=== PATIENT | female | born 1950 | race Caucasian/White ===

== ENCOUNTER → 2017-07-31 | Outpatient (CLI) | payer MEDICARE ==
--- NOTE | 2017-08-01 10:01 | MM ---
Reason for exam: screening (asymptomatic). Last mammogram was performed 1 year ago. History: Patient is postmenopausal and had first child at age 32. Benign excisional biopsy of the left breast, 1989. Took estrogen for 5 years 6 months beginning at age 50. Took progesterone for 5 years 6 months beginning at age 50. Physical Findings: A clinical breast exam by your physician is recommended on an annual basis and results should be correlated with mammographic findings. MG 3D Screening Mammo W/Cad Bilateral CC and MLO view(s) were taken. Prior study comparison: July 27, 2016, bilateral MG 3d screening mammo w/cad. July 15, 2015, bilateral MG diagnostic mammo w CAD [facility]USHI. There are scattered fibroglandular densities. No significant changes when compared with prior studies. ASSESSMENT: Negative, BI-RAD 1 RECOMMENDATION: Routine screening mammogram of both breasts in 1 year.
== END | disposition home or self-care (01) ==
LOC: RADMAMWWP 09:54
PROVIDERS: ATTEND Obstetrics & Gynecology
DX: Z12.31 Encounter for screening mammogram for malignant neoplasm of breast (principal)
CPT/HCPCS: 77063; G0202

== ENCOUNTER → 2018-08-14 | Outpatient (CLI) | payer MEDICARE ==
--- NOTE | 2018-08-14 14:13 | BD ---
EXAMINATION TYPE: Axial Bone Density DATE OF EXAM: 08/14/2018 COMPARISON: NONE CLINICAL HISTORY: Height: 5 FT 6 IN Weight: 210 FRAX RISK QUESTIONS: History of Fracture in Adulthood: YES Secondary Osteoporosis: RISK FACTORS HISTORY OF: Postmenopausal woman: AGE 49 MEDICATIONS: Additional Medications: IMMATREX, PROPONLOL Additional History: EXAM MEASUREMENTS: Bone mineral densitometry was performed using the [employer] System. Bone mineral density as measured about the Lumbar spine is: ----- L1-L4(G/cm2): 1.279 T Score Values are as follows: ----- L2: -0.1 ----- L3: 0.9 ----- L4: 2.4 ----- L1-L4: 0.8 Bone mineral density has: DECREASED -1.0 % since study of: 2016 Bone mineral density about the R hip (g/cm2): 0.845 Bone mineral density about the L hip (g/cm2): 0.901 T Score values are as follows: -----R Neck: -1.4 -----L Neck: -1.0 -----R Total: -0.3 -----L Total: -0.1 Bone mineral density has: INCREASED 1.4 % since study of: 2016 mineral density has: % since study of: IMPRESSION: Osteopenia (T Score between -2.5 and -1). There is slightly increased risk of fracture and the patient may be considered for treatment. Re-Screen 2-5 years. NOTE: T-SCORE=SD OF THE YOUNG ADULT MEAN.
--- NOTE | 2018-08-15 13:36 | MM ---
Reason for exam: screening (asymptomatic). Last mammogram was performed 1 year ago. History: Patient is postmenopausal and had first child at age 32. Benign excisional biopsy of the left breast, 1989. Took estrogen for 5 years 6 months beginning at age 50. Took progesterone for 5 years 6 months beginning at age 50. Physical Findings: A clinical breast exam by your physician is recommended on an annual basis and results should be correlated with mammographic findings. MG 3D Screening Mammo W/Cad Bilateral CC and MLO view(s) were taken. Prior study comparison: July 31, 2017, bilateral MG 3d screening mammo w/cad. July 27, 2016, bilateral MG 3d screening mammo w/cad. The breast tissue is heterogeneously dense. This may lower the sensitivity of mammography. Finding: There are typically benign vascular calcifications in both breasts. There is no discrete abnormality. ASSESSMENT: Benign, BI-RAD 2 RECOMMENDATION: Routine screening mammogram of both breasts in 1 year.
== END | disposition home or self-care (01) ==
LOC: RADMAMWWP 10:13
PROVIDERS: ATTEND Family Medicine
DX: Z12.31 Encounter for screening mammogram for malignant neoplasm of breast (principal); M85.80 Other specified disorders of bone density and structure, unspecified site; Z78.0 Asymptomatic menopausal state
CPT/HCPCS: 77063; 77067; 77080

== ENCOUNTER → 2018-09-11 | Outpatient (CLI) | payer MEDICARE ==
--- NOTE | 2018-09-11 14:27 | XR ---
EXAMINATION TYPE: XR chest 2V DATE OF EXAM: 09/11/2018 COMPARISON: Prior chest x-ray February 06, 2014 HISTORY: [id number] PRE OP TECHNIQUE: Frontal and lateral views of the chest are obtained. FINDINGS: There is no focal air space opacity, pleural effusion, or pneumothorax seen. The cardiac silhouette size is within normal limits. The osseous structures are intact. IMPRESSION: No acute cardiopulmonary process. No significant change from prior.
== END | disposition home or self-care (01) ==
LOC: RADXRYALE 14:04
PROVIDERS: ATTEND Physician Assistant Medical
DX: Z01.818 Encounter for other preprocedural examination (principal); Z01.812 Encounter for preprocedural laboratory examination; Z01.811 Encounter for preprocedural respiratory examination
CPT/HCPCS: 71046

== ENCOUNTER → 2018-09-25 | Outpatient (CLI) | payer MEDICARE ==
[2018-09-25 15:27] LABS: Basophils % (A) 1 %; Eosinophils # (A) 0.1 k/uL (0-0.7); Eosinophils % (A) 3 %; HGB 12.7 gm/dL (11.4-16.0); Lymphocytes # (A) 1.5 k/uL (1.0-4.8); Lymphocytes % (A) 28 %; MCH 28.2 pg (25.0-35.0); MCHC 31.7 g/dL (31.0-37.0); MCV 89.1 fL (80.0-100.0); Mean Platelet Volume 7.6; Monocytes # (A) 0.3 k/uL (0-1.0); Monocytes % (A) 5 %; Neutrophils # (A) 3.4 k/uL (1.3-7.7); Neutrophils % (A) 61 %; Platelet Count 185 k/uL (150-450); RBC 4.49 m/uL (3.80-5.40); RDW 13.1 % (11.5-15.5); WBC 5.6 k/uL (3.8-10.6)
[2018-09-25 15:31] LABS: Anion Gap 8 mmol/L; Blood Urea Nitrogen 19 mg/dL (7-17); Calcium 10.5 mg/dL (8.4-10.2); Carbon Dioxide 27 mmol/L (22-30); Chloride 103 mmol/L (98-107); Glucose 109 mg/dL (74-99); Potassium 4.9 mmol/L (3.5-5.1); Sodium 138 mmol/L (137-145)
[2018-09-25 15:45] LABS: INR 0.9 (<1.2); Partial Thromboplastin Time 22.6 sec (22.0-30.0); Prothrombin Time 9.4 sec (9.0-12.0)
== END | disposition home or self-care (01) ==
LOC: LABPAT 14:40
PROVIDERS: ATTEND Orthopaedic Surgery Orthopaedic Surgery of the Spine
DX: Z01.812 Encounter for preprocedural laboratory examination (principal); R06.02 Shortness of breath; M48.062 Spinal stenosis, lumbar region with neurogenic claudication
CPT/HCPCS: 36415; 80048; 85025; 85610; 85730; 86850; 86900; 86901

== ENCOUNTER 2018-10-02 06:15 | Inpatient (IN) | payer MEDICARE ==
[2018-09-24 16:02] VITALS: BMI 32.8
[~2018-10-02 06:15] MED LIST: BACITRACIN 50,000 UNIT, POLYMYXIN B 500,000 UNIT in SODIUM CHLORIDE 0.9% IRRIGATIO 1,00... IRRIGATION ONE; DEXAMETHASONE SOD PHOSPHATE 10 MG/ML 1 ML VIAL IV ONE; LIDOCAINE 1% 20 ML VIAL (10MG/ML) FOR IV START INTRADERMA PRN; SCOPOLAMINE 1.5MG/72HR PATCH TRANSDERM ONE; ceFAZolin IN SWFI 2 GM/20 ML SYRINGE IVP ONE
[2018-10-02] MEDS ORDERED: LACTATED RINGERS 1,000 ML IV ONE ×4 (06:52→11:31)
[2018-10-02] MEDS: ONDANSETRON 4 MG/2 ML VIAL IVP ONE ×2 (07:07→14:28)
[2018-10-02] MEDS ORDERED: GELATIN SPONGE,ABSORB (LARGE) 1 EACH SPONGE TOPICAL ONE (07:45)
[2018-10-02] MEDS ORDERED: THROMBIN (BOVINE) 5,000 UNIT VIAL MISCELLANE ONE (07:45)
[2018-10-02] MEDS ORDERED: LIDOCAINE 0.5%-EPI 1:200,000 50 ML VIAL SQ ONE (07:45)
[2018-10-02] MEDS ORDERED: PROPOFOL 10 MG/ML 20 ML VIAL IV ONE (08:08)
[2018-10-02] MEDS ORDERED: HEPARIN SODIUM,PORCINE 10,000 UNIT/ML 1 ML VIAL ONE (08:08)
[2018-10-02] MEDS ORDERED: NEOSTIGMINE 1 MG/ML 10 ML VIAL ONE (08:08)
[2018-10-02] MEDS ORDERED: HYDROmorphone (PF) 1 MG/ML ONE (08:08)
[2018-10-02] MEDS ORDERED: LIDOCAINE 1% INJ 10MG/ML (20 ML MDV) ONE (08:08)
[2018-10-02] MEDS ORDERED: fentaNYL (PF) 50 MCG/ML 2 ML AMP ONE (08:08)
[2018-10-02] MEDS ORDERED: SUCCINYLCHOLINE CHLORIDE 100 MG/5 ML SYR IV ONE (08:08)
[2018-10-02] MEDS ORDERED: GLYCOPYRROLATE 0.2 MG/ML 2 ML VIAL ONE (08:08)
[2018-10-02] MEDS ORDERED: MIDAZOLAM 2 MG/2 ML VIAL ONE (08:08)
[2018-10-02] MEDS ORDERED: PHENYLEPHRINE-0.9% NACL SYG 1 MG/10 ML SYRINGE ONE (08:08)
[2018-10-02] MEDS ORDERED: ROCURONIUM BROMIDE 10 MG/ML 10 ML VIAL IV ONE (08:08)
[2018-10-02] MEDS ORDERED: SODIUM CHLORIDE 0.9% IRRIG 1,000 ML BTL IRRIGATION ONE (08:08)
--- NOTE | 2018-10-02 12:24 | XR ---
EXAMINATION TYPE: XR lumbar spine 2 or 3V DATE OF EXAM: 10/02/2018 CLINICAL HISTORY: minimal invasive lumbar fusion TECHNIQUE: 2 paper images submitted. COMPARISON: None. FINDINGS: Postoperative changes of lumbar fusion. Alignment appears to be near-anatomic. IMPRESSION: lumbar fusion
[2018-10-02] MEDS ORDERED: HYDROmorphone 1 MG/ML 1 ML SYRINGE IVP PRN (12:42)
[2018-10-02] MEDS ORDERED: HYDROcodone/APAP 5-325MG 1 EACH TAB PO PRN (12:42)
[2018-10-02] MEDS ORDERED: BENZOCAINE/MENTHOL LOZENG 1 EACH LOZENGE MUCOUS MEM PRN (12:42)
[2018-10-02] MEDS ORDERED: MAGNESIUM HYDROXIDE 2,400 MG/10 ML CUP PO PRN (12:42)
[2018-10-02] MEDS ORDERED: GABAPENTIN 300 MG CAP PO PRN (12:46)
[2018-10-02] MEDS ORDERED: ASPIRIN-ACET-CAFF 250-250-65MG 1 EACH TAB PO PRN (12:46)
--- NOTE | 2018-10-02 12:53 | P.OP ---
Date of Procedure: 10/02/18 Preoperative Diagnosis: Spondylolisthesis L3 4 L4 5, severe spinal stenosis L4 5, spinal stenosis L3 4, degenerative disc disease, low back pain, lower extremity radiculopathy with weakness, worse on the right and left Postoperative Diagnosis: Same Anesthesia: GETA Pathology: none sent Condition: stable Disposition: PACU Operative Findings: DESCRIPTION OF PROCEDURE(S): BRIEF OPERATIVE NOTE Preoperative Diagnosis: Spondylolisthesis L3 4 L4 5, severe spinal stenosis L4 5 , spinal stenosis L3 4, degenerative disc disease, low back pain, lower extremity radiculopathy with weakness, worse on the right and left Postoperative Diagnosis: Same Procedure: Laminectomy and decompression L3 4 L4 5 Minimally invasive Posterior lateral decompression and facet fusion L3 4 L4 5 Minimally invasive Transforaminal lumbar interbody fusion for a 360 fusion L3 4 L4 5 Discectomy for decompression L3 4 L4 5 Placement of interbody graft L3 4 L4 5 Local autogenous bone grafting Harvesting of bone marrow aspirate via the pedicles and vertebral body of L3 Use of Cell Saver Use of bone graft extenders Surgeon: Dr. Cantu Dramatic Art Teacher: Omid Christensen is present throughout the entire the case persistence during positioning, dissection, exposure, visualization, and all crucial elements of the case as well as closure. Anesthesia: General anesthesia Estimated blood loss: Approximately 725 mL with some given back through Cell Saver Complications: None apparent Components implanted: K2M minimally invasive [place] pedicle screw system with 6 screws measuring 6.5 mm in diameter to rods and 1 [place] interbody cage in 1 [place] interbody peek cage with 1 large osteo sponge and 50 mL of DBX own fibers to supplement the local autogenous and bone marrow aspirate graft Disposition: To recovery room in good stable condition. OPERATIVE INDICATIONS The patient has had long-standing issues in their lower back and lower extremities. She was having significant debility and pain in her back and her lower extremities with cautery well with findings of severe spinal stenosis L4 5 and 34 with spondylolisthesis L3 4 and L4 5 and disc degeneration. She is having worsening of her symptoms despite aggressive conservative care. The patient has been through conservative treatment. We discussed various treatment options including surgery, and the patient wishes to proceed with surgery We discussed the risk, patient's alternatives and benefits of surgery including but not limited to, risk of bleeding risk of infection, risk of need for further surgery, risk of decreased, loss of motion, muscle function, malunion nonunion, hardware failure, nerve damage, paralysis, heart attack, blindness and . OPERATIVE SUMMARY After discussing all the risks, patient alternatives and benefits at length, the patient elected to proceed with surgical intervention, signed informed consent, and presented for their procedure. The patient was seen and examined in the preoperative holding area and the surgical site was marked. The patient was given antibiotics and brought to the operating room. The patient was sedated and intubated by anesthesia in standard fashion. The patient was positioned on to the operating room table in a prone position on the appropriate frame which was well-padded and well molded. We were careful to pad any bony prominences and pressure points. We were careful to maintain the patient's cervical spine and good neutral alignment and position throughout. The patient was prepped and draped in a normal standard fashion. An appropriate timeout and keystone protocol performed. We were able to proceed with the surgery. The local wound area was infiltrated with local anesthetic. I was able utilize C-arm guidance to establish appropriate position over the pedicles bilaterally at the appropriate levels at L3 4 and 45 bilaterally. With the appropriate levels confirmed was able to make small stab incisions over the appropriate pedicle sites bilaterally. Utilizing C-arm in his house able to establish a Jamshidi needle over the lateral aspect of the pedicle and advanced the trocar into the pedicle being careful not to breech superiorly inferiorly medially or laterally. Position was confirmed regularly with AP and lateral images on C-arm. This was confirmed on one C-arm machine. I was able to establish the trocar into the pedicle appropriately into the posterior aspect of the vertebral body bilaterally at the appropriate levels. This was done at each of the pedicle positions and each of the vertebrae. I was able place the guidewire into the trocar and into the vertebral body appropriately under C-arm guidance. Dissection was taken down over the wire to the appropriate starting position for the screw placed. The appropriate length screw was chosen, threaded over the guidewire and screwed appropriately into the pedicle and vertebral body under C-arm guidance in excellent alignment and position with good bony purchase. This is done at each of the screw sites at the appropriate levels. With the screws intact I extended the incision to connect the screw hole sites on the most symptomatic side on the right. I dissected down to establish access over the pars and lamina to the base of the spinous process. I was able to expose the facet joint. The capsule the facet was taken down and showed some facet arthrosis at the joint. There is severe foraminal stenosis and central stenosis which was remedied with decompression. No was made of obvious step-off and disc protrusion with the spondylolisthesis at L3 4 L4 5. I was able to use a combination of curettes and Kerrison rongeurs and a high-speed drill to take down the facet joint and do a facetectomy. Partial laminectomy was also performed. I was able get excellent foraminal decompression and central decompression with undermining across midline to perform a laminectomy centrally and contralaterally. As able get good central decompression. The ligamentum flavum was taken down to further decompress centrally and at bilateral neural foramen. I was able to expose the disc space and visualize the traversing nerve root. Note was made of some disc protrusion at the level causing further compression of the nerve root. I was able to establish a annulotomy at the appropriate level protecting soft tissue and neural structures. Note was made of some disc desiccation at the disc. I performed a complete discectomy with accommodation of curettes and rasps and scrapers. I was able get good endplate preparation at the disc space. I sized for the appropriate size interbody spacer protecting the soft tissue and neural structures. The wound was copiously irrigated and suctioned dry. There is no evidence of any dural tear or leak. I was able to pack the disc space with local autogenous bone graft as well as a small amount of bone graft which was also placed into the interbody cage itself. Protecting the soft tissue structures and neural structures I was able place the interbody cage in good alignment and good position with good fit and fill at the interbody space. His issues was confirmed with C-arm guidance. Good hemostasis maintained. There is no evidence of any dural tear or leak. The wound was irrigated and suctioned dry. With the hardware intact, intraoperative C-arm imaging was again taken which showed good alignment and position of the hardware at the appropriate levels at L3 4 and L4 5. We were then able to measure, contour and place the rods and appropriate hardware bilaterally. I was able to place capcrews, tighten them down, and torque them with the torque screwdriver appropriately. I was able to get excellent reduction of the spondylolisthesis with the placement of the rods and excellent maintained decompression. With this intact I was able to place the local autogenous bone graft with additional bone graft enhancer as necessary into the posterior lateral gutters over the decorticated transverse processes. The remainder of the bone graft was placed over the facet joint on the contralateral side after taking down the facet joint capsule. With the bone graft intact, a stable construct, and good decompression at the appropriate levels, we were able to proceed with closure. Good hemostasis was maintained. There is no evidence of dural tear or leak. The fascia was closed for a watertight closure. he subcuticular tissue was closed with absorbable suture. The wound was cleaned and dried and dressed with the appropriate dressing. The drapes were broken down. The patient was gently rolled back onto their hospital bed being careful to maintain their cervical spine and good neutral alignment and position. They were woken up by anesthesia, extubated, and brought to the recovery room in good stable condition. The patient will be admitted to the hospital for appropriate postoperative care , medical management and monitoring. We will continue to follow them closely about the postoperative course.
[2018-10-02] MEDS: HYDROmorphone 0.5 MG/0.5 ML SYRINGE IVP PRN ×4 (12:57→13:30)
[2018-10-02] MEDS: HYDROmorphone 1 MG/ML 1 ML SYRINGE IVP ONE ×2 (13:40→13:48)
[2018-10-02] MEDS: LACTATED RINGERS 1,000 ML IV SCH (14:27)
[2018-10-02] MEDS: SODIUM CHLORIDE 0.9% 1,000 ML IV SCH ×2 (14:28→20:25)
[2018-10-02] MEDS: ceFAZolin IN SWFI 2 GM/20 ML SYRINGE IVP SCH ×2 (16:23→23:21)
[2018-10-02] MEDS: HYDROmorphone 1 MG/ML 1 ML SYRINGE IVP PRN ×2 (17:05→23:19)
[2018-10-02] MEDS: ONDANSETRON 4 MG/2 ML VIAL IVP PRN (17:28)
[2018-10-02] MEDS: HYDROcodone/APAP 5-325MG 1 EACH TAB PO PRN (20:24)
[2018-10-03] MEDS: HYDROcodone/APAP 5-325MG 1 EACH TAB PO PRN ×5 (05:31→22:37)
--- NOTE | 2018-10-03 06:46 | FL ---
EXAMINATION TYPE: FL guidance operating room DATE OF EXAM: 10/02/2018 CLINICAL HISTORY: Low back pain. TECHNIQUE: Fluoroscopy. COMPARISON: None. FINDINGS: Fluoroscopic guidance was provided during minimally invasive lumbar fusion surgical proced ure performed by Dr. Cantu. A total of 1 minute 54 seconds of fluoroscopic time was utilized during the procedure and 2 spot fluoroscopic intraoperative images are acquired. Images acquired show metallic disc spacers L3-L4 and L4-L5 level. There are posterior interpedicular screws bilaterally L3-L5 levels with left-sided charito noted. IMPRESSION: As Above.
[2018-10-03 07:12] LABS: Basophils % (A) 0 %; Eosinophils % (A) 0 %; HCT 32.5 % (34.0-46.0); HGB 10.8 gm/dL (11.4-16.0); Lymphocytes # (A) 0.9 k/uL (1.0-4.8); Lymphocytes % (A) 9 %; MCH 29.6 pg (25.0-35.0); MCHC 33.3 g/dL (31.0-37.0); MCV 88.8 fL (80.0-100.0); Mean Platelet Volume 7.6; Monocytes # (A) 0.5 k/uL (0-1.0); Monocytes % (A) 5 %; Neutrophils # (A) 8.9 k/uL (1.3-7.7); Neutrophils % (A) 85 %; Platelet Count 165 k/uL (150-450); RBC 3.66 m/uL (3.80-5.40); RDW 12.9 % (11.5-15.5); WBC 10.4 k/uL (3.8-10.6)
[2018-10-03 07:24] LABS: Anion Gap 7 mmol/L; Blood Urea Nitrogen 17 mg/dL (7-17); Calcium 8.9 mg/dL (8.4-10.2); Carbon Dioxide 25 mmol/L (22-30); Chloride 101 mmol/L (98-107); Glucose 160 mg/dL (74-99); Potassium 4.3 mmol/L (3.5-5.1); Sodium 133 mmol/L (137-145)
--- NOTE | 2018-10-03 08:22 | P.PN ---
Progress Note - Text Progress Note Date: 10/03/18 Postoperative day #1 Patient is seen and examined today at bedside. The patient has some pain around the surgical site as expected. Pain is being controlled with medication. She is already up to a chair and tolerating some small amount of her oral diet Physical Exam Afebrile with stable vital signs Abdomen is soft nontender. Chest has good excursion deep and space expiration The incision site is clean dry and intact. No erythema there is no purulence. The nurse had to changed and reinforced dressing last night but it seems to be settling down this morning Extremities have not had neurologic change from prior to surgery. She has sustained dorsal flexion plantar flexion and EHL Calves and thighs were soft nontender without evidence of DVT. Assessment/Plan Postoperative day #1 status post minimally invasive decompression and fusion L3 4 L4 5 for her spondylolisthesis with stenosis and back pain and lower extremity radiculopathy. Patient is progressing as expected from the surgery. She feels that she is making improvement already and has already up with a chair. We will continue to increase the patient's mobilization with therapy. We will continue pain control with oral or IV medications. We'll continue to follow patient closely.
[2018-10-03] MEDS ORDERED: NON-FORMULARY DRUG (Vitamin B Complex [Vitamin B Complex] 1 EACH) PO SCH (09:00)
[2018-10-03] MEDS ORDERED: [UNRECOGNIZED DRUG - OTHER] PO SCH (09:00)
[2018-10-03] MEDS ORDERED: OMEGA 3 FATTY ACIDS PO SCH (09:00)
[2018-10-03] MEDS: LORATADINE 10 MG TAB PO SCH (09:03)
[2018-10-03] MEDS: MAGNESIUM OXIDE 400 MG TAB PO SCH (09:03)
[2018-10-03] MEDS: ASCORBIC ACID 500 MG TAB PO SCH (09:03)
[2018-10-03] MEDS: PROPRANOLOL LA 60 MG CAP.SA.24H PO SCH (09:03)
[2018-10-03] MEDS: MULTIVITAMINS, THERA 1 EACH TAB PO SCH (09:03)
[2018-10-03] MEDS: SENNOSIDES-DOCUSATE SODIUM 1 EACH TAB PO SCH (09:04)
[2018-10-03] MEDS: CALCIUM CARBONATE 500 MG CHEWABLE PO SCH (09:04)
--- NOTE | 2018-10-03 10:18 | P.CONS ---
History of Present Illness - Reason for Consult hyponatremia - History of Present Illness Patient is pleasant 68-year-old female with chronic low back pain admitted for laminectomy and lumbar decompression surgery of L3 4 and L4-5. Patient's x-ray underwent surgery did not pass gas yet does have bowel sounds. Patient pain is fairly well controlled. Patient doesn't have any significant major medical problems except for migraine for which she uses propranolol. Patient does have neuropathic pain for which she uses gabapentin. Patient denied any chest pain nausea vomiting abdominal pain. Review of Systems REVIEW OF SYSTEMS: CONSTITUTIONAL: No fever, no malaise, no fatigue. HEENT: No recent visual problems or hearing problems. Denied any sore throat. CARDIOVASCULAR: No chest pain, orthopnea, PND, no palpitations, no syncope. PULMONARY: No shortness of breath, no cough, no hemoptysis. GASTROINTESTINAL: No diarrhea, no nausea, no vomiting, no abdominal pain. Normoactive bowel sounds. NEUROLOGICAL: No headaches, no weakness, no numbness. HEMATOLOGICAL: Denies any bleeding or petechiae. GENITOURINARY: Denies any burning micturition, frequency, or urgency. MUSCULOSKELETAL/RHEUMATOLOGICAL: Denies any joint pain, swelling, or any muscle pain. ENDOCRINE: Denies any polyuria or polydipsia. The rest of the 14-point review of systems is negative. Past Medical History Past Medical History: Osteoarthritis (OA) Additional Past Medical History / Comment(s): abdominal pain and gas,lower back pain radiating pain rt leg, left leg numbness,migraines History of Any Multi-Drug Resistant Organisms: None Reported Past Surgical History: Appendectomy Additional Past Surgical History / Comment(s): rhinoplasty,left breast lump removed,bunnionectomies payam feet Past Anesthesia/Blood Transfusion Reactions: No Reported Reaction Additional Past Anesthesia/Blood Transfusion Reaction / Comm: no hx blood transfusion Past Psychological History: No Psychological Hx Reported Smoking Status: Never smoker Past Alcohol Use History: Occasional Past Drug Use History: None Reported - Past Family History Mother Family Medical History: Cancer Father Family Medical History: Cancer Medications and Allergies Home Medications Medication Instructions Recorded Confirmed Type Ascorbic Acid [Vitamin C] 500 mg PO DAILY 09/24/18 10/02/18 History Aspirin/Acetaminophen/Caffeine 1 tab PO DAILY PRN 09/24/18 10/02/18 History [Excedrin Migraine Caplet] Calcium Carbonate [Calcium] 1,200 mg PO DAILY 09/24/18 10/02/18 History Cetirizine HCl [Zyrtec] 10 mg PO DAILY 09/24/18 10/02/18 History Cinnamon Bark [Cinnamon] 500 mg PO DAILY 09/24/18 10/02/18 History Gabapentin [Neurontin] 300 mg PO TID PRN 09/24/18 10/02/18 History Ibuprofen 800 mg PO Q8H PRN 09/24/18 10/02/18 History Magnesium 250 mg PO DAILY 09/24/18 10/02/18 History Multivitamins, Thera [Multivitamin 1 tab PO DAILY 09/24/18 10/02/18 History (formulary)] Naproxen Sodium 220 mg PO BID PRN 09/24/18 10/02/18 History [place]-3 Fatty Acids/Fish Oil [Fish 1 cap PO DAILY 09/24/18 10/02/18 History Oil 1,000 mg Softgel] Potassium Supplement 1 tab PO DAILY 09/24/18 10/02/18 History Propranolol HCl [Propranolol HCl 60 mg PO QAM 09/24/18 10/02/18 History ER] Red Yeast Rice 1,200 mg PO DAILY 09/24/18 10/02/18 History Vitamin B Complex 1 cap PO DAILY 09/24/18 10/02/18 History Allergies Allergy/AdvReac Type Severity Reaction Status Date / Time No Known Allergies Allergy Verified 10/02/18 13:35 Physical Exam Vitals: Vital Signs Temp Pulse Resp BP Pulse Ox 10/03/18 08:59 104/65 10/03/18 07:00 98.9 F 86 12 90/49 92 L 10/02/18 23:00 98.0 F 83 16 122/77 94 L 10/02/18 19:40 98.2 F 80 16 119/78 93 L 10/02/18 16:00 70 15 137/80 91 L 10/02/18 15:45 62 15 124/77 91 L 10/02/18 15:30 60 15 131/78 91 L 10/02/18 15:15 78 15 132/83 94 L 10/02/18 15:00 70 15 149/84 90 L 10/02/18 14:45 64 15 121/80 91 L 10/02/18 14:30 74 15 133/83 91 L 10/02/18 14:15 72 15 129/85 90 L 10/02/18 14:00 98 F 74 15 124/77 92 L 10/02/18 13:45 74 12 129/58 98 10/02/18 13:30 70 12 135/75 98 10/02/18 13:15 67 12 133/78 100 10/02/18 13:00 71 12 131/78 98 10/02/18 12:49 96.8 F L 84 12 122/78 8 L Intake and Output 10/02/18 10/03/18 10/03/18 22:59 06:59 14:59 Output Total 625 Balance -625 Output: Urine 625 Other: Voiding Method Indwelling Catheter Weight 95 kg PHYSICAL EXAMINATION: GENERAL: The patient is alert and oriented x3, not in any acute distress. Well developed, well nourished. HEENT: Pupils are round and equally reacting to light. EOMI. No scleral icterus. No conjunctival pallor. Normocephalic, atraumatic. No pharyngeal erythema. No thyromegaly. CARDIOVASCULAR: S1 and S2 present. No murmurs, rubs, or gallops. PULMONARY: Chest is clear to auscultation, no wheezing or crackles. ABDOMEN: Soft, nontender, nondistended, normoactive bowel sounds. No palpable organomegaly. MUSCULOSKELETAL: Deferred to orthopedic surgery EXTREMITIES: No cyanosis, clubbing, or pedal edema. NEUROLOGICAL: Gross neurological examination did not reveal any focal deficits. SKIN: No rashes. Results CBC & Chem 7: 10/03/18 06:26 10/03/18 06:26 Labs: Abnormal Lab Results - Last 24 Hours (Table) 10/03/18 10/03/18 Range/Units 06:26 06:26 RBC 3.66 L (3.80-5.40) m/uL Hgb 10.8 L (11.4-16.0) gm/dL Hct 32.5 L (34.0-46.0) % Neutrophils # 8.9 H (1.3-7.7) k/uL Lymphocytes # 0.9 L (1.0-4.8) k/uL Sodium 133 L (137-145) mmol/L Glucose 160 H (74-99) mg/dL Assessment and Plan Plan: -Mild had hyponatremia: Hypervolemic hyponatremia expected to improve with IV fluids patient is an 75 mL of normal saline which will be continued -Migraine for which patient is on propranolol which will be resumed. No active headache at this time -Laminectomy and decompression surgery: DVT prophylaxis pain management as per primary service -Neuropathic pain: Resumed on gabapentin secondary to low back pain
[2018-10-03] MEDS: LACTATED RINGERS 1,000 ML IV SCH (11:03)
[2018-10-03] MEDS ORDERED: HYDROmorphone 4 MG TABLET PO PRN (12:52)
[2018-10-03] MEDS ORDERED: HYDROmorphone 2 MG TAB PO PRN (12:52)
[2018-10-03] MEDS: ONDANSETRON 4 MG/2 ML VIAL IVP PRN (19:42)
[2018-10-04] MEDS: SODIUM CHLORIDE 0.9% 1,000 ML IV SCH ×2 (00:54→05:33)
[2018-10-04] MEDS: HYDROcodone/APAP 5-325MG 1 EACH TAB PO PRN ×3 (04:26→13:25)
[2018-10-04] MEDS: LACTATED RINGERS 1,000 ML IV SCH (06:02)
[2018-10-04] MEDS: LORATADINE 10 MG TAB PO SCH (07:35)
[2018-10-04] MEDS: SENNOSIDES-DOCUSATE SODIUM 1 EACH TAB PO SCH (07:35)
[2018-10-04] MEDS: PROPRANOLOL LA 60 MG CAP.SA.24H PO SCH (07:36)
[2018-10-04 07:53] VITALS: BP 123/73; PULSE 84; RESP 18; TEMP 99.4
--- NOTE | 2018-10-04 08:01 | P.DS ---
Providers Date of admission: 10/02/18 06:15 Attending physician: Rinku Cantu Consults: 10/02/18 12:42 Consult Physician Routine Consulting Provider: Alana Blake Consult Reason/Comments: Medical management Do you want consulting provider notified?: Yes Primary care physician: [facility] Hospital Course: The patient presented on the day of admission as per her operative note. She was admitted in regards to her severe spinal stenosis with spondylolisthesis and underwent her decompression and fusion as per her operative note. She feels her legs are doing well she has some soreness at her outer thigh but is and manageable for her. Her back pain is controlled with the oral medication. She is not having any nausea and vomiting. She is tolerating her oral diet she has not yet had a bowel movement. Physical Exam The incision site is clean dry and intact. There is no erythema no drainage. There is no purulence no evidence of infection. There is no active drainage appears to be healing appropriately Abdomen soft and nontender. Chest has good excursion with deep inspiration and expiration. The patient has active and passive range of motion intact at the upper and lower extremities. There is no acute change in neurologic status. She has sustained this fracture flexion and EHL intact Hospital Course The patient has been making good progress postoperatively. They have completed the prophylactic antibiotics without any signs or symptoms of infection. The patient has been able to advance their diet, and is tolerating diet adequately. The pain was initially controlled with IV medications and is now controlled appropriately with oral medications. The patient has been able to increase their mobilization. The patient has progressed appropriately. I think they are in good stable condition for discharge today. They will be sent home with appropriate prescriptions. I answered their questions to the best of my ability in a language that they can understand and they are agreeable with the plan. They will follow up as directed in approximately 2 weeks or sooner if she is having any problems. Patient Condition at Discharge: Good Plan - Discharge Summary Discharge Rx Participant: Yes New Discharge Prescriptions: New HYDROcodone/APAP 5-325MG [[place] 5-325] 1 - 2 tab PO Q6HR PRN #56 tab PRN Reason: Pain No Action Ibuprofen 800 mg PO Q8H PRN PRN Reason: Pain Gabapentin [Neurontin] 300 mg PO TID PRN PRN Reason: Pain Aspirin/Acetaminophen/Caffeine [Excedrin Migraine Caplet] 1 tab PO DAILY PRN PRN Reason: migraines Cetirizine HCl [Zyrtec] 10 mg PO DAILY Vitamin B Complex 1 cap PO DAILY Cinnamon Bark [Cinnamon] 500 mg PO DAILY Calcium Carbonate [Calcium] 1,200 mg PO DAILY Multivitamins, Thera [Multivitamin (formulary)] 1 tab PO DAILY Ascorbic Acid [Vitamin C] 500 mg PO DAILY Red Yeast Rice 1,200 mg PO DAILY [place]-3 Fatty Acids/Fish Oil [Fish Oil 1,000 mg Softgel] 1 cap PO DAILY Magnesium 250 mg PO DAILY Propranolol HCl [Propranolol HCl ER] 60 mg PO QAM Potassium Supplement 1 tab PO DAILY Naproxen Sodium 220 mg PO BID PRN PRN Reason: Pain Discharge Medication List Ascorbic Acid [Vitamin C] 500 mg PO DAILY 09/24/18 [History] Aspirin/Acetaminophen/Caffeine [Excedrin Migraine Caplet] 1 tab PO DAILY PRN [History] Calcium Carbonate [Calcium] 1,200 mg PO DAILY 09/24/18 [History] Cetirizine HCl [Zyrtec] 10 mg PO DAILY 09/24/18 [History] Cinnamon Bark [Cinnamon] 500 mg PO DAILY 09/24/18 [History] Gabapentin [Neurontin] 300 mg PO TID PRN 09/24/18 [History] Ibuprofen 800 mg PO Q8H PRN 09/24/18 [History] Magnesium 250 mg PO DAILY 09/24/18 [History] Multivitamins, Thera [Multivitamin (formulary)] 1 tab PO DAILY 09/24/18 [History ] Naproxen Sodium 220 mg PO BID PRN 09/24/18 [History] [place]-3 Fatty Acids/Fish Oil [Fish Oil 1,000 mg Softgel] 1 cap PO DAILY [History] Potassium Supplement 1 tab PO DAILY 09/24/18 [History] Propranolol HCl [Propranolol HCl ER] 60 mg PO QAM 09/24/18 [History] Red Yeast Rice 1,200 mg PO DAILY 09/24/18 [History] Vitamin B Complex 1 cap PO DAILY 09/24/18 [History] HYDROcodone/APAP 5-325MG [[place] 5-325] 1 - 2 tab PO Q6HR PRN #56 tab 10/04/18 [ Rx] Follow up Appointment(s)/Referral(s): Rinku Cantu DO [Doctor of Osteopathic Medicine] - 2 Weeks Discharge Disposition: HOME SELF-CARE
--- NOTE | 2018-10-04 11:31 | P.PN ---
Subjective 68-year-old postoperative day 2 clinically doing well did pass gas did not move her bowel yet patient is being discharged today. Patient will use over-the- counter medications for constipation. Patient is medically stable to be discharged no changes in medications are being made discharge medications are being reconciled Constitutional: Denied any fatigue denied any fever. Cardio vascular: denied any chest pain, palpitations Gastrointestinal denied any nausea vomiting Pulmonary: Denied any shortness of breath cough Neurologic denied any new focal deficits All inpatient medications were reviewed and appropriate changes in these medications as dictated in the interval history and assessment and plan. Objective - Vital Signs Vital signs: Vital Signs Temp 99.4 F 10/04/18 07:00 Pulse 84 10/04/18 07:00 Resp 18 10/04/18 08:00 BP 123/73 10/04/18 07:00 Pulse Ox 95 10/04/18 07:00 Intake & Output 10/03/18 10/04/18 10/04/18 18:59 06:59 18:59 Intake Total 400 Output Total 500 Balance -100 Intake: Oral 400 Output: Urine 500 Other: Voiding Method Indwelling Catheter Toilet Toilet # Voids 1 - Exam PHYSICAL EXAMINATION: GENERAL: The patient is alert and oriented x3, not in any acute distress. Well developed, well nourished. HEENT: Pupils are round and equally reacting to light. EOMI. No scleral icterus. No conjunctival pallor. Normocephalic, atraumatic. No pharyngeal erythema. No thyromegaly. CARDIOVASCULAR: S1 and S2 present. No murmurs, rubs, or gallops. PULMONARY: Chest is clear to auscultation, no wheezing or crackles. ABDOMEN: Soft, nontender, nondistended, normoactive bowel sounds. No palpable organomegaly. MUSCULOSKELETAL: Deferred to orthopedic surgery EXTREMITIES: No cyanosis, clubbing, or pedal edema. NEUROLOGICAL: Gross neurological examination did not reveal any focal deficits. SKIN: No rashes. - Labs CBC & Chem 7: 10/03/18 06:26 10/03/18 06:26 Assessment and Plan Plan: -Mild had hyponatremia: Hypervolemic hyponatremia improved by now and patient was receiving IV fluids since yesterday. -Migraine for which patient is on propranolol which will be resumed. No active headache at this time -Laminectomy and decompression surgery: DVT prophylaxis pain management as per primary service -Neuropathic pain: Resumed on gabapentin secondary to low back pain
[2018-10-04] MEDS: MULTIVITAMINS, THERA 1 EACH TAB PO SCH (11:42)
[2018-10-04] MEDS: CALCIUM CARBONATE 500 MG CHEWABLE PO SCH (11:42)
[2018-10-04] MEDS: MAGNESIUM OXIDE 400 MG TAB PO SCH (11:42)
[2018-10-04] MEDS: ASCORBIC ACID 500 MG TAB PO SCH (11:42)
== END 2018-10-04 13:37 | disposition home or self-care (01) | DRG 454 ==
LOC: 2ORMAIN 06:15 → 4SSUR 13:25
PROVIDERS: ADMIT Orthopaedic Surgery Orthopaedic Surgery of the Spine; ATTEND Orthopaedic Surgery Orthopaedic Surgery of the Spine
PROC: 0SG1071 Fusion of 2 or more Lumbar Vertebral Joints with Autologous Tissue Substitute, Posterior Approach, Posterior Column, Open Approach (ICD-10-PCS; 2018-10-02)
PROC: 0ST20ZZ Resection of Lumbar Vertebral Disc, Open Approach (ICD-10-PCS; 2018-10-02)
PROC: 07DS3ZZ Extraction of Vertebral Bone Marrow, Percutaneous Approach (ICD-10-PCS; 2018-10-02)
PROC: 4A11X4G Monitoring of Peripheral Nervous Electrical Activity, Intraoperative, External Approach (ICD-10-PCS; 2018-10-02)
PROC: 30233N0 Transfusion of Autologous Red Blood Cells into Peripheral Vein, Percutaneous Approach (ICD-10-PCS; 2018-10-02)
PROC: 0SG10AJ Fusion of 2 or more Lumbar Vertebral Joints with Interbody Fusion Device, Posterior Approach, Anterior Column, Open Approach (ICD-10-PCS; principal; 2018-10-02 08:00)
DX: M43.16 Spondylolisthesis, lumbar region (principal); E87.1 Hypo-osmolality and hyponatremia; G43.909 Migraine, unspecified, not intractable, without status migrainosus; G89.29 Other chronic pain; K59.00 Constipation, unspecified; M48.061 Spinal stenosis, lumbar region without neurogenic claudication; M19.90 Unspecified osteoarthritis, unspecified site; M51.17 Intervertebral disc disorders with radiculopathy, lumbosacral region; M41.9 Scoliosis, unspecified; M47.26 Other spondylosis with radiculopathy, lumbar region; I10 Essential (primary) hypertension; E78.2 Mixed hyperlipidemia; E66.9 Obesity, unspecified; Z68.32 Body mass index [BMI] 32.0-32.9, adult; Z79.82 Long term (current) use of aspirin; Z79.899 Other long term (current) drug therapy; Z88.8 Allergy status to other drugs, medicaments and biological substances; Z90.49 Acquired absence of other specified parts of digestive tract; Z80.9 Family history of malignant neoplasm, unspecified; Z83.3 Family history of diabetes mellitus; Z82.49 Family history of ischemic heart disease and other diseases of the circulatory system
CPT/HCPCS: 72100; 80048; 85025; 86850; 86891; 86900; 86901

== ENCOUNTER → 2019-08-20 | Outpatient (CLI) | payer MEDICARE ==
--- NOTE | 2019-08-22 13:33 | MM ---
Reason for exam: screening (asymptomatic). Last mammogram was performed 1 year ago. History: Patient is postmenopausal and had first child at age 32. Benign excisional biopsy of the left breast, 1989. Took estrogen for 5 years 6 months beginning at age 50. Took progesterone for 5 years 6 months beginning at age 50. Physical Findings: A clinical breast exam by your physician is recommended on an annual basis and results should be correlated with mammographic findings. MG 3D Screening Mammo W/Cad Bilateral CC and MLO view(s) were taken. XCCL view(s) were taken of the left breast. Prior study comparison: August 14, 2018, bilateral MG 3d screening mammo w/cad. July 31, 2017, bilateral MG 3d screening mammo w/cad. There are scattered fibroglandular densities. No significant changes when compared with prior studies. ASSESSMENT: Benign, BI-RAD 2 RECOMMENDATION: Routine screening mammogram of both breasts in 1 year.
== END | disposition home or self-care (01) ==
LOC: RADMAMWWP 13:15
PROVIDERS: ATTEND Family Medicine
DX: Z12.31 Encounter for screening mammogram for malignant neoplasm of breast (principal)
CPT/HCPCS: 77063; 77067

== ENCOUNTER → 2020-10-25 | Outpatient (CLI) | payer MEDICARE ==
--- NOTE | 2020-10-25 16:38 | BD ---
EXAMINATION TYPE: Axial Bone Density DATE OF EXAM: 10/25/2020 COMPARISON: 08/14/2018 CLINICAL HISTORY: 70-year-old female postmenopausal screening Height: 5 FT 7 IN Weight: 216 FRAX RISK QUESTIONS: Alcohol (3 or more units per day): NO Family History (Parent hip fracture): NO Glucocorticoids (More than 3mos): NO (Ex: prednisone, prednisolone, methylprednisolone, dexamethasone, and hydrocortisone). History of Fracture in Adulthood: YES Secondary Osteoporosis: 1. Type 1 Diabetes: NO 2. Hyperthyroidism: NO 3. Menopause before 45: NO 4. Malnutrition: NO 5. Chronic liver disease: NO Rheumatoid Arthritis: NO Current Tobacco Use: NO RISK FACTORS HISTORY OF: Surgery to Spine/Hip(right/left)/Wrist (right/left): LUMBAR SURG When: 2018 Family History of Osteoporosis: UNSURE Active: YES Diet low in dairy products/other sources of calcium: NO Postmenopausal woman: AGE 49 Take estrogen and/or progesterone medications: TOOK HRT FROM AGE [age] Lost more than 2 inches in height since high school: NO MEDICATIONS: Additional Medications: JUST STARTED CHOLESTEROL MEDS, IMMATREX, PROPRANOLOL Additional History: EXAM MEASUREMENTS: Bone mineral densitometry was performed using the [employer] System. Bone mineral density about the R hip (g/cm2): 0.822 Bone mineral density about the L hip (g/cm2): 0.892 T Score values are as follows: -----R Neck: -1.6 -----L Neck: -1.1 -----R Total: -0.5 -----L Total: -0.1 Bone mineral density has: DECREASED -1.4 % since study of: 2017 Bone mineral density about the L Wrist (g/cm2): 0.616 T Score values are as follows: -----Dist. R+U: -2.2 -----Prox. R+U: -0.8 -----Radius total: -1.0 BASELINE FOR WRIST IMPRESSION: Osteopenia (T Score between -2.5 and -1). There is slightly increased risk of fracture and the patient may be considered for treatment. Re-Screen 2-5 years. NOTE: T-SCORE=SD OF THE YOUNG ADULT MEAN.
--- NOTE | 2020-10-27 12:05 | MM ---
Reason for exam: screening (asymptomatic). Last mammogram was performed 1 year and 2 months ago. History: Patient is postmenopausal and had first child at age 32. Benign excisional biopsy of the left breast, 1989. Took estrogen for 5 years 6 months beginning at age 50. Took progesterone for 5 years 6 months beginning at age 50. Physical Findings: A clinical breast exam by your physician is recommended on an annual basis and results should be correlated with mammographic findings. MG 3D Screening Mammo W/Cad Bilateral CC and MLO view(s) were taken. Prior study comparison: August 20, 2019, bilateral MG 3d screening mammo w/cad. August 14, 2018, bilateral MG 3d screening mammo w/cad. There are scattered fibroglandular densities. No significant changes when compared with prior studies. ASSESSMENT: Negative, BI-RAD 1 RECOMMENDATION: Routine screening mammogram of both breasts in 1 year.
== END | disposition home or self-care (01) ==
LOC: RADMAMWWP 13:38
PROVIDERS: ATTEND Family Medicine
DX: Z12.31 Encounter for screening mammogram for malignant neoplasm of breast (principal); M85.80 Other specified disorders of bone density and structure, unspecified site; Z78.0 Asymptomatic menopausal state
CPT/HCPCS: 77063; 77067; 77080

== ENCOUNTER → 2021-08-08 | Outpatient (CLI) | payer MEDICARE ==
--- NOTE | 2021-08-09 10:00 | XR ---
EXAMINATION TYPE: XR cervical spine comp DATE OF EXAM: 08/08/2021 COMPARISON: None HISTORY: 71-year-old female M546, M542 THOR PAIN, CERVICALGIA TECHNIQUE: 5 views FINDINGS: Multilevel hypertrophic facet and uncovertebral joint arthropathy. Moderate disc/endplate degenerativ e changes especially C5-C7 levels. Moderate to severe bony neural foraminal narrowing on the left at C5-C6, C6-C7, C7-T1. Moderate on th e right at C3-C4 and C4-C5. Moderate bony neuroforaminal narrowing C5-C6 and C6-C7 on the right. Mild at additional levels. Degenerative changes at the C1 dens articulation. No predental space widening. No prevertebral soft t issue swelling. Reversal of the normal cervical lordosis especially along the lower cervical spine wi th grade 1 anterolisthesis C7-T1. Normal odontoid view. IMPRESSION: 1. Moderate degenerative disc disease C5 through C7 levels as well as multilevel hypertrophic facet a nd uncovertebral joint arthropathy. 2. Degenerative grade 1 anterolisthesis at C7-T1 with reversal of the normal cervical lordosis. 3. There may be moderate to severe bony neuroforaminal narrowing within the left mid to lower cervica l spine. Moderate on the right in the mid cervical spine.
--- NOTE | 2021-08-09 10:04 | XR ---
EXAMINATION TYPE: XR thoracic spine complete DATE OF EXAM: 08/08/2021 Comparison: None Clinical History: 71-year-old female M546, M542 THOR PAIN, CERVICALGIA TECHNIQUE: 3 views Findings: 12 thoracic vertebral bodies. Moderate distention plate degenerative changes especially mid thoracic spine with accentuated thoracic kyphosis. Minimal anterior wedging of a vertebral body in the mid tho racic spine may be physiologic wedging. Facet arthropathy lower thoracic spine. Remaining vertebral b freddy heights are preserved. Alignment appears maintained. Impression: 1. Moderate disc/endplate degenerative changes especially mid thoracic spine with accentuated kyphosi s here. Facet arthropathy lower thoracic spine. 2. Minimal anterior wedging of a midthoracic vertebral body, probably physiologic wedging. An age ind eterminate minimal compression injury is difficult to entirely exclude.
== END | disposition home or self-care (01) ==
LOC: RADXRYALE 16:06
PROVIDERS: ATTEND Physician Assistant Medical
DX: M50.323 Other cervical disc degeneration at C6-C7 level (principal); M43.13 Spondylolisthesis, cervicothoracic region; M47.812 Spondylosis without myelopathy or radiculopathy, cervical region
CPT/HCPCS: 72050; 72072

== ENCOUNTER → 2021-10-26 | Outpatient (CLI) | payer MEDICARE ==
--- NOTE | 2021-10-28 10:40 | MM ---
Reason for exam: screening (asymptomatic). Last mammogram was performed 1 year ago. History: Patient is postmenopausal and had first child at age 32. Benign excisional biopsy of the left breast, 1989. Took estrogen for 5 years 6 months beginning at age 50. Took progesterone for 5 years 6 months beginning at age 50. Physical Findings: A clinical breast exam by your physician is recommended on an annual basis and results should be correlated with mammographic findings. MG 3D Screening Mammo W/Cad Bilateral CC and MLO view(s) were taken. Prior study comparison: October 25, 2020, bilateral MG 3d screening mammo w/cad. August 20, 2019, bilateral MG 3d screening mammo w/cad. The breast tissue is heterogeneously dense. This may lower the sensitivity of mammography. There is no discrete abnormality. No significant changes when compared with prior studies. ASSESSMENT: Benign, BI-RAD 2 RECOMMENDATION: Routine screening mammogram of both breasts in 1 year.
== END | disposition home or self-care (01) ==
LOC: RADMAMWWP 15:00
PROVIDERS: ATTEND Obstetrics & Gynecology
DX: Z12.31 Encounter for screening mammogram for malignant neoplasm of breast (principal); Z78.0 Asymptomatic menopausal state
CPT/HCPCS: 77063; 77067

== ENCOUNTER 2022-01-19 12:22 | Day surgery (SDC) | payer MEDICARE ==
[2022-01-18 10:49] VITALS: BMI 33.6
[2022-01-19] MEDS ORDERED: ONDANSETRON 4 MG/2 ML VIAL ONE (13:21)
--- NOTE | 2022-01-19 13:22 | P.HPIHPCON ---
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 She underwent a diagnostic ureteroscopy was negative. Underwent an MRI, an MRI to appear to be possibly arising from the collecting system, IR was not able to perform a biopsy given the location. But of note the mass did shrink in size. Discussed option of a repeat ureteroscopy to assess if the mass can be visualized in the collecting system given the MRI finding. But discussed this is not consistent with transitional cell carcinoma given the shrinkage incised, and the previous negative ureteroscopy repeat. But discussed the need of tissue diagnosis, and if IR is not able to perform a biopsy and were not able to visualize a mass then we have to find with the tissue. Discussed device do see any abnormality then we'll proceed with biopsy, but if within normal limits then a biopsy cannot be performed. Discussed the risk of surgery which includes but not limited to bleeding, infection, injury to the ureter. She understood all the risk and agreed to proceed with a diagnostic right ureteroscopy Consent for Procedure: I have explained the operation/procedure to the patient, including the risks, benefits, side effects, alternative therapies (including not receiving the proposed treatment or service), the likelihood of the patient achieving his/her goals, and potential recuperation problems for the procedure/sedation/analgesia, as well as any blood products, if indicated. I also explained to the patient the risks, benefits and side effects of the alternatives, as well as the risks related to not receiving the proposed procedure, care, treatment, or services. 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, two tumors on spine, probable cancer per pt(had radiation on tumor on spine 10/2021-11/2021(10 treatments) History of Any Multi-Drug Resistant Organisms: None Reported Past Surgical History: Appendectomy, Back Surgery, Breast Surgery, Orthopedic Surgery Additional Past Surgical History / Comment(s): rhinoplasty, left breast lumpectomy, ,bunnionectomies payam feet, spinal fusion, Past Anesthesia/Blood Transfusion Reactions: No Reported Reaction Additional Past Anesthesia/Blood Transfusion Reaction / Comment(s): , Smoking Status: Never smoker - Past Family History Mother Family Medical History: Cancer, Deep Vein Thrombosis (DVT), Pulmonary Embolus Additional Family Medical History / Comment(s): cervical Father Family Medical History: Cancer Additional Family Medical History / Comment(s): prostate Medications and Allergies Home Medications Medication Instructions Recorded Confirmed Type Ascorbic Acid [Vitamin C] 500 mg PO DAILY 09/24/18 01/18/22 History Aspirin/Acetaminophen/Caffeine 1 tab PO DAILY PRN 09/24/18 01/18/22 History [Excedrin Migraine Caplet] Calcium Carbonate [Calcium] 600 mg PO DAILY 09/24/18 01/18/22 History Cetirizine HCl [Zyrtec] 10 mg PO DAILY 09/24/18 01/19/22 History Cinnamon Bark [Cinnamon] 500 mg PO DAILY 09/24/18 01/18/22 History Gabapentin [Neurontin] 300 mg PO TID PRN 09/24/18 01/19/22 History Ibuprofen 800 mg PO Q8H PRN 09/24/18 01/18/22 History Magnesium 250 mg PO DAILY 09/24/18 01/19/22 History Multivitamins, Thera [Multivitamin 1 tab PO DAILY 09/24/18 01/18/22 History (formulary)] Naproxen Sodium 220 mg PO BID PRN 09/24/18 01/18/22 History [place]-3 Fatty Acids/Fish Oil [Fish 1 cap PO DAILY 09/24/18 01/18/22 History Oil 1,000 mg Softgel] Propranolol HCl [Propranolol HCl 60 mg PO QAM 09/24/18 01/18/22 History ER] Red Yeast Rice 1,200 mg PO DAILY 09/24/18 01/18/22 History Vitamin B Complex 1 cap PO DAILY 09/24/18 01/18/22 History HYDROcodone/APAP 5-325MG [[place] 1 - 2 tab PO Q6HR PRN #56 tab 10/04/18 01/19/22 Rx 5-325] Cephalexin [Keflex] 500 mg PO TID 01/18/22 01/19/22 History Ezetimibe [Zetia] 10 mg PO DAILY 01/18/22 01/19/22 History Potassium Gluconate [Potassium 99 mg PO DAILY 01/18/22 01/19/22 History Gluconate ER] SUMAtriptan SUCCINATE [Imitrex] 100 mg PO DIRECTED PRN 01/18/22 01/19/22 History Vit C/E/Zn/Coppr/Lutein/Zeaxan 1 each PO BID 01/18/22 01/18/22 History [Preservision Areds 2 Softgel] predniSONE 10 mg PO DIRECTED 01/18/22 01/18/22 History Allergies Allergy/AdvReac Type Severity Reaction Status Date / Time No Known Allergies Allergy Verified 01/19/22 12:55 Surgical - Exam Vital Signs Temp Pulse Resp BP Pulse Ox 98.8 F 81 18 138/80 96 01/19/22 13:13 01/19/22 13:13 01/19/22 13:13 01/19/22 13:13 01/19/22 13:13 Assessment and Plan Assessment: OR for Diagnostic right Ureteroscopy
[2022-01-19] MEDS ORDERED: LACTATED RINGERS 1,000 ML IV ONE (13:32)
[2022-01-19] MEDS ORDERED: ONDANSETRON 4 MG/2 ML VIAL IVP ONE (13:33)
[2022-01-19 13:41] LABS: Glucose,Whole Blood 147 mg/dL (75-99)
[2022-01-19] MEDS ORDERED: MIDAZOLAM 2 MG/2 ML VIAL ONE (15:05)
[2022-01-19] MEDS ORDERED: LIDOCAINE 1% INJ 10MG/ML (20 ML MDV) ONE (15:05)
[2022-01-19] MEDS ORDERED: fentaNYL (PF) 50 MCG/ML 2 ML AMP ONE (15:05)
[2022-01-19] MEDS ORDERED: PHENYLEPHRINE-0.9% NACL SYG 1,000 MCG/10 ML SYRINGE ONE (15:05)
[2022-01-19] MEDS ORDERED: PROPOFOL 10 MG/ML 20 ML VIAL IV ONE (15:05)
--- NOTE | 2022-01-19 16:06 | P.OP ---
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 She underwent a diagnostic ureteroscopy was negative. Underwent an MRI, an MRI to appear to be possibly arising from the collecting system, IR was not able to perform a biopsy given the location. But of note the mass did shrink in size. Discussed option of a repeat ureteroscopy to assess if the mass can be visualized in the collecting system given the MRI finding. But discussed this is not consistent with transitional cell carcinoma given the shrinkage incised, and the previous negative ureteroscopy repeat. But discussed the need of tissue diagnosis, and if IR is not able to perform a biopsy and were not able to visualize a mass then we have to find with the tissue. Discussed device do see any abnormality then we'll proceed with biopsy, but if within normal limits then a biopsy cannot be performed. Discussed the risk of surgery which includes but not limited to bleeding, infection, injury to the ureter. She understood all the risk and agreed to proceed with a diagnostic right ureteroscopy Description of Procedure: Patient was brought to the operating room, general anesthesia was induced. She was prepped and draped so fashion a placement dorsal lithotomy position. Cystoscopy fitted with a 21-Beninese sheath was inserted per urethra, cystoscopy was performed showed no abnormality within the bladder next a sensor wire was ad vanced through the scope and up the right ureteral orifice. Next a flexible ureteroscope was advanced over the wire and into the collecting system. Renoscopy was performed which showed no abnormality within the kidney, no mucosal abnormality or masses were identified.. Renal cytology was obtained. Retrograde pyelogram was performed through the scope to ensure all calyces were evaluated. Pullback ureteroscopy was performed showed no injury to the kidney or the ureter. The bladder was emptied at the end of the case. Patient tolerated the procedure was taken to recovery in stable condition
[2022-01-19 16:12] VITALS: TEMP 96.8
--- NOTE | 2022-01-19 16:33 | FL ---
EXAMINATION TYPE: FL urography retrograde DATE OF EXAM: 01/19/2022 FLUOROSCOPY Fluoroscopy time of 14 seconds was used during retrograde urologic procedure for right renal mass. 4 image/s document/s the procedure.
[2022-01-19 16:52] VITALS: PULSE 79; RESP 18
[2022-01-19 17:26] VITALS: BP 154/90
== END 2022-01-19 17:40 | disposition home or self-care (01) ==
LOC: OR 12:22
PROVIDERS: ATTEND Urology
DX: N28.9 Disorder of kidney and ureter, unspecified (principal); E78.5 Hyperlipidemia, unspecified; D49.2 Neoplasm of unspecified behavior of bone, soft tissue, and skin; G43.909 Migraine, unspecified, not intractable, without status migrainosus; Z79.891 Long term (current) use of opiate analgesic; Z79.899 Other long term (current) drug therapy
CPT/HCPCS: 82365; 74420; 52351; C1758 ×3; J2250; J0690; J2405; J2001; J3010; J2370; J2704

== ENCOUNTER → 2022-01-26 | Outpatient (CLI) | payer MEDICARE ==
--- NOTE | 2022-01-26 16:48 | MR ---
EXAMINATION TYPE: MR thoracic spine wo/w con DATE OF EXAM: 01/26/2022 COMPARISON: 10/03/2021 [facility] HISTORY: Malignant neoplasm of the spinal cord CONTRAST: Performed utilizing 10 mL intravenous Gadavist gadolinium contrast. TECHNIQUE: Multiplanar, multiecho imaging on a 3.0 Brenda magnet is performed through the thoracic spi ne. Note is made of some kyphosis centered at approximately C5. Kyphosis is also noted within the upper t horacic spine. Vertebral body heights are preserved. Osseous signal appears normal. Spinal cord maintains normal signal through its visualized course. The low signal intensity posterior to the T1-T2 spinal cord level is not identified on the current ex am. There is mild grade 1 spondylolisthesis of T2 anterior and T3. Mild disc bulges present T3-4. Vertebral body heights are preserved. In the region of T7-8 and T8-9 there is mild disc bulging. T6-T7 endplate changes and mild anterior left paracentral thecal sac impression. Some cord contact ma y be present. No spinal canal stenosis is present. No spinal canal stenosis is evident. IMPRESSIONS: 1. Previous soft tissue thickening in the posterior spinal canal at the T2-3 level has largely resolv ed. No posterior spinal cord compression or canal narrowing is evident. Subtle residual may remain on the T1 postcontrast images at the C7 level. Monitoring can be performed.
== END | disposition home or self-care (01) ==
LOC: RADMRIMAIN 11:52
PROVIDERS: ATTEND Internal Medicine Hematology & Oncology
DX: C72.0 Malignant neoplasm of spinal cord (principal)
CPT/HCPCS: 72157; A9585

== ENCOUNTER → 2022-02-21 | Outpatient (CLI) | payer MEDICARE ==
--- NOTE | 2022-02-21 14:53 | XR ---
EXAMINATION TYPE: XR chest 2V DATE OF EXAM: 02/21/2022 COMPARISON: 09/11/2018 INDICATION: Malignant pleural effusion TECHNIQUE: Single frontal view of the chest is obtained. FINDINGS: The heart size is normal. The pulmonary vasculature is normal. No suspicious infiltrates are evident. A moderate right pleural effusion is present. Artifact from patient's clothing may be present overlying the soft tissues. IMPRESSION: 1. Moderate right pleural effusion
== END | disposition home or self-care (01) ==
LOC: RADXRYALE 14:13
PROVIDERS: ATTEND Physician Assistant Medical
DX: J90 Pleural effusion, not elsewhere classified (principal)
CPT/HCPCS: 71046

== ENCOUNTER → 2022-03-03 | Outpatient (CLI) | payer MEDICARE ==
--- NOTE | 2022-03-05 21:04 | PE ---
EXAMINATION TYPE: PET CT fusion skull to thigh DATE OF EXAM: 03/03/2022 COMPARISON: NONE HISTORY: Non-Hodgkin Lymphoma newly diagnosed. TECHNIQUE: Following the intravenous administration of 10.2 mCi of F-18 FDG, whole body images are p erformed from the skull base to the midthigh. Images are reviewed on the computer in the coronal, ax ial, and sagittal planes. Reconstructed rotating images are created on independent workstation and r eviewed on the computer. A localization and attenuation correction CT is performed in conjunction w ith the PET scan. Blood glucose level equals 104 SCAN: Initial Scan FINDINGS: Mean SUV mediastinum: 1.06 Mean SUV liver: 2.09 SKULL BASE AND NECK: No areas of abnormal hypermetabolic uptake CHEST, MEDIASTINUM, AND HILAR REGION: There is small right pleural effusion despite percutaneous pigt ail drainage catheter. Pleural effusion has abnormal hypermetabolic uptake. Areas of hypermetabolic p leural nodularity or masses are present posteriorly and laterally. There is large mass anteriorly and inferiorly measuring approximately 13.0 x 6.6 cm axial image 116 and significant local mass effect a long with invading subcutaneous tissue anterior chest wall. The max SUV is 10.66 on axial image 124. There is anterior superior mediastinal hypermetabolic mass anterior to the aorta and SVC just below r ight sternum axial image 81 measuring 5.1 x 2.7 cm, max SUV is 7.68 at this level. Hypermetabolic upt rossana right hilum and subcarinal levels are present. ABDOMEN AND PELVIS: There is hypermetabolic lymph node just anterior to the aorta just below diaphrag m axial image 129. There is larger retroperitoneal lymph node posterior to the IVC measuring 2.8 x 1. 9 cm axial image 149, max SUV is 8.83. Normal excretion is present. OSSEOUS STRUCTURES: Innumerable hypermetabolic osseous foci. For reference increased hypermetabolic u ptake at right ischial tuberosity, max SUV is 5.2 at this level. Most prominent involvement is about the pelvis. There is involvement in the bilateral shoulders and a few scattered lesions throughout th e lumbar spine. Upper cervical lesions are also present. OTHER CT: There is left-sided PICC line terminating at brachiocephalic confluence. Moderate coronary artery calcification in the LAD. Postsurgical change to the mid to lower lumbar spine. Facet arthropathy lower lumbar levels. Spleen n oted normal in size. IMPRESSION: There is evidence of lymphoma involvement above and below diaphragm with greatest involve ment in the right lung being pleural-based. Multifocal osseous involvement is noted. Further details as discussed above.
== END | disposition home or self-care (01) ==
LOC: RADPETMAIN 10:09
PROVIDERS: ATTEND Internal Medicine Hematology & Oncology
DX: C85.98 Non-Hodgkin lymphoma, unspecified, lymph nodes of multiple sites (principal); C79.51 Secondary malignant neoplasm of bone
CPT/HCPCS: 78815; A9552

== ENCOUNTER 2022-03-22 08:13 | Day surgery (SDC) | payer MEDICARE ==
[2022-03-22] MEDS ORDERED: diazePAM 5 MG TAB PO PRN (08:24)
[2022-03-22 08:56] VITALS: RESP 16; TEMP 97.4
[2022-03-22] MEDS ORDERED: METHOTREXATE SODIUM (PF) 25 MG/ML 2 ML VIAL INTRATHECA ONE (09:00)
[2022-03-22 11:20] VITALS: BP 109/54; PULSE 79
--- NOTE | 2022-03-22 16:16 | P.PCN ---
Date of Procedure: 03/22/22 Preoperative Diagnosis: NHL Postoperative Diagnosis: NHL Procedure(s) Performed: Lumbar puncture with administration of intrathecal methotrexate Estimated Blood Loss (ml): 0 IV fluids (ml): 0 Urine output (ml): 0 Pathology: other (cytology and flow cytometry) Condition: stable Disposition: same day Indications for Procedure: NHL with renal involvement Description of Procedure: Radiologist performed LP, removed 3cc of clear CSF. 12mg of preservative free methotrexate diluted with sterile NS to a volume of 2.4cc was instilled slowly over 2 minutes. The catheter was then flushed with 0.6cc of sterile, preservative free NS in a latex free syringe. Pt tolerated procedure well.
--- NOTE | 2022-03-23 06:47 | FL ---
EXAMINATION TYPE: FL guided lumbar puncture LP DATE OF EXAM: 03/22/2022 COMPARISON: PET CT March 03, 2022 HISTORY: Lymphoma. TECHNIQUE: Fluoroscopic guidance was provided during lumbar puncture procedure for subsequent intrath ecal chemotherapy performed by myself. A total of 1 minute 47 seconds of fluoroscopic time was utili zed during the procedure and 0 spot images was acquired. FINDINGS: Procedure was explained to patient. Benefits, alternatives, and risks were discussed. Informed consen t was then obtained. Patient placed in prone position on fluoroscopic table. The superior L4 level is targeted as there ap pears to be partial posterior bone resection or laminectomy near this level. Overlying skin was clean sed with Betadine. Lidocaine was used as anesthetic into the skin and deeper tissue up to area of cli nical concern. Under fluoroscopic guidance, a spinal needle was eventually passed into the spinal can al. I attempted some contrast injection to verify when I was short within the deep subcutaneous tissu e and then was able to successfully advance into spinal canal There is good return of clear CSF. Appr oximately 3 cc clear CSF was obtained as directed by oncology nurse practitioner. At this point oncology nurse practitioner gave intrathecal chemotherapy with saline flush. The needle was then withdrawn. Patient tolerated procedure well without any immediate complication. Patient was kept in the hospital for short stay after procedure and discharged home in stable and satisfactory condition. Vital signs were monitored before during and after procedure. IMPRESSION: As Above. Successful fluoroscopic assisted lumbar puncture for intrathecal chemotherapy.
== END 2022-03-22 13:16 | disposition home or self-care (01) ==
LOC: RADPROMAIN 08:13
PROVIDERS: ATTEND Internal Medicine Hematology & Oncology
DX: C85.90 Non-Hodgkin lymphoma, unspecified, unspecified site (principal)
CPT/HCPCS: 88108; 96450; J9260; Q9966; 62328

== ENCOUNTER 2022-04-06 10:10 | Inpatient (IN) | payer MEDICARE ==
[2022-04-06] MEDS ORDERED: VANCOMYCIN IV PER PHARMACY 1 EACH MISC MISCELLANE PRN (10:42)
[2022-04-06] MEDS ORDERED: CEFEPIME 2 GM in SODIUM CHLORIDE 0.9% 100 ML IVPB STA (10:59)
[2022-04-06] MEDS ORDERED: ACYCLOVIR SODIUM 800 MG in SODIUM CHLORIDE 0.9% 100 ML IV SCH (11:00)
[2022-04-06] MEDS ORDERED: VANCOMYCIN 1,500 MG in SODIUM CHLORIDE 0.9% 250 ML IVPB STA (11:02)
[2022-04-06] MEDS ORDERED: SODIUM CHLORIDE 0.9% 1,000 ML IV STA ×2 (11:06)
[2022-04-06] MEDS ORDERED: NALOXONE 0.4 MG/ML 1 ML VIAL IV PRN (11:21)
[2022-04-06 11:37] LABS: ALT 11 U/L (4-34); AST 15 U/L (14-36); African American GFR (CKD) >90 (>60 ml/min/1.73 sqM); Albumin 3.2 g/dL (3.5-5.0); Alkaline Phosphatase 57 U/L (38-126); Anion Gap 4 mmol/L; Blood Urea Nitrogen 13 mg/dL (7-17); Calcium 8.3 mg/dL (8.4-10.2); Carbon Dioxide 26 mmol/L (22-30); Chloride 104 mmol/L (98-107); Glucose 112 mg/dL (74-99); Non-African American GFR(CKD) >90 (>60 ml/min/1.73 sqM); Sodium 134 mmol/L (137-145); Total Bilirubin 1.2 mg/dL (0.2-1.3); Total Protein 5.1 g/dL (6.3-8.2)
[2022-04-06 11:50] LABS: Prothrombin Time 10.5 sec (9.0-12.0)
[2022-04-06] MEDS: CEFEPIME 2 GM in SODIUM CHLORIDE 0.9% 100 ML IVPB SCH ×2 (11:52→20:22)
[2022-04-06 11:53] LABS: Partial Thromboplastin Time 18.1 sec (22.0-30.0)
--- NOTE | 2022-04-06 12:12 | XR ---
EXAMINATION TYPE: XR chest 1V portable DATE OF EXAM: 04/06/2022 Comparison: 03/01/2022 Clinical History: 72-year-old female with fever Findings: Heart upper limits of normal in size. Mild hyperinflation. Right basilar pleural catheter is present. Small right pleural effusion with a persistent patchy right lower lung opacity without significant c hange. Left PICC tip not clearly seen beyond the expected brachiocephalic vein confluence. Slight inc reased residual atelectasis versus fluid along the minor fissure right mid lung. Impression: Right-sided pleural catheter in place. Similar small pleural effusion with adjacent patchy opacity at the right lower lung.
[2022-04-06 12:32] LABS: Amorphous Sediment,Urine Occasional /hpf; Appearance,Urine Clear (Clear); Bacteria,Urine Rare /hpf; Bilirubin,Urine Negative (Negative); Blood,Urine Trace (Negative); Color,Urine Yellow; Glucose,Urine (UA) Negative (Negative); Hyaline Casts,Urine 1 /lpf (0-2); Ketones,Urine Negative (Negative); Leukocyte Esterase,Urine Negative (Negative); Mucus,Urine Rare /hpf; Nitrite,Urine Negative (Negative); Protein,Urine Negative (Negative); RBC,Urine 10 /hpf (0-5); Specific Gravity,Urine 1.016 (1.001-1.035); Squamous Epithelial Cell,Urine <1 /hpf (0-4); WBC,Urine 2 /hpf (0-5)
[2022-04-06 13:48] LABS: Anisocytosis Slight; HCT 30.2 % (34.0-46.0); MCV 87.4 fL (80.0-100.0); Mean Platelet Volume 9.2; RBC 3.45 m/uL (3.80-5.40); RDW 18.9 % (11.5-15.5)
[2022-04-06 14:09] LABS: WBC 0.2 k/uL (3.8-10.6)
[2022-04-06 14:10] LABS: HGB 9.7 gm/dL (11.4-16.0)
--- NOTE | 2022-04-06 14:38 | ED ---
General Adult HPI - General Chief complaint: Recheck/Abnormal Lab/Rx Stated complaint: Recheck/Abnormal Labs Time Seen by Provider: 04/06/22 10:12 Source: patient, family, RN notes reviewed, old records reviewed Mode of arrival: wheelchair Limitations: no limitations - History of Present Illness Initial comments: Patient is a 72-year-old female with past medical history remarkable for lymphoma on retuxin. Was sent over from oncology over concern for neutropenic fever. Patient is found afebrile at 103F. Was given Tylenol or Motrin. Currently is febrile to 99.8. No obvious source of infection. She does have an indwelling right pleural catheter in addition to a left upper extremity PICC line. She denies any chest pain, shortness breath, abdominal pain, nausea, vomiting. There are intermittently draining the right pleural catheter. She d enies any shortness of breath. Denies any headaches. Has no other acute complaints at this time. Remainder of the labs are unremarkable. Patient will require admission. They requested that we start the patient on cefepime, vancomycin as well as acyclovir. They requested we obtain pancultures. - Related Data Home Medications Medication Instructions Recorded Confirmed Cetirizine HCl [Zyrtec] 10 mg PO DAILY 09/24/18 04/06/22 Gabapentin [Neurontin] 300 mg PO Q6H PRN 09/24/18 04/06/22 Propranolol HCl [Propranolol HCl 60 mg PO DAILY 09/24/18 04/06/22 ER] Ezetimibe [Zetia] 10 mg PO DAILY 01/18/22 04/06/22 Vit C/E/Zn/Coppr/Lutein/Zeaxan 1 cap PO DAILY 01/18/22 04/06/22 [Preservision Areds 2 Softgel] Omeprazole 20 mg PO DAILY 02/26/22 04/06/22 Zolpidem [Ambien] 10 mg PO HS PRN 02/26/22 04/06/22 Cholecalciferol [Vitamin D3 (25 50 mcg PO DAILY 03/14/22 04/06/22 Mcg = 1000 Iu)] Loratadine 10 mg PO DIRECTED 03/14/22 04/06/22 Losartan [Cozaar] 50 mg PO DAILY 03/14/22 04/06/22 OLANZapine 5 mg PO DIRECTED 03/14/22 04/06/22 Sennosides/Docusate Sodium [Senna 1 - 2 tab PO HS PRN 03/14/22 04/06/22 Plus 8.6-50 mg Tablet] predniSONE 100 mg PO DIRECTED 03/14/22 04/06/22 HYDROcodone/APAP 10-325MG [[place] 1 tab PO Q6H PRN 04/06/22 04/06/22 10-325] Ondansetron Odt [Zofran Odt] 4 mg PO Q6H PRN 04/06/22 04/06/22 fentaNYL 25MCG/HR PATCH [Duragesic 25 mcg TRANSDERM Q72H 04/06/22 04/06/22 25MCG/HR] Allergies Allergy/AdvReac Type Severity Reaction Status Date / Time No Known Allergies Allergy Verified 04/06/22 12:26 Review of Systems ROS Statement: Those systems with pertinent positive or pertinent negative responses have been documented in the HPI. Review of Systems: CONST: Denies fever EYES: Denies blurry vision ENT: Denies nasal congestion C/V: Denies Chest pain RESP: Denies shortness of breath GI: Denies abdominal pain : Denies dysuria SKIN: Denies rash. MSK: Denies joint pain. NEURO: Denies headache ROS Other: All systems not noted in ROS Statement are negative. Past Medical History Past Medical History: Cancer, Hyperlipidemia, Osteoarthritis (OA) Additional Past Medical History / Comment(s): migraines, pain under rt breast radiating to back, 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, two tumors on spine, probable cancer per pt(had radiation on tumor on spine 10/2021-11/2021(10 treatments) lymphoma History of Any Multi-Drug Resistant Organisms: None Reported Past Surgical History: Appendectomy, Back Surgery, Breast Surgery, Orthopedic Surgery Additional Past Surgical History / Comment(s): rhinoplasty, left breast lumpectomy, ,bunnionectomies payam feet, spinal fusion, Past Anesthesia/Blood Transfusion Reactions: No Reported Reaction Additional Past Anesthesia/Blood Transfusion Reaction / Comment(s): , Past Psychological History: No Psychological Hx Reported Smoking Status: Never smoker Past Alcohol Use History: None Reported Past Drug Use History: None Reported - Past Family History Mother Family Medical History: Cancer, Deep Vein Thrombosis (DVT), Pulmonary Embolus Additional Family Medical History / Comment(s): cervical Father Family Medical History: Cancer Additional Family Medical History / Comment(s): prostate General Exam - General Exam Comments Initial Comments: General: Appears in no acute distress. Borderline fever. HEAD: Normal with no signs of head trauma. EYES: PERRLA, EOMI, conjunctiva normal, no discharge. ENT: Hearing grossly intact, normal oropharynx. RESPIRATORY: Clear breath sounds bilaterally. No wheezes, rales, or rhonchi. She does have a pleural catheter in place in the right pleural space draining a yellowish fluid which is chronic per patient has been. No increased work of breathing. No hypoxia. C/V: Regular rate and rhythm. S1 and S2 auscultated, no edema, peripheral pulses 2+ and intact throughout ABD: Abd is soft, nontender, nondistended EXT: Normal range of motion, no obvious deformity SKIN: No rashes or lesions observed on exposed skin. NEURO: Alert and oriented 4. No focal deficits. Limitations: no limitations Course Vital Signs 04/06/22 10:14 Temperature 99.8 F H Pulse Rate 84 Respiratory 18 Rate Blood Pressure 95/59 O2 Sat by Pulse 97 Oximetry Medical Decision Making - Medical Decision Making Based on the patient's presentation and physical exam, I'm concerned for fever of unknown etiology and a cancer patient currently on chemotherapy. Patient was found to have a leukocytosis of 0 at the outpatient facility. We will obtain broad workup including blood cultures, PICC line cultures, pleural fluid cultures, urine cultures. Infectious labs will be obtained. She'll be started on empiric cefepime, vancomycin, acyclovir at oncology's request. Consults will be placed for patient's distillery manager, Dr. Styles, patient's oncologist Dr. Villeda, as well as infectious disease Dr. Henderson. She'll be given IV fluids as well. Patient does technically meet sepsis criteria upon presentation. She'll be given 1 L fluid as well as 130 mL per KG of fluid after that to be the necessary 30 mL per KG goal. Vital signs remained within normal limits and stable. Patient was in agreement with this plan. O2 sat is remarkable for a leukopenia of 0.2, a normocytic anemia with a hemoglobin of 9.7, a thrombocytopenia 56. Likely all secondary to the chemotherapy. Urinalysis shows no signs of UTI. Chest x-ray shows the small right-sided pleural effusion with possible right lower lobe infiltrate. Patient is receiving empiric therapy. I discussed results of the imaging and labs with her. I would like to admit her to the hospital. I did speak with the patient's imaging team who admits to some physician, Dr. Leblanc who was in agreement with this plan. Viral swab still pending at this time. - Lab Data Result diagrams: 04/06/22 11:07 04/06/22 11:05 Lab Results 04/06/22 04/06/22 04/06/22 Range/Units 11:05 11:05 11:05 WBC (3.8-10.6) k/uL RBC (3.80-5.40) m/uL Hgb (11.4-16.0) gm/dL Hct (34.0-46.0) % MCV (80.0-100.0) fL MCH (25.0-35.0) pg MCHC (31.0-37.0) g/dL RDW (11.5-15.5) % Plt Count (150-450) k/uL MPV Anisocytosis PT 10.5 (9.0-12.0) sec INR 1.0 (<1.2) APTT 18.1 L (22.0-30.0) sec Sodium 134 L (137-145) mmol/L Potassium 4.0 (3.5-5.1) mmol/L Chloride 104 (98-107) mmol/L Carbon Dioxide 26 (22-30) mmol/L Anion Gap 4 mmol/L BUN 13 (7-17) mg/dL Creatinine 0.49 L (0.52-1.04) mg/dL Est GFR (CKD-EPI)AfAm >90 (>60 ml/min/1.73 sqM) Est GFR (CKD-EPI)NonAf >90 (>60 ml/min/1.73 sqM) Glucose 112 H (74-99) mg/dL Plasma Lactic Acid Iftikhar 1.4 (0.7-2.0) mmol/L Calcium 8.3 L (8.4-10.2) mg/dL Magnesium 2.0 (1.6-2.3) mg/dL Total Bilirubin 1.2 (0.2-1.3) mg/dL AST 15 (14-36) U/L ALT 11 (4-34) U/L Alkaline Phosphatase 57 (38-126) U/L Lactate Dehydrogenase (313-618) U/L Total Protein 5.1 L (6.3-8.2) g/dL Albumin 3.2 L (3.5-5.0) g/dL 04/06/22 04/06/22 Range/Units 11:05 11:07 WBC 0.2 L* (3.8-10.6) k/uL RBC 3.45 L (3.80-5.40) m/uL Hgb 9.7 L D (11.4-16.0) gm/dL Hct 30.2 L (34.0-46.0) % MCV 87.4 (80.0-100.0) fL MCH 28.0 (25.0-35.0) pg MCHC 32.0 (31.0-37.0) g/dL RDW 18.9 H (11.5-15.5) % Plt Count 56 L D (150-450) k/uL MPV 9.2 Anisocytosis Slight PT (9.0-12.0) sec INR (<1.2) APTT (22.0-30.0) sec Sodium (137-145) mmol/L Potassium (3.5-5.1) mmol/L Chloride (98-107) mmol/L Carbon Dioxide (22-30) mmol/L Anion Gap mmol/L BUN (7-17) mg/dL Creatinine (0.52-1.04) mg/dL Est GFR (CKD-EPI)AfAm (>60 ml/min/1.73 sqM) Est GFR (CKD-EPI)NonAf (>60 ml/min/1.73 sqM) Glucose (74-99) mg/dL Plasma Lactic Acid Iftikhar (0.7-2.0) mmol/L Calcium (8.4-10.2) mg/dL Magnesium (1.6-2.3) mg/dL Total Bilirubin (0.2-1.3) mg/dL AST (14-36) U/L ALT (4-34) U/L Alkaline Phosphatase (38-126) U/L Lactate Dehydrogenase 460 (313-618) U/L Total Protein (6.3-8.2) g/dL Albumin (3.5-5.0) g/dL Disposition Clinical Impression: Neutropenic fever, Sepsis, Leukopenia, Thrombocytopenia, History of cancer, Lymphoma Disposition: ADMITTED IP TO THIS HOSP Condition: Stable Time of Disposition: 11:21
[2022-04-06] MEDS: ACYCLOVIR SODIUM 750 MG in SODIUM CHLORIDE 0.9% 250 ML IVPB SCH ×2 (14:41→20:23)
[2022-04-06 15:00] LABS: Tear Drop Cells Present
[2022-04-06] MEDS ORDERED: OLANZapine 5 MG TAB PO SCH (15:00)
[2022-04-06 15:01] LABS: Platelet Count 56 k/uL (150-450)
[2022-04-06] MEDS ORDERED: SENNOSIDES-DOCUSATE SODIUM 1 EACH TAB PO PRN (15:12)
[2022-04-06] MEDS ORDERED: HYDROcodone/APAP 10-325MG 1 EACH TAB PO PRN (15:12)
[2022-04-06] MEDS ORDERED: ZOLPIDEM 10 MG TAB PO PRN (15:12)
[2022-04-06] MEDS ORDERED: ONDANSETRON ODT 4 MG TAB PO PRN (15:12)
[2022-04-06] MEDS ORDERED: GABAPENTIN 300 MG CAP PO PRN (15:12)
[2022-04-06] MEDS ORDERED: predniSONE 50 MG TAB PO SCH (15:15)
[2022-04-06] MEDS ORDERED: LORATADINE 10 MG TAB PO SCH (15:15)
--- NOTE | 2022-04-06 15:26 | P.HPIM ---
History of Present Illness H&P Date: 04/06/22 Chief Complaint: Neutropenic Fever 72-year-old woman with medical history of lymphoma, chronic pain, recurrent pleural effusion with Pleurx catheter, migraines, osteoarthritis isn't for evaluation of low-grade fever in the setting of neutropenia. Patient was sent in by her oncologist after routine follow-up. Patient denies any localizing complaints except for sore throat, chronic chest pain near her catheter site. Apparently, during her routine visit with her oncologist today, 1 week after chemotherapy, she was noted to have low-grade fever to 100.3 in the setting of having 0 neutrophils and an absolute white blood cell count of 0.2. She denies chills, nausea, vomiting, palpitations, syncope, presyncope, cough, dyspnea, abdominal pain, constipation, diarrhea, dysuria, dyschezia, hesitancy, nocturia, numbness/weakness of extremities, new rashes, swollen lymph nodes. In the emergency room, patient's temperature was 99.8, 95/59, heart rate 84, 97% on room air. CBC shows white blood cell count 0.2, hemoglobin of 9.7, platelet count of 56. Chemistries are unremarkable. LFTs are remarkable for low protein and low albumin 5.1/30.2. UA shows trace blood, 10 red blood cells, 2 white blood cells, occasional sediment, rare bacteria, rare mucus. Covid was n egative. Group A strep was negative. Chest x-ray demonstrates right-sided pleural catheter with a small pleural effusion and adjacent patchy opacity. All Systems reviewed and pertinent positives and negatives noted in HPI, all other symptoms are negative Gen: awake, alert HEENT: normocephalic, atraumatic, good hearing acuity, moist mucous membranes, rash at the back of her throat-appearing almost vesicular Resp: good air exchange, breathing comfortably with no accessory muscle use CVS: good distal perfusion x 4, GI: soft, NTTP, ND : no SPT, no CVAT, wheeler catheter not present MSK: no pitting edema, no clubbing Neuro: non-focal, moving all extremities Psych: cooperative, euthymic mood Labs and imaging reviewed as above Assessment/plan: Neutropenic fever Pleural effusion Lymphoma -Admit to inpatient, telemetry -ID consultation -Pulmonary consultation -Oncology consultation -Pleural fluid studies: LDH, protein, glucose, culture -Group A strep culture -Blood cultures, urine culture -Vancomycin, cefepime, acyclovir Chronic pain Migraines Osteoarthritis -Home medications reviewed and reconciled Patient is full code DVT prophylaxis with enoxaparin, hold for platelets less than 50 Past Medical History Past Medical History: Cancer, Hyperlipidemia, Osteoarthritis (OA) Additional Past Medical History / Comment(s): migraines, pain under rt breast radiating to back, 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, two tumors on spine, probable cancer per pt(had radiation on tumor on spine 10/2021-11/2021(10 treatments) lymphoma History of Any Multi-Drug Resistant Organisms: None Reported Past Surgical History: Appendectomy, Back Surgery, Breast Surgery, Orthopedic Surgery Additional Past Surgical History / Comment(s): rhinoplasty, left breast lumpectomy, ,bunnionectomies payam feet, spinal fusion, Past Anesthesia/Blood Transfusion Reactions: No Reported Reaction Additional Past Anesthesia/Blood Transfusion Reaction / Comment(s): , Past Psychological History: No Psychological Hx Reported Smoking Status: Never smoker Past Alcohol Use History: None Reported Past Drug Use History: None Reported - Past Family History Mother Family Medical History: Cancer, Deep Vein Thrombosis (DVT), Pulmonary Embolus Additional Family Medical History / Comment(s): cervical Father Family Medical History: Cancer Additional Family Medical History / Comment(s): prostate Medications and Allergies Home Medications Medication Instructions Recorded Confirmed Type RX: Cetirizine HCl [Zyrtec] 10 mg PO DAILY 09/24/18 04/06/22 History RX: Gabapentin [Neurontin] 300 mg PO Q6H PRN 09/24/18 04/06/22 History RX: Propranolol HCl [Propranolol 60 mg PO DAILY 09/24/18 04/06/22 History HCl ER] RX: Ezetimibe [Zetia] 10 mg PO DAILY 01/18/22 04/06/22 History RX: Vit C/E/Zn/Coppr/Lutein/Zeaxan 1 cap PO DAILY 01/18/22 04/06/22 History [Preservision Areds 2 Softgel] RX: Omeprazole 20 mg PO DAILY 02/26/22 04/06/22 History RX: Zolpidem [Ambien] 10 mg PO HS PRN 02/26/22 04/06/22 History Cholecalciferol [Vitamin D3 (25 50 mcg PO DAILY 03/14/22 04/06/22 History Mcg = 1000 Iu)] RX: Loratadine 10 mg PO DIRECTED 03/14/22 04/06/22 History RX: Losartan [Cozaar] 50 mg PO DAILY 03/14/22 04/06/22 History RX: OLANZapine 5 mg PO DIRECTED 03/14/22 04/06/22 History RX: predniSONE 100 mg PO DIRECTED 03/14/22 04/06/22 History Sennosides/Docusate Sodium [Senna 1 - 2 tab PO HS PRN 03/14/22 04/06/22 History Plus 8.6-50 mg Tablet] HYDROcodone/APAP 10-325MG [[place] 1 tab PO Q6H PRN 04/06/22 04/06/22 History 10-325] Ondansetron Odt [Zofran Odt] 4 mg PO Q6H PRN 04/06/22 04/06/22 History fentaNYL 25MCG/HR PATCH [Duragesic 25 mcg TRANSDERM Q72H 04/06/22 04/06/22 History 25MCG/HR] Allergies Allergy/AdvReac Type Severity Reaction Status Date / Time No Known Allergies Allergy Verified 04/06/22 12:26 Physical Exam Osteopathic Statement: *. No significant issues noted on an osteopathic structural exam other than those noted in the History and Physical/Consult. Vitals: Vital Signs Temp Pulse Resp BP Pulse Ox 04/06/22 10:14 99.8 F H 84 18 95/59 97 Intake and Output 04/06/22 04/06/22 04/06/22 06:59 14:59 22:59 Other: Weight 89.358 kg Results CBC & Chem 7: 04/06/22 11:07 04/06/22 11:05 Labs: Abnormal Lab Results - Last 24 Hours (Table) 04/06/22 04/06/22 04/06/22 Range/Units 11:05 11:05 11:07 WBC 0.2 L* (3.8-10.6) k/uL RBC 3.45 L (3.80-5.40) m/uL Hgb 9.7 L D (11.4-16.0) gm/dL Hct 30.2 L (34.0-46.0) % RDW 18.9 H (11.5-15.5) % Plt Count 56 L D (150-450) k/uL APTT 18.1 L (22.0-30.0) sec Sodium 134 L (137-145) mmol/L Creatinine 0.49 L (0.52-1.04) mg/dL Glucose 112 H (74-99) mg/dL Calcium 8.3 L (8.4-10.2) mg/dL Total Protein 5.1 L (6.3-8.2) g/dL Albumin 3.2 L (3.5-5.0) g/dL Urine Blood (Negative) Urine RBC (0-5) /hpf Amorphous Sediment (None) /hpf Urine Bacteria (None) /hpf Urine Mucus (None) /hpf 04/06/22 Range/Units 11:48 WBC (3.8-10.6) k/uL RBC (3.80-5.40) m/uL Hgb (11.4-16.0) gm/dL Hct (34.0-46.0) % RDW (11.5-15.5) % Plt Count (150-450) k/uL APTT (22.0-30.0) sec Sodium (137-145) mmol/L Creatinine (0.52-1.04) mg/dL Glucose (74-99) mg/dL Calcium (8.4-10.2) mg/dL Total Protein (6.3-8.2) g/dL Albumin (3.5-5.0) g/dL Urine Blood Trace H (Negative) Urine RBC 10 H (0-5) /hpf Amorphous Sediment Occasional H (None) /hpf Urine Bacteria Rare H (None) /hpf Urine Mucus Rare H (None) /hpf Thrombosis Risk Factor Assmnt - Choose All That Apply Any of the Below Risk Factors Present?: Yes Other Risk Factors: Yes Each Risk Factor Represents 2 Points: Age 61-74 years, Malignancy Other congenital or acquired thrombophilia - If yes, enter type in comment: No Thrombosis Risk Factor Assessment Total Risk Factor Score: 4 Thrombosis Risk Factor Assessment Level: Moderate Risk
--- NOTE | 2022-04-06 15:27 | P.CNPUL ---
History of Present Illness Consult date: 04/06/22 Requesting physician: Cami Leblanc Reason for consult: other Chief complaint: Fever History of present illness: This is a 72-year-old female patient with recent diagnosis of NHL (nodular hist iocytic lymphoma), and patient was started on treatment, recently received intrathecal Methotrexate recurrent plural effusions with previous thoracentesis at [facility], and depression had a right-sided Pleurx catheter placed during her last admission to this hospital when she was admitted with recurrent right-sided pleural effusion and pleural fluid cytology was positive for atypical monoclonal B-cell population expressing CD10 consistent with 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 Patient had right-sided Pleurx catheter placed on 03/08/2022, and 1.4 L of serous fluid was removed. Patient has been draining the Pleurx catheter at home with the help of her every 48 hours, and removing on average 250 mL of yellowish colored pleural fluid. Today on 04/06/2022 she was seeing medical oncology nurse practitioner for a routine visit, and she was noted to be febrile. She denies any worsening shortness of breath, no cough, no phlegm production. She denies any burning or pressure with urination, although she does admit that her urine looked a little cloudy. She states pleural fluid in the last few days was also looking a little bit more cloudy. Chest x-ray was obtained showing right-sided pleural catheter in place, and small pleural effusion with adjacent patchy opacity at the right lower lung. On presentation patient has a low-grade fever of 99.8F, room air pulse ox is 98%, she is awake and alert, is in no acute distress. She has drained around 100 mL of yellow, pleural fluid from the right Pleurx catheter which will be sent for cultures. She is breathing comfortably. Review of Systems All systems: negative Constitutional: Denies chills, Denies fever Eyes: denies blurred vision, denies pain Ears, nose, mouth and throat: Denies headache, Denies sore throat Cardiovascular: Denies chest pain, Denies shortness of breath Respiratory: Reports dyspnea, Denies cough Gastrointestinal: Denies abdominal pain, Denies diarrhea, Denies nausea, Denies vomiting Genitourinary: Denies dysuria, Denies hematuria Musculoskeletal: Denies myalgias Integumentary: Denies pruritus, Denies rash Neurological: Denies numbness, Denies weakness Psychiatric: Denies anxiety, Denies depression Endocrine: Denies fatigue, Denies weight change Past Medical History Past Medical History: Cancer, Hyperlipidemia, Osteoarthritis (OA) Additional Past Medical History / Comment(s): migraines, pain under rt breast radiating to back, 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, two tumors on spine, probable cancer per pt(had radiation on tumor on spine 10/2021-11/2021(10 treatments) lymphoma History of Any Multi-Drug Resistant Organisms: None Reported Past Surgical History: Appendectomy, Back Surgery, Breast Surgery, Orthopedic Surgery Additional Past Surgical History / Comment(s): rhinoplasty, left breast lumpectomy, ,bunnionectomies payam feet, spinal fusion, Past Anesthesia/Blood Transfusion Reactions: No Reported Reaction Additional Past Anesthesia/Blood Transfusion Reaction / Comment(s): , Past Psychological History: No Psychological Hx Reported Smoking Status: Never smoker Past Alcohol Use History: None Reported Past Drug Use History: None Reported - Past Family History Mother Family Medical History: Cancer, Deep Vein Thrombosis (DVT), Pulmonary Embolus Additional Family Medical History / Comment(s): cervical Father Family Medical History: Cancer Additional Family Medical History / Comment(s): prostate Medications and Allergies Home Medications Medication Instructions Recorded Confirmed Type Cetirizine HCl [Zyrtec] 10 mg PO DAILY 09/24/18 04/06/22 History Gabapentin [Neurontin] 300 mg PO Q6H PRN 09/24/18 04/06/22 History Propranolol HCl [Propranolol HCl 60 mg PO DAILY 09/24/18 04/06/22 History ER] Ezetimibe [Zetia] 10 mg PO DAILY 01/18/22 04/06/22 History Vit C/E/Zn/Coppr/Lutein/Zeaxan 1 cap PO DAILY 01/18/22 04/06/22 History [Preservision Areds 2 Softgel] Omeprazole 20 mg PO DAILY 02/26/22 04/06/22 History Zolpidem [Ambien] 10 mg PO HS PRN 02/26/22 04/06/22 History Cholecalciferol [Vitamin D3 (25 50 mcg PO DAILY 03/14/22 04/06/22 History Mcg = 1000 Iu)] Loratadine 10 mg PO DIRECTED 03/14/22 04/06/22 History Losartan [Cozaar] 50 mg PO DAILY 03/14/22 04/06/22 History OLANZapine 5 mg PO DIRECTED 03/14/22 04/06/22 History Sennosides/Docusate Sodium [Senna 1 - 2 tab PO HS PRN 03/14/22 04/06/22 History Plus 8.6-50 mg Tablet] predniSONE 100 mg PO DIRECTED 03/14/22 04/06/22 History HYDROcodone/APAP 10-325MG [[place] 1 tab PO Q6H PRN 04/06/22 04/06/22 History 10-325] Ondansetron Odt [Zofran Odt] 4 mg PO Q6H PRN 04/06/22 04/06/22 History fentaNYL 25MCG/HR PATCH [Duragesic 25 mcg TRANSDERM Q72H 04/06/22 04/06/22 History 25MCG/HR] Allergies Allergy/AdvReac Type Severity Reaction Status Date / Time No Known Allergies Allergy Verified 04/06/22 12:26 Physical Exam Vitals: Vital Signs Temp Pulse Resp BP Pulse Ox 04/06/22 10:14 99.8 F H 84 18 95/59 97 Intake and Output 04/05/22 04/06/22 04/06/22 22:59 06:59 14:59 Other: Weight 89.358 kg GENERAL EXAM: Alert, very pleasant, 72-year-old white female, on room air, the pulse ox 97% resting on the gurney in the emergency department,, comfortable in no apparent distress. HEAD: Normocephalic/atraumatic. EYES: Normal reaction of pupils, equal size. Conjunctiva pink, sclera white. NOSE: Clear with pink turbinates. THROAT: No erythema or exudates. NECK: No masses, no JVD, no thyroid enlargement, no adenopathy. CHEST: No chest wall deformity. Symmetrical expansion. Right lower chest Pleurx catheter in place LUNGS: Equal air entry with no crackles, wheeze, rhonchi or dullness. CVS: Regular rate and rhythm, normal S1 and S2, no gallops, no murmurs, no rubs ABDOMEN: Soft, nontender. No hepatosplenomegaly, normal bowel sounds, no guarding or rigidity. EXTREMITIES: No clubbing, no edema, no cyanosis, 2+ pulses and upper and lower extremities. MUSCULOSKELETAL: Muscle strength and tone normal. SPINE: No scoliosis or deformity SKIN: No rashes CENTRAL NERVOUS SYSTEM: Alert and oriented -3. No focal deficits, tone is normal in all 4 extremities. PSYCHIATRIC: Alert and oriented -3. Appropriate affect. Intact judgment and insight. Results - Laboratory Findings CBC and BMP: 04/06/22 11:07 04/06/22 11:05 PT/INR, D-dimer PT 10.5 sec (9.0-12.0) 04/06/22 11:05 INR 1.0 (<1.2) 04/06/22 11:05 Abnormal lab findings: Abnormal Labs 04/06/22 04/06/22 04/06/22 11:05 11:05 11:07 WBC 0.2 L* RBC 3.45 L Hgb 9.7 L D Hct 30.2 L RDW 18.9 H Plt Count 56 L D APTT 18.1 L Sodium 134 L Creatinine 0.49 L Glucose 112 H Calcium 8.3 L Total Protein 5.1 L Albumin 3.2 L Urine Blood Urine RBC Amorphous Sediment Urine Bacteria Urine Mucus 04/06/22 11:48 WBC RBC Hgb Hct RDW Plt Count APTT Sodium Creatinine Glucose Calcium Total Protein Albumin Urine Blood Trace H Urine RBC 10 H Amorphous Sediment Occasional H Urine Bacteria Rare H Urine Mucus Rare H - Diagnostic Findings Chest x-ray: report reviewed, image reviewed Assessment and Plan Plan: Assessment: #1. Acute neutropenic fever #2. Metastatic Non-Hodgkin's lymphoma, patient currently receiving chemotherapy. PET scan from all 03/03/2022 showed evidence of lymphoma involvement in the right lung being pleural base, large right lung mass anteriorly and inferiorly and mediastinal hypermetabolic mass anterior to the aorta and SVC and hypermetabolic uptake in the right hilum and subcarinal le vels. There was multifocal hypermetabolic osseous involvement at right ischial tuberosity, bilateral shoulders, a few scattered lesions throughout the lumbar spine and upper cervical lesions #3. Recurrent malignant pleural effusion, with 2 previous thoracentesis. Status post right Pleurx catheter on all 03/01/2022. Pleural fluid cytology was positive for atypical monoclonal B-cell consistent with involvement by non- Hodgkin's B-cell lymphoma of follicle center cell origin #4. History of hyperlipidemia #5. Osteoarthritis #6. Lifetime nonsmoker #7. History of a right renal mass with recent cystoscopy, renal wash cytology was nondiagnostic #8. 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 Number of minutes spent on the visit: [15] Time with Patient: Greater than 30
[2022-04-06] MEDS: ZOLPIDEM 5 MG TAB PO PRN (21:53)
[2022-04-06 22:11] LABS: Appearance,BF Hazy
[2022-04-07] MEDS ORDERED: VANCOMYCIN 1,750 MG in SODIUM CHLORIDE 0.9% 500 ML 500 ML IVPB SCH ×2
[2022-04-07 05:26] LABS: Glucose, BF Source Pleural Fluid; Glucose, Body Fluid 126 mg/dL; LDH, Body Fluid Source Pleural Fluid; T. Protein, Body Fluid Source Pleural Fluid; Total Protein, Body Fluid 2250 mg/dL
[2022-04-07] MEDS: CEFEPIME 2 GM in SODIUM CHLORIDE 0.9% 100 ML IVPB SCH ×4 (06:27→23:47)
[2022-04-07] MEDS: ACYCLOVIR SODIUM 750 MG in SODIUM CHLORIDE 0.9% 250 ML IVPB SCH ×3 (06:28→20:48)
--- NOTE | 2022-04-07 07:02 | P.CONS ---
History of Present Illness - Reason for Consult Consult date: 04/06/22 FUO Requesting physician: Cami Leblanc - Chief Complaint Fever x 1 day - History of Present Illness Patient is a 72-year female with a past medical history sniffing for nodular histiocytic lymphoma with malignant right-sided pleural effusion in this patient did have a previous thoracocentesis done in the recent Pleurx catheter placement on 03/08/2022 patient has been draining the Pleurx catheter at home every 48 hours on an average of 250 mL of pleural fluid being drained. Patient went for her routine follow-up visit with her oncologist this morning with the patient was noticed to be febrile patient denies having any high-grade fever or chills at home before she went to the hospital however has not been feeling that good patient has been complaining of some sore throat but no difficulty swallowing patient denies having any chest pain no worsening cough or sputum production however the patient did mention that the pleural fluid has been looking more cloudy patient did have a left arm PICC line for her chemotherapy and the last chemo has been about a week ago on patient mention patient no problem with retrying from the PICC line and has no associated swelling redness or any drainage patient denies any abdominal pain denies any nausea no vomiting no diarrhea no urinary symptoms no joint swelling on arrival to the ER patient did have low-grade fever of 99.8 F patient is currently satting 97% room air, patient did have a white count of 0.2 kidney function has been normal liver enzymes are normal urine has been negative influenza and rodas PCR was negative rapid strep screen was negative as well patient did have a pleural fluid as well as blood culture sent has been empirically started on vancomycin and cefepime infectious disease was consulted for further management of antibiotic therapy Review of Systems Positive point has been mentioned in HPI, rest of the systems are negative Past Medical History Past Medical History: Cancer, Hyperlipidemia, Osteoarthritis (OA) Additional Past Medical History / Comment(s): migraines, pain under rt breast radiating to back, 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, two tumors on spine, probable cancer per pt(had radiation on tumor on spine 10/2021-11/2021(10 treatments) lymphoma History of Any Multi-Drug Resistant Organisms: None Reported Past Surgical History: Appendectomy, Back Surgery, Breast Surgery, Orthopedic Surgery Additional Past Surgical History / Comment(s): rhinoplasty, left breast lumpectomy, ,bunnionectomies payam feet, spinal fusion, Past Anesthesia/Blood Transfusion Reactions: No Reported Reaction Additional Past Anesthesia/Blood Transfusion Reaction / Comm: , Past Psychological History: No Psychological Hx Reported Smoking Status: Never smoker Past Alcohol Use History: None Reported Past Drug Use History: None Reported - Past Family History Mother Family Medical History: Cancer, Deep Vein Thrombosis (DVT), Pulmonary Embolus Additional Family Medical History / Comment(s): cervical Father Family Medical History: Cancer Additional Family Medical History / Comment(s): prostate Medications and Allergies Home Medications Medication Instructions Recorded Confirmed Type Cetirizine HCl [Zyrtec] 10 mg PO DAILY 09/24/18 04/06/22 History Gabapentin [Neurontin] 300 mg PO Q6H PRN 09/24/18 04/06/22 History Propranolol HCl [Propranolol HCl 60 mg PO DAILY 09/24/18 04/06/22 History ER] Ezetimibe [Zetia] 10 mg PO DAILY 01/18/22 04/06/22 History Vit C/E/Zn/Coppr/Lutein/Zeaxan 1 cap PO DAILY 01/18/22 04/06/22 History [Preservision Areds 2 Softgel] Omeprazole 20 mg PO DAILY 02/26/22 04/06/22 History Zolpidem [Ambien] 10 mg PO HS PRN 02/26/22 04/06/22 History Cholecalciferol [Vitamin D3 (25 50 mcg PO DAILY 03/14/22 04/06/22 History Mcg = 1000 Iu)] Loratadine 10 mg PO DIRECTED 03/14/22 04/06/22 History Losartan [Cozaar] 50 mg PO DAILY 03/14/22 04/06/22 History OLANZapine 5 mg PO DIRECTED 03/14/22 04/06/22 History Sennosides/Docusate Sodium [Senna 1 - 2 tab PO HS PRN 03/14/22 04/06/22 History Plus 8.6-50 mg Tablet] predniSONE 100 mg PO DIRECTED 03/14/22 04/06/22 History HYDROcodone/APAP 10-325MG [[place] 1 tab PO Q6H PRN 04/06/22 04/06/22 History 10-325] Ondansetron Odt [Zofran Odt] 4 mg PO Q6H PRN 04/06/22 04/06/22 History fentaNYL 25MCG/HR PATCH [Duragesic 25 mcg TRANSDERM Q72H 04/06/22 04/06/22 History 25MCG/HR] Allergies Allergy/AdvReac Type Severity Reaction Status Date / Time No Known Allergies Allergy Verified 04/06/22 12:26 Physical Exam Vitals: Vital Signs Temp Pulse Resp BP Pulse Ox 04/06/22 10:14 99.8 F H 84 18 95/59 97 Intake and Output 04/05/22 04/06/22 04/06/22 22:59 06:59 14:59 Other: Weight 89.358 kg GENERAL DESCRIPTION: Elderly female lying in bed, no distress. No tachypnea or accessory muscle of respiration use. HEENT: Shows Pallor , no scleral icterus. Oral mucous membrane is dry. Mild pharyngeal erythema no thrush NECK: Trachea central, no thyromegaly. LUNGS: Unlabored breathing. Decreased breath sound the base HEART: S1, S2, regular rate and rhythm. No loud murmur ABDOMEN: Soft, no tenderness , guarding or rigidity, no organomegaly EXTREMITIES: No edema of feet. SKIN: No rash, no masses palpable. NEUROLOGICAL: The patient is awake, alert, oriented x3, mood and affect normal. Results CBC & Chem 7: 04/06/22 11:07 04/06/22 11:05 Labs: Abnormal Lab Results - Last 24 Hours (Table) 04/06/22 04/06/22 04/06/22 Range/Units 11:05 11:05 11:48 APTT 18.1 L (22.0-30.0) sec Sodium 134 L (137-145) mmol/L Creatinine 0.49 L (0.52-1.04) mg/dL Glucose 112 H (74-99) mg/dL Calcium 8.3 L (8.4-10.2) mg/dL Total Protein 5.1 L (6.3-8.2) g/dL Albumin 3.2 L (3.5-5.0) g/dL Urine Blood Trace H (Negative) Urine RBC 10 H (0-5) /hpf Amorphous Sediment Occasional H (None) /hpf Urine Bacteria Rare H (None) /hpf Urine Mucus Rare H (None) /hpf Assessment and Plan (1) Neutropenic fever Current Visit: Yes Status: Acute Code(s): D70.9 - NEUTROPENIA, UNSPECIFIED; R50.81 - FEVER PRESENTING WITH CONDITIONS CLASSIFIED ELSEWHERE SNOMED Code(s): 295381834 Plan: 1patient presented to hospital with fever and this patient currently undergoing chemotherapy noticed to be neutropenic patient did have malignant right-sided effusion for the patient has Pleurx catheter apparently the fluid has been slightly cloudy could be the likely source of infection versus a PICC line infection as no other obvious focus of infection and will need to cover for the resistant gram-negative as well as gram-positive pathogen. 2blood and Pleurx catheter fluid culture has been obtained and those will be followed 3vancomycin pharmacy to dose target trough of 15 while watching kidney function and vancomycin trough closely and cefepime to continue. We will follow on clinical condition and cultures to further adjust medication if needed Thank you for this consultation will follow this patient along with you Time with Patient: Greater than 30
[2022-04-07] MEDS: LORATADINE 10 MG TAB PO SCH (08:39)
[2022-04-07] MEDS: EZETIMIBE 10 MG TAB PO SCH (08:39)
[2022-04-07] MEDS: CHOLECALCIFEROL 25 MCG (1000 IU) TABLET PO SCH (08:39)
[2022-04-07] MEDS: LOSARTAN 50 MG TAB PO SCH ×2 (08:39→09:00)
[2022-04-07] MEDS: PANTOPRAZOLE 40 MG TABLET PO SCH (08:39)
[2022-04-07] MEDS: VIT A,C & E-LUTEIN-MINERALS 1 EACH TAB PO SCH (08:39)
[2022-04-07] MEDS: PROPRANOLOL LA 60 MG CAP.SA.24H PO SCH (08:41)
[2022-04-07] MEDS: VANCOMYCIN 1,750 MG in SODIUM CHLORIDE 0.9% 500 ML 500 ML IVPB SCH ×2 (08:44→21:14)
[2022-04-07] MEDS: ENOXAPARIN 40 MG/0.4 ML SYRINGE SQ SCH (08:45)
[2022-04-07 09:40] LABS: African American GFR (CKD) 112.9 (60.0-200.0); Albumin 3.2 g/dL (3.8-4.9); Albumin/Globulin Ratio 2.46 (1.60-3.17); Anion Gap 8.3 mmol/L (10.00-18.00); BUN/Creat Ratio 14.2 Ratio (12.00-20.00); Blood Urea Nitrogen 7.1 mg/dL (9.0-27.0); Calcium 8.3 mg/dL (8.7-10.3); Carbon Dioxide 24.7 mmol/L (20.0-27.5); Globulin 1.3 g/dL (1.6-3.3); Non-African American GFR(CKD) 97.4 (60.0-200.0); Potassium 3.7 mmol/L (3.5-5.5); Total Bilirubin 0.5 mg/dL (0.30-1.20); Total Protein 4.5 g/dL (6.2-8.2)
--- NOTE | 2022-04-07 10:06 | P.PN ---
Subjective Progress Note Date: 04/07/22 Principal diagnosis: Neutropenic fever This is a 72-year-old female patient with recent diagnosis of NHL (nodular histiocytic lymphoma), and patient was started on treatment, recently received intrathecal Methotrexate recurrent plural effusions with previous thoracentesis at [facility], and depression had a right-sided Pleurx catheter placed during her last admission to this hospital when she was admitted with recurrent right-sided pleural effusion and pleural fluid cytology was positive for atypical monoclonal B-cell population expressing CD10 consistent with 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 Patient had right-sided Pleurx catheter placed on 03/08/2022, and 1.4 L of serous fluid was removed. Patient has been draining the Pleurx catheter at home with the help of her every 48 hours, and removing on average 250 mL of yellowish colored pleural fluid. Today on 04/06/2022 she was seeing medical oncology nurse practitioner for a routine visit, and she was noted to be febrile. She denies any worsening shortness of breath, no cough, no phlegm production. She denies any burning or pressure with urination, although she does admit that her urine looked a little cloudy. She states pleural fluid in the last few days was also looking a little bit more cloudy. Chest x-ray was obtained showing right-sided pleural catheter in place, and small pleural effusion with adjacent patchy opacity at the right lower lung. On presentation patient has a low-grade fever of 99.8F, room air pulse ox is 98%, she is awake and alert, is in no acute distress. She has drained around 100 mL of yellow, pleural fluid from the right Pleurx catheter which will be sent for cultures. She is breathing comfortably. The patient is seen today 04/07/2022 in follow-up on the regular medical floor. He awake and alert in no acute distress. She denies any worsening shortness of breath, cough or congestion. She is maintaining good O2 saturations in the 90s on room air. Right-sided Pleurx catheter remains in place. Pleural fluid exudate with a protein of 2.2 and a LDH of 380. She is currently on vancomycin and cefepime. Throat culture pending. Pleural fluid cultures pending. Sodium 138. Potassium 3.7. BUN 7. Creatinine 0.5. CBC pending. Group A strep rapid testing negative. Influenza screen negative. Coronavirus by PCR negative. Objective - Vital Signs Vital signs: Vital Signs Temp 98.9 F 04/07/22 09:05 Pulse 92 04/07/22 09:05 Resp 95 H 04/07/22 09:05 BP 111/71 04/07/22 09:05 Pulse Ox 94 L 04/07/22 05:36 Intake & Output 04/06/22 04/07/22 04/07/22 18:59 06:59 18:59 Intake Total 590 Balance 590 Weight 89.358 kg Intake: Oral 590 Other: Voiding Method Toilet # Voids 3 - Exam GENERAL EXAM: Alert, very pleasant, 72-year-old female, on room air, the pulse ox 94%, comfortable in no apparent distress. HEAD: Normocephalic/atraumatic. EYES: Normal reaction of pupils, equal size. Conjunctiva pink, sclera white. NOSE: Clear with pink turbinates. THROAT: No erythema or exudates. NECK: No masses, no JVD, no thyroid enlargement, no adenopathy. CHEST: No chest wall deformity. Symmetrical expansion. Right lower chest P leurx catheter in place LUNGS: Equal air entry with no crackles, wheeze, rhonchi or dullness. CVS: Regular rate and rhythm, normal S1 and S2, no gallops, no murmurs, no rubs ABDOMEN: Soft, nontender. No hepatosplenomegaly, normal bowel sounds, no guarding or rigidity. EXTREMITIES: No clubbing, no edema, no cyanosis, 2+ pulses and upper and lower extremities. MUSCULOSKELETAL: Muscle strength and tone normal. SPINE: No scoliosis or deformity SKIN: No rashes CENTRAL NERVOUS SYSTEM: No focal deficits, tone is normal in all 4 extremities. PSYCHIATRIC: Alert and oriented -3. Appropriate affect. Intact judgment and insight. - Labs CBC & Chem 7: 04/06/22 11:07 04/07/22 05:59 Labs: Abnormal Lab Results - Last 24 Hours (Table) 04/06/22 04/06/22 04/06/22 Range/Units 11:05 11:05 11:07 WBC 0.2 L* (3.8-10.6) k/uL RBC 3.45 L (3.80-5.40) m/uL Hgb 9.7 L D (11.4-16.0) gm/dL Hct 30.2 L (34.0-46.0) % RDW 18.9 H (11.5-15.5) % Plt Count 56 L D (150-450) k/uL APTT 18.1 L (22.0-30.0) sec Sodium 134 L (137-145) mmol/L Anion Gap (10.00-18.00) mmol/L BUN (9.0-27.0) mg/dL Creatinine 0.49 L (0.52-1.04) mg/dL Glucose 112 H (74-99) mg/dL Calcium 8.3 L (8.4-10.2) mg/dL AST (13-35) U/L Total Protein 5.1 L (6.3-8.2) g/dL Albumin 3.2 L (3.5-5.0) g/dL Globulin (1.6-3.3) g/dL Urine Blood (Negative) Urine RBC (0-5) /hpf Amorphous Sediment (None) /hpf Urine Bacteria (None) /hpf Urine Mucus (None) /hpf 04/06/22 04/07/22 Range/Units 11:48 05:59 WBC (3.8-10.6) k/uL RBC (3.80-5.40) m/uL Hgb (11.4-16.0) gm/dL Hct (34.0-46.0) % RDW (11.5-15.5) % Plt Count (150-450) k/uL APTT (22.0-30.0) sec Sodium (137-145) mmol/L Anion Gap 8.30 L (10.00-18.00) mmol/L BUN 7.1 L (9.0-27.0) mg/dL Creatinine 0.5 L (0.52-1.04) mg/dL Glucose (74-99) mg/dL Calcium 8.3 L (8.4-10.2) mg/dL AST 8 L (13-35) U/L Total Protein 4.5 L (6.3-8.2) g/dL Albumin 3.2 L (3.5-5.0) g/dL Globulin 1.3 L (1.6-3.3) g/dL Urine Blood Trace H (Negative) Urine RBC 10 H (0-5) /hpf Amorphous Sediment Occasional H (None) /hpf Urine Bacteria Rare H (None) /hpf Urine Mucus Rare H (None) /hpf Microbiology - Last 24 Hours (Table) 04/06/22 15:22 Gram Stain - Preliminary Pleural Fluid Body Fluid Culture - Preliminary 04/06/22 14:08 Group A Strep Throat Culture - Preliminary Throat Assessment and Plan Assessment: 1 Acute neutropenic fever 2 Metastatic Non-Hodgkin's lymphoma, patient currently receiving chemotherapy. PET scan from all 03/03/2022 showed evidence of lymphoma involvement in the right lung being pleural base, large right lung mass anteriorly and inferiorly and mediastinal hypermetabolic mass anterior to the aorta and SVC and hypermetabolic uptake in the right hilum and subcarinal levels. There was multifocal hypermetabolic osseous involvement at right ischial tuberosity, bilateral shoulders, a few scattered lesions throughout the lumbar spine and upper cervical lesions 3 Recurrent malignant pleural effusion, with 2 previous thoracentesis. Status post right Pleurx catheter on all 03/01/2022. 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 Number of minutes spent on the visit:10.
[2022-04-07 10:20] LABS: HCT 23.8 % (37.2-46.3); HGB 7.5 g/dL (12.0-15.0); MCH 27.7 pg (27.0-32.0); MCHC 31.5 g/dL (32.0-37.0); MCV 87.8 fL (80.0-97.0); Mean Platelet Volume 12.9 fL (9.5-12.2); NRBC Per 100 WBC 0 /100 WBCS (0.0-0.0); Platelet Count 53 X 10*3/uL (140-440); RBC 2.71 X 10*6/uL (4.10-5.20); RDW 18.7 % (11.5-14.5); WBC 0.58 X 10*3/uL (4.50-10.00)
[2022-04-07 10:30] LABS: Basophils # (M) 0.02 X 10*3/uL (0.00-0.10); Eosinophils # (M) 0 X 10*3/uL (0.04-0.35); Immature Platelet Fraction 7.2 % (1.1-6.1); Lymphocytes # (M) 0.17 X 10*3/uL (0.90-5.00); Monocytes # (M) 0.03 X 10*3/uL (0.20-1.00); Neutrophils # (M) 0.36 X 10*3/uL (2.00-8.90); Neutrophils % (M) 62 %
[2022-04-07 13:37] VITALS: RESP 16
[2022-04-07 15:05] VITALS: BMI 30.8
[2022-04-07] MEDS ORDERED: ACETAMINOPHEN TAB 325 MG TAB PO PRN (18:08)
--- NOTE | 2022-04-07 18:18 | P.PN ---
Subjective Progress Note Date: 04/07/22 No new symptoms or complaints. Cultures thus far negative. WBC improving. Gen: awake, alert HEENT: normocephalic, atraumatic, good hearing acuity, moist mucous membranes, rash at the back of her throat-appearing almost vesicular Resp: good air exchange, breathing comfortably with no accessory muscle use CVS: good distal perfusion x 4, GI: soft, NTTP, ND : no SPT, no CVAT, wheeler catheter not present MSK: no pitting edema, no clubbing Neuro: non-focal, moving all extremities Psych: cooperative, euthymic mood Labs and imaging reviewed as above Assessment/plan: Neutropenic fever Pleural effusion Lymphoma -Admit to inpatient, telemetry -ID consultation -Pulmonary consultation -Oncology consultation -Pleural fluid studies: LDH, protein, glucose, culture -Group A strep culture -Blood cultures, urine culture -Vancomycin, cefepime, acyclovir Chronic pain Migraines Osteoarthritis -Home medications reviewed and reconciled Patient is full code DVT prophylaxis with enoxaparin, hold for platelets less than 50 Objective - Vital Signs Vital signs: Vital Signs Temp 98.3 F 04/07/22 13:36 Pulse 82 04/07/22 13:36 Resp 16 04/07/22 13:36 BP 110/70 04/07/22 13:36 Pulse Ox 95 04/07/22 13:36 Intake & Output 04/06/22 04/07/22 04/07/22 18:59 06:59 18:59 Intake Total 590 240 Balance 590 240 Weight 89.358 kg 89.358 kg Intake: Intake, IV Titration 240 Amount Sodium Chloride 0.9% 1, 240 000 ml @ 130 mls/hr IV . Q7H42M STA Rx#:[id number] Oral 590 Other: Voiding Method Toilet # Voids 3 2 - Labs CBC & Chem 7: 04/07/22 05:59 04/07/22 05:59 Labs: Abnormal Lab Results - Last 24 Hours (Table) 04/07/22 04/07/22 Range/Units 05:59 05:59 WBC 0.58 L* (4.50-10.00) X 10*3/uL RBC 2.71 L (4.10-5.20) X 10*6/uL Hgb 7.5 L (12.0-15.0) g/dL Hct 23.8 L (37.2-46.3) % MCHC 31.5 L (32.0-37.0) g/dL RDW 18.7 H (11.5-14.5) % Plt Count 53 L (140-440) X 10*3/uL Plt Count Comment DECREASED A MPV 12.9 H (9.5-12.2) fL Neutrophils # (Manual) 0.36 L* (2.00-8.90) X 10*3/uL Lymphocytes # (Manual) 0.17 L (0.90-5.00) X 10*3/uL Monocytes # (Manual) 0.03 L (0.20-1.00) X 10*3/uL Eosinophils # (Manual) 0 L (0.04-0.35) X 10*3/uL Immature Plt Fraction 7.2 H (1.1-6.1) % Anion Gap 8.30 L (10.00-18.00) mmol/L BUN 7.1 L (9.0-27.0) mg/dL Creatinine 0.5 L (0.6-1.5) mg/dL Calcium 8.3 L (8.7-10.3) mg/dL AST 8 L (13-35) U/L Total Protein 4.5 L (6.2-8.2) g/dL Albumin 3.2 L (3.8-4.9) g/dL Globulin 1.3 L (1.6-3.3) g/dL Microbiology - Last 24 Hours (Table) 04/06/22 12:00 Blood Culture - Preliminary Blood No Growth after 24 hours 04/06/22 11:46 Blood Culture - Preliminary Blood No Growth after 24 hours 04/06/22 11:10 Blood Culture - Preliminary Blood No Growth after 24 hours 04/06/22 11:07 Blood Culture - Preliminary Blood No Growth after 24 hours 04/06/22 15:22 Gram Stain - Preliminary Pleural Fluid Body Fluid Culture - Preliminary 04/06/22 14:08 Group A Strep Throat Culture - Preliminary Throat
--- NOTE | 2022-04-07 20:18 | P.CONS ---
History of Present Illness - Reason for Consult Consult date: 04/07/22 Neutropenia Fever Requesting physician: Raul Odom - History of Present Illness Ms Hubbard is a pleasant white female, who is fairly healthy at baseline. The patient states that she initially started having some pain in the midback around late 06/15. She subsequently developed pain in the shoulders going down both arms. She sought attention to this with her PCP, and had imaging with x-ray of the C-spine and thoracic spine in mid 08/16. This showed some minimal anterior wedging of a midthoracic vertebral body which is felt to be physiologic and moderate disc/endplate DJD. There was moderate DJD through C5-7, and moderate to severe bony neuro foraminal narrowing in the left mid to lower C-spine. The patient had a course of steroids which improved her symptoms markedly. However these recurred after completing steroids. She also had manipulation by a chiropractor without much benefit. She was therefore referred to orthopedic spine surgery, Dr. Cantu. She had MRI of T-spine done on 10/03/21. This showed solid enhancement testing of mass lesion in the epidural soft tissue at the cervicothoracic junction as well as a second focus of dorsal epidural soft tissue in the mid T-spine at T7. There also appeared to be a solid enhancing left posterior chest wall mass with associated pleural effusion. There also appeared to be a mass in the manubrium. The patient did not follow-up after the MRI as she contracted Covid. She was able to be treated at home, and was on steroids for about 3-4 weeks which markedly improved her symptoms. The patient then had MRI of the C-spine on 10/27/21, which showed enhancement of epidural soft tissue from C7-T2 as well as within the bone marrow of the posterior elements is also enhancement within bone marrow involving spinous processes of C5-T2. The mass at the cervicothoracic junction measured about 3.6 cm. This was causing mass effect on the dorsal aspect of the spinal cord. Patient was therefore referred here for further evaluation and determinations. She reported recurrence of for upper extremity and shoulder symptoms after completion of the steroid taper for Covid. She has some numbness and tingling in both hands. However she has not had loss of power so far. She denied any significant lower extremity symptoms or loss of bladder or bowel control. No prior history of malignancy. She states that she is a nonsmoker. She had some minor secondhand smoking exposure from her but he quit more than 30 years ago. She denied any B symptoms. Colonoscopy 10/16, and mammogram in 11/15 were both negative. The patient, at her initial visit, was felt to be at high risk for impending cord compression and was sent in for admission at [facility]. On further imaging with CT of the chest abdomen and pelvis, she was found to have a right renal mass which was felt to be the most likely primary. Interventional radiology were consulted, but felt that the location of the mass needed a higher risk for biopsy. Retrograde cystoscopic evaluation did not reveal any excessive a lesion in the collecting system. Orthopedic spine surgery indicated that the biopsy of the spinal lesions would be safer to be attempted by neurosurgery. The patient was agreeable to start radiation to the lower C-spine lesion, which is felt to be highest risk, without a tissue diagnosis. She therefore started the same, and was able to be discharged, on a steroid taper. The patient completed her radiation on 11/30/21. She completed her steroid taper on 12/01/21. she was referred to interventional radiology at [facility] for biopsy of the right renal mass. On the review of the scan there also appeared t o be possibly a subdiaphragmatic lymph node. However when the biopsy was attempted under CT guidance, neither the adrenal lesion or the above-mentioned lymph node could be clearly seen to target. the case was discussed at IR, and MRI of the abdomen was ordered. This did confirm an infiltrating type lesion that appeared to involve the upper collecting system of the mid to lower pole of the right kidney. Based on this study, I recommended that the patient should have ureteroscopy. Case was discussed with Urology, and the patient underwent a repeat ureteroscopy in late 01/17. This was again found to be negative. The pt then underwent repeat MRI of the T spine, which noted essentially resolution of the T spine lesion also! The case was discussed with IR at [facility], and the pt was referred back there to attempt a biopsy of the abnormal area around the renal pelvis. H owever she was admitted there as she developed progressive rt sided chest pain, and SOB. CT scans revealed a new chest wall based mass, and plural effusion. 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 She had thoracentesis on 02/08 revealing high grade NHL She improved with the above and was discharged on 02/10/22 The patient was then seen in the office, and recommended aggressive treatment with R-CHOP, as well as intrathecal methotrexate. She proceeded to for placement. She was admitted in early 03/17 with recurrence of pleural effusion, and had indwelling drainage catheter placed. PET scan on 03/05/22 showed right-sided pleural effusion, right pleural nodularity, right-sided chest wall mass, as well as uptake in mediastinal lymph nodes, retroperitoneal nodes in the upper abdomen, as well as multiple areas throughout the skeleton. She started our CHOP on 03/09/22 and status post 1 cycle. She is also status post 11/29 for intrathecal methotrexate. She denied any fevers/chills/nausea/vomiting. The right-sided chest wall pain has essentially resolved. She still draining about 300-400 of fluid from the chest tube every 2 days. She states that she has however developed pain in the left lower neck/left shoulder area radiating down the left arm with some numbness in her fingers. This remains fairly significant with only partial control despite [place] cans every 6 hours alternating with gabapentin 300 mg. She presented for follow-up on and on presentation febrile at 101. Since neutropenic she was sent through to room private in ER and [facility] cultures and ID consult. She did receive Neulasta on 03/30/22 Review of Systems All systems: negative Constitutional: Reports as per HPI Past Medical History Past Medical History: Cancer, Hyperlipidemia, Osteoarthritis (OA) Additional Past Medical History / Comment(s): migraines, pain under rt breast radiating to back, 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, two tumors on spine, probable cancer per pt(had radiation on tumor on spine 10/2021-11/2021(10 treatments) lymphoma History of Any Multi-Drug Resistant Organisms: None Reported Past Surgical History: Appendectomy, Back Surgery, Breast Surgery, Orthopedic Surgery Additional Past Surgical History / Comment(s): rhinoplasty, left breast lumpectomy, ,bunnionectomies payam feet, spinal fusion, Past Anesthesia/Blood Transfusion Reactions: No Reported Reaction Additional Past Anesthesia/Blood Transfusion Reaction / Comm: , Past Psychological History: No Psychological Hx Reported Smoking Status: Never smoker Past Alcohol Use History: None Reported Past Drug Use History: None Reported - Past Family History Mother Family Medical History: Cancer, Deep Vein Thrombosis (DVT), Pulmonary Embolus Additional Family Medical History / Comment(s): cervical Father Family Medical History: Cancer Additional Family Medical History / Comment(s): prostate Medications and Allergies Home Medications Medication Instructions Recorded Confirmed Type Cetirizine HCl [Zyrtec] 10 mg PO DAILY 09/24/18 04/06/22 History Gabapentin [Neurontin] 300 mg PO Q6H PRN 09/24/18 04/06/22 History Propranolol HCl [Propranolol HCl 60 mg PO DAILY 09/24/18 04/06/22 History ER] Ezetimibe [Zetia] 10 mg PO DAILY 01/18/22 04/06/22 History Vit C/E/Zn/Coppr/Lutein/Zeaxan 1 cap PO DAILY 01/18/22 04/06/22 History [Preservision Areds 2 Softgel] Omeprazole 20 mg PO DAILY 02/26/22 04/06/22 History Zolpidem [Ambien] 10 mg PO HS PRN 02/26/22 04/06/22 History Cholecalciferol [Vitamin D3 (25 50 mcg PO DAILY 03/14/22 04/06/22 History Mcg = 1000 Iu)] Loratadine 10 mg PO DIRECTED 03/14/22 04/06/22 History Losartan [Cozaar] 50 mg PO DAILY 03/14/22 04/06/22 History OLANZapine 5 mg PO DIRECTED 03/14/22 04/06/22 History Sennosides/Docusate Sodium [Senna 1 - 2 tab PO HS PRN 03/14/22 04/06/22 History Plus 8.6-50 mg Tablet] predniSONE 100 mg PO DIRECTED 03/14/22 04/06/22 History HYDROcodone/APAP 10-325MG [[place] 1 tab PO Q6H PRN 04/06/22 04/06/22 History 10-325] Ondansetron Odt [Zofran Odt] 4 mg PO Q6H PRN 04/06/22 04/06/22 History fentaNYL 25MCG/HR PATCH [Duragesic 25 mcg TRANSDERM Q72H 04/06/22 04/06/22 History 25MCG/HR] Allergies Allergy/AdvReac Type Severity Reaction Status Date / Time No Known Allergies Allergy Verified 04/06/22 12:26 Physical Exam Vitals: Vital Signs Temp Pulse Pulse Pulse Resp BP BP 04/07/22 13:36 98.3 F 82 16 110/70 04/07/22 09:05 98.9 F 92 95 H 111/71 04/07/22 05:36 99.1 F 87 16 130/79 04/06/22 20:57 99.0 F 90 16 114/73 04/06/22 20:30 99.8 F H 86 20 146/83 04/06/22 14:00 99.0 F 86 18 130/73 Pulse Ox 04/07/22 13:36 95 04/07/22 09:05 04/07/22 05:36 94 L 04/06/22 20:57 97 04/06/22 20:30 99 04/06/22 14:00 98 Intake and Output 04/06/22 04/07/22 04/07/22 22:59 06:59 14:59 Intake Total 590 Balance 590 Intake: Oral 590 Other: Voiding Method Toilet # Voids 3 - Constitutional General appearance: cooperative, no acute distress - EENT Eyes: EOMI, PERRLA ENT: NA/AT, normal oropharynx - Neck Neck: normal ROM - Respiratory Respiratory: bilateral: diminished - Cardiovascular Rhythm: regularly irregular Heart sounds: normal: S1, S2 - Gastrointestinal General gastrointestinal: soft, tenderness - Neurologic Neurologic: CNII-XII intact - Musculoskeletal Musculoskeletal: generalized weakness Results CBC & Chem 7: 04/07/22 05:59 04/07/22 05:59 Labs: Abnormal Lab Results - Last 24 Hours (Table) 04/06/22 04/07/22 04/07/22 Range/Units 11:07 05:59 05:59 WBC 0.2 L* 0.58 L* (3.8-10.6) k/uL RBC 3.45 L 2.71 L (3.80-5.40) m/uL Hgb 9.7 L D 7.5 L (11.4-16.0) gm/dL Hct 30.2 L 23.8 L (34.0-46.0) % MCHC 31.5 L (32.0-37.0) g/dL RDW 18.9 H 18.7 H (11.5-15.5) % Plt Count 56 L D 53 L (150-450) k/uL Plt Count Comment DECREASED A MPV 12.9 H (9.5-12.2) fL Neutrophils # (Manual) 0.36 L* (2.00-8.90) X 10*3/uL Lymphocytes # (Manual) 0.17 L (0.90-5.00) X 10*3/uL Monocytes # (Manual) 0.03 L (0.20-1.00) X 10*3/uL Eosinophils # (Manual) 0 L (0.04-0.35) X 10*3/uL Immature Plt Fraction 7.2 H (1.1-6.1) % Anion Gap 8.30 L (10.00-18.00) mmol/L BUN 7.1 L (9.0-27.0) mg/dL Creatinine 0.5 L (0.6-1.5) mg/dL Calcium 8.3 L (8.7-10.3) mg/dL AST 8 L (13-35) U/L Total Protein 4.5 L (6.2-8.2) g/dL Albumin 3.2 L (3.8-4.9) g/dL Globulin 1.3 L (1.6-3.3) g/dL Microbiology - Last 24 Hours (Table) 04/06/22 11:10 Blood Culture - Preliminary Blood No Growth after 24 hours 04/06/22 11:07 Blood Culture - Preliminary Blood No Growth after 24 hours 04/06/22 15:22 Gram Stain - Preliminary Pleural Fluid Body Fluid Culture - Preliminary 04/06/22 14:08 Group A Strep Throat Culture - Preliminary Throat Assessment and Plan (1) Lymphoma Narrative/Plan: Status post R-CHOP, IT chemo and Neulasta Current Visit: Yes Status: Acute Code(s): C85.90 - NON-HODGKIN LYMPHOMA, UNSPECIFIED, UNSPECIFIED SITE SNOMED Code(s): 145239044 (2) Neutropenic fever Narrative/Plan: Afebrile, max 99.9 during admission [place] cultures negative to date Per she has had cloudy drainage from pluerex last week which is new, culture of fluid also performed negative this far Await ID recs and clearance prior to discharge No GCSF as she received neulasta on 03.30.22 Current Visit: Yes Status: Acute Code(s): D70.9 - NEUTROPENIA, UNSPECIFIED; R50.81 - FEVER PRESENTING WITH CONDITIONS CLASSIFIED ELSEWHERE SNOMED Code(s): 514772966 (3) Thrombocytopenia Narrative/Plan: Monitor and hold NSAIDS < ASA if less than 50K Transfuse Irradiated only if less than 10K Current Visit: Yes Status: Acute Code(s): D69.6 - THROMBOCYTOPENIA, UNSPECIFIED SNOMED Code(s): 683030955 Plan: Await full [place] cultures Broad Spectrum Abx Await ID recommendations Dr. Petty: I have completed the full history and physical and agree with above dictation, dictated as a ascribe
[2022-04-07] MEDS: ZOLPIDEM 5 MG TAB PO PRN (21:14)
--- NOTE | 2022-04-07 23:09 | P.PN ---
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 On today's evaluation that is 04/07/2022, patient denies having any fever or rigors, the patient is feeling slightly better his breathing comfortably no worsening pain to the right side of the chest no nausea no vomiting no abdominal pain no diarrhea Objective - Vital Signs Vital signs: Vital Signs Temp 98.9 F 04/07/22 09:05 Pulse 92 04/07/22 09:05 Resp 95 H 04/07/22 09:05 BP 111/71 04/07/22 09:05 Pulse Ox 94 L 04/07/22 05:36 Intake & Output 04/06/22 04/07/22 04/07/22 18:59 06:59 18:59 Intake Total 590 Balance 590 Weight 89.358 kg Intake: Oral 590 Other: Voiding Method Toilet # Voids 3 - Exam GENERAL DESCRIPTION: An elderly female lying in bed in no distress RESPIRATORY SYSTEM: Unlabored breathing , decreased breath sounds at bases HEART: S1 S2 regular rate and rhythm , ABDOMEN: Soft , no tenderness EXTREMITIES: No edema feet - Labs CBC & Chem 7: 04/07/22 05:59 04/07/22 05:59 Labs: Abnormal Lab Results - Last 24 Hours (Table) 04/06/22 04/06/22 04/06/22 Range/Units 11:05 11:05 11:07 WBC 0.2 L* (3.8-10.6) k/uL RBC 3.45 L (3.80-5.40) m/uL Hgb 9.7 L D (11.4-16.0) gm/dL Hct 30.2 L (34.0-46.0) % RDW 18.9 H (11.5-15.5) % Plt Count 56 L D (150-450) k/uL APTT 18.1 L (22.0-30.0) sec Sodium 134 L (137-145) mmol/L Anion Gap (10.00-18.00) mmol/L BUN (9.0-27.0) mg/dL Creatinine 0.49 L (0.52-1.04) mg/dL Glucose 112 H (74-99) mg/dL Calcium 8.3 L (8.4-10.2) mg/dL AST (13-35) U/L Total Protein 5.1 L (6.3-8.2) g/dL Albumin 3.2 L (3.5-5.0) g/dL Globulin (1.6-3.3) g/dL Urine Blood (Negative) Urine RBC (0-5) /hpf Amorphous Sediment (None) /hpf Urine Bacteria (None) /hpf Urine Mucus (None) /hpf 04/06/22 04/07/22 Range/Units 11:48 05:59 WBC (3.8-10.6) k/uL RBC (3.80-5.40) m/uL Hgb (11.4-16.0) gm/dL Hct (34.0-46.0) % RDW (11.5-15.5) % Plt Count (150-450) k/uL APTT (22.0-30.0) sec Sodium (137-145) mmol/L Anion Gap 8.30 L (10.00-18.00) mmol/L BUN 7.1 L (9.0-27.0) mg/dL Creatinine 0.5 L (0.52-1.04) mg/dL Glucose (74-99) mg/dL Calcium 8.3 L (8.4-10.2) mg/dL AST 8 L (13-35) U/L Total Protein 4.5 L (6.3-8.2) g/dL Albumin 3.2 L (3.5-5.0) g/dL Globulin 1.3 L (1.6-3.3) g/dL Urine Blood Trace H (Negative) Urine RBC 10 H (0-5) /hpf Amorphous Sediment Occasional H (None) /hpf Urine Bacteria Rare H (None) /hpf Urine Mucus Rare H (None) /hpf Microbiology - Last 24 Hours (Table) 04/06/22 15:22 Gram Stain - Preliminary Pleural Fluid Body Fluid Culture - Preliminary 04/06/22 14:08 Group A Strep Throat Culture - Preliminary Throat Assessment and Plan (1) Neutropenic fever Current Visit: Yes Status: Acute Code(s): D70.9 - NEUTROPENIA, UNSPECIFIED; R50.81 - FEVER PRESENTING WITH CONDITIONS CLASSIFIED ELSEWHERE SNOMED Code(s): 530960306 Plan: 1patient presented to hospital with fever and this patient currently undergoing chemotherapy noticed to be neutropenic patient did have malignant right-sided effusion for the patient has Pleurx catheter apparently the fluid has been slightly cloudy could be the likely source of infection versus a PICC line infection as no other obvious focus of infection and will need to cover for the resistant gram-negative as well as gram-positive pathogen. 2blood and Pleurx catheter fluid culture has been obtained which are currently pending 3patient to continue with vancomycin pharmacy to dose target trough of 15 while watching kidney function and vancomycin trough closely and cefepime while waiting for the cultures to finalize Time with Patient: Less than 30
[2022-04-08] MEDS: ACYCLOVIR SODIUM 750 MG in SODIUM CHLORIDE 0.9% 250 ML IVPB SCH ×2 (04:02→12:38)
[2022-04-08 07:34] LABS: African American GFR (CKD) >90 (>60 ml/min/1.73 sqM); Non-African American GFR(CKD) >90 (>60 ml/min/1.73 sqM)
[2022-04-08] MEDS ORDERED: VANCOMYCIN TROUGH DUE 1 EACH MISC MISCELLANE ONE (08:00)
[2022-04-08] MEDS: EZETIMIBE 10 MG TAB PO SCH (08:37)
[2022-04-08] MEDS: CEFEPIME 2 GM in SODIUM CHLORIDE 0.9% 100 ML IVPB SCH (08:37)
[2022-04-08] MEDS: LOSARTAN 50 MG TAB PO SCH (08:37)
[2022-04-08] MEDS: CHOLECALCIFEROL 25 MCG (1000 IU) TABLET PO SCH (08:38)
[2022-04-08] MEDS: PANTOPRAZOLE 40 MG TABLET PO SCH (08:38)
[2022-04-08] MEDS: VIT A,C & E-LUTEIN-MINERALS 1 EACH TAB PO SCH (08:39)
[2022-04-08] MEDS: LORATADINE 10 MG TAB PO SCH (08:39)
[2022-04-08] MEDS: VANCOMYCIN 1,750 MG in SODIUM CHLORIDE 0.9% 500 ML 500 ML IVPB SCH (08:39)
[2022-04-08] MEDS: PROPRANOLOL LA 60 MG CAP.SA.24H PO SCH (08:39)
[2022-04-08] MEDS: ENOXAPARIN 40 MG/0.4 ML SYRINGE SQ SCH (08:39)
--- NOTE | 2022-04-08 10:43 | P.PN ---
Subjective Progress Note Date: 04/08/22 Principal diagnosis: Neutropenic fever This is a 72-year-old female patient with recent diagnosis of NHL (nodular histiocytic lymphoma), and patient was started on treatment, recently received intrathecal Methotrexate recurrent plural effusions with previous thoracentesis at [facility], and depression had a right-sided Pleurx catheter placed during her last admission to this hospital when she was admitted with recurrent right-sided pleural effusion and pleural fluid cytology was positive for atypical monoclonal B-cell population expressing CD10 consistent with 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 Patient had right-sided Pleurx catheter placed on 03/08/2022, and 1.4 L of serous fluid was removed. Patient has been draining the Pleurx catheter at home with the help of her every 48 hours, and removing on average 250 mL of yellowish colored pleural fluid. Today on 04/06/2022 she was seeing medical oncology nurse practitioner for a routine visit, and she was noted to be febrile. She denies any worsening shortness of breath, no cough, no phlegm production. She denies any burning or pressure with urination, although she does admit that her urine looked a little cloudy. She states pleural fluid in the last few days was also looking a little bit more cloudy. Chest x-ray was obtained showing right-sided pleural catheter in place, and small pleural effusion with adjacent patchy opacity at the right lower lung. On presentation patient has a low-grade fever of 99.8F, room air pulse ox is 98%, she is awake and alert, is in no acute distress. She has drained around 100 mL of yellow, pleural fluid from the right Pleurx catheter which will be sent for cultures. She is breathing comfortably. The patient is seen today 04/07/2022 in follow-up on the regular medical floor. He awake and alert in no acute distress. She denies any worsening shortness of breath, cough or congestion. She is maintaining good O2 saturations in the 90s on room air. Right-sided Pleurx catheter remains in place. Pleural fluid exudate with a protein of 2.2 and a LDH of 380. She is currently on vancomycin and cefepime. Throat culture pending. Pleural fluid cultures pending. Sodium 138. Potassium 3.7. BUN 7. Creatinine 0.5. CBC pending. Group A strep rapid testing negative. Influenza screen negative. Coronavirus by PCR negative. The patient is seen today 04/08/2022 in follow-up on the regular medical floor. She currently sitting up in bed having breakfast. Awake and alert in no acute d istress. Maintaining good O2 saturations in the 90s on room air. 0.9 normal saline at 20 miles per hour. Creatinine 0.4. GFR greater than 90. Vancomycin trough 15.6. Pro-calcitonin 0.11. She remains on acyclovir, cefepime and vancomycin. Lovenox for DVT prophylaxis. Blood cultures reveal no growth to date. Throat culture pending. Pleural fluid cultures pending. Objective - Vital Signs Vital signs: Vital Signs Temp 98.3 F 04/08/22 04:29 Pulse 107 H 04/08/22 08:00 Resp 16 04/08/22 08:00 BP 142/71 04/08/22 08:00 Pulse Ox 96 04/08/22 08:00 Intake & Output 04/07/22 04/08/22 04/08/22 18:59 06:59 18:59 Intake Total 240 850 Balance 240 850 Weight 89.358 kg Intake: Intake, IV Titration 240 850 Amount Acyclovir Sodium 750 mg 250 In Sodium Chloride 0.9% 250 ml @ 265 mls/hr IVPB Q8H [facility]IL[facility] Rx#:[id number] Cefepime 2 gm In Sodium 100 Chloride 0.9% 100 ml @ 200 mls/hr IVPB Q8HR [facility] Rx#:[id number] Sodium Chloride 0.9% 1, 240 000 ml @ 130 mls/hr IV . Q7H42M STA Rx#:[id number] Vancomycin 1,750 mg In 500 Sodium Chloride 0.9% 500 ml 500 ml @ 167 mls/hr IVPB Q12H [facility]IL[facility] Rx#: [id number] Other: Voiding Method Toilet # Voids 2 1 - Exam GENERAL EXAM: Alert, 72-year-old female, on room air, the pulse ox 96%, comfortable in no apparent distress. HEAD: Normocephalic/atraumatic. EYES: Normal reaction of pupils, equal size. Conjunctiva pink, sclera white. NOSE: Clear with pink turbinates. THROAT: No erythema or exudates. NECK: No masses, no JVD, no thyroid enlargement, no adenopathy. CHEST: No chest wall deformity. Symmetrical expansion. Right lower chest Pleurx catheter in place LUNGS: Equal air entry with no crackles, wheeze, rhonchi or dullness. CVS: Regular rate and rhythm, normal S1 and S2, no gallops, no murmurs, no rubs ABDOMEN: Soft, nontender. No hepatosplenomegaly, normal bowel sounds, no guarding or rigidity. EXTREMITIES: No clubbing, no edema, no cyanosis, 2+ pulses and upper and lower extremities. MUSCULOSKELETAL: Muscle strength and tone normal. SPINE: No scoliosis or deformity SKIN: No rashes CENTRAL NERVOUS SYSTEM: No focal deficits, tone is normal in all 4 extremities. PSYCHIATRIC: Alert and oriented -3. Appropriate affect. Intact judgment and insight. - Labs CBC & Chem 7: 04/07/22 05:59 04/08/22 07:14 Labs: Abnormal Lab Results - Last 24 Hours (Table) 04/07/22 04/08/22 Range/Units 05:59 07:14 Creatinine 0.40 L (0.52-1.04) mg/dL Procalcitonin 0.11 H (0.02-0.09) ng/mL Microbiology - Last 24 Hours (Table) 04/06/22 12:00 Blood Culture - Preliminary Blood No Growth after 24 hours 04/06/22 11:46 Blood Culture - Preliminary Blood No Growth after 24 hours 04/06/22 11:10 Blood Culture - Preliminary Blood No Growth after 24 hours 04/06/22 11:07 Blood Culture - Preliminary Blood No Growth after 24 hours 04/06/22 15:22 Gram Stain - Preliminary Pleural Fluid Body Fluid Culture - Preliminary Assessment and Plan Assessment: 1 Acute neutropenic fever 2 Metastatic Non-Hodgkin's lymphoma, patient currently receiving chemotherapy. PET scan from all 03/03/2022 showed evidence of lymphoma involvement in the right lung being pleural base, large right lung mass anteriorly and inferiorly and mediastinal hypermetabolic mass anterior to the aorta and SVC and hyperm etabolic uptake in the right hilum and subcarinal levels. There was multifocal hypermetabolic osseous involvement at right ischial tuberosity, bilateral shoulders, a few scattered lesions throughout the lumbar spine and upper cervical lesions 3 Recurrent malignant pleural effusion, with 2 previous thoracentesis. Status post right Pleurx catheter on all 03/01/2022. 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 Number of minutes spent on the visit:10.
[2022-04-08 12:42] VITALS: BP 124/70; PULSE 84; TEMP 98.6
[2022-04-08 13:12] LABS: Anisocytosis Slight; Basophils % (A) 1 %; Eosinophils % (A) 0 %; HCT 25.4 % (34.0-46.0); Hypochromasia Slight; Lymphocytes # (A) 0.2 k/uL (1.0-4.8); Lymphocytes % (A) 7 %; MCHC 31.7 g/dL (31.0-37.0); MCV 88.3 fL (80.0-100.0); Mean Platelet Volume 9.5; Monocytes # (A) 0.1 k/uL (0-1.0); Monocytes % (A) 6 %; Neutrophils % (A) 83 %; RBC 2.87 m/uL (3.80-5.40); RDW 18.8 % (11.5-15.5); WBC 2.4 k/uL (3.8-10.6)
[2022-04-08 13:13] LABS: Platelet Count 60 k/uL (150-450)
[2022-04-08 13:16] LABS: African American GFR (CKD) >90 (>60 ml/min/1.73 sqM); Anion Gap 4 mmol/L; Blood Urea Nitrogen 4 mg/dL (7-17); Calcium 8.1 mg/dL (8.4-10.2); Carbon Dioxide 26 mmol/L (22-30); Chloride 104 mmol/L (98-107); Glucose 131 mg/dL (74-99); Magnesium 1.8 mg/dL (1.6-2.3); Non-African American GFR(CKD) >90 (>60 ml/min/1.73 sqM); Potassium 3.4 mmol/L (3.5-5.1); Sodium 134 mmol/L (137-145)
--- NOTE | 2022-04-08 14:19 | P.DS ---
Providers Date of admission: 04/06/22 11:21 Expected date of discharge: 04/08/22 Attending physician: Cami Leblanc MD Consults: 04/06/22 11:22 Consult Physician Routine Consulting Provider: Hipolito Styles Consult Reason/Comments: pleural effusion Do you want consulting provider notified?: Yes Consult Physician Routine Consulting Provider: William Villeda Consult Reason/Comments: Lymphoma on chemo Do you want consulting provider notified?: Yes Consult Physician Routine Consulting Provider: Cristian Henderson Consult Reason/Comments: neutropenic fever Do you want consulting provider notified?: Yes Primary care physician: [facility] Course: 72-year-old woman with medical history of lymphoma, chronic pain, recurrent pleural effusion with Pleurx catheter, migraines, osteoarthritis isn't for evaluation of low-grade fever in the setting of neutropenia. In the emergency room, patient's temperature was 99.8, 95/59, heart rate 84, 97% on room air. CBC shows white blood cell count 0.2, hemoglobin of 9.7, platelet count of 56. Chemistries are unremarkable. LFTs are remarkable for low protein and low albumin 5.1/30.2. UA shows trace blood, 10 red blood cells, 2 white blood cells, occasional sediment, rare bacteria, rare mucus. Covid was negative. Group A strep was negative. Chest x-ray demonstrates right-sided pleural catheter with a small pleural effusion and adjacent patchy opacity. Neutropenic fever Pleural effusion Lymphoma -Admitted to inpatient, telemetry. ID, pulmonary, oncology consultations appreciated. Pleural fluid studies: LDH, protein, glucose, culture; were not indicative of infection. Group A strep culture negative. Blood cultures NGTD. Pt treated with vancomycin, cefepime, and acyclovir, but had no further fevers, and WBC increased to the point where she was no longer neutropenic within 48 hours. She was discharged home with routine follow up. -Group A strep culture -Blood cultures, urine culture -Vancomycin, cefepime, acyclovir Chronic pain Migraines Osteoarthritis -Home medications reviewed and reconciled, no changes. Gen: awake, alert HEENT: normocephalic, atraumatic, good hearing acuity, moist mucous membranes, rash at the back of her throat-appearing almost vesicular Resp: good air exchange, breathing comfortably with no accessory muscle use CVS: good distal perfusion x 4, GI: soft, NTTP, ND : no SPT, no CVAT, wheeler catheter not present MSK: no pitting edema, no clubbing Neuro: non-focal, moving all extremities Psych: cooperative, euthymic mood Patient Condition at Discharge: Good Plan - Discharge Summary Discharge Rx Participant: No New Discharge Prescriptions: New Acetaminophen Tab [Tylenol] 650 mg PO Q6HR PRN tab PRN Reason: Fever And/ Or Pain Continue Gabapentin [Neurontin] 300 mg PO Q6H PRN PRN Reason: Pain Cetirizine HCl [Zyrtec] 10 mg PO DAILY Propranolol HCl [Propranolol HCl ER] 60 mg PO DAILY Ezetimibe [Zetia] 10 mg PO DAILY Zolpidem [Ambien] 10 mg PO HS PRN PRN Reason: Insomnia Omeprazole 20 mg PO DAILY Cholecalciferol [Vitamin D3 (25 Mcg = 1000 Iu)] 50 mcg PO DAILY OLANZapine 5 mg PO DIRECTED Ondansetron Odt [Zofran ODT] 4 mg PO Q6H PRN PRN Reason: Nausea Vit C/E/Zn/Coppr/Lutein/Zeaxan [Preservision Areds 2 Softgel] 1 cap PO DAILY predniSONE 100 mg PO DIRECTED Losartan [Cozaar] 50 mg PO DAILY Loratadine 10 mg PO DIRECTED Sennosides/Docusate Sodium [Senna Plus 8.6-50 mg Tablet] 1 - 2 tab PO HS PRN PRN Reason: Constipation fentaNYL 25MCG/HR PATCH [Duragesic 25MCG/HR] 25 mcg TRANSDERM Q72H HYDROcodone/APAP 10-325MG [Chandler 10-325] 1 tab PO Q6H PRN PRN Reason: Pain Discharge Medication List Cetirizine HCl [Zyrtec] 10 mg PO DAILY 09/24/18 [History] Gabapentin [Neurontin] 300 mg PO Q6H PRN 09/24/18 [History] Propranolol HCl [Propranolol HCl ER] 60 mg PO DAILY 09/24/18 [History] Ezetimibe [Zetia] 10 mg PO DAILY 01/18/22 [History] Vit C/E/Zn/Coppr/Lutein/Zeaxan [Preservision Areds 2 Softgel] 1 cap PO DAILY 01/18/22 [History] Omeprazole 20 mg PO DAILY 02/26/22 [History] Zolpidem [Ambien] 10 mg PO HS PRN 02/26/22 [History] Cholecalciferol [Vitamin D3 (25 Mcg = 1000 Iu)] 50 mcg PO DAILY 03/14/22 [History] Loratadine 10 mg PO DIRECTED 03/14/22 [History] Losartan [Cozaar] 50 mg PO DAILY 03/14/22 [History] OLANZapine 5 mg PO DIRECTED 03/14/22 [History] Sennosides/Docusate Sodium [Senna Plus 8.6-50 mg Tablet] 1 - 2 tab PO HS PRN 03/14/22 [History] predniSONE 100 mg PO DIRECTED 03/14/22 [History] HYDROcodone/APAP 10-325MG [Chandler 10-325] 1 tab PO Q6H PRN 04/06/22 [History] Ondansetron Odt [Zofran ODT] 4 mg PO Q6H PRN 04/06/22 [History] fentaNYL 25MCG/HR PATCH [Duragesic 25MCG/HR] 25 mcg TRANSDERM Q72H 04/06/22 [History] Acetaminophen Tab [Tylenol] 650 mg PO Q6HR PRN tab 04/08/22 [Rx] Follow up Appointment(s)/Referral(s): Darryl Julien DO [Primary Care Provider] - 1 Week
[2022-04-08] MEDS ORDERED: POTASSIUM CHLORIDE ER 20 MEQ TAB.ER PO STA (15:45)
== END 2022-04-08 17:22 | disposition home or self-care (01) | DRG 809 ==
LOC: EC 10:10 → 5NMEDONC 11:21
PROVIDERS: ADMIT Internal Medicine; ATTEND Internal Medicine
DX: D70.9 Neutropenia, unspecified (principal); C82.98 Follicular lymphoma, unspecified, lymph nodes of multiple sites; J91.0 Malignant pleural effusion; C85.10 Unspecified B-cell lymphoma, unspecified site; R50.81 Fever presenting with conditions classified elsewhere; T45.1X5A Adverse effect of antineoplastic and immunosuppressive drugs, initial encounter; Z20.822 Contact with and (suspected) exposure to COVID-19; Z28.311 Partially vaccinated for COVID-19; D64.9 Anemia, unspecified; D69.6 Thrombocytopenia, unspecified; E78.5 Hyperlipidemia, unspecified; G43.909 Migraine, unspecified, not intractable, without status migrainosus; G89.29 Other chronic pain; Z96.89 Presence of other specified functional implants; M19.90 Unspecified osteoarthritis, unspecified site; N28.89 Other specified disorders of kidney and ureter; Z79.899 Other long term (current) drug therapy; Z92.3 Personal history of irradiation; Z98.1 Arthrodesis status; Z98.890 Other specified postprocedural states; Z79.891 Long term (current) use of opiate analgesic; Z79.52 Long term (current) use of systemic steroids; Z86.16 Personal history of COVID-19; Z83.2 Family history of diseases of the blood and blood-forming organs and certain disorders involving the immune mechanism; Z80.49 Family history of malignant neoplasm of other genital organs; Z90.49 Acquired absence of other specified parts of digestive tract; Z80.42 Family history of malignant neoplasm of prostate
CPT/HCPCS: 36415; 71045; 80048; 80053; 80202; 81001; 82565; 82945; 83605; 83615; 83735; 84145; 84157; 85025; 85610; 85730; 87040; 87070; 87081; 87205; 87430; 87502; 87635; 89050; 96361; 96365; 96375; 99284

== ENCOUNTER → 2022-04-14 | Outpatient (CLI) | payer MEDICARE ==
--- NOTE | 2022-04-17 07:07 | PE ---
EXAMINATION TYPE: PET CT fusion skull to thigh DATE OF EXAM: 04/14/2022 COMPARISON: Prior PET/CT March 03, 2022 HISTORY: Non-Hodgkin Lymphoma completed chemotherapy March 30, 2022 TECHNIQUE: Following the intravenous administration of 11.06 mCi of F-18 FDG, whole body images are performed from the skull base to the midthigh. Images are reviewed on the computer in the coronal, a xial, and sagittal planes. Reconstructed rotating images are created on independent workstation and reviewed on the computer. A localization and attenuation correction CT is performed in conjunction with the PET scan. Blood glucose level equals 107 SCAN: Subsequent Scan FINDINGS: Mean SUV mediastinum: 0.94 Mean SUV liver: 1.94 SKULL BASE AND NECK: No new areas of abnormal hypermetabolic uptake CHEST, MEDIASTINUM, AND HILAR REGION: There is small right pleural effusion slightly smaller in size with percutaneous pigtail drainage catheter redemonstrated. Pleural effusion 3 demonstrates areas of abnormal hypermetabolic uptake. Areas of hypermetabolic pleural nodularity or masses are redemonstrat ed posteriorly and laterally. There remains large mass anteriorly and inferiorly measuring approximat alan 10.5 x 5.0 cm current study axial image 117 with persistent significant local mass effect along w ith invading subcutaneous tissue anterior chest wall. The max SUV is 18.56 on axial image 128 versus 10.66 on prior study. There is anterior superior to mid thoracic hypermetabolic mass anterior to the aorta and SVC just rig ht of the sternum axial image 79 measuring approximately 4.8 x 1.7 cm current study, max SUV is 13.47 versus 7.68 on prior. Additional Hypermetabolic uptake and masses inferior to this are redemonstrate d. Improved uptake right hilar and subcarinal levels noted. New hypermetabolic 1.7 x 1.3 cm lateral lower thoracic deep subcutaneous lesion axial image 100, max SUV is 5.33. ABDOMEN AND PELVIS: Hypermetabolic lymph node just anterior to the proximal abdominal aorta just belo w diaphragm has resolved in the interval. Similar finding with the larger retroperitoneal lymph node posterior to the IVC on prior study. Normal excretion is present. No new areas of abnormal hypermetab olic uptake OSSEOUS STRUCTURES: Innumerable osseous metastatic foci show improved hypermetabolic uptake. The righ t ischial tuberosity lesion now is ametabolic. A few residual mildly hypermetabolic lesions in the bi lateral shoulders for reference. OTHER CT: There is left-sided PICC line terminating at brachiocephalic confluence. Moderate coronary artery calcification in the LAD. Postsurgical change to the mid to lower lumbar spine. Facet arthropathy lower lumbar levels. Spleen n oted normal in size. IMPRESSION: There is overall mixed response. Areas of improvement are identified including osseous me tastatic disease and involvement below the diaphragm but areas of progression are also seen as detail ed above in the thorax.
== END | disposition home or self-care (01) ==
LOC: RADXRMAIN 13:57
PROVIDERS: ATTEND Internal Medicine Hematology & Oncology
DX: C85.90 Non-Hodgkin lymphoma, unspecified, unspecified site (principal); C79.51 Secondary malignant neoplasm of bone
CPT/HCPCS: 78815; A9552

== ENCOUNTER 2022-04-19 15:36 | Inpatient (IN) | payer MEDICARE ==
[2022-04-20] MEDS ORDERED: ONDANSETRON 4 MG/2 ML VIAL IVP PRN (15:00)
[2022-04-20] MEDS: SODIUM CHLORIDE 0.9% 1,000 ML IV SCH (17:06)
[2022-04-20] MEDS ORDERED: GABAPENTIN 300 MG CAP PO PRN (18:13)
[2022-04-20] MEDS ORDERED: HYDROcodone/APAP 7.5-325MG 1 EACH TAB PO PRN (18:15)
[2022-04-20 18:27] LABS: ALT 18 U/L (4-34); AST 28 U/L (14-36); African American GFR (CKD) >90 (>60 ml/min/1.73 sqM); Albumin 3.6 g/dL (3.5-5.0); Albumin/Globulin Ratio 1.7; Alkaline Phosphatase 80 U/L (38-126); Anion Gap 7 mmol/L; Blood Urea Nitrogen 9 mg/dL (7-17); Calcium 8.7 mg/dL (8.4-10.2); Carbon Dioxide 25 mmol/L (22-30); Chloride 106 mmol/L (98-107); Globulin 2.1 g/dL; Glucose 191 mg/dL (74-99); Non-African American GFR(CKD) >90 (>60 ml/min/1.73 sqM); Phosphorus 4.1 mg/dL (2.5-4.5); Potassium 4.1 mmol/L (3.5-5.1); Sodium 138 mmol/L (137-145); Total Bilirubin 0.6 mg/dL (0.2-1.3); Total Protein 5.7 g/dL (6.3-8.2); Uric Acid 4.4 mg/dL (3.7-7.4)
[2022-04-20 18:35] LABS: Anisocytosis Moderate; Basophils % (A) 0 %; Eosinophils % (A) 0 %; HCT 31.7 % (34.0-46.0); Hypochromasia Moderate; Lymphocytes # (A) 0.3 k/uL (1.0-4.8); Lymphocytes % (A) 11 %; MCH 28.6 pg (25.0-35.0); MCHC 31.5 g/dL (31.0-37.0); MCV 90.9 fL (80.0-100.0); Mean Platelet Volume 7.6; Monocytes # (A) 0.1 k/uL (0-1.0); Monocytes % (A) 2 %; Neutrophils # (A) 2.1 k/uL (1.3-7.7); Neutrophils % (A) 84 %; RBC 3.49 m/uL (3.80-5.40); RDW 20.3 % (11.5-15.5); WBC 2.5 k/uL (3.8-10.6)
[2022-04-20 18:39] LABS: Platelet Count 253 k/uL (150-450)
[2022-04-20] MEDS: ONDANSETRON 16 MG in SODIUM CHLORIDE 0.9% 50 ML IVPB SCH (18:40)
[2022-04-20] MEDS: FAMOTIDINE 20 MG/2 ML VIAL IVP SCH (18:40)
[2022-04-20] MEDS: ETOPOSIDE 200 MG in SODIUM CHLORIDE 0.9% 500 ML 500 ML IV SCH (19:52)
[2022-04-20] MEDS: ZOLPIDEM 5 MG TAB PO PRN (22:44)
[2022-04-21] MEDS: SODIUM CHLORIDE 0.9% 1,000 ML IV SCH ×4 (02:08→23:13)
[2022-04-21] MEDS: LORATADINE 10 MG TAB PO SCH (08:45)
[2022-04-21] MEDS: CHOLECALCIFEROL 25 MCG (1000 IU) TABLET PO SCH (08:45)
[2022-04-21] MEDS: predniSONE 50 MG TAB PO SCH (08:45)
[2022-04-21] MEDS: EZETIMIBE 10 MG TAB PO SCH (08:45)
[2022-04-21] MEDS: PANTOPRAZOLE 40 MG TABLET PO SCH (08:45)
[2022-04-21] MEDS: PROPRANOLOL LA 60 MG CAP.SA.24H PO SCH (08:47)
[2022-04-21 08:48] LABS: Basophils # (A) 0.02 X 10*3/uL (0.00-0.10); Basophils % (A) 0.3 %; Eosinophils # (A) 0 X 10*3/uL (0.04-0.35); Eosinophils % (A) 0 %; HCT 30.2 % (37.2-46.3); HGB 9.3 g/dL (12.0-15.0); Immature Grans, Automated 0.7 %; Lymphocytes # (A) 0.31 X 10*3/uL (0.90-5.00); Lymphocytes % (A) 5.1 %; MCH 28.2 pg (27.0-32.0); MCHC 30.8 g/dL (32.0-37.0); MCV 91.5 fL (80.0-97.0); Mean Platelet Volume 10.5 fL (9.5-12.2); Monocytes % (A) 11.5 %; NRBC Per 100 WBC 0 /100 WBCS (0.0-0.0); Neutrophils # (A) 5.02 X 10*3/uL (1.80-7.70); Neutrophils % (A) 82.4 %; Platelet Count 250 X 10*3/uL (140-440); RDW 20.9 % (11.5-14.5); WBC 6.09 X 10*3/uL (4.50-10.00)
--- NOTE | 2022-04-21 09:14 | P.HPIM ---
History of Present Illness H&P Date: 04/21/22 Chief Complaint: Timed Chemo Ms Hubbard is a pleasant white female, who is fairly healthy at baseline. The patient states that she initially started having some pain in the midback around late 06/15. She subsequently developed pain in the shoulders going down both arms. She sought attention to this with her PCP, and had imaging with x-ray of the C-spine and thoracic spine in mid 08/16. This showed some minimal anterior wedging of a midthoracic vertebral body which is felt to be physiologic and moderate disc/endplate DJD. There was moderate DJD through C5-7, and moderate to severe bony neuro foraminal narrowing in the left mid to lower C-spine. The patient had a course of steroids which improved her symptoms markedly. However these recurred after completing steroids. She also had manipulation by a chiropractor without much benefit. She was therefore referred to orthopedic spine surgery, Dr. Cantu. She had MRI of T-spine done on 10/03/21. This showed solid enhancement testing of mass lesion in the epidural soft tissue at the cervicothoracic junction as well as a second focus of dorsal epidural soft tissue in the mid T-spine at T7. There also appeared to be a solid enhancing left posterior chest wall mass with associated pleural effusion. There also appeared to be a mass in the manubrium. The patient did not follow-up after the MRI as she contracted Covid. She was able to be treated at home, and was on steroids for about 3-4 weeks which ma rkedly improved her symptoms. The patient then had MRI of the C-spine on 10/27/21, which showed enhancement of epidural soft tissue from C7-T2 as well as within the bone marrow of the posterior elements is also enhancement within bone marrow involving spinous processes of C5-T2. The mass at the cervicothoracic junction measured about 3.6 cm. This was causing mass effect on the dorsal aspect of the spinal cord. Patient was therefore referred here for further evaluation and determinations. She reported recurrence of for upper extremity and shoulder symptoms after completion of the steroid taper for Covid. She has some numbness and tingling in both hands. However she has not had loss of power so far. She denied any significant lower extremity symptoms or loss of bladder or bowel control. No prior history of malignancy. She states that she is a nonsmoker. She had some minor secondhand smoking exposure from her but he quit more than 30 years ago. She denied any B symptoms. Colonoscopy 10/16, and mammogram in 11/15 were both negative. The patient, at her initial visit, was felt to be at high risk for impending cord compression and was sent in for admission at [facility]. On further imaging with CT of the chest abdomen and pelvis, she was found to have a right renal mass which was felt to be the most likely primary. Interventional radiology were consulted, but felt that the location of the mass needed a higher risk for biopsy. Retrograde cystoscopic evaluation did not reveal any excessive a lesion in the collecting system. Orthopedic spine surgery indicated that the biopsy of the spinal lesions would be safer to be attempted by neurosurgery. The patient was agreeable to start radiation to the lower C-spine lesion, which is felt to be highest risk, without a tissue diagnosis. She therefore started the same, and was able to be discharged, on a steroid taper. The patient completed her radiation on 11/30/21. She completed her steroid taper on 12/01/21. she was referred to interventional radiology at [facility] for biopsy of the right renal mass. On the review of the scan there also appeared to be possibly a subdiaphragmatic lymph node. However when the biopsy was attempted under CT guidance, neither the adrenal lesion or the above-mentioned lymph node could be clearly seen to target. the case was discussed at IR, and MRI of the abdomen was ordered. This did confirm an infiltrating type lesion that appeared to involve the upper collecting system of the mid to lower pole of the right kidney. Based on this study, I recommended that the patient should have ureteroscopy. Case was discussed with Urology, and the patient underwent a repeat ureteroscopy in late 01/17. This was again found to be negative. The pt then underwent repeat MRI of the T spine, which noted essentially resolution of the T spine lesion also! The case was discussed with IR at [facility], and the pt was referred back there to attempt a biopsy of the abnormal area around the renal pelvis. However she was admitted there as she developed progressive rt sided chest pain, and SOB. CT scans revealed a new chest wall based mass, and plural effusion. 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 She had thoracentesis on 02/08 revealing high grade NHL She improved with the above and was discharged on 02/10/22 The patient was then seen in the office, and recommended aggressive treatment with R-CHOP, as well as intrathecal methotrexate. She proceeded to for placement. She was admitted in early 03/17 with recurrence of pleural effusion, and had indwelling drainage catheter placed. PET scan on 03/05/22 s howed right-sided pleural effusion, right pleural nodularity, right-sided chest wall mass, as well as uptake in mediastinal lymph nodes, retroperitoneal nodes in the upper abdomen, as well as multiple areas throughout the skeleton. She started our CHOP on 03/09/22 and status post 2 cycles. She is also status post 12/30 for intrathecal methotrexate. the patient was admitted to the hospital for febrile neutropenia after cycle 2. Fever resolved quickly with cultures negative. Patient was discharged after 2 days, with recovery of counts. she had another admission subsequently because of shortness of breath, due to reaccumulation of right-sided pleural effusion, and possible pneumonia. PET scan after cycle 2 showed persistent and actually increased uptake in the right chest wall and mediastinal masses as well as a new area of hypermetabolic uptake in the right thoracic separate cutaneous tissues. Improved uptake was seen in the hilar and mediastinal nodes, subdiaphragmatic nodes, and in the osseous lesions. She denied any fevers/chills/nausea/vomiting. The right-sided chest wall pain has essentially resolved. She still draining about 250-300 of fluid from the chest tube every 2 days. left neck and shoulder pain has essentially resolved since cycle #2. The patient is currently using fentanyl, [place] when necessary and gabapentin. she does report some cumulative fatigue, more marked between days 5-10. No history of any blood in the stool or urine. Lower extremity as well as bowel and bladder sensation are normal. the patient tolerated cycle 2 reasonably well subjectively. She has had symptomatic improvement since her last discharge. Her CBC shows hemoglobin of 10, with normal WBC and platelets. Unfortunately the PET scan shows suboptimal response, and possibility of active progression in the right chest wall, right thoracic saphenous tissues, and right mediastinum. - The results and implications were discussed in detail with the patient and her . They were advised that based on the PET scan results a change of regimen would be recommended. The patient will be switched to salvage therapy with the R-ICE regimen. Logistics and side effects were discussed. She is willing to proceed. Check labs. - Continue intrathecal chemotherapy to complete 4 cycles. Review of Systems All systems: negative Constitutional: Reports as per HPI Past Medical History Past Medical History: Cancer, Hyperlipidemia, Osteoarthritis (OA) Additional Past Medical History / Comment(s): migraines, pain under rt breast radiating to back, 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, two tumors on spine, probable cancer per pt(had radiation on tumor on spine 10/2021-11/2021(10 treatments) lymphoma History of Any Multi-Drug Resistant Organisms: None Reported Past Surgical History: Appendectomy, Back Surgery, Breast Surgery, Orthopedic Surgery Additional Past Surgical History / Comment(s): rhinoplasty, left breast lumpectomy, ,bunnionectomies payam feet, spinal fusion, Past Anesthesia/Blood Transfusion Reactions: No Reported Reaction Additional Past Anesthesia/Blood Transfusion Reaction / Comment(s): , Past Psychological History: No Psychological Hx Reported Smoking Status: Never smoker Past Alcohol Use History: None Reported Past Drug Use History: None Reported - Past Family History Mother Family Medical History: Cancer, Deep Vein Thrombosis (DVT), Pulmonary Embolus Additional Family Medical History / Comment(s): cervical Father Family Medical History: Cancer Additional Family Medical History / Comment(s): prostate Medications and Allergies Home Medications Medication Instructions Recorded Confirmed Type Cetirizine HCl [Zyrtec] 10 mg PO DAILY 09/24/18 04/20/22 History Gabapentin [Neurontin] 300 mg PO Q6H PRN 09/24/18 04/20/22 History Propranolol HCl [Propranolol HCl 60 mg PO DAILY 09/24/18 04/20/22 History ER] Ezetimibe [Zetia] 10 mg PO DAILY 01/18/22 04/20/22 History Vit C/E/Zn/Coppr/Lutein/Zeaxan 1 cap PO DAILY 01/18/22 04/20/22 History [Preservision Areds 2 Softgel] Omeprazole 20 mg PO DAILY 02/26/22 04/20/22 History Zolpidem [Ambien] 10 mg PO HS PRN 02/26/22 04/20/22 History Cholecalciferol [Vitamin D3 (25 50 mcg PO DAILY 03/14/22 04/20/22 History Mcg = 1000 Iu)] Loratadine 10 mg PO DIRECTED 03/14/22 04/20/22 History Losartan [Cozaar] 50 mg PO DAILY 03/14/22 04/20/22 History OLANZapine 5 mg PO DIRECTED 03/14/22 04/20/22 History Sennosides/Docusate Sodium [Senna 1 - 2 tab PO HS PRN 03/14/22 04/20/22 History Plus 8.6-50 mg Tablet] predniSONE 100 mg PO DIRECTED 03/14/22 04/20/22 History HYDROcodone/APAP 10-325MG [[place] 1 tab PO Q6H PRN 04/06/22 04/20/22 History 10-325] Ondansetron Odt [Zofran ODT] 4 mg PO Q6H PRN 04/06/22 04/20/22 History fentaNYL 25MCG/HR PATCH [Duragesic 25 mcg TRANSDERM Q72H 04/06/22 04/20/22 History 25MCG/HR] Acetaminophen Tab [Tylenol] 650 mg PO Q6HR PRN tab 04/08/22 04/20/22 Rx Allergies Allergy/AdvReac Type Severity Reaction Status Date / Time No Known Allergies Allergy Verified 04/12/22 11:12 Physical Exam Vitals: Vital Signs Temp Pulse Resp BP Pulse Ox 04/21/22 08:14 98.2 F 96 16 144/84 96 04/21/22 05:00 98.3 F 100 16 135/80 94 L 04/20/22 21:00 98.5 F 87 16 152/81 96 04/20/22 20:00 87 16 04/20/22 17:11 98.9 F 87 16 131/77 93 L Intake and Output 04/20/22 04/21/22 04/21/22 22:59 06:59 14:59 Other: # Voids 1 - Constitutional General appearance: cooperative, no acute distress - EENT Eyes: PERRLA ENT: NA/AT - Neck Neck: normal ROM - Respiratory Respiratory: bilateral: CTA - Cardiovascular Rhythm: regularly irregular - Gastrointestinal General gastrointestinal: soft - Integumentary Integumentary: pale - Neurologic Neurologic: CNII-XII intact - Musculoskeletal Musculoskeletal: generalized weakness, strength equal bilaterally - Psychiatric Psychiatric: A&O x's 3, appropriate affect, intact judgment & insight Results CBC & Chem 7: 04/21/22 05:46 04/21/22 09:50 Labs: Abnormal Lab Results - Last 24 Hours (Table) 04/20/22 04/20/22 04/21/22 Range/Units 17:46 17:46 05:46 WBC 2.5 L (3.8-10.6) k/uL RBC 3.49 L 3.30 L (3.80-5.40) m/uL Hgb 10.0 L D 9.3 L (11.4-16.0) gm/dL Hct 31.7 L 30.2 L (34.0-46.0) % MCHC 30.8 L (32.0-37.0) g/dL RDW 20.3 H 20.9 H (11.5-15.5) % Lymphocytes # 0.3 L 0.31 L (1.0-4.8) k/uL Eosinophils # 0 L (0.04-0.35) X 10*3/uL Glucose 191 H (74-99) mg/dL Total Protein 5.7 L (6.3-8.2) g/dL Thrombosis Risk Factor Assmnt - DVT/VTE Prophylaxis DVT/VTE Prophylaxis: Pharmacologic Prophylaxis ordered Assessment and Plan (1) Non-Hodgkin lymphoma Current Visit: Yes Status: Acute Code(s): C85.90 - NON-HODGKIN LYMPHOMA, UNSPECIFIED, UNSPECIFIED SITE SNOMED Code(s): 834144623 Plan: Continue Day two of timed chemo Will ask Medical Meanagement coverage during hospital stay Plan for Udencya on Sunday prior to discharge Blood work Daily Prophylaxis at discharge Dr. Petty: I have completed the full history and physical and developed the above impression and plan , agree with dictation, dictated as a scribe.
[2022-04-21 10:02] LABS: African American GFR (CKD) 106.3 (60.0-200.0); Albumin 3.7 g/dL (3.8-4.9); Albumin/Globulin Ratio 2.31 (1.60-3.17); Anion Gap 11.7 mmol/L (10.00-18.00); BUN/Creat Ratio 15.5 Ratio (12.00-20.00); Blood Urea Nitrogen 9.3 mg/dL (9.0-27.0); Calcium 9.3 mg/dL (8.7-10.3); Carbon Dioxide 22.3 mmol/L (20.0-27.5); Globulin 1.6 g/dL (1.6-3.3); Non-African American GFR(CKD) 91.7 (60.0-200.0); Phosphorus 3.9 mg/dL (2.4-5.1); Total Bilirubin 0.7 mg/dL (0.30-1.20); Total Protein 5.3 g/dL (6.2-8.2); Uric Acid 5.3 mg/dL (2.9-7.7)
[2022-04-21 10:39] LABS: Magnesium 1.6 mg/dL (1.6-2.3)
[2022-04-21 10:41] LABS: ALT 14 U/L (4-34); AST 22 U/L (14-36); African American GFR (CKD) >90 (>60 ml/min/1.73 sqM); Albumin/Globulin Ratio 1.5; Alkaline Phosphatase 59 U/L (38-126); Anion Gap 4 mmol/L; Blood Urea Nitrogen 9 mg/dL (7-17); Calcium 8.6 mg/dL (8.4-10.2); Carbon Dioxide 25 mmol/L (22-30); Chloride 107 mmol/L (98-107); Glucose 118 mg/dL (74-99); Non-African American GFR(CKD) >90 (>60 ml/min/1.73 sqM); Potassium 3.5 mmol/L (3.5-5.1); Sodium 136 mmol/L (137-145); Total Bilirubin 0.8 mg/dL (0.2-1.3); Uric Acid 5.5 mg/dL (3.7-7.4)
[2022-04-21 10:43] LABS: Prothrombin Time 10.6 sec (9.0-12.0)
--- NOTE | 2022-04-21 16:09 | P.CONS ---
History of Present Illness - Reason for Consult Consult date: 04/21/22 - Chief Complaint Medical management - History of Present Illness 72-year-old woman with medical history of lymphoma, chronic pain, recurrent pleural effusion with Pleurx catheter, migraines, osteoarthritis presented for inpatient chemotherapy. Medicine consulted for medical management. Patient is symptomatically doing well, however, unfortunately there was recent progression on her PET/CT scan of her lymphoma, therefore, change of therapy is warranted. She denies fevers, chills, nausea, vomiting, cp, palps, syncope, presyncope, abd pain, constipation, diarrhea, numbness/weakness of extremities. Upon evaluation patient is afebrile, hemodynamically stable. CBC shows hgb 9.3, platelets are 250, and WBC is 6.1. Chemistries unremarkable. LFTs show low protein/albumin. Coags unremarkable. No imaging to review. Gen: awake, alert HEENT: normocephalic, atraumatic, good hearing acuity, moist mucous membranes Resp: good air exchange, breathing comfortably with no accessory muscle use CVS: good distal perfusion x 4, GI: soft, NTTP, ND : no SPT, no CVAT, wheeler catheter not present MSK: no pitting edema, no clubbing Neuro: non-focal, moving all extremities Psych: cooperative, euthymic mood Labs and imaging reviewed as above Assessment/plan: Lymphoma -Admit to inpatient, telemetry -Oncology guiding chemotherapy -trend labs to ensure no tumor lysis syndrome Chronic pain Migraines Osteoarthritis -Home medications reviewed and reconciled Patient is full code DVT prophylaxis with enoxaparin, hold for platelets less than 50 Past Medical History Past Medical History: Cancer, Hyperlipidemia Additional Past Medical History / Comment(s): migraines, pain under rt breast radiating to back, 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, two tumors on spine, probable cancer per pt(had radiation on tumor on spine 10/2021-11/2021(10 treatments) lymphoma History of Any Multi-Drug Resistant Organisms: None Reported Past Surgical History: Appendectomy, Back Surgery, Breast Surgery, Orthopedic Surgery Additional Past Surgical History / Comment(s): rhinoplasty, left breast lumpe ctomy, ,bunnionectomies payam feet, spinal fusion, Past Anesthesia/Blood Transfusion Reactions: No Reported Reaction Additional Past Anesthesia/Blood Transfusion Reaction / Comm: , Past Psychological History: No Psychological Hx Reported Additional Psychological History / Comment(s): Pt resides with her spouse. She is not currently driving, her spouse drives. She has received home care thru [facility]. She is independent. Smoking Status: Never smoker Past Alcohol Use History: None Reported Past Drug Use History: None Reported - Past Family History Mother Family Medical History: Cancer, Deep Vein Thrombosis (DVT), Pulmonary Embolus Additional Family Medical History / Comment(s): cervical Father Family Medical History: Cancer Additional Family Medical History / Comment(s): prostate, Medications and Allergies Home Medications Medication Instructions Recorded Confirmed Type Cetirizine HCl [Zyrtec] 10 mg PO DAILY 09/24/18 04/20/22 History Gabapentin [Neurontin] 300 mg PO Q6H PRN 09/24/18 04/20/22 History Propranolol HCl [Propranolol HCl 60 mg PO DAILY 09/24/18 04/20/22 History ER] Ezetimibe [Zetia] 10 mg PO DAILY 01/18/22 04/20/22 History Vit C/E/Zn/Coppr/Lutein/Zeaxan 1 cap PO DAILY 01/18/22 04/20/22 History [Preservision Areds 2 Softgel] Omeprazole 20 mg PO DAILY 02/26/22 04/20/22 History Zolpidem [Ambien] 10 mg PO HS PRN 02/26/22 04/20/22 History Cholecalciferol [Vitamin D3 (25 50 mcg PO DAILY 03/14/22 04/20/22 History Mcg = 1000 Iu)] Loratadine 10 mg PO DIRECTED 03/14/22 04/20/22 History Losartan [Cozaar] 50 mg PO DAILY 03/14/22 04/20/22 History OLANZapine 5 mg PO DIRECTED 03/14/22 04/20/22 History Sennosides/Docusate Sodium [Senna 1 - 2 tab PO HS PRN 03/14/22 04/20/22 History Plus 8.6-50 mg Tablet] predniSONE 100 mg PO DIRECTED 03/14/22 04/20/22 History HYDROcodone/APAP 10-325MG [[place] 1 tab PO Q6H PRN 04/06/22 04/20/22 History 10-325] Ondansetron Odt [Zofran ODT] 4 mg PO Q6H PRN 04/06/22 04/20/22 History fentaNYL 25MCG/HR PATCH [Duragesic 25 mcg TRANSDERM Q72H 04/06/22 04/20/22 History 25MCG/HR] Acetaminophen Tab [Tylenol] 650 mg PO Q6HR PRN tab 04/08/22 04/20/22 Rx Allergies Allergy/AdvReac Type Severity Reaction Status Date / Time No Known Allergies Allergy Verified 04/12/22 11:12 Physical Exam Osteopathic Statement: *. No significant issues noted on an osteopathic structural exam other than those noted in the History and Physical/Consult. Vitals: Vital Signs Temp Pulse Resp BP Pulse Ox 04/21/22 12:15 98.5 F 87 16 127/82 96 04/21/22 09:52 96 16 04/21/22 08:14 98.2 F 96 16 144/84 96 04/21/22 05:00 98.3 F 100 16 135/80 94 L 04/20/22 21:00 98.5 F 87 16 152/81 96 04/20/22 20:00 87 16 04/20/22 17:11 98.9 F 87 16 131/77 93 L Intake and Output 04/21/22 04/21/22 04/21/22 06:59 14:59 22:59 Other: # Voids 1 Weight 86.636 kg Results CBC & Chem 7: 04/21/22 05:46 04/21/22 09:50 Labs: Abnormal Lab Results - Last 24 Hours (Table) 04/20/22 04/20/22 04/21/22 Range/Units 17:46 17:46 05:46 WBC 2.5 L (3.8-10.6) k/uL RBC 3.49 L 3.30 L (3.80-5.40) m/uL Hgb 10.0 L D 9.3 L (11.4-16.0) gm/dL Hct 31.7 L 30.2 L (34.0-46.0) % MCHC 30.8 L (32.0-37.0) g/dL RDW 20.3 H 20.9 H (11.5-15.5) % Lymphocytes # 0.3 L 0.31 L (1.0-4.8) k/uL Eosinophils # 0 L (0.04-0.35) X 10*3/uL Sodium (137-145) mmol/L Creatinine (0.52-1.04) mg/dL Glucose 191 H (74-99) mg/dL Lactate Dehydrogenase (313-618) U/L Total Protein 5.7 L (6.3-8.2) g/dL Albumin (3.8-4.9) g/dL 04/21/22 04/21/22 04/21/22 Range/Units 05:46 09:50 09:50 WBC (3.8-10.6) k/uL RBC (3.80-5.40) m/uL Hgb (11.4-16.0) gm/dL Hct (34.0-46.0) % MCHC (32.0-37.0) g/dL RDW (11.5-15.5) % Lymphocytes # (1.0-4.8) k/uL Eosinophils # (0.04-0.35) X 10*3/uL Sodium 136 L (137-145) mmol/L Creatinine 0.51 L (0.52-1.04) mg/dL Glucose 121 H 118 H (74-99) mg/dL Lactate Dehydrogenase 872 H (313-618) U/L Total Protein 5.3 L 5.0 L (6.3-8.2) g/dL Albumin 3.7 L 3.0 L (3.8-4.9) g/dL
[2022-04-21] MEDS: DEXAMETHASONE SOD PHOSPHATE 10 MG/ML 1 ML VIAL IV SCH (17:10)
[2022-04-21] MEDS: FAMOTIDINE 20 MG/2 ML VIAL IVP SCH (17:10)
[2022-04-21] MEDS: ONDANSETRON 16 MG in SODIUM CHLORIDE 0.9% 50 ML IVPB SCH (17:10)
[2022-04-21] MEDS: ETOPOSIDE 200 MG in SODIUM CHLORIDE 0.9% 500 ML 500 ML IV SCH (18:18)
[2022-04-21] MEDS ORDERED: SODIUM CHLORIDE 0.9% IV ONE ×2 (19:00)
[2022-04-21] MEDS ORDERED: MESNA IV ONE (19:00)
[2022-04-21] MEDS ORDERED: IFOSFAMIDE IV ONE (19:00)
[2022-04-21] MEDS: OLANZapine 5 MG TAB PO SCH (21:20)
[2022-04-21] MEDS: ZOLPIDEM 5 MG TAB PO PRN (21:20)
[2022-04-21] MEDS: ACYCLOVIR 200 MG CAP PO SCH (21:20)
[2022-04-21] MEDS: HEPARIN SODIUM,PORCINE/PF 5,000 UNIT/0.5 ML SYRINGE SQ SCH (21:21)
[2022-04-22] MEDS: SODIUM CHLORIDE 0.9% 1,000 ML IV SCH ×3 (07:34→23:34)
[2022-04-22] MEDS: PANTOPRAZOLE 40 MG TABLET PO SCH (08:20)
[2022-04-22] MEDS: LORATADINE 10 MG TAB PO SCH (08:20)
[2022-04-22] MEDS: EZETIMIBE 10 MG TAB PO SCH (08:20)
[2022-04-22] MEDS: CHOLECALCIFEROL 25 MCG (1000 IU) TABLET PO SCH (08:20)
[2022-04-22] MEDS: predniSONE 50 MG TAB PO SCH (08:20)
[2022-04-22] MEDS: HEPARIN SODIUM,PORCINE/PF 5,000 UNIT/0.5 ML SYRINGE SQ SCH ×2 (08:20→20:05)
[2022-04-22] MEDS: ACYCLOVIR 200 MG CAP PO SCH ×2 (08:20→20:05)
[2022-04-22] MEDS: PROPRANOLOL LA 60 MG CAP.SA.24H PO SCH (08:20)
[2022-04-22 09:38] LABS: INR 1.01 (0.90-1.11); Prothrombin Time 11.4 sec (9.9-11.9)
[2022-04-22 09:43] LABS: African American GFR (CKD) 112.9 (60.0-200.0); Albumin 3.8 g/dL (3.8-4.9); Albumin/Globulin Ratio 2.38 (1.60-3.17); BUN/Creat Ratio 14.4 Ratio (12.00-20.00); Blood Urea Nitrogen 7.2 mg/dL (9.0-27.0); Calcium 9.2 mg/dL (8.7-10.3); Globulin 1.6 g/dL (1.6-3.3); Magnesium 1.8 mg/dL (1.5-2.4); Non-African American GFR(CKD) 97.4 (60.0-200.0); Phosphorus 3.1 mg/dL (2.4-5.1); Potassium 3.7 mmol/L (3.5-5.5); Total Bilirubin 0.7 mg/dL (0.30-1.20); Total Protein 5.4 g/dL (6.2-8.2); Uric Acid 4.9 mg/dL (2.9-7.7)
[2022-04-22 09:44] LABS: Basophils # (A) 0 X 10*3/uL (0.00-0.10); Basophils % (A) 0 %; Eosinophils # (A) 0 X 10*3/uL (0.04-0.35); Eosinophils % (A) 0 %; HCT 30.1 % (37.2-46.3); HGB 9.1 g/dL (12.0-15.0); Immature Grans, Automated 0.5 %; Lymphocytes # (A) 0.19 X 10*3/uL (0.90-5.00); Lymphocytes % (A) 4.8 %; MCH 27.9 pg (27.0-32.0); MCHC 30.2 g/dL (32.0-37.0); MCV 92.3 fL (80.0-97.0); Mean Platelet Volume 10.6 fL (9.5-12.2); Monocytes # (A) 0.37 X 10*3/uL (0.20-1.00); Monocytes % (A) 9.4 %; NRBC Per 100 WBC 0 /100 WBCS (0.0-0.0); Neutrophils # (A) 3.37 X 10*3/uL (1.80-7.70); Neutrophils % (A) 85.3 %; Platelet Count 234 X 10*3/uL (140-440); RBC 3.26 X 10*6/uL (4.10-5.20); RDW 20.5 % (11.5-14.5); WBC 3.95 X 10*3/uL (4.50-10.00)
[2022-04-22 09:45] LABS: Elliptocytes 2+
--- NOTE | 2022-04-22 10:19 | P.PN ---
Subjective Progress Note Date: 04/22/22 Principal diagnosis: Timed Chemotherapy Bloodwork looks great today. Objective - Vital Signs Vital signs: Vital Signs Temp 98.3 F 04/22/22 08:25 Pulse 89 04/22/22 08:25 Resp 18 04/22/22 08:25 BP 116/70 04/22/22 08:25 Pulse Ox 97 04/22/22 08:25 FiO2 Intake & Output 04/21/22 04/22/22 04/22/22 18:59 06:59 18:59 Intake Total 1500 1985 Balance 1500 1985 Weight 86.636 kg Intake: IV 1500 Sodium Chloride 0.9% 1, 1500 000 ml @ 125 mls/hr IV . Q8H [facility] Rx#:[id number] Intake, IV Titration 1500 486 Amount Ifosfamide 9,000 mg 261 Ifosfamide 1,000 mg In Sodium Chloride 0.9% 500 ml 500 ml @ 29.167 mls/hr IV ONCE ONE Rx#: [id number] [place] 10,000 mg In Sodium 225 Chloride 0.9% 500 ml 500 ml @ 25 mls/hr IV ONCE ONE Rx#:[id number] Sodium Chloride 0.9% 1, 1500 000 ml @ 125 mls/hr IV . Q8H [facility] Rx#:[id number] Other: # Voids 1 - Exam - Constitutional General appearance: cooperative, no acute distress - Labs CBC & Chem 7: 04/23/22 16:29 04/23/22 05:48 Labs: Abnormal Lab Results - Last 24 Hours (Table) 04/21/22 04/21/22 04/22/22 Range/Units 09:50 09:50 06:14 WBC 3.95 L (4.50-10.00) X 10*3/uL RBC 3.26 L (4.10-5.20) X 10*6/uL Hgb 9.1 L (12.0-15.0) g/dL Hct 30.1 L (37.2-46.3) % MCHC 30.2 L (32.0-37.0) g/dL RDW 20.5 H (11.5-14.5) % Lymphocytes # 0.19 L (0.90-5.00) X 10*3/uL Eosinophils # 0 L (0.04-0.35) X 10*3/uL Sodium 136 L (137-145) mmol/L BUN (9.0-27.0) mg/dL Creatinine 0.51 L (0.52-1.04) mg/dL Glucose 118 H (74-99) mg/dL Lactate Dehydrogenase 872 H (313-618) U/L Total Protein 5.0 L (6.3-8.2) g/dL Albumin 3.0 L (3.5-5.0) g/dL 04/22/22 Range/Units 06:14 WBC (4.50-10.00) X 10*3/uL RBC (4.10-5.20) X 10*6/uL Hgb (12.0-15.0) g/dL Hct (37.2-46.3) % MCHC (32.0-37.0) g/dL RDW (11.5-14.5) % Lymphocytes # (0.90-5.00) X 10*3/uL Eosinophils # (0.04-0.35) X 10*3/uL Sodium (137-145) mmol/L BUN 7.2 L (9.0-27.0) mg/dL Creatinine 0.5 L (0.52-1.04) mg/dL Glucose 125 H (74-99) mg/dL Lactate Dehydrogenase 352 H (313-618) U/L Total Protein 5.4 L (6.3-8.2) g/dL Albumin (3.5-5.0) g/dL Assessment and Plan (1) Non-Hodgkin lymphoma Current Visit: Yes Status: Acute Code(s): C85.90 - NON-HODGKIN LYMPHOMA, UNSPECIFIED, UNSPECIFIED SITE SNOMED Code(s): 344935553 Plan: Continue Day two of timed chemo Will ask Medical Meanagement coverage during hospital stay Plan for Udencya on Sunday prior to discharge Blood work Daily Prophylaxis at discharge COntinue day 3 of chemotherapy, planning discharge tomorrow after Udencya
--- NOTE | 2022-04-22 16:13 | P.PN ---
Subjective Progress Note Date: 04/22/22 72-year-old woman with medical history of lymphoma, chronic pain, recurrent pleural effusion with Pleurx catheter, migraines, osteoarthritis presented for inpatient chemotherapy. Medicine consulted for medical management. Patient is symptomatically doing well, however, unfortunately there was recent progression on her PET/CT scan of her lymphoma, therefore, change of therapy is warranted. She denies fevers, chills, nausea, vomiting, cp, palps, syncope, presyncope, abd pain, constipation, diarrhea, numbness/weakness of extremities. Upon evaluation patient is afebrile, hemodynamically stable. CBC shows hgb 9.3, platelets are 250, and WBC is 6.1. Chemistries unremarkable. LFTs show low protein/albumin. Coags unremarkable. No imaging to review. Gen: awake, alert HEENT: normocephalic, atraumatic, good hearing acuity, moist mucous membranes Resp: good air exchange, breathing comfortably with no accessory muscle use CVS: good distal perfusion x 4, GI: soft, NTTP, ND : no SPT, no CVAT, wheeler catheter not present MSK: no pitting edema, no clubbing Neuro: non-focal, moving all extremities Psych: cooperative, euthymic mood Labs and imaging reviewed as above Assessment/plan: Lymphoma -Admit to inpatient, telemetry -Oncology guiding chemotherapy -trend labs to ensure no tumor lysis syndrome Chronic pain Migraines Osteoarthritis -Home medications reviewed and reconciled Patient is full code DVT prophylaxis with enoxaparin, hold for platelets less than 50 Objective - Vital Signs Vital signs: Vital Signs Temp 98.2 F 04/22/22 16:00 Pulse 75 04/22/22 16:00 Resp 16 04/22/22 16:00 BP 152/89 04/22/22 16:00 Pulse Ox 97 04/22/22 16:00 FiO2 Intake & Output 04/21/22 04/22/22 04/22/22 18:59 06:59 18:59 Intake Total 1500 1985 Balance 1500 1985 Weight 86.636 kg Intake: IV 1500 Sodium Chloride 0.9% 1, 1500 000 ml @ 125 mls/hr IV . Q8H [facility] Rx#:[id number] Intake, IV Titration 1500 486 Amount Ifosfamide 9,000 mg 261 Ifosfamide 1,000 mg In Sodium Chloride 0.9% 500 ml 500 ml @ 29.167 mls/hr IV ONCE ONE Rx#: [id number] [place] 10,000 mg In Sodium 225 Chloride 0.9% 500 ml 500 ml @ 25 mls/hr IV ONCE ONE Rx#:[id number] Sodium Chloride 0.9% 1, 1500 000 ml @ 125 mls/hr IV . Q8H [facility] Rx#:[id number] Other: # Voids 1 - Labs CBC & Chem 7: 04/22/22 06:14 04/22/22 06:14 Labs: Abnormal Lab Results - Last 24 Hours (Table) 04/22/22 04/22/22 Range/Units 06:14 06:14 WBC 3.95 L (4.50-10.00) X 10*3/uL RBC 3.26 L (4.10-5.20) X 10*6/uL Hgb 9.1 L (12.0-15.0) g/dL Hct 30.1 L (37.2-46.3) % MCHC 30.2 L (32.0-37.0) g/dL RDW 20.5 H (11.5-14.5) % Lymphocytes # 0.19 L (0.90-5.00) X 10*3/uL Eosinophils # 0 L (0.04-0.35) X 10*3/uL BUN 7.2 L (9.0-27.0) mg/dL Creatinine 0.5 L (0.6-1.5) mg/dL Glucose 125 H (70-110) mg/dL Lactate Dehydrogenase 352 H (120-246) U/L Total Protein 5.4 L (6.2-8.2) g/dL
[2022-04-22] MEDS: FAMOTIDINE 20 MG/2 ML VIAL IVP SCH (17:18)
[2022-04-22] MEDS: DEXAMETHASONE SOD PHOSPHATE 10 MG/ML 1 ML VIAL IV SCH (17:19)
[2022-04-22] MEDS: ONDANSETRON 16 MG in SODIUM CHLORIDE 0.9% 50 ML IVPB SCH (17:19)
[2022-04-22] MEDS: ETOPOSIDE 200 MG in SODIUM CHLORIDE 0.9% 500 ML 500 ML IV SCH (17:48)
[2022-04-22] MEDS: OLANZapine 5 MG TAB PO SCH (20:05)
[2022-04-22] MEDS: ZOLPIDEM 5 MG TAB PO PRN (20:09)
[2022-04-22] MEDS: LOSARTAN 50 MG TAB PO SCH (22:13)
[2022-04-23 02:28] LABS: Appearance,Urine Clear (Clear); Bilirubin,Urine Negative (Negative); Blood,Urine Trace (Negative); Color,Urine Light Yellow; Glucose,Urine (UA) Negative (Negative); Hyaline Casts,Urine 4 /lpf (0-2); Ketones,Urine Trace (Negative); Leukocyte Esterase,Urine Negative (Negative); Mucus,Urine Rare /hpf; Nitrite,Urine Negative (Negative); PH, Urine 6.5 (5.0-8.0); Protein,Urine 1+ (Negative); RBC,Urine 2 /hpf (0-5); Specific Gravity,Urine 1.012 (1.001-1.035); Squamous Epithelial Cell,Urine <1 /hpf (0-4); Urobilinogen,Urine <2.0 mg/dL (<2.0); WBC,Urine 6 /hpf (0-5)
[2022-04-23 06:29] LABS: Magnesium 1.8 mg/dL (1.6-2.3)
[2022-04-23 09:16] LABS: African American GFR (CKD) 111.7 (60.0-200.0); Albumin 3.5 g/dL (3.8-4.9); Albumin/Globulin Ratio 2.47 (1.60-3.17); Anion Gap 9.7 mmol/L (10.00-18.00); BUN/Creat Ratio 21.32 Ratio (12.00-20.00); Calcium 9.2 mg/dL (8.7-10.3); Carbon Dioxide 21.9 mmol/L (20.0-27.5); Globulin 1.4 g/dL (1.6-3.3); Non-African American GFR(CKD) 96.4 (60.0-200.0); Phosphorus 3.2 mg/dL (2.4-5.1); Potassium 3.4 mmol/L (3.5-5.5); Total Bilirubin 0.7 mg/dL (0.30-1.20); Total Protein 4.9 g/dL (6.2-8.2); Uric Acid 4.3 mg/dL (2.9-7.7)
[2022-04-23 09:25] LABS: Basophils # (A) 0 X 10*3/uL (0.00-0.10); Basophils % (A) 0 %; Eosinophils # (A) 0 X 10*3/uL (0.04-0.35); Eosinophils % (A) 0 %; HCT 26.2 % (37.2-46.3); HGB 7.9 g/dL (12.0-15.0); Immature Grans, Automated 0.7 %; Lymphocytes # (A) 0.13 X 10*3/uL (0.90-5.00); Lymphocytes % (A) 4.8 %; MCH 27.6 pg (27.0-32.0); MCHC 30.2 g/dL (32.0-37.0); MCV 91.6 fL (80.0-97.0); Mean Platelet Volume 10.5 fL (9.5-12.2); Monocytes # (A) 0.14 X 10*3/uL (0.20-1.00); Monocytes % (A) 5.1 %; NRBC Per 100 WBC 0 /100 WBCS (0.0-0.0); Neutrophils # (A) 2.43 X 10*3/uL (1.80-7.70); Neutrophils % (A) 89.4 %; Platelet Count 181 X 10*3/uL (140-440); RBC 2.86 X 10*6/uL (4.10-5.20); RDW 20.4 % (11.5-14.5); WBC 2.72 X 10*3/uL (4.50-10.00)
[2022-04-23] MEDS: LORATADINE 10 MG TAB PO SCH (09:29)
[2022-04-23] MEDS: EZETIMIBE 10 MG TAB PO SCH (09:29)
[2022-04-23] MEDS: HEPARIN SODIUM,PORCINE/PF 5,000 UNIT/0.5 ML SYRINGE SQ SCH (09:29)
[2022-04-23] MEDS: PANTOPRAZOLE 40 MG TABLET PO SCH (09:29)
[2022-04-23] MEDS: ACYCLOVIR 200 MG CAP PO SCH ×2 (09:29→21:52)
[2022-04-23] MEDS: LOSARTAN 50 MG TAB PO SCH (09:29)
[2022-04-23] MEDS: predniSONE 50 MG TAB PO SCH (09:29)
[2022-04-23] MEDS: CHOLECALCIFEROL 25 MCG (1000 IU) TABLET PO SCH (09:29)
[2022-04-23] MEDS: PROPRANOLOL LA 60 MG CAP.SA.24H PO SCH (09:29)
[2022-04-23] MEDS: SODIUM CHLORIDE 0.9% 1,000 ML IV SCH ×2 (09:35→18:09)
[2022-04-23 11:47] LABS: Anisocytosis Slight; Basophils % (A) 1 %; Eosinophils % (A) 1 %; HCT 27.3 % (34.0-46.0); Hypochromasia Marked; Lymphocytes # (A) 0.1 k/uL (1.0-4.8); Lymphocytes % (A) 2 %; MCH 29.6 pg (25.0-35.0); MCHC 30.7 g/dL (31.0-37.0); Macrocytosis Slight; Monocytes # (A) 0.1 k/uL (0-1.0); Monocytes % (A) 2 %; Neutrophils # (A) 4.3 k/uL (1.3-7.7); Neutrophils % (A) 95 %; Platelet Count 193 k/uL (150-450); RBC 2.83 m/uL (3.80-5.40); RDW 19.9 % (11.5-15.5); WBC 4.5 k/uL (3.8-10.6)
[2022-04-23 12:12] LABS: HGB 8.4 gm/dL (11.4-16.0); MCV 96.4 fL (80.0-100.0)
--- NOTE | 2022-04-23 14:18 | P.PN ---
Subjective 72-year-old woman with medical history of lymphoma, chronic pain, recurrent pleural effusion with Pleurx catheter, migraines, osteoarthritis presented for inpatient chemotherapy. Medicine consulted for medical management. Patient is symptomatically doing well, however, unfortunately there was recent progression on her PET/CT scan of her lymphoma, therefore, change of therapy is warranted. She denies fevers, chills, nausea, vomiting, cp, palps, syncope, presyncope, abd pain, constipation, diarrhea, numbness/weakness of extremities. Upon evaluation patient is afebrile, hemodynamically stable. CBC shows hgb 9.3, platelets are 250, and WBC is 6.1. Chemistries unremarkable. LFTs show low protein/albumin. Coags unremarkable. No imaging to review. Gen: awake, alert HEENT: normocephalic, atraumatic, good hearing acuity, moist mucous membranes Resp: good air exchange, breathing comfortably with no accessory muscle use CVS: good distal perfusion x 4, GI: soft, NTTP, ND : no SPT, no CVAT, wheeler catheter not present MSK: no pitting edema, no clubbing Neuro: non-focal, moving all extremities Psych: cooperative, euthymic mood Labs and imaging reviewed as above Assessment/plan: Lymphoma -Admit to inpatient, telemetry -Oncology guiding chemotherapy -trend labs to ensure no tumor lysis syndrome -decrease IVF rate to 50 Chronic pain Migraines Osteoarthritis -Home medications reviewed and reconciled Patient is full code DVT prophylaxis with enoxaparin, hold for platelets less than 50 Objective - Vital Signs Vital signs: Vital Signs Temp 98.1 F 04/23/22 09:35 Pulse 91 04/23/22 09:35 Resp 16 04/23/22 09:35 BP 136/76 04/23/22 09:35 Pulse Ox 98 04/23/22 09:35 FiO2 Intake & Output 04/22/22 04/23/22 04/23/22 18:59 06:59 18:59 Intake Total 1500 Output Total 16 Balance 1500 -16 Intake: IV 1500 Sodium Chloride 0.9% 1, 1500 000 ml @ 125 mls/hr IV . Q8H [facility] Rx#:[id number] Output: Post Void Residual 16 Other: Voiding Method Bedside Commode Toilet # Voids 4 4 - Labs CBC & Chem 7: 04/23/22 11:27 04/23/22 05:48 Labs: Abnormal Lab Results - Last 24 Hours (Table) 04/23/22 04/23/22 04/23/22 Range/Units 02:15 05:48 05:48 WBC 2.72 L (4.50-10.00) X 10*3/uL RBC 2.86 L (4.10-5.20) X 10*6/uL Hgb 7.9 L (12.0-15.0) g/dL Hct 26.2 L (37.2-46.3) % MCHC 30.2 L (32.0-37.0) g/dL RDW 20.4 H (11.5-14.5) % Lymphocytes # 0.13 L (0.90-5.00) X 10*3/uL Monocytes # 0.14 L (0.20-1.00) X 10*3/uL Eosinophils # 0 L (0.04-0.35) X 10*3/uL Potassium 3.4 L (3.5-5.5) mmol/L Anion Gap 9.70 L (10.00-18.00) mmol/L Creatinine 0.5 L (0.6-1.5) mg/dL BUN/Creatinine Ratio 21.32 H (12.00-20.00) Ratio Glucose 113 H (70-110) mg/dL AST 12 L (13-35) U/L Lactate Dehydrogenase (313-618) U/L Total Protein 4.9 L (6.2-8.2) g/dL Albumin 3.5 L (3.8-4.9) g/dL Globulin 1.4 L (1.6-3.3) g/dL Urine Protein 1+ H (Negative) Urine Ketones Trace H (Negative) Urine Blood Trace H (Negative) Urine WBC 6 H (0-5) /hpf Hyaline Casts 4 H (0-2) /lpf Urine Mucus Rare H (None) /hpf 04/23/22 04/23/22 Range/Units 05:48 11:27 WBC (4.50-10.00) X 10*3/uL RBC 2.83 L (4.10-5.20) X 10*6/uL Hgb 8.4 L D (12.0-15.0) g/dL Hct 27.3 L (37.2-46.3) % MCHC 30.7 L (32.0-37.0) g/dL RDW 19.9 H (11.5-14.5) % Lymphocytes # 0.1 L (0.90-5.00) X 10*3/uL Monocytes # (0.20-1.00) X 10*3/uL Eosinophils # (0.04-0.35) X 10*3/uL Potassium (3.5-5.5) mmol/L Anion Gap (10.00-18.00) mmol/L Creatinine (0.6-1.5) mg/dL BUN/Creatinine Ratio (12.00-20.00) Ratio Glucose (70-110) mg/dL AST (13-35) U/L Lactate Dehydrogenase 742 H (313-618) U/L Total Protein (6.2-8.2) g/dL Albumin (3.8-4.9) g/dL Globulin (1.6-3.3) g/dL Urine Protein (Negative) Urine Ketones (Negative) Urine Blood (Negative) Urine WBC (0-5) /hpf Hyaline Casts (0-2) /lpf Urine Mucus (None) /hpf
--- NOTE | 2022-04-23 15:44 | US ---
EXAMINATION TYPE: US venous doppler duplex UE LT DATE OF EXAM: 04/23/2022 COMPARISON: NONE CLINICAL HISTORY: LUE edema. left arm edema. PICC line placement left arm 02/24/22 SIDE PERFORMED: left Left Arm: *positive for DVT left subclavian vein. PICC line visualized within left subclavian vein an d basilic vein. superficial thrombus noted within basilic vein IMPRESSION: There is deep vein thrombosis in the subclavian vein. There is acute and chronic thrombus.
[2022-04-23] MEDS: CIPROFLOXACIN HCL 500 MG TAB PO SCH ×2 (15:56→21:52)
[2022-04-23] MEDS: SENNOSIDES-DOCUSATE SODIUM 1 EACH TAB PO PRN ×2 (15:56→22:18)
[2022-04-23] MEDS ORDERED: HEPARIN SODIUM 1,000 UN/ML (10ML VL) IV PRN (16:13)
[2022-04-23] MEDS ORDERED: HEPARIN SOD,PORK IN 0.45% NACL 25,000 UNIT in 0.45% NACL 1 250ML.BAG IV SCH (16:15)
[2022-04-23] MEDS ORDERED: PEGFILGRASTIM-CBQV 6 MG/0.6 ML SYRINGE SQ ONE (16:30)
[2022-04-23 16:53] LABS: Anisocytosis Slight; Basophils % (A) 1 %; Eosinophils % (A) 1 %; HCT 28.3 % (34.0-46.0); Hypochromasia Moderate; Lymphocytes # (A) 0.1 k/uL (1.0-4.8); Lymphocytes % (A) 2 %; MCH 29.3 pg (25.0-35.0); MCHC 31.8 g/dL (31.0-37.0); Monocytes # (A) 0.1 k/uL (0-1.0); Monocytes % (A) 2 %; Neutrophils # (A) 3.8 k/uL (1.3-7.7); Neutrophils % (A) 95 %; Platelet Count 183 k/uL (150-450); RBC 3.07 m/uL (3.80-5.40); RDW 19.2 % (11.5-15.5)
[2022-04-23 17:08] LABS: Prothrombin Time 10.4 sec (9.0-12.0)
--- NOTE | 2022-04-23 17:16 | US ---
EXAMINATION TYPE: US venous doppler duplex LE DATE OF EXAM: 04/23/2022 4:59 PM COMPARISON: US CLINICAL HISTORY: R/O DVT. Leg swelling SIDE PERFORMED: Bilateral TECHNIQUE: The lower extremity deep venous system is examined utilizing real time linear array sonog roverto with graded compression, doppler sonography and color-flow sonography. VESSELS IMAGED: Common Femoral Vein Deep Femoral Vein Greater Saphenous Vein * Femoral Vein Popliteal Vein Small Saphenous Vein * Proximal Calf Veins (* superficial vessels) Right Leg: Negative for DVT Left Leg: Negative for DVT IMPRESSION: No sign of deep vein thrombosis in both legs.
[2022-04-23] MEDS: APIXABAN 5 MG TAB PO SCH (18:05)
[2022-04-23 18:22] VITALS: RESP 18
--- NOTE | 2022-04-23 19:33 | P.PN ---
Subjective Progress Note Date: 04/23/22 Principal diagnosis: Timed Chemotherapy Patient has completed chemo, she will receive GCSF today. However she is complaining of urinary urgency, incontinence and frequency therefore a urinalysis, bladder scan and culture are pending. Left upper extremity swelling on exam today. Doppler positive for acute DVT. Eliquis initiated, platelet 198K. Although being the holiday weekend cannot guarentee eliquis scipt is filled by next dose which will delay her discharge to am. Ashlyn WALLS has called around and found an open pharmacy[facility] and Rx Eliquis, as well as prophylaxic nystatin, acyclovir, and cipro sent. Objective - Vital Signs Vital signs: Vital Signs Temp 98.0 F 04/23/22 04:00 Pulse 85 04/23/22 04:00 Resp 15 04/23/22 04:00 BP 155/84 04/23/22 04:00 Pulse Ox 97 04/23/22 04:00 FiO2 Intake & Output 04/22/22 04/23/22 04/23/22 18:59 06:59 18:59 Intake Total 1500 Balance 1500 Intake: IV 1500 Sodium Chloride 0.9% 1, 1500 000 ml @ 125 mls/hr IV . Q8H [facility] Rx#:[id number] Other: Voiding Method Bedside Commode # Voids 4 4 - Exam - Constitutional General appearance: cooperative, no acute distress - EENT Eyes: PERRLA ENT: NA/AT - Neck Neck: normal ROM - Respiratory Respiratory: bilateral: CTA - Cardiovascular Rhythm: regularly irregular - Gastrointestinal General gastrointestinal: soft - Integumentary Integumentary: pale - Neurologic Neurologic: CNII-XII intact - Musculoskeletal Musculoskeletal: generalized weakness, strength equal bilaterally - Psychiatric Psychiatric: A&O x's 3, appropriate affect, intact judgment & insight LUE Swelling - Labs CBC & Chem 7: 04/23/22 16:29 04/23/22 05:48 Labs: Abnormal Lab Results - Last 24 Hours (Table) 04/22/22 04/22/22 04/23/22 Range/Units 06:14 06:14 02:15 WBC 3.95 L (4.50-10.00) X 10*3/uL RBC 3.26 L (4.10-5.20) X 10*6/uL Hgb 9.1 L (12.0-15.0) g/dL Hct 30.1 L (37.2-46.3) % MCHC 30.2 L (32.0-37.0) g/dL RDW 20.5 H (11.5-14.5) % Lymphocytes # 0.19 L (0.90-5.00) X 10*3/uL Eosinophils # 0 L (0.04-0.35) X 10*3/uL Potassium (3.5-5.5) mmol/L Anion Gap (10.00-18.00) mmol/L BUN 7.2 L (9.0-27.0) mg/dL Creatinine 0.5 L (0.6-1.5) mg/dL BUN/Creatinine Ratio (12.00-20.00) Ratio Glucose 125 H (70-110) mg/dL AST (13-35) U/L Lactate Dehydrogenase 352 H (120-246) U/L Total Protein 5.4 L (6.2-8.2) g/dL Albumin (3.8-4.9) g/dL Globulin (1.6-3.3) g/dL Urine Protein 1+ H (Negative) Urine Ketones Trace H (Negative) Urine Blood Trace H (Negative) Urine WBC 6 H (0-5) /hpf Hyaline Casts 4 H (0-2) /lpf Urine Mucus Rare H (None) /hpf 04/23/22 04/23/22 Range/Units 05:48 05:48 WBC (4.50-10.00) X 10*3/uL RBC (4.10-5.20) X 10*6/uL Hgb (12.0-15.0) g/dL Hct (37.2-46.3) % MCHC (32.0-37.0) g/dL RDW (11.5-14.5) % Lymphocytes # (0.90-5.00) X 10*3/uL Eosinophils # (0.04-0.35) X 10*3/uL Potassium 3.4 L (3.5-5.5) mmol/L Anion Gap 9.70 L (10.00-18.00) mmol/L BUN (9.0-27.0) mg/dL Creatinine 0.5 L (0.6-1.5) mg/dL BUN/Creatinine Ratio 21.32 H (12.00-20.00) Ratio Glucose 113 H (70-110) mg/dL AST 12 L (13-35) U/L Lactate Dehydrogenase 742 H (120-246) U/L Total Protein 4.9 L (6.2-8.2) g/dL Albumin 3.5 L (3.8-4.9) g/dL Globulin 1.4 L (1.6-3.3) g/dL Urine Protein (Negative) Urine Ketones (Negative) Urine Blood (Negative) Urine WBC (0-5) /hpf Hyaline Casts (0-2) /lpf Urine Mucus (None) /hpf Assessment and Plan (1) Non-Hodgkin lymphoma Current Visit: Yes Status: Acute Code(s): C85.90 - NON-HODGKIN LYMPHOMA, UNSPECIFIED, UNSPECIFIED SITE SNOMED Code(s): 737819733 (2) Acute deep vein thrombosis of left upper extremity Narrative/Plan: Eliquis ordered. Will confirm Rx can be filled in am. Will need very close monitoring of PLatelets come Americo, I have sent a message to office for appointment for CBC this week Discussed with primary team Current Visit: Yes Status: Acute Code(s): I82.622 - ACUTE EMBOLISM AND THROMBOSIS OF DEEP VEINS OF L UP EXTREM SNOMED Code(s): 579847315280465 Plan: Continue Day two of timed chemo Will ask Medical Meanagement coverage during hospital stay Plan for Udencya on Sunday prior to discharge Blood work Daily Prophylaxis at discharge Completion of chemotherapy, udencya today, discharge tomorrow after am eliquis Watch for urine culture, cipro in interim Monitoring CBC closely New acute LUE DVT
[2022-04-23] MEDS: OLANZapine 5 MG TAB PO SCH (21:52)
[2022-04-23] MEDS: ZOLPIDEM 5 MG TAB PO PRN (22:18)
[2022-04-24 04:47] VITALS: BP 119/70; PULSE 86; TEMP 98.3
[2022-04-24] MEDS: EZETIMIBE 10 MG TAB PO SCH (08:47)
[2022-04-24] MEDS: CIPROFLOXACIN HCL 500 MG TAB PO SCH ×2 (08:47→15:03)
[2022-04-24] MEDS: PANTOPRAZOLE 40 MG TABLET PO SCH (08:48)
[2022-04-24] MEDS: LORATADINE 10 MG TAB PO SCH (08:48)
[2022-04-24] MEDS: ACYCLOVIR 200 MG CAP PO SCH ×2 (08:48→15:03)
[2022-04-24] MEDS: APIXABAN 5 MG TAB PO SCH (08:49)
[2022-04-24] MEDS: predniSONE 50 MG TAB PO SCH (08:49)
[2022-04-24] MEDS: CHOLECALCIFEROL 25 MCG (1000 IU) TABLET PO SCH (08:49)
[2022-04-24] MEDS: LOSARTAN 50 MG TAB PO SCH (08:49)
[2022-04-24] MEDS: PROPRANOLOL LA 60 MG CAP.SA.24H PO SCH (08:49)
[2022-04-24 10:45] LABS: Basophils # (A) 0.03 X 10*3/uL (0.00-0.10); Basophils % (A) 0.2 %; Eosinophils # (A) 0.01 X 10*3/uL (0.04-0.35); Eosinophils % (A) 0.1 %; HCT 25.2 % (37.2-46.3); HGB 7.9 g/dL (12.0-15.0); Immature Grans, Automated 2.7 %; Lymphocytes # (A) 0.13 X 10*3/uL (0.90-5.00); Lymphocytes % (A) 0.9 %; MCH 28.4 pg (27.0-32.0); MCHC 31.3 g/dL (32.0-37.0); MCV 90.6 fL (80.0-97.0); Mean Platelet Volume 11.2 fL (9.5-12.2); Monocytes # (A) 0.02 X 10*3/uL (0.20-1.00); Monocytes % (A) 0.1 %; NRBC Per 100 WBC 0 /100 WBCS (0.0-0.0); Neutrophils # (A) 14.03 X 10*3/uL (1.80-7.70); Platelet Count 145 X 10*3/uL (140-440); RBC 2.78 X 10*6/uL (4.10-5.20); RDW 20.2 % (11.5-14.5); WBC 14.62 X 10*3/uL (4.50-10.00)
--- NOTE | 2022-04-24 16:31 | P.PN ---
Subjective Progress Note Date: 04/24/22 72-year-old woman with medical history of lymphoma, chronic pain, recurrent pleural effusion with Pleurx catheter, migraines, osteoarthritis presented for inpatient chemotherapy. Medicine consulted for medical management. Patient is symptomatically doing well, however, unfortunately there was recent progression on her PET/CT scan of her lymphoma, therefore, change of therapy is warranted. She denies fevers, chills, nausea, vomiting, cp, palps, syncope, presyncope, abd pain, constipation, diarrhea, numbness/weakness of extremities. Upon evaluation patient is afebrile, hemodynamically stable. CBC shows hgb 9.3, platelets are 250, and WBC is 6.1. Chemistries unremarkable. LFTs show low protein/albumin. Coags unremarkable. No imaging to review. Gen: awake, alert HEENT: normocephalic, atraumatic, good hearing acuity, moist mucous membranes Resp: good air exchange, breathing comfortably with no accessory muscle use CVS: good distal perfusion x 4, GI: soft, NTTP, ND : no SPT, no CVAT, wheeler catheter not present MSK: no pitting edema, no clubbing Neuro: non-focal, moving all extremities Psych: cooperative, euthymic mood Labs and imaging reviewed as above Assessment/plan: Lymphoma -Admit to inpatient, telemetry -Oncology guiding chemotherapy -trend labs to ensure no tumor lysis syndrome -decrease IVF rate to 50 Chronic pain Migraines Osteoarthritis -Home medications reviewed and reconciled Patient is full code DVT prophylaxis with enoxaparin, hold for platelets less than 50 Objective - Vital Signs Vital signs: Vital Signs Temp 98.3 F 04/24/22 04:00 Pulse 86 04/24/22 04:00 Resp 18 04/24/22 04:00 BP 119/70 04/24/22 04:00 Pulse Ox 93 L 04/24/22 04:00 FiO2 Intake & Output 04/23/22 04/24/22 04/24/22 18:59 06:59 18:59 Intake Total 540 Output Total 16 Balance -16 540 Intake: IV 0 Sodium Chloride 0.9% 1, 0 000 ml @ 50 mls/hr IV . Q20H [facility] Rx#:[id number] Oral 540 Output: Post Void Residual 16 Other: Voiding Method Toilet Toilet # Voids 5 - Labs CBC & Chem 7: 04/24/22 06:12 04/23/22 05:48 Labs: Abnormal Lab Results - Last 24 Hours (Table) 04/23/22 04/24/22 Range/Units 16:29 06:12 WBC 14.62 H (4.50-10.00) X 10*3/uL RBC 3.07 L 2.78 L (3.80-5.40) m/uL Hgb 9.0 L 7.9 L (11.4-16.0) gm/dL Hct 28.3 L 25.2 L (34.0-46.0) % MCHC 31.3 L (32.0-37.0) g/dL RDW 19.2 H 20.2 H (11.5-15.5) % Immature Gran # 0.40 H (0.00-0.04) X 10*3/uL Neutrophils # 14.03 H (1.80-7.70) X 10*3/uL Lymphocytes # 0.1 L 0.13 L (1.0-4.8) k/uL Monocytes # 0.02 L (0.20-1.00) X 10*3/uL Eosinophils # 0.01 L (0.04-0.35) X 10*3/uL Microbiology - Last 24 Hours (Table) 04/23/22 02:15 Urine Culture - Preliminary Urine,Voided
== END 2022-04-24 15:10 | disposition home or self-care (01) | DRG 847 ==
LOC: 5NMEDONC 04-20 15:19
PROVIDERS: ADMIT Internal Medicine Hematology & Oncology; ATTEND Internal Medicine Hematology & Oncology
DX: Z51.11 Encounter for antineoplastic chemotherapy (principal); C85.90 Non-Hodgkin lymphoma, unspecified, unspecified site; I82.622 Acute embolism and thrombosis of deep veins of left upper extremity; J90 Pleural effusion, not elsewhere classified; M47.812 Spondylosis without myelopathy or radiculopathy, cervical region; B96.1 Klebsiella pneumoniae [K. pneumoniae] as the cause of diseases classified elsewhere; R50.81 Fever presenting with conditions classified elsewhere; R32 Unspecified urinary incontinence; R20.0 Anesthesia of skin; R39.15 Urgency of urination; E78.5 Hyperlipidemia, unspecified; G43.909 Migraine, unspecified, not intractable, without status migrainosus; G89.29 Other chronic pain; M19.90 Unspecified osteoarthritis, unspecified site; N28.89 Other specified disorders of kidney and ureter; Z79.899 Other long term (current) drug therapy; Z98.1 Arthrodesis status; Z77.22 Contact with and (suspected) exposure to environmental tobacco smoke (acute) (chronic)
CPT/HCPCS: 80053; 81001; 83615; 83735; 84100; 84550; 85025; 85610; 85730; 87077; 87086; 87186; 93970

== ENCOUNTER → 2022-04-27 | Outpatient (CLI) | payer MEDICARE ==
--- NOTE | 2022-04-28 18:46 | CA ---
Transthoracic Echo Report Name: Carla Hubbard Age: 72 Gender: F : 1950 Exam Date: 04/27/2022 14:15 Exam Location: [facility] Ht (in): 67 Wt (lb): 189 Ordering Physician: William Villeda MD Attending/Referring Phys: Broom Man Mary Rosales RDCS Procedure CPT: Indications: Z01.818 Chemo Cardiac Hx: Technical Quality: Good Contrast 1: Total Dose (mL): Contrast 2: Total Dose (mL): MEASUREMENTS (Male / Female) Normal Values 2D ECHO LV Diastolic Diameter PLAX 4.9 cm 4.2 - 5.9 / 3.9 - 5.3 cm LV Systolic Diameter PLAX 3.5 cm IVS Diastolic Thickness 0.9 cm 0.6 - 1.0 / 0.6 - 0.9 cm LVPW Diastolic Thickness 1.1 cm 0.6 - 1.0 / 0.6 - 0.9 cm LV Relative Wall Thickness 0.4 LA Systolic Diameter LX 3.5 cm 3.0 - 4.0 / 2.7 - 3.8 cm LA Volume 47.8 cm??? 18 - 58 / 22 - 52 cm??? M-MODE Aortic Root Diameter MM 3.0 cm LA Systolic Diameter MM 3.7 cm LA Ao Ratio MM 1.2 MV E Point Septal Separation 1.5 cm AV Cusp Separation MM 2.1 cm DOPPLER MV Area PHT 2.8 cm??? Mitral E Point Velocity 78.6 cm/s Mitral A Point Velocity 115.8 cm/s Mitral E to A Ratio 0.7 MV Deceleration Time 275.6 ms MV E' Velocity 5.5 cm/s Mitral E to MV E' Ratio 14.3 TR Peak Velocity 231.8 cm/s TR Peak Gradient 21.5 mmHg Right Ventricular Systolic Press 26.4 mmHg FINDINGS Left Ventricle Normal Left ventricular size, wall thickness, systolic function with no obvious regional wall motion abnormalities. Right Ventricle Normal right ventricular size and function. Right ventricular systolic pressure within normal limits. Right Atrium Normal right atrial size. Left Atrium Normal left atrial size. Mitral Valve Structurally normal mitral valve. Mild mitral regurgitation. Aortic Valve Trileaflet aortic valve. No aortic valve stenosis or regurgitation. Tricuspid Valve Structurally normal tricuspid valve. Trace to mild tricuspid regurgitation. Pulmonic Valve Structurally normal pulmonic valve. Pericardium Normal pericardium. Aorta Normal size aortic root and proximal ascending aorta. CONCLUSIONS Left ventricular ejection fraction 60% Mild mitral regurgitation Trace to mild tricuspid regurgitation No pericardial effusion Previewed by: Dr. Bob Andrews DO (Electronically Signed) Final Date: 28 April 2022 18:45
== END | disposition home or self-care (01) ==
LOC: RADECHMAIN 14:02
PROVIDERS: ATTEND Internal Medicine Hematology & Oncology
DX: Z01.818 Encounter for other preprocedural examination (principal); I08.1 Rheumatic disorders of both mitral and tricuspid valves
CPT/HCPCS: 93306

== ENCOUNTER 2022-05-05 11:26 | Day surgery (SDC) | payer MEDICARE ==
[2022-05-03 09:16] VITALS: BMI 29.7
[~2022-05-05 11:26] MED LIST changes: -BACITRACIN 50,000 UNIT, POLYMYXIN B 500,000 UNIT in SODIUM CHLORIDE 0.9% IRRIGATIO 1,00... IRRIGATION ONE; -DEXAMETHASONE SOD PHOSPHATE 10 MG/ML 1 ML VIAL IV ONE; +ETOPOSIDE 200 MG in SODIUM CHLORIDE 0.9% 500 ML 500 ML IV SCH; +FAMOTIDINE 20 MG/2 ML VIAL IVP SCH; -LIDOCAINE 1% 20 ML VIAL (10MG/ML) FOR IV START INTRADERMA PRN; +ONDANSETRON 16 MG in SODIUM CHLORIDE 0.9% 50 ML IVPB SCH; +ONDANSETRON 4 MG/2 ML VIAL IVP PRN; -SCOPOLAMINE 1.5MG/72HR PATCH TRANSDERM ONE; +SODIUM CHLORIDE 0.9% 1,000 ML IV SCH; -ceFAZolin IN SWFI 2 GM/20 ML SYRINGE IVP ONE
[2022-05-05 11:49] VITALS: BP 188/88; PULSE 78; RESP 16; TEMP 98.3
[2022-05-05] MEDS ORDERED: LIDOCAINE 1% INJ 10MG/ML (5 ML VIAL-PF) SQ ONE (11:49)
--- NOTE | 2022-05-05 12:26 | IR ---
PICC LINE PLACEMENT: HISTORY: Infection requiring long-term antibiotic therapy PROCEDURE: Ultrasound and fluoroscopic guidance of PICC line placement. COMPLICATIONS: None ANESTHESIA: 1. 1% Lidocaine locally. FINDINGS/TECHNIQUE: The procedure was explained to the patient. The risks, complications, benefits and alternatives were discussed and any questions were answered. Informed consent was obtained. The patient was placed supine on the fluoroscopic table and prepped and draped in the usual sterile fash ion. Utilizing a 21 gauge needle and sonographic and fluoroscopic guidance, access in the right bas ilic vein was achieved and there is placement of a 0.018 guidewire. The vein is patent. A 4-F sheat h was placed over the guidewire. The guidewire and dilator were removed and a 4-F. PICC line was shaun britt through the sheath with the tip at the level of the SVC. The sheath was removed, the catheter wa s flushed and sutured into position. The patient was stable throughout the procedure and remained st able upon discharge from the Department of Radiology. The vein puncture was patent under ultrasound. A main scale image was obtained to document patency of the vein punctured. All elements of the maximal barrier technique were utilized. FLUOROSCOPY TIME: 0.2 minutes and 1 image cemented IMPRESSION: Successful PICC line placement under ultrasound and fluoroscopic guidance.
[2022-05-05] MEDS ORDERED: DEXAMETHASONE SOD PHOSPHATE 10 MG/ML 1 ML VIAL IV SCH (18:00)
[2022-05-05] MEDS ORDERED: MESNA IV ONE (19:00)
[2022-05-05] MEDS ORDERED: CARBOplatin 500 MG in SODIUM CHLORIDE 0.9% 250 ML IV ONE (19:00)
[2022-05-05] MEDS ORDERED: SODIUM CHLORIDE 0.9% IV ONE ×2 (19:00)
[2022-05-05] MEDS ORDERED: IFOSFAMIDE IV ONE (19:00)
== END 2022-05-05 12:17 | disposition home or self-care (01) ==
LOC: OR 11:26
PROVIDERS: ATTEND Radiology Diagnostic Radiology
DX: C81.00 Nodular lymphocyte predominant Hodgkin lymphoma, unspecified site (principal); Z45.2 Encounter for adjustment and management of vascular access device
CPT/HCPCS: 36573; J2001

== ENCOUNTER 2022-05-10 07:59 | Day surgery (SDC) | payer MEDICARE ==
[~2022-05-10 07:59] MED LIST changes: -ETOPOSIDE 200 MG in SODIUM CHLORIDE 0.9% 500 ML 500 ML IV SCH; -FAMOTIDINE 20 MG/2 ML VIAL IVP SCH; +METHOTREXATE SODIUM (PF) 25 MG/ML 2 ML VIAL INTRATHECA ONE; -ONDANSETRON 16 MG in SODIUM CHLORIDE 0.9% 50 ML IVPB SCH; -ONDANSETRON 4 MG/2 ML VIAL IVP PRN; -SODIUM CHLORIDE 0.9% 1,000 ML IV SCH
[2022-05-10] MEDS ORDERED: diazePAM 5 MG TAB PO PRN (08:10)
[2022-05-10 08:33] VITALS: TEMP 98.4
[2022-05-10] MEDS ORDERED: METHOTREXATE SODIUM (PF) 25 MG/ML 2 ML VIAL INTRATHECA ONE (09:00)
[2022-05-10 09:28] VITALS: RESP 16
--- NOTE | 2022-05-10 11:26 | FL ---
EXAMINATION TYPE: FL guided lumbar puncture and intrathecal injection of chemotherapy DATE OF EXAM: 05/10/2022 CLINICAL HISTORY: Non-Hodgkin lymphoma. COMPARISON: Prior lumbar puncture dated 04/12/2022. TECHNIQUE: Fluoroscopic guidance was provided during lumbar puncture procedure performed by myself fo r subsequent intrathecal chemotherapy given by oncology nurse practitioner. A total of 1 minute and 41 seconds of fluoroscopic time was utilized during the procedure and 3 spot images were acquired. FINDINGS: Procedure was explained to patient. Benefits, alternatives, and risks were discussed. Informed consen t was then obtained. Postsurgical changes to the lower lumbar spine is redemonstrated. Patient placed in prone position on fluoroscopic table. Left L5-S1 level was targeted. Overlying skin cleaning followed by lidocaine 2% injection to the skin and underlying soft tissue opposite left L5- S1 level. Under fluoroscopic guidance, a spinal needle was used to target the thecal sac utilizing a left sublaminar approach at L5-S1 level. About 4 cc of clear CSF were collected and placed in a collecting tube as requested by the oncology n mariselae practitioner. At this point , the oncology nurse practitioner gave intrathecal chemotherapy with out saline flush. The needle was then withdrawn by myself. The patient tolerated procedure well without any immediate complication. The patient will be kept in the hospital for about 4 hours after the procedure and will be discharged home if no complications. V ital signs were monitored before during and after the procedure. IMPRESSION: Uneventful successful fluoroscopic assisted lumbar puncture for intrathecal chemotherapy injection.
[2022-05-10 12:55] LABS: Appearance,CSF Clear
[2022-05-10 12:57] LABS: CSF Tube Number 1; Nucleated Cells, CSF 1 u/L (0-5); Red Blood Cell,CSF 352 u/L (0-10)
[2022-05-10 13:22] LABS: Red Blood Cell, CSF Crenated 1 %; Red Blood Cell, CSF Fresh 99 %
[2022-05-10 14:26] VITALS: BP 141/71; PULSE 78
== END 2022-05-10 13:12 | disposition home or self-care (01) ==
LOC: RADPROMAIN 07:59
PROVIDERS: ATTEND Internal Medicine Hematology & Oncology
DX: C85.90 Non-Hodgkin lymphoma, unspecified, unspecified site (principal); Z79.01 Long term (current) use of anticoagulants; Z79.899 Other long term (current) drug therapy
CPT/HCPCS: 88108; 89050; 62328; J9260

== ENCOUNTER 2022-05-12 11:18 | Inpatient (IN) | payer MEDICARE ==
[2022-05-12] MEDS ORDERED: ONDANSETRON 4 MG/2 ML VIAL IVP PRN (14:00)
[2022-05-12] MEDS ORDERED: SODIUM CHLORIDE 0.9% 1,000 ML IV SCH (14:15)
[2022-05-12] MEDS: SODIUM CHLORIDE 0.9% 1,000 ML IV SCH (14:58)
[2022-05-12] MEDS ORDERED: ACETAMINOPHEN TAB 325 MG TAB PO PRN (15:28)
[2022-05-12] MEDS ORDERED: GABAPENTIN 300 MG CAP PO PRN (15:28)
[2022-05-12] MEDS ORDERED: SUMAtriptan succinate 50 MG TAB PO PRN (15:28)
[2022-05-12] MEDS ORDERED: HYDROcodone/APAP 10-325MG 1 EACH TAB PO PRN (15:28)
[2022-05-12] MEDS ORDERED: CLOBETASOL PROP 0.05% OINT 15GM TOPICAL PRN (15:28)
[2022-05-12] MEDS ORDERED: IPRATROPIUM-ALBUTEROL 3 ML NEB INHALATION PRN (15:28)
[2022-05-12] MEDS ORDERED: ZOLPIDEM 5 MG TAB PO PRN (15:28)
[2022-05-12] MEDS ORDERED: ONDANSETRON ODT 4 MG TAB PO PRN (15:28)
[2022-05-12 15:30] LABS: Anisocytosis Moderate; Basophils % (A) 0 %; Eosinophils % (A) 0 %; HCT 31.3 % (34.0-46.0); HGB 10.2 gm/dL (11.4-16.0); Hypochromasia Slight; Lymphocytes # (A) 0.6 k/uL (1.0-4.8); Lymphocytes % (A) 20 %; MCH 30.7 pg (25.0-35.0); MCHC 32.8 g/dL (31.0-37.0); MCV 93.6 fL (80.0-100.0); Macrocytosis Slight; Mean Platelet Volume 7.5; Monocytes # (A) 0.1 k/uL (0-1.0); Monocytes % (A) 3 %; Neutrophils # (A) 2.3 k/uL (1.3-7.7); Neutrophils % (A) 75 %; Platelet Count 223 k/uL (150-450); Poikilocytosis Slight; RBC 3.34 m/uL (3.80-5.40); RDW 20.4 % (11.5-15.5); WBC 3.1 k/uL (3.8-10.6)
[2022-05-12] MEDS ORDERED: predniSONE 10 MG TAB PO SCH (15:30)
[2022-05-12] MEDS ORDERED: LORATADINE 10 MG TAB PO SCH (15:30)
--- NOTE | 2022-05-12 15:35 | P.HPIM ---
History of Present Illness H&P Date: 05/12/22 Chief Complaint: Timed Chemo R-ICE Presenting for cycle 2 of ICE. She had Intrathecal this week and the patient is status post cycle 1 of R-ICE. She has had some grade 1-2 adverse events, most related fatigue and drop in appetite. However CBC today shows marked decrease, with hemoglobin 7.4, and platelets 12.9. WBC was 2.9 with ANC 2.5 - Check labs - The patient was supposed to start cycle #2 later this week. This will be placed on hold until counts recover. She'll also supposed to get 3/4 of intrathecal chemotherapy. This will also be held until platelet counts are improved. - Patient's eliquis is already on hold for her intrathecal chemotherapy that was initially scheduled tumor. She was advised to continue holding the eliquis, until platelet counts improved to greater than 50,000. - She is having increased left neck and left approximately pain. The PET scan prior to her most recent chemotherapy had not shown any activity in that area. Therefore this is more likely radicular, possibly mechanical due to effects of prior tumor involvement and radiation to the area. Continue fentanyl, [place] when necessary, and gabapentin. She was advised to take prednisone 100 mg daily for 3 days. - If no picc line yet will need PICC line placement later this week, with platelets. 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, two tumors on spine, probable cancer per pt(had radiation on tumor on spine 10/2021-11/2021(10 treatments) lymphoma, DVT left arm History of Any Multi-Drug Resistant Organisms: None Reported Past Surgical History: Appendectomy, Back Surgery, Breast Surgery, Orthopedic Surgery Additional Past Surgical History / Comment(s): rhinoplasty, left breast lumpectomy, ,bunnionectomies payam feet, spinal fusion, PICC line, lumbar puncture with intrathecal chemo Past Anesthesia/Blood Transfusion Reactions: No Reported Reaction Additional Past Anesthesia/Blood Transfusion Reaction / Comment(s): , Past Psychological History: No Psychological Hx Reported Additional Psychological History / Comment(s): Pt resides with her spouse. She is not currently driving, her spouse drives. She has received home care thru [facility]. She is independent. Smoking Status: Never smoker Past Alcohol Use History: None Reported Past Drug Use History: None Reported - Past Family History Mother Family Medical History: Cancer, Deep Vein Thrombosis (DVT), Pulmonary Embolus Additional Family Medical History / Comment(s): cervical Father Family Medical History: Cancer Additional Family Medical History / Comment(s): prostate Medications and Allergies Home Medications Medication Instructions Recorded Confirmed Type Gabapentin [Neurontin] 300 mg PO Q6H PRN 09/24/18 05/12/22 History Propranolol HCl [Propranolol HCl 60 mg PO DAILY 09/24/18 05/12/22 History ER] Ezetimibe [Zetia] 10 mg PO DAILY 01/18/22 05/12/22 History Vit C/E/Zn/Coppr/Lutein/Zeaxan 1 cap PO DAILY 01/18/22 05/12/22 History [Preservision Areds 2 Softgel] Omeprazole 20 mg PO DAILY 02/26/22 05/12/22 History Zolpidem [Ambien] 10 mg PO HS PRN 02/26/22 05/12/22 History Cholecalciferol [Vitamin D3 (25 50 mcg PO DAILY 03/14/22 05/12/22 History Mcg = 1000 Iu)] OLANZapine 5 mg PO DIRECTED 03/14/22 05/12/22 History predniSONE 100 mg PO DIRECTED 03/14/22 05/12/22 History Ondansetron Odt [Zofran ODT] 4 mg PO Q6H PRN 04/06/22 05/12/22 History fentaNYL 25MCG/HR PATCH [Duragesic 25 mcg TRANSDERM Q72H 04/06/22 05/12/22 History 25MCG/HR] Acetaminophen Tab [Tylenol] 650 mg PO Q6HR PRN tab 04/08/22 05/12/22 Rx Acyclovir [Zovirax] 400 mg PO BID #60 cap 04/23/22 05/12/22 Rx Apixaban [Eliquis] 5 mg PO BID 05/03/22 05/12/22 History Cetirizine HCl [Zyrtec] 10 mg PO DAILY 05/03/22 05/12/22 History Loratadine 10 mg PO DIRECTED 05/10/22 05/12/22 History Clobetasol Propionate [Temovate 1 applic TOPICAL BID PRN 05/12/22 05/12/22 History 0.05% Oint] HYDROcodone/APAP 10-325MG [[place] 1 tab PO Q6H PRN 05/12/22 05/12/22 History 10-325] Ipratropium-Albuterol Nebulize 3 ml INHALATION RT-QID PRN 05/12/22 05/12/22 History [Duoneb 0.5 mg-3 mg/3 ml Soln] SUMAtriptan succinate 100 mg PO BID PRN 05/12/22 05/12/22 History Sennosides-Docusate Sodium 2 tab PO BID PRN 05/12/22 05/12/22 History [Senokot-S] predniSONE 10 mg PO DIRECTED 05/12/22 05/12/22 History Allergies Allergy/AdvReac Type Severity Reaction Status Date / Time No Known Allergies Allergy Verified 05/12/22 14:31 Physical Exam Vitals: Vital Signs Temp Pulse Resp BP Pulse Ox 05/12/22 14:00 98.1 F 79 16 107/72 95 Intake and Output 05/12/22 05/12/22 05/12/22 06:59 14:59 22:59 Other: Weight 86.636 kg - Constitutional General appearance: cooperative - EENT Eyes: EOMI, PERRLA ENT: NA/AT - Neck Neck: normal ROM - Respiratory Respiratory: bilateral: CTA - Cardiovascular Rhythm: regularly irregular - Gastrointestinal General gastrointestinal: normal bowel sounds - Integumentary Integumentary: pale - Neurologic Neurologic: CNII-XII intact - Musculoskeletal Musculoskeletal: generalized weakness, strength equal bilaterally - Psychiatric Psychiatric: A&O x's 3, appropriate affect, intact judgment & insight Results CBC & Chem 7: 05/12/22 15:02 Labs: Abnormal Lab Results - Last 24 Hours (Table) 05/12/22 Range/Units 15:02 WBC 3.1 L (3.8-10.6) k/uL RBC 3.34 L (3.80-5.40) m/uL Hgb 10.2 L (11.4-16.0) gm/dL Hct 31.3 L (34.0-46.0) % RDW 20.4 H (11.5-15.5) % Lymphocytes # 0.6 L (1.0-4.8) k/uL Thrombosis Risk Factor Assmnt - DVT/VTE Prophylaxis DVT/VTE Prophylaxis: Pharmacologic Prophylaxis ordered Assessment and Plan (1) Acute deep vein thrombosis of left upper extremity Narrative/Plan: COntinue Eliquis Current Visit: No Status: Acute Code(s): I82.622 - ACUTE EMBOLISM AND THROMBOSIS OF DEEP VEINS OF L UP EXTREM SNOMED Code(s): 443266429599529 (2) NHL (nodular histiocytic lymphoma) Narrative/Plan: Day one cycle two Daily labs Home medications ordered Current Visit: No Status: Acute Priority: High Code(s): C82.90 - FOLLICULAR LYMPHOMA, UNSPECIFIED, UNSPECIFIED SITE SNOMED Code(s): 077068256
[2022-05-12 15:37] LABS: ALT 22 U/L (4-34); AST 26 U/L (14-36); African American GFR (CKD) >90 (>60 ml/min/1.73 sqM); Albumin 3.7 g/dL (3.5-5.0); Albumin/Globulin Ratio 1.9; Alkaline Phosphatase 68 U/L (38-126); Anion Gap 4 mmol/L; Blood Urea Nitrogen 12 mg/dL (7-17); Calcium 8.9 mg/dL (8.4-10.2); Carbon Dioxide 28 mmol/L (22-30); Chloride 104 mmol/L (98-107); Glucose 241 mg/dL (74-99); Non-African American GFR(CKD) >90 (>60 ml/min/1.73 sqM); Phosphorus 3.3 mg/dL (2.5-4.5); Sodium 136 mmol/L (137-145); Total Bilirubin 0.8 mg/dL (0.2-1.3); Total Protein 5.7 g/dL (6.3-8.2); Uric Acid 3.7 mg/dL (3.7-7.4)
[2022-05-12] MEDS: ONDANSETRON 16 MG in SODIUM CHLORIDE 0.9% 50 ML IVPB SCH (16:04)
[2022-05-12] MEDS: FAMOTIDINE 20 MG/2 ML VIAL IVP SCH (16:05)
[2022-05-12] MEDS: ETOPOSIDE 200 MG in SODIUM CHLORIDE 0.9% 500 ML 500 ML IV SCH (16:30)
--- NOTE | 2022-05-12 17:54 | P.CONS ---
History of Present Illness - Reason for Consult Consult date: 05/12/22 Requesting physician: William Villeda - History of Present Illness Reason for consult: Medical management History of present illness: 72-year-old woman with medical history of lymphoma, chronic pain, recurrent pleural effusion with Pleurx catheter, migraines. Patient is here in hospital for inpatient chemotherapy, She had Intrathecal this week and the patient is status post cycle 1 of R-ICE. Patient denies any chest pain or shortness of breath. Denies any nausea vomiting or abdominal pain. Patient denies any diarrhea or constipation. Patient denies any fever or chills. Review of system: All 14 review of systems evaluated and all negative except for above. Physical examination: General: no distress, pale Derm: warm, dry Head: atraumatic, normocephalic, symmetric Eyes: EOMI, no lid lag, anicteric sclera Mouth: no lip lesion, mucus membranes moist Cardiovascular: S1S2 reg, no murmur, positive posterior tibial pulse bilateral, Lungs: CTA bilateral, no rhonchi, no rales , no accessory muscle use Abdominal: soft, nontender to palpation, no guarding, no appreciable organomegaly Ext: no gross muscle atrophy, no edema, no contractures Neuro: CN II-XI grossly intact, no focal neuro deficits Psych: Alert, oriented, appropriate affect Labs and imaging reviewed as above Assessment/plan: Non-Hodgkin lymphoma (nodular histiocytic lymphoma) -Management per primary team Pancytopenia -secondary to above -Management per oncology team Acute deep venous thrombosis left upper extremity March 2022 -Secondary to PICC line status post removal -Resume Eliquis Right recurrent pleural effusion -Patient have right Pleurx Other stable chronic conditions Chronic pain Migraines Osteoarthritis -Home medications reviewed and reconciled Patient is full code DVT prophylaxis patient on Eliquis Past Medical History Past Medical History: Cancer, Hyperlipidemia, Osteoarthritis (OA) Additional Past Medical History / Comment(s): migraines, pain under rt breast radiating to back, 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, two tumors on spine, probable cancer per pt(had radiation on tumor on spine 10/2021-11/2021(10 treatments) lymphoma, DVT left arm History of Any Multi-Drug Resistant Organisms: None Reported Past Surgical History: Appendectomy, Back Surgery, Breast Surgery, Orthopedic Surgery Additional Past Surgical History / Comment(s): rhinoplasty, left breast lumpectomy, ,bunnionectomies payam feet, spinal fusion, PICC line, lumbar puncture with intrathecal chemo Past Anesthesia/Blood Transfusion Reactions: No Reported Reaction Additional Past Anesthesia/Blood Transfusion Reaction / Comm: , Past Psychological History: No Psychological Hx Reported Additional Psychological History / Comment(s): Pt resides with her spouse. She is not currently driving, her spouse drives. She has received home care thru [facility]. She is independent. Smoking Status: Never smoker Past Alcohol Use History: None Reported Past Drug Use History: None Reported - Past Family History Mother Family Medical History: Cancer, Deep Vein Thrombosis (DVT), Pulmonary Embolus Additional Family Medical History / Comment(s): cervical Father Family Medical History: Cancer Additional Family Medical History / Comment(s): prostate Medications and Allergies Home Medications Medication Instructions Recorded Confirmed Type Gabapentin [Neurontin] 300 mg PO Q6H PRN 09/24/18 05/12/22 History Propranolol HCl [Propranolol HCl 60 mg PO DAILY 09/24/18 05/12/22 History ER] Ezetimibe [Zetia] 10 mg PO DAILY 01/18/22 05/12/22 History Vit C/E/Zn/Coppr/Lutein/Zeaxan 1 cap PO DAILY 01/18/22 05/12/22 History [Preservision Areds 2 Softgel] Omeprazole 20 mg PO DAILY 02/26/22 05/12/22 History Zolpidem [Ambien] 10 mg PO HS PRN 02/26/22 05/12/22 History Cholecalciferol [Vitamin D3 (25 50 mcg PO DAILY 03/14/22 05/12/22 History Mcg = 1000 Iu)] OLANZapine 5 mg PO DIRECTED 03/14/22 05/12/22 History predniSONE 100 mg PO DIRECTED 03/14/22 05/12/22 History Ondansetron Odt [Zofran ODT] 4 mg PO Q6H PRN 04/06/22 05/12/22 History fentaNYL 25MCG/HR PATCH [Duragesic 25 mcg TRANSDERM Q72H 04/06/22 05/12/22 History 25MCG/HR] Acetaminophen Tab [Tylenol] 650 mg PO Q6HR PRN tab 04/08/22 05/12/22 Rx Acyclovir [Zovirax] 400 mg PO BID #60 cap 04/23/22 05/12/22 Rx Apixaban [Eliquis] 5 mg PO BID 05/03/22 05/12/22 History Cetirizine HCl [Zyrtec] 10 mg PO DAILY 05/03/22 05/12/22 History Loratadine 10 mg PO DIRECTED 05/10/22 05/12/22 History Clobetasol Propionate [Temovate 1 applic TOPICAL BID PRN 05/12/22 05/12/22 History 0.05% Oint] HYDROcodone/APAP 10-325MG [Gilman 1 tab PO Q6H PRN 05/12/22 05/12/22 History 10-325] Ipratropium-Albuterol Nebulize 3 ml INHALATION RT-QID PRN 05/12/22 05/12/22 History [Duoneb 0.5 mg-3 mg/3 ml Soln] SUMAtriptan succinate 100 mg PO BID PRN 05/12/22 05/12/22 History Sennosides-Docusate Sodium 2 tab PO BID PRN 05/12/22 05/12/22 History [Senokot-S] predniSONE 10 mg PO DIRECTED 05/12/22 05/12/22 History Allergies Allergy/AdvReac Type Severity Reaction Status Date / Time No Known Allergies Allergy Verified 05/12/22 14:31 Physical Exam Vitals: Vital Signs Temp Pulse Resp BP Pulse Ox 05/12/22 14:00 98.1 F 79 16 107/72 95 Intake and Output 05/12/22 05/12/22 05/12/22 06:59 14:59 22:59 Intake Total 350 Balance 350 Intake: Intake, IV Titration 350 Amount Ondansetron 16 mg In 50 Sodium Chloride 0.9% 50 ml @ 232 mls/hr IVPB Q24H [facility] Rx#:[id number] Sodium Chloride 0.9% 1, 300 000 ml @ 100 mls/hr IV . Q10H [facility] Rx#:[id number] Other: Weight 86.636 kg Results CBC & Chem 7: 05/12/22 15:02 05/12/22 15:02 Labs: Abnormal Lab Results - Last 24 Hours (Table) 05/12/22 05/12/22 Range/Units 15:02 15:02 WBC 3.1 L (3.8-10.6) k/uL RBC 3.34 L (3.80-5.40) m/uL Hgb 10.2 L (11.4-16.0) gm/dL Hct 31.3 L (34.0-46.0) % RDW 20.4 H (11.5-15.5) % Lymphocytes # 0.6 L (1.0-4.8) k/uL Sodium 136 L (137-145) mmol/L Glucose 241 H (74-99) mg/dL Total Protein 5.7 L (6.3-8.2) g/dL
[2022-05-12] MEDS: ACYCLOVIR 200 MG CAP PO SCH (20:18)
[2022-05-12] MEDS: APIXABAN 5 MG TAB PO SCH (20:18)
[2022-05-12] MEDS: OLANZapine 5 MG TAB PO SCH (20:19)
[2022-05-12] MEDS: SENNOSIDES-DOCUSATE SODIUM 1 EACH TAB PO PRN (20:22)
[2022-05-13] MEDS: SODIUM CHLORIDE 0.9% 1,000 ML IV SCH ×3 (00:10→20:13)
[2022-05-13] MEDS: PANTOPRAZOLE 40 MG TABLET PO SCH (08:38)
[2022-05-13] MEDS: APIXABAN 5 MG TAB PO SCH ×2 (08:38→20:12)
[2022-05-13] MEDS: ACYCLOVIR 200 MG CAP PO SCH ×2 (08:38→20:12)
[2022-05-13] MEDS: VIT A,C & E-LUTEIN-MINERALS 1 EACH TAB PO SCH (08:39)
[2022-05-13] MEDS: predniSONE 50 MG TAB PO SCH (08:39)
[2022-05-13] MEDS: PROPRANOLOL LA 60 MG CAP.SA.24H PO SCH (08:39)
[2022-05-13] MEDS: LORATADINE 10 MG TAB PO SCH (08:39)
[2022-05-13] MEDS: EZETIMIBE 10 MG TAB PO SCH (08:39)
[2022-05-13 08:45] LABS: Basophils # (A) 0.01 X 10*3/uL (0.00-0.10); Basophils % (A) 0.3 %; Eosinophils # (A) 0 X 10*3/uL (0.04-0.35); Eosinophils % (A) 0 %; HCT 25.7 % (37.2-46.3); Immature Grans, Automated 0.6 %; Lymphocytes # (A) 0.47 X 10*3/uL (0.90-5.00); MCH 29.1 pg (27.0-32.0); MCHC 31.1 g/dL (32.0-37.0); MCV 93.5 fL (80.0-97.0); Mean Platelet Volume 10.4 fL (9.5-12.2); Monocytes # (A) 0.34 X 10*3/uL (0.20-1.00); Monocytes % (A) 10.9 %; NRBC Per 100 WBC 0 /100 WBCS (0.0-0.0); Neutrophils # (A) 2.29 X 10*3/uL (1.80-7.70); Neutrophils % (A) 73.2 %; Platelet Count 196 X 10*3/uL (140-440); RBC 2.75 X 10*6/uL (4.10-5.20); RDW 20.7 % (11.5-14.5); WBC 3.13 X 10*3/uL (4.50-10.00)
[2022-05-13 08:54] LABS: African American GFR (CKD) 112.9 (60.0-200.0); Albumin 3.5 g/dL (3.8-4.9); Albumin/Globulin Ratio 2.92 (1.60-3.17); Anion Gap 10.2 mmol/L (10.00-18.00); Blood Urea Nitrogen 9.5 mg/dL (9.0-27.0); Calcium 8.9 mg/dL (8.7-10.3); Carbon Dioxide 23.8 mmol/L (20.0-27.5); Globulin 1.2 g/dL (1.6-3.3); Non-African American GFR(CKD) 97.4 (60.0-200.0); Phosphorus 3.2 mg/dL (2.4-5.1); Total Bilirubin 0.8 mg/dL (0.30-1.20); Total Protein 4.7 g/dL (6.2-8.2); Uric Acid 3.9 mg/dL (2.9-7.7)
[2022-05-13] MEDS ORDERED: CHOLECALCIFEROL 25 MCG (1000 IU) TABLET PO SCH (09:00)
--- NOTE | 2022-05-13 12:12 | P.PN ---
Subjective Progress Note Date: 05/13/22 Principal diagnosis: Timed cycle two ICE Day one was started sunday at 4:30, therefore she will not be starting Day two till around 4pm tonight. hg drop likely from dilution will work up. She is very tearful today, low dose ativan given Objective - Vital Signs Vital signs: Vital Signs Temp 98.4 F 05/13/22 05:00 Pulse 98 05/13/22 08:35 Resp 16 05/13/22 05:00 BP 115/71 05/13/22 08:35 Pulse Ox 98 05/13/22 08:35 FiO2 Intake & Output 05/12/22 05/13/22 05/13/22 18:59 06:59 18:59 Intake Total 350 1700 Balance 350 1700 Weight 86.636 kg Intake: Intake, IV Titration 350 1200 Amount Ondansetron 16 mg In 50 Sodium Chloride 0.9% 50 ml @ 232 mls/hr IVPB Q24H [facility] Rx#:[id number] Sodium Chloride 0.9% 1, 300 000 ml @ 100 mls/hr IV . Q10H [facility] Rx#:[id number] Sodium Chloride 0.9% 1, 1200 000 ml @ 100 mls/hr IV . Q10H [facility] Rx#:[id number] Oral 500 Other: Voiding Method Toilet Toilet # Voids 3 - Exam - Constitutional General appearance: cooperative - EENT Eyes: EOMI, PERRLA ENT: NA/AT - Neck Neck: normal ROM - Respiratory Respiratory: bilateral: CTA - Cardiovascular Rhythm: regularly irregular - Gastrointestinal General gastrointestinal: normal bowel sounds - Integumentary Integumentary: pale - Neurologic Neurologic: CNII-XII intact - Musculoskeletal Musculoskeletal: generalized weakness, strength equal bilaterally - Psychiatric Psychiatric: A&O x's 3, appropriate affect, intact judgment & insight - Labs CBC & Chem 7: 05/13/22 06:12 05/13/22 06:12 Labs: Abnormal Lab Results - Last 24 Hours (Table) 05/12/22 05/12/22 05/13/22 Range/Units 15:02 15:02 06:12 WBC 3.1 L 3.13 L (3.8-10.6) k/uL RBC 3.34 L 2.75 L (3.80-5.40) m/uL Hgb 10.2 L 8.0 L (11.4-16.0) gm/dL Hct 31.3 L 25.7 L (34.0-46.0) % MCHC 31.1 L (32.0-37.0) g/dL RDW 20.4 H 20.7 H (11.5-15.5) % Lymphocytes # 0.6 L 0.47 L (1.0-4.8) k/uL Eosinophils # 0 L (0.04-0.35) X 10*3/uL Sodium 136 L (137-145) mmol/L Creatinine (0.6-1.5) mg/dL Glucose 241 H (74-99) mg/dL Total Protein 5.7 L (6.3-8.2) g/dL Albumin (3.8-4.9) g/dL Globulin (1.6-3.3) g/dL 05/13/22 Range/Units 06:12 WBC (3.8-10.6) k/uL RBC (3.80-5.40) m/uL Hgb (11.4-16.0) gm/dL Hct (34.0-46.0) % MCHC (32.0-37.0) g/dL RDW (11.5-15.5) % Lymphocytes # (1.0-4.8) k/uL Eosinophils # (0.04-0.35) X 10*3/uL Sodium (137-145) mmol/L Creatinine 0.5 L (0.6-1.5) mg/dL Glucose 129 H (74-99) mg/dL Total Protein 4.7 L (6.3-8.2) g/dL Albumin 3.5 L (3.8-4.9) g/dL Globulin 1.2 L (1.6-3.3) g/dL Assessment and Plan (1) Acute deep vein thrombosis of left upper extremity Narrative/Plan: COntinue Eliquis Current Visit: No Status: Acute Code(s): I82.622 - ACUTE EMBOLISM AND THROMBOSIS OF DEEP VEINS OF L UP EXTREM SNOMED Code(s): 012365319372497 (2) NHL (nodular histiocytic lymphoma) Narrative/Plan: Day eTwo cycle two Daily labs Home medications ordered Current Visit: No Status: Acute Priority: High Code(s): C82.90 - FOLLICULAR LYMPHOMA, UNSPECIFIED, UNSPECIFIED SITE SNOMED Code(s): 502473581 Plan: Continue Day 2, 24 hour bag to be hung this evening. Should complete chemo tomorrow therefore GCSF on Sunday
--- NOTE | 2022-05-13 12:49 | P.PN ---
Subjective Progress Note Date: 05/13/22 History of present illness: 72-year-old woman with medical history of lymphoma, chronic pain, recurrent pleural effusion with Pleurx catheter, migraines. Patient is here in hospital for inpatient chemotherapy, She had Intrathecal this week and the patient is status post cycle 1 of R-ICE. Patient denies any chest pain or shortness of breath. Denies any nausea vomiting or abdominal pain. Patient denies any diarrhea or constipation. Patient denies any fever or chills. Interval history: Patient was seen and examined at bedside. She denies any chest pain or shortness of breath. No acute reported changes overnight Physical examination: General: no distress, pale Derm: warm, dry Head: atraumatic, normocephalic, symmetric Eyes: EOMI, no lid lag, anicteric sclera Mouth: no lip lesion, mucus membranes moist Cardiovascular: S1S2 reg, no murmur, positive posterior tibial pulse bilateral, Lungs: CTA bilateral, no rhonchi, no rales , no accessory muscle use Abdominal: soft, nontender to palpation, no guarding, no appreciable organomegaly Ext: no gross muscle atrophy, no edema, no contractures Neuro: CN II-XI grossly intact, no focal neuro deficits Psych: Alert, oriented, appropriate affect Labs and imaging reviewed as above Assessment/plan: Non-Hodgkin lymphoma (nodular histiocytic lymphoma) -Management per primary team Bicytopenia -secondary to above -Hemoglobin dropped to 8.0 today from 10.2 yesterday WBC count stable at 3.1 -Management per oncology team Acute deep venous thrombosis left upper extremity March 2022 -Secondary to PICC line status post removal -Resume Eliquis Right recurrent pleural effusion -Patient have right Pleurx Other stable chronic conditions Chronic pain Migraines Osteoarthritis -Home medications reviewed and reconciled Patient is full code DVT prophylaxis patient on Eliquis Objective - Vital Signs Vital signs: Vital Signs Temp 98.5 F 05/13/22 12:33 Pulse 78 05/13/22 12:33 Resp 15 05/13/22 12:33 BP 125/78 05/13/22 12:33 Pulse Ox 97 05/13/22 12:33 FiO2 Intake & Output 05/12/22 05/13/22 05/13/22 18:59 06:59 18:59 Intake Total 350 1700 Balance 350 1700 Weight 86.636 kg Intake: Intake, IV Titration 350 1200 Amount Ondansetron 16 mg In 50 Sodium Chloride 0.9% 50 ml @ 232 mls/hr IVPB Q24H [facility] Rx#:[id number] Sodium Chloride 0.9% 1, 300 000 ml @ 100 mls/hr IV . Q10H [facility] Rx#:[id number] Sodium Chloride 0.9% 1, 1200 000 ml @ 100 mls/hr IV . Q10H [facility] Rx#:[id number] Oral 500 Other: Voiding Method Toilet Toilet # Voids 3 - Labs CBC & Chem 7: 05/13/22 06:12 05/13/22 06:12 Labs: Abnormal Lab Results - Last 24 Hours (Table) 05/12/22 05/12/22 05/13/22 Range/Units 15:02 15:02 06:12 WBC 3.1 L 3.13 L (3.8-10.6) k/uL RBC 3.34 L 2.75 L (3.80-5.40) m/uL Hgb 10.2 L 8.0 L (11.4-16.0) gm/dL Hct 31.3 L 25.7 L (34.0-46.0) % MCHC 31.1 L (32.0-37.0) g/dL RDW 20.4 H 20.7 H (11.5-15.5) % Lymphocytes # 0.6 L 0.47 L (1.0-4.8) k/uL Eosinophils # 0 L (0.04-0.35) X 10*3/uL Sodium 136 L (137-145) mmol/L Creatinine (0.6-1.5) mg/dL Glucose 241 H (74-99) mg/dL Total Protein 5.7 L (6.3-8.2) g/dL Albumin (3.8-4.9) g/dL Globulin (1.6-3.3) g/dL 05/13/22 Range/Units 06:12 WBC (3.8-10.6) k/uL RBC (3.80-5.40) m/uL Hgb (11.4-16.0) gm/dL Hct (34.0-46.0) % MCHC (32.0-37.0) g/dL RDW (11.5-15.5) % Lymphocytes # (1.0-4.8) k/uL Eosinophils # (0.04-0.35) X 10*3/uL Sodium (137-145) mmol/L Creatinine 0.5 L (0.6-1.5) mg/dL Glucose 129 H (74-99) mg/dL Total Protein 4.7 L (6.3-8.2) g/dL Albumin 3.5 L (3.8-4.9) g/dL Globulin 1.2 L (1.6-3.3) g/dL
[2022-05-13 12:59] LABS: T4, Free (Free Thyroxine) 1.49 ng/dL (0.78-2.19)
[2022-05-13] MEDS ORDERED: LORazepam 1 MG TAB PO STA (14:58)
[2022-05-13] MEDS: FAMOTIDINE 20 MG/2 ML VIAL IVP SCH (15:42)
[2022-05-13] MEDS: DEXAMETHASONE SOD PHOSPHATE 10 MG/ML 1 ML VIAL IVP SCH (15:42)
[2022-05-13] MEDS: ONDANSETRON 16 MG in SODIUM CHLORIDE 0.9% 50 ML IVPB SCH (15:42)
[2022-05-13] MEDS ORDERED: SODIUM CHLORIDE 0.9% IV ONE ×2 (16:00)
[2022-05-13] MEDS ORDERED: CARBOplatin 500 MG in SODIUM CHLORIDE 0.9% 250 ML IV ONE (16:00)
[2022-05-13] MEDS ORDERED: IFOSFAMIDE IV ONE (16:00)
[2022-05-13] MEDS ORDERED: MESNA IV ONE (16:00)
[2022-05-13] MEDS: ETOPOSIDE 200 MG in SODIUM CHLORIDE 0.9% 500 ML 500 ML IV SCH (16:01)
[2022-05-13] MEDS: SALT AND SODA MOUTHWASH 1,000 ML PO SCH ×3 (16:07→23:56)
[2022-05-13] MEDS ORDERED: LORazepam 1 MG TAB PO PRN (16:40)
[2022-05-13] MEDS: NYSTATIN 100,000 UNIT/ML SUSP 500,000 UNIT/5 ML CUP PO SCH ×2 (18:21→20:13)
[2022-05-13 19:18] LABS: % Iron Saturation 86.07 (12.00-45.00); Iron 241 ug/dL (50-170); Total Iron Binding Capacity 280 ug/dL (228-460)
[2022-05-13] MEDS: SENNOSIDES-DOCUSATE SODIUM 1 EACH TAB PO PRN (20:12)
[2022-05-13] MEDS: OLANZapine 5 MG TAB PO SCH (20:12)
[2022-05-13] MEDS ORDERED: LORazepam 0.5 MG TAB PO PRN (22:15)
[2022-05-14] MEDS: SALT AND SODA MOUTHWASH 1,000 ML PO SCH ×3 (04:48→17:22)
[2022-05-14] MEDS: SODIUM CHLORIDE 0.9% 1,000 ML IV SCH (04:48)
[2022-05-14] MEDS: APIXABAN 5 MG TAB PO SCH (08:40)
[2022-05-14] MEDS: PANTOPRAZOLE 40 MG TABLET PO SCH (08:40)
[2022-05-14] MEDS: ACYCLOVIR 200 MG CAP PO SCH (08:40)
[2022-05-14] MEDS: PROPRANOLOL LA 60 MG CAP.SA.24H PO SCH (08:41)
[2022-05-14] MEDS: LORATADINE 10 MG TAB PO SCH (08:41)
[2022-05-14] MEDS: NYSTATIN 100,000 UNIT/ML SUSP 500,000 UNIT/5 ML CUP PO SCH ×3 (08:41→18:12)
[2022-05-14] MEDS: EZETIMIBE 10 MG TAB PO SCH (08:41)
[2022-05-14] MEDS: predniSONE 50 MG TAB PO SCH (08:41)
[2022-05-14] MEDS: VIT A,C & E-LUTEIN-MINERALS 1 EACH TAB PO SCH (08:41)
[2022-05-14] MEDS ORDERED: CHOLECALCIFEROL 125 MCG (5000 IU) TABLET PO SCH (09:00)
--- NOTE | 2022-05-14 11:10 | P.PN ---
Subjective History of present illness: 72-year-old woman with medical history of lymphoma, chronic pain, recurrent pleural effusion with Pleurx catheter, migraines. Patient is here in hospital for inpatient chemotherapy, She had Intrathecal this week and the patient is status post cycle 1 of R-ICE. Patient denies any chest pain or shortness of breath. Denies any nausea vomiting or abdominal pain. Patient denies any diarrhea or constipation. Patient denies any fever or chills. Interval history: Patient was seen and examined at bedside. She denies any chest pain or shortness of breath. Patient started chemotherapy. Otherwise no acute reported changes overnight Physical examination: General: no distress, pale Derm: warm, dry Head: atraumatic, normocephalic, symmetric Eyes: EOMI, no lid lag, anicteric sclera Mouth: no lip lesion, mucus membranes moist Cardiovascular: S1S2 reg, no murmur, positive posterior tibial pulse bilateral, Lungs: CTA bilateral, no rhonchi, no rales , no accessory muscle use Abdominal: soft, nontender to palpation, no guarding, no appreciable orga nomegaly Ext: no gross muscle atrophy, no edema, no contractures Neuro: CN II-XI grossly intact, no focal neuro deficits Psych: Alert, oriented, appropriate affect Labs and imaging reviewed as above Assessment and plan: Non-Hodgkin lymphoma (nodular histiocytic lymphoma) -Management per primary team. Bicytopenia -secondary to above -Hemoglobin dropped to 8.0 today from 10.2 yesterday WBC count stable at 3.1 -Management per oncology team Acute deep venous thrombosis left upper extremity March 2022 -Secondary to PICC line status post removal -Resume Eliquis Right recurrent pleural effusion -Patient have right Pleurx Other stable chronic conditions: Chronic pain Migraines Osteoarthritis -Home medications reviewed and reconciled Patient is full code DVT prophylaxis patient on Eliquis Objective - Vital Signs Vital signs: Vital Signs Temp 98.4 F 05/14/22 08:00 Pulse 97 05/14/22 08:00 Resp 16 05/14/22 08:00 BP 159/90 05/14/22 08:00 Pulse Ox 98 05/14/22 08:00 FiO2 Intake & Output 05/13/22 05/14/22 05/14/22 18:59 06:59 18:59 Intake Total 1200 2460 Balance 1200 2460 Intake: Intake, IV Titration 1200 1860 Amount Ifosfamide 9,000 mg 360 Ifosfamide 1,000 mg In Sodium Chloride 0.9% 500 ml 500 ml @ 29.167 mls/hr IV [facility] Rx#: [id number] [place] 10,000 mg In Sodium 300 Chloride 0.9% 500 ml 500 ml @ 25 mls/hr [facility] Rx#:[id number] Sodium Chloride 0.9% 1, 1200 1200 000 ml @ 100 mls/hr IV . Q10H [facility] Rx#:[id number] Oral 600 Other: Voiding Method Toilet Toilet # Voids 3 6 - Labs CBC & Chem 7: 05/13/22 06:12 05/13/22 06:12 Labs: Abnormal Lab Results - Last 24 Hours (Table) 05/13/22 Range/Units 06:12 Iron 241 H (50-170) ug/dL % Saturation 86.07 H (12.00-45.00) Transferrin 200.0 L (204.0-354.0) mg/dL Ferritin 397.0 H (10.0-291.0) ng/mL Vitamin B12 1998.0 H (200.0-944.0) pg/mL Vitamin D 25-Hydroxy 25.1 L (30.0-100.0) ng/mL TSH 0.230 L (0.465-4.680) mIU/L Free T3 pg/mL 2.3 L (2.8-5.3) pg/ml
[2022-05-14 11:52] LABS: Basophils # (A) 0.02 X 10*3/uL (0.00-0.10); Basophils % (A) 0.4 %; Eosinophils # (A) 0 X 10*3/uL (0.04-0.35); Eosinophils % (A) 0 %; HCT 27.8 % (37.2-46.3); HGB 8.4 g/dL (12.0-15.0); Immature Grans, Automated 0.8 %; Lymphocytes # (A) 0.23 X 10*3/uL (0.90-5.00); Lymphocytes % (A) 4.5 %; MCH 29.2 pg (27.0-32.0); MCHC 30.2 g/dL (32.0-37.0); MCV 96.5 fL (80.0-97.0); Mean Platelet Volume 10.6 fL (9.5-12.2); Monocytes # (A) 0.18 X 10*3/uL (0.20-1.00); Monocytes % (A) 3.5 %; NRBC Per 100 WBC 0 /100 WBCS (0.0-0.0); Neutrophils # (A) 4.66 X 10*3/uL (1.80-7.70); Neutrophils % (A) 90.8 %; Platelet Count 227 X 10*3/uL (140-440); RBC 2.88 X 10*6/uL (4.10-5.20); RDW 21.1 % (11.5-14.5); WBC 5.13 X 10*3/uL (4.50-10.00)
[2022-05-14 12:01] LABS: African American GFR (CKD) 112.9 (60.0-200.0); Albumin 3.6 g/dL (3.8-4.9); Albumin/Globulin Ratio 2.4 (1.60-3.17); Anion Gap 12.3 mmol/L (10.00-18.00); BUN/Creat Ratio 20.6 Ratio (12.00-20.00); Blood Urea Nitrogen 10.3 mg/dL (9.0-27.0); Calcium 9.1 mg/dL (8.7-10.3); Carbon Dioxide 21.7 mmol/L (20.0-27.5); Globulin 1.5 g/dL (1.6-3.3); Non-African American GFR(CKD) 97.4 (60.0-200.0); Phosphorus 3.1 mg/dL (2.4-5.1); Potassium 3.6 mmol/L (3.5-5.5); Total Bilirubin 0.6 mg/dL (0.30-1.20); Total Protein 5.1 g/dL (6.2-8.2)
[2022-05-14 16:48] VITALS: BP 131/79; PULSE 82; RESP 14; TEMP 97.4
[2022-05-14] MEDS: DEXAMETHASONE SOD PHOSPHATE 10 MG/ML 1 ML VIAL IVP SCH (17:30)
[2022-05-14] MEDS: FAMOTIDINE 20 MG/2 ML VIAL IVP SCH (17:32)
[2022-05-14] MEDS: ONDANSETRON 16 MG in SODIUM CHLORIDE 0.9% 50 ML IVPB SCH (17:36)
[2022-05-14] MEDS: ETOPOSIDE 200 MG in SODIUM CHLORIDE 0.9% 500 ML 500 ML IV SCH (18:02)
[2022-05-14] MEDS ORDERED: LORazepam 0.5 MG TAB PO SCH (21:00)
== END 2022-05-14 19:32 | disposition home or self-care (01) | DRG 847 ==
LOC: 5NMEDONC 13:13
PROVIDERS: ADMIT Internal Medicine Hematology & Oncology; ATTEND Internal Medicine Hematology & Oncology
DX: Z51.11 Encounter for antineoplastic chemotherapy (principal); D61.818 Other pancytopenia; C82.90 Follicular lymphoma, unspecified, unspecified site; J90 Pleural effusion, not elsewhere classified; D49.511 Neoplasm of unspecified behavior of right kidney; E78.5 Hyperlipidemia, unspecified; G89.29 Other chronic pain; G43.909 Migraine, unspecified, not intractable, without status migrainosus; M19.90 Unspecified osteoarthritis, unspecified site; Z79.01 Long term (current) use of anticoagulants; Z79.52 Long term (current) use of systemic steroids; Z79.891 Long term (current) use of opiate analgesic; Z79.899 Other long term (current) drug therapy; Z90.49 Acquired absence of other specified parts of digestive tract; Z87.19 Personal history of other diseases of the digestive system; Z87.39 Personal history of other diseases of the musculoskeletal system and connective tissue; Z98.1 Arthrodesis status; Z86.718 Personal history of other venous thrombosis and embolism; Z87.2 Personal history of diseases of the skin and subcutaneous tissue; Z92.3 Personal history of irradiation; Z98.890 Other specified postprocedural states; Z83.2 Family history of diseases of the blood and blood-forming organs and certain disorders involving the immune mechanism; Z80.49 Family history of malignant neoplasm of other genital organs; Z80.42 Family history of malignant neoplasm of prostate
CPT/HCPCS: 80053; 82306; 82607; 82728; 82746; 83540; 83550; 84100; 84439; 84443; 84481; 84550; 85025

== ENCOUNTER → 2022-05-19 | Outpatient (CLI) | payer MEDICARE ==
--- NOTE | 2022-05-25 07:16 | PE ---
EXAMINATION TYPE: PET CT fusion skull to thigh DATE OF EXAM: 05/19/2022 COMPARISON: No recent Prior PET/CT: 04/14/2022 HISTORY: Lymphoma TECHNIQUE: Following the intravenous administration of 10.79 mCi of F-18 FDG, whole body images are performed from the skull base to the midthigh. Images are reviewed on the computer in the coronal, a xial, and sagittal planes. Reconstructed rotating images are created on independent workstation and reviewed on the computer. A localization and attenuation correction CT is performed in conjunction with the PET scan. DLP: 424.52 mGycm SCAN: Subsequent Blood glucose: 166 mg/dL Average Mediastinum SUV: 1.52 Average Liver SUV: 2.84 FINDINGS: NECK: No abnormal uptake THORAX: There is some uptake within the retromanubrial region. This is diminished from comparison. PAK V 3.92, image 74. Previous right retromammary region has diminished signal. Current SUV 2.69. Some so ft tissue thickening may remain present. There is a small focus of radiotracer in the retromammary re gion near the diaphragm. ABDOMEN: Marked uptake remains present along the anterior lateral right intercostal region. SUV 6.99. This is diminished in size from comparison. PELVIS: No abnormal uptake OSSEOUS STRUCTURES: No abnormal uptake LOCALIZATION CT: Soft tissue increased density remains in the thymic region. Some retromammary and ri ght anterolateral intercostal soft tissue density remains present. Small right pleural effusion is pr esent. Soft tissue density on the CT exam of the right intercostal region estimated in size of 9.7 x 4.7 centimeters. COMPARISON: The osseous metastases have largely resolved. Uptake in the anterolateral right intercost al region has diminished. Right axillary uptake has resolved. Some residual remains in the retromamma ry region and thymic region but is diminished from comparison. IMPRESSION: 1. Diminished distribution with diminished size and intensity of uptake largely remaining in the thym ic, right retromammary, right anterolateral intercostal regions. 2. Uptake through the osseous regions has largely resolved. 3. Right axillary uptake has resolved.
== END | disposition home or self-care (01) ==
LOC: RADXRMAIN 13:20
PROVIDERS: ATTEND Internal Medicine Hematology & Oncology
DX: C85.98 Non-Hodgkin lymphoma, unspecified, lymph nodes of multiple sites (principal)
CPT/HCPCS: 78815; A9552

== ENCOUNTER 2022-05-31 08:10 | Day surgery (SDC) | payer MEDICARE ==
[2022-05-31 08:33] VITALS: TEMP 99.1
[2022-05-31] MEDS ORDERED: diazePAM 5 MG TAB PO PRN (08:34)
[2022-05-31] MEDS ORDERED: METHOTREXATE SODIUM (PF) 25 MG/ML 2 ML VIAL INTRATHECA ONE (09:00)
[2022-05-31 10:11] VITALS: RESP 16
--- NOTE | 2022-05-31 11:33 | FL ---
EXAMINATION TYPE: FL guided lumbar puncture LP DATE OF EXAM: 05/31/2022 9:51 AM COMPARISON: Prior lumbar punctures most recent dating 05/10/2022 , CT PET 05/25/2022 CLINICAL INDICATION:Female, 72 years old with history of lymphoma ATTENDING: José Bansal D.O. FINDINGS: Informed consent was obtained including discussion of the risks and benefits. Timeout was taken per p rotocol. The patient's recent CT brain from 05/25/2022 revealed no acute process. Real-time fluoroscop y was performed to localize the L5-S1 intervertebral space. The patient was prepped and draped. Under sterile technique with local anesthesia a 22-gauge spinal needle was introduced into the arachnoid s pace with return of clear CSF. A total of 4 mL of clear cerebral spinal fluid was drained. Then intra thecal chemotherapy was then injected by nursing staff and the needle was removed. The samples were sent to the lab for analysis The patient tolerated the procedure without incident. Total fluoroscopy time was 12 seconds Total fluoroscopic images 1. IMPRESSION: Successful lumbar puncture with 4 mL of clear CSF fluid removed and successful injection of intrathe barb chemotherapy.. Sample sent to the lab for analysis.
[2022-05-31 13:35] VITALS: BP 109/55; PULSE 77
== END 2022-05-31 13:29 | disposition home or self-care (01) ==
LOC: RADPROMAIN 08:10
PROVIDERS: ATTEND Internal Medicine Hematology & Oncology
DX: C85.98 Non-Hodgkin lymphoma, unspecified, lymph nodes of multiple sites (principal); C72.0 Malignant neoplasm of spinal cord; I10 Essential (primary) hypertension; E78.5 Hyperlipidemia, unspecified; R51.9 Headache, unspecified; E83.52 Hypercalcemia
CPT/HCPCS: 88184; 88185; 62328; J2001; J9260; 88108

== ENCOUNTER 2022-06-01 13:53 | Inpatient (IN) | payer MEDICARE ==
[~2022-06-01 13:53] MED LIST changes: -METHOTREXATE SODIUM (PF) 25 MG/ML 2 ML VIAL INTRATHECA ONE; +ONDANSETRON 4 MG/2 ML VIAL IVP PRN
[2022-06-01] MEDS: FAMOTIDINE 20 MG/2 ML VIAL IVP SCH (14:24)
[2022-06-01] MEDS: ONDANSETRON 16 MG in SODIUM CHLORIDE 0.9% 50 ML IVPB SCH (14:24)
[2022-06-01] MEDS: SODIUM CHLORIDE 0.9% 1,000 ML IV SCH ×2 (14:25→19:58)
[2022-06-01] MEDS ORDERED: LORazepam 0.5 MG TAB PO PRN (14:49)
[2022-06-01] MEDS ORDERED: ACETAMINOPHEN TAB 325 MG TAB PO PRN (14:49)
[2022-06-01] MEDS ORDERED: ONDANSETRON ODT 4 MG TAB PO PRN (14:49)
[2022-06-01] MEDS ORDERED: CLOBETASOL PROP 0.05% OINT 15GM TOPICAL PRN (14:49)
[2022-06-01] MEDS ORDERED: SUMAtriptan succinate 50 MG TAB PO PRN (14:49)
[2022-06-01] MEDS ORDERED: IPRATROPIUM-ALBUTEROL 3 ML NEB INHALATION PRN (14:49)
[2022-06-01] MEDS ORDERED: GABAPENTIN 300 MG CAP PO PRN (14:49)
[2022-06-01 14:56] LABS: ALT 18 U/L (4-34); AST 34 U/L (14-36); African American GFR (CKD) >90 (>60 ml/min/1.73 sqM); Albumin 3.7 g/dL (3.5-5.0); Albumin/Globulin Ratio 1.8; Alkaline Phosphatase 115 U/L (38-126); Anion Gap 4 mmol/L; Blood Urea Nitrogen 8 mg/dL (7-17); Calcium 8.8 mg/dL (8.4-10.2); Carbon Dioxide 27 mmol/L (22-30); Chloride 105 mmol/L (98-107); Globulin 2.1 g/dL; Glucose 228 mg/dL (74-99); Non-African American GFR(CKD) >90 (>60 ml/min/1.73 sqM); Potassium 3.6 mmol/L (3.5-5.1); Sodium 136 mmol/L (137-145); Total Bilirubin 0.9 mg/dL (0.2-1.3); Total Protein 5.8 g/dL (6.3-8.2); Uric Acid 3.8 mg/dL (3.7-7.4)
[2022-06-01 14:59] LABS: Anisocytosis Slight; Basophils % (A) 0 %; Eosinophils % (A) 0 %; HCT 29.9 % (34.0-46.0); HGB 10.1 gm/dL (11.4-16.0); Hypochromasia Slight; Lymphocytes # (A) 0.3 k/uL (1.0-4.8); Lymphocytes % (A) 5 %; MCH 32.4 pg (25.0-35.0); MCHC 33.8 g/dL (31.0-37.0); MCV 95.8 fL (80.0-100.0); Macrocytosis Slight; Mean Platelet Volume 8.5; Monocytes # (A) 0.2 k/uL (0-1.0); Monocytes % (A) 5 %; Neutrophils % (A) 88 %; Platelet Count 179 k/uL (150-450); Poikilocytosis Slight; RBC 3.12 m/uL (3.80-5.40); RDW 18.8 % (11.5-15.5); WBC 4.6 k/uL (3.8-10.6)
[2022-06-01] MEDS: ETOPOSIDE 200 MG in SODIUM CHLORIDE 0.9% 500 ML 500 ML IV SCH (14:59)
[2022-06-01] MEDS ORDERED: LORATADINE 10 MG TAB PO SCH (15:00)
[2022-06-01] MEDS ORDERED: OLANZapine 5 MG TAB PO SCH (15:00)
[2022-06-01] MEDS ORDERED: predniSONE 10 MG TAB PO SCH (15:00)
[2022-06-01 15:19] LABS: Magnesium 2.1 mg/dL (1.6-2.3)
[2022-06-01] MEDS: predniSONE 50 MG TAB PO SCH (16:38)
--- NOTE | 2022-06-01 17:59 | P.CONS ---
History of Present Illness - Reason for Consult Consult date: 06/01/22 med management - Chief Complaint chemo inpatient - History of Present Illness 72-year-old woman with medical history of histocytic cell lymphoma, chronic pain, recurrent pleural effusion with Pleurx catheter on the right chest, migraines here for inpatient chemotherapy, She states that this is her 5th round of chemo. States that she has been having right lower rib pain for about a week, in addition to her ''pinched nerve'' cervical pain that radiates to the left arm. Patient denies any chest pain or shortness of breath. Denies any nausea vomiting or abdominal pain. Patient denies any diarrhea or constipation. No fever or chills. Past Medical History Past Medical History: Cancer, Deep Vein Thrombosis (DVT), Hyperlipidemia, Osteoarthritis (OA) Additional Past Medical History / Comment(s): Nonhodgkins lymphoma/R renal mass/spinal tumors and mass between R lung and ribs, pt states one spinal tumor had radiation treatments and that has caused nerve pain in L forearm/hand and R hand is cooler than L hand, pt receives intrathecal chemotherapy and last received this 03/31/22, recent anemia/blood transfusion, recurrent R pleural effusions with thoracentesis and now has Pleurx tube which is drained every other day, DVT L arm, migraines, osteopenia. History of Any Multi-Drug Resistant Organisms: None Reported Past Surgical History: Appendectomy, Back Surgery, Breast Surgery, Orthopedic Surgery Additional Past Surgical History / Comment(s): cystoscopy with R ureteroscopy, rhinoplasty, left breast lumpectomy, ,bunnionectomies payam feet, spinal fusion, PICC line, lumbar puncture with intrathecal chemo Past Anesthesia/Blood Transfusion Reactions: No Reported Reaction Additional Past Anesthesia/Blood Transfusion Reaction / Comm: Pt has received blood in past without reaction. Smoking Status: Never smoker - Past Family History Mother Family Medical History: Cancer, Deep Vein Thrombosis (DVT), Pulmonary Embolus Additional Family Medical History / Comment(s): cervical Father Family Medical History: Cancer Additional Family Medical History / Comment(s): prostate Medications and Allergies Home Medications Medication Instructions Recorded Confirmed Type Gabapentin [Neurontin] 300 mg PO Q6H PRN 09/24/18 06/01/22 History Propranolol HCl [Propranolol HCl 60 mg PO DAILY 09/24/18 06/01/22 History ER] Ezetimibe [Zetia] 10 mg PO DAILY 01/18/22 06/01/22 History Vit C/E/Zn/Coppr/Lutein/Zeaxan 1 cap PO DAILY 01/18/22 06/01/22 History [Preservision Areds 2 Softgel] Omeprazole 20 mg PO DAILY 02/26/22 06/01/22 History Zolpidem [Ambien] 10 mg PO HS PRN 02/26/22 06/01/22 History Cholecalciferol [Vitamin D3 (25 50 mcg PO DAILY 03/14/22 06/01/22 History Mcg = 1000 Iu)] OLANZapine 5 mg PO DIRECTED 03/14/22 06/01/22 History Ondansetron Odt [Zofran ODT] 4 mg PO Q6H PRN 04/06/22 06/01/22 History fentaNYL 25MCG/HR PATCH [Duragesic 1 patch TRANSDERM Q72H 04/06/22 06/01/22 History 25MCG/HR] Acetaminophen Tab [Tylenol] 650 mg PO Q6HR PRN tab 04/08/22 06/01/22 Rx Apixaban [Eliquis] 5 mg PO BID 05/03/22 06/01/22 History Cetirizine HCl [Zyrtec] 10 mg PO DAILY 05/03/22 06/01/22 History Loratadine 10 mg PO DIRECTED 05/10/22 06/01/22 History Clobetasol Propionate [Temovate 1 applic TOPICAL BID PRN 05/12/22 06/01/22 History 0.05% Oint] HYDROcodone/APAP 10-325MG [[place] 1 tab PO Q6H PRN 05/12/22 06/01/22 History 10-325] Ipratropium-Albuterol Nebulize 3 ml INHALATION RT-QID PRN 05/12/22 06/01/22 History [Duoneb 0.5 mg-3 mg/3 ml Soln] SUMAtriptan succinate 100 mg PO BID PRN 05/12/22 06/01/22 History Sennosides-Docusate Sodium 2 tab PO BID PRN 05/12/22 06/01/22 History [Senokot-S] predniSONE 10 mg PO DIRECTED #0 05/14/22 06/01/22 Rx predniSONE 100 mg PO DIRECTED #0 05/14/22 06/01/22 Rx LORazepam [Ativan] 0.5 mg PO BID PRN 05/31/22 06/01/22 History Allergies Allergy/AdvReac Type Severity Reaction Status Date / Time No Known Allergies Allergy Verified 06/01/22 16:01 Physical Exam Vitals: Vital Signs Temp Pulse Resp BP Pulse Ox 06/01/22 17:00 98.1 F 81 16 121/71 94 L Intake and Output 06/01/22 06/01/22 06/01/22 06:59 14:59 22:59 Intake Total 850 Balance 850 Intake: Intake, IV Titration 850 Amount Etoposide 200 mg In 500 Sodium Chloride 0.9% 500 ml 500 ml @ 510 mls/hr IV Q24H [facility] Rx#:[id number] Ondansetron 16 mg In 50 Sodium Chloride 0.9% 50 ml @ 232 mls/hr IVPB Q24H [facility] Rx#:[id number] Sodium Chloride 0.9% 1, 300 000 ml @ 100 mls/hr IV . Q10H [facility] Rx#:[id number] Other: Weight 82.554 kg Constitutional: No acute distress, conversant, pleasant Eyes:Anicteric sclerae, moist conjunctiva, no lid-lag, PERRLA, ENMT: Oropharynx clear, no erythema, exudates Neck: Supple, FROM, no masses, or JVD, No carotid bruits, No thyromegaly Lungs: Clear to auscultation, Clear to percussion, Normal respiratory effort, no accessory muscle use Cardiovascular: Heart regular in rate and rhythm, No murmurs, gallops, or rubs, No peripheral edema Abdominal: Soft, Nontender, no guarding, rebound or rigidity, Normoactive bowel sounds, No hepatomegaly, No splenomegaly, No palpable mass Skin: Normal temperature, tone, texture, turgor, no induration, No subcutaneous nodules, No rash, lesions, No ulcers Extremities: No digital cyanosis, No clubbing, Pedal pulses intact and symmetrical, Radial pulses intact and symmetrical, No calf tenderness Psychiatric: Alert and oriented to person, place and time, appropriate affect, intact judgement Neuro: Muscles Strength 5/5 in all 4 extremities, Sensation to light touch grossly present throughout, Cranial nerves II-XII grossly intact, no focal sensory deficits Results CBC & Chem 7: 06/01/22 14:36 06/01/22 14:36 Labs: Abnormal Lab Results - Last 24 Hours (Table) 06/01/22 06/01/22 Range/Units 14:36 14:36 RBC 3.12 L (3.80-5.40) m/uL Hgb 10.1 L (11.4-16.0) gm/dL Hct 29.9 L (34.0-46.0) % RDW 18.8 H (11.5-15.5) % Lymphocytes # 0.3 L (1.0-4.8) k/uL Sodium 136 L (137-145) mmol/L Glucose 228 H (74-99) mg/dL Total Protein 5.8 L (6.3-8.2) g/dL Assessment and Plan Plan: Non-Hodgkin lymphoma (nodular histiocytic lymphoma) -Chemo per primary team Deep venous thrombosis left upper extremity March 2022 -Secondary to PICC line status post removal -Resume Eliquis Right lower rib pain -Order CXR Chronic pain including neck pain -Continue fentanyl patch Hx of right recurrent pleural effusion -Patient have right Pleurx Other stable chronic conditions Chronic pain Migraines Osteoarthritis Hyperlipidemia Resume meds
--- NOTE | 2022-06-01 18:58 | P.HPIM ---
History of Present Illness H&P Date: 06/01/22 Chief Complaint: Timed Chemo Presenting for cycle 3 of ICE. She is also receiving intrathecal chemotherapy in conjunction with this regimen. -She continues on Fentanyl and [place] - She has had recurrent hypokalemia, without significant diarrhea. Adrenal insufficiency is question and will work up and supplement while inpatient 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, two tumors on spine, probable cancer per pt(had radiation on tumor on spine 10/2021-11/2021(10 treatments) lymphoma, DVT left arm History of Any Multi-Drug Resistant Organisms: None Reported Past Surgical History: Appendectomy, Back Surgery, Breast Surgery, Orthopedic Surgery Additional Past Surgical History / Comment(s): rhinoplasty, left breast lumpectomy, ,bunnionectomies payam feet, spinal fusion, PICC line, lumbar puncture with intrathecal chemo Past Anesthesia/Blood Transfusion Reactions: No Reported Reaction Additional Past Anesthesia/Blood Transfusion Reaction / Comment(s): , Smoking Status: Never smoker - Past Family History Mother Family Medical History: Cancer, Deep Vein Thrombosis (DVT), Pulmonary Embolus Additional Family Medical History / Comment(s): cervical Father Family Medical History: Cancer Additional Family Medical History / Comment(s): prostate Medications and Allergies Home Medications Medication Instructions Recorded Confirmed Type Gabapentin [Neurontin] 300 mg PO Q6H PRN 09/24/18 06/01/22 History Propranolol HCl [Propranolol HCl 60 mg PO DAILY 09/24/18 06/01/22 History ER] Ezetimibe [Zetia] 10 mg PO DAILY 01/18/22 06/01/22 History Vit C/E/Zn/Coppr/Lutein/Zeaxan 1 cap PO DAILY 01/18/22 06/01/22 History [Preservision Areds 2 Softgel] Omeprazole 20 mg PO DAILY 02/26/22 06/01/22 History Zolpidem [Ambien] 10 mg PO HS PRN 02/26/22 06/01/22 History Cholecalciferol [Vitamin D3 (25 50 mcg PO DAILY 03/14/22 06/01/22 History Mcg = 1000 Iu)] OLANZapine 5 mg PO DIRECTED 03/14/22 06/01/22 History Ondansetron Odt [Zofran ODT] 4 mg PO Q6H PRN 04/06/22 06/01/22 History fentaNYL 25MCG/HR PATCH [Duragesic 1 patch TRANSDERM Q72H 04/06/22 06/01/22 History 25MCG/HR] Acetaminophen Tab [Tylenol] 650 mg PO Q6HR PRN tab 04/08/22 06/01/22 Rx Apixaban [Eliquis] 5 mg PO BID 05/03/22 06/01/22 History Cetirizine HCl [Zyrtec] 10 mg PO DAILY 05/03/22 06/01/22 History Loratadine 10 mg PO DIRECTED 05/10/22 06/01/22 History Clobetasol Propionate [Temovate 1 applic TOPICAL BID PRN 05/12/22 06/01/22 History 0.05% Oint] HYDROcodone/APAP 10-325MG [[place] 1 tab PO Q6H PRN 05/12/22 06/01/22 History 10-325] Ipratropium-Albuterol Nebulize 3 ml INHALATION RT-QID PRN 05/12/22 06/01/22 History [Duoneb 0.5 mg-3 mg/3 ml Soln] SUMAtriptan succinate 100 mg PO BID PRN 05/12/22 06/01/22 History Sennosides-Docusate Sodium 2 tab PO BID PRN 05/12/22 06/01/22 History [Senokot-S] predniSONE 10 mg PO DIRECTED #0 05/14/22 06/01/22 Rx predniSONE 100 mg PO DIRECTED #0 05/14/22 06/01/22 Rx LORazepam [Ativan] 0.5 mg PO BID PRN 05/31/22 06/01/22 History Allergies Allergy/AdvReac Type Severity Reaction Status Date / Time No Known Allergies Allergy Verified 06/01/22 16:01 Physical Exam - Exam - Constitutional General appearance: cooperative - EENT Eyes: EOMI, PERRLA ENT: NA/AT - Neck Neck: normal ROM - Respiratory Respiratory: bilateral: CTA - Cardiovascular Rhythm: regularly irregular - Gastrointestinal General gastrointestinal: normal bowel sounds - Integumentary Integumentary: pale - Neurologic Neurologic: CNII-XII intact - Musculoskeletal Musculoskeletal: generalized weakness, strength equal bilaterally - Psychiatric Psychiatric: A&O x's 3, appropriate affect, intact judgment & insight Results CBC & Chem 7: 06/01/22 14:36 06/01/22 14:36 Abdominal x-ray: report reviewed Thrombosis Risk Factor Assmnt - DVT/VTE Prophylaxis DVT/VTE Prophylaxis: Pharmacologic Prophylaxis ordered Assessment and Plan Plan: Assessment and Plan (1) Acute deep vein thrombosis of left upper extremity Narrative/Plan: Continue Eliquis Current Visit: No Status: Acute Code(s): I82.622 - ACUTE EMBOLISM AND THROMBOSIS OF DEEP VEINS OF L UP EXTREM SNOMED Code(s): 488023678990201 (2) NHL (nodular histiocytic lymphoma) Narrative/Plan: Day one cycle Three ICE Status Post IT on 05/02/22 Daily labs Home medications ordered Current Visit: No Status: Acute Priority: High Code(s): C82.90 - FOLLICULAR LYMPHOMA, UNSPECIFIED, UNSPECIFIED SITE SNOMED Code(s): 158582812
[2022-06-01] MEDS: HYDROcodone/APAP 10-325MG 1 EACH TAB PO PRN (19:57)
[2022-06-01] MEDS: SENNOSIDES-DOCUSATE SODIUM 1 EACH TAB PO PRN (19:58)
[2022-06-01] MEDS: OLANZapine 5 MG TAB PO SCH (19:59)
[2022-06-01] MEDS: APIXABAN 5 MG TAB PO SCH (19:59)
[2022-06-01] MEDS: ZOLPIDEM 5 MG TAB PO PRN (19:59)
--- NOTE | 2022-06-01 22:08 | XR ---
EXAMINATION TYPE: XR chest 2V DATE OF EXAM: 06/01/2022 COMPARISON: 04/06/2022 HISTORY: Pain TECHNIQUE: 2 views FINDINGS: There is some increased density in the anterior right middle lobe consistent with minimal p neumonia. There is blunting of the right costophrenic angle. There is right-sided central venous cath eter with tip in the superior vena cava. Left lung is clear. No heart failure. There is right-sided c hest tube over the right lung base. No pneumothorax. IMPRESSION: There are some chronic infiltrate in the anterior right middle lobe with small right pleu ral effusion and pleural reaction. Appearance is similar to old exam. There is right-sided chest tube without change in position.
[2022-06-02] MEDS: SODIUM CHLORIDE 0.9% 1,000 ML IV SCH ×2 (05:07→13:12)
[2022-06-02] MEDS: LORATADINE 10 MG TAB PO SCH (08:23)
[2022-06-02] MEDS: PANTOPRAZOLE 40 MG TABLET PO SCH (08:23)
[2022-06-02] MEDS: APIXABAN 5 MG TAB PO SCH ×2 (08:23→20:14)
[2022-06-02] MEDS: EZETIMIBE 10 MG TAB PO SCH (08:23)
[2022-06-02] MEDS: VIT A,C & E-LUTEIN-MINERALS 1 EACH TAB PO SCH (08:24)
[2022-06-02] MEDS: CHOLECALCIFEROL 25 MCG (1000 IU) TABLET PO SCH (08:24)
[2022-06-02] MEDS: predniSONE 50 MG TAB PO SCH (08:24)
[2022-06-02] MEDS: PROPRANOLOL LA 60 MG CAP.SA.24H PO SCH (08:27)
[2022-06-02] MEDS ORDERED: NON FORMULARY DRUG (Vit C/E/Zn/Coppr/Lutein/Zeaxan [Preservision Areds 2 Softgel] 1 EACH C PO SCH (09:00)
[2022-06-02 10:40] LABS: Basophils # (A) 0.01 X 10*3/uL (0.00-0.10); Basophils % (A) 0.4 %; Eosinophils # (A) 0 X 10*3/uL (0.04-0.35); Eosinophils % (A) 0 %; HCT 22.9 % (37.2-46.3); HGB 7.2 g/dL (12.0-15.0); Immature Grans, Automated 1.2 %; Lymphocytes # (A) 0.16 X 10*3/uL (0.90-5.00); Lymphocytes % (A) 6.3 %; MCH 30.1 pg (27.0-32.0); MCHC 31.4 g/dL (32.0-37.0); MCV 95.8 fL (80.0-97.0); Mean Platelet Volume 11.1 fL (9.5-12.2); Monocytes # (A) 0.28 X 10*3/uL (0.20-1.00); Monocytes % (A) 10.9 %; NRBC Per 100 WBC 0 /100 WBCS (0.0-0.0); Neutrophils # (A) 2.08 X 10*3/uL (1.80-7.70); Neutrophils % (A) 81.2 %; Platelet Count 182 X 10*3/uL (140-440); RBC 2.39 X 10*6/uL (4.10-5.20); RDW 17.9 % (11.5-14.5); WBC 2.56 X 10*3/uL (4.50-10.00)
[2022-06-02 11:17] LABS: African American GFR (CKD) 112.3 (60.0-200.0); Albumin 3.3 g/dL (3.8-4.9); Albumin/Globulin Ratio 2.68 (1.60-3.17); Anion Gap 9.1 mmol/L (10.00-18.00); BUN/Creat Ratio 16.28 Ratio (12.00-20.00); Blood Urea Nitrogen 8.3 mg/dL (9.0-27.0); Calcium 8.8 mg/dL (8.7-10.3); Carbon Dioxide 24.7 mmol/L (20.0-27.5); Globulin 1.2 g/dL (1.6-3.3); Non-African American GFR(CKD) 96.9 (60.0-200.0); Phosphorus 2.8 mg/dL (2.4-5.1); Potassium 3.5 mmol/L (3.5-5.5); Total Bilirubin 0.4 mg/dL (0.30-1.20); Total Protein 4.6 g/dL (6.2-8.2); Uric Acid 3.8 mg/dL (2.9-7.7)
[2022-06-02 12:43] LABS: Prothrombin Time 10.8 sec (9.0-12.0)
[2022-06-02 12:47] LABS: Anisocytosis Slight; Basophils % (A) 0 %; Eosinophils % (A) 0 %; HCT 25.8 % (34.0-46.0); Hypochromasia Slight; Lymphocytes # (A) 0.2 k/uL (1.0-4.8); Lymphocytes % (A) 4 %; MCH 32.1 pg (25.0-35.0); MCHC 33.3 g/dL (31.0-37.0); MCV 96.6 fL (80.0-100.0); Macrocytosis Slight; Mean Platelet Volume 8.2; Monocytes # (A) 0.3 k/uL (0-1.0); Monocytes % (A) 6 %; Neutrophils # (A) 4.1 k/uL (1.3-7.7); Neutrophils % (A) 89 %; Platelet Count 202 k/uL (150-450); Poikilocytosis Slight; RBC 2.67 m/uL (3.80-5.40); RDW 18.7 % (11.5-15.5); WBC 4.6 k/uL (3.8-10.6)
[2022-06-02 12:49] LABS: LDH 1320 U/L (313-618); Magnesium 2.1 mg/dL (1.6-2.3)
[2022-06-02 13:02] LABS: HGB 8.6 gm/dL (11.4-16.0)
[2022-06-02] MEDS: ONDANSETRON 16 MG in SODIUM CHLORIDE 0.9% 50 ML IVPB SCH (13:10)
[2022-06-02] MEDS: FAMOTIDINE 20 MG/2 ML VIAL IVP SCH (13:10)
[2022-06-02] MEDS: DEXAMETHASONE SOD PHOSPHATE 10 MG/ML 1 ML VIAL IVP SCH (13:11)
[2022-06-02 14:26] LABS: ALT 19 U/L (4-34); AST 39 U/L (14-36); African American GFR (CKD) >90 (>60 ml/min/1.73 sqM); Albumin 3.4 g/dL (3.5-5.0); Albumin/Globulin Ratio 1.8; Alkaline Phosphatase 93 U/L (38-126); Anion Gap 6 mmol/L; Blood Urea Nitrogen 10 mg/dL (7-17); Calcium 8.9 mg/dL (8.4-10.2); Carbon Dioxide 25 mmol/L (22-30); Chloride 107 mmol/L (98-107); Globulin 1.9 g/dL; Glucose 145 mg/dL (74-99); Non-African American GFR(CKD) >90 (>60 ml/min/1.73 sqM); Potassium 3.7 mmol/L (3.5-5.1); Sodium 138 mmol/L (137-145); Total Bilirubin 0.6 mg/dL (0.2-1.3); Total Protein 5.3 g/dL (6.3-8.2)
[2022-06-02] MEDS: ETOPOSIDE 200 MG in SODIUM CHLORIDE 0.9% 500 ML 500 ML IV SCH (14:32)
[2022-06-02 15:14] VITALS: BMI 28.9
--- NOTE | 2022-06-02 15:25 | P.PN ---
Subjective Progress Note Date: 06/02/22 Principal diagnosis: Non hodgkin lymphoma Doing well. Still with intermittent sharp pain in the right lower ribs area where the pleurex is located. No fevers or chills. Objective - Vital Signs Vital signs: Vital Signs Temp 98.3 F 06/02/22 12:13 Pulse 84 06/02/22 12:13 Resp 16 06/02/22 12:13 BP 137/79 06/02/22 12:13 Pulse Ox 95 06/02/22 12:13 FiO2 Intake & Output 06/01/22 06/02/22 06/02/22 18:59 06:59 18:59 Intake Total 850 1800 Balance 850 1800 Weight 82.554 kg 82.554 kg Intake: Intake, IV Titration 850 1200 Amount Etoposide 200 mg In 500 Sodium Chloride 0.9% 500 ml 500 ml @ 510 mls/hr IV Q24H [facility] Rx#:[id number] Ondansetron 16 mg In 50 Sodium Chloride 0.9% 50 ml @ 232 mls/hr IVPB Q24H [facility] Rx#:[id number] Sodium Chloride 0.9% 1, 300 1200 000 ml @ 100 mls/hr IV . Q10H [facility] Rx#:[id number] Oral 600 Other: Voiding Method Toilet # Voids 4 - Exam Constitutional: No acute distress, conversant, pleasant Eyes:Anicteric sclerae, moist conjunctiva, no lid-lag, PERRLA, ENMT: Oropharynx clear, no erythema, exudates Neck: Supple, FROM, no masses, or JVD, No carotid bruits, No thyromegaly Lungs: Clear to auscultation, Clear to percussion, Normal respiratory effort, no accessory muscle use Cardiovascular: Heart regular in rate and rhythm, No murmurs, gallops, or rubs, No peripheral edema Abdominal: Soft, Nontender, no guarding, rebound or rigidity, Normoactive bowel sounds, No hepatomegaly, No splenomegaly, No palpable mass Skin: Normal temperature, tone, texture, turgor, no induration, No subcutaneous nodules, No rash, lesions, No ulcers Extremities: No digital cyanosis, No clubbing, Pedal pulses intact and symmetrical, Radial pulses intact and symmetrical, No calf tenderness Psychiatric: Alert and oriented to person, place and time, appropriate affect, intact judgement Neuro: Muscles Strength 5/5 in all 4 extremities, Sensation to light touch grossly present throughout, Cranial nerves II-XII grossly intact, no focal sensory deficits - Labs CBC & Chem 7: 06/02/22 11:52 06/02/22 11:52 Labs: Abnormal Lab Results - Last 24 Hours (Table) 06/02/22 06/02/22 06/02/22 Range/Units 06:23 06:23 11:52 WBC 2.56 L (4.50-10.00) X 10*3/uL RBC 2.39 L 2.67 L (4.10-5.20) X 10*6/uL Hgb 7.2 L 8.6 L D (12.0-15.0) g/dL Hct 22.9 L 25.8 L (37.2-46.3) % MCHC 31.4 L (32.0-37.0) g/dL RDW 17.9 H 18.7 H (11.5-14.5) % Lymphocytes # 0.16 L 0.2 L (0.90-5.00) X 10*3/uL Eosinophils # 0 L (0.04-0.35) X 10*3/uL Anion Gap 9.10 L (10.00-18.00) mmol/L BUN 8.3 L (9.0-27.0) mg/dL Creatinine 0.5 L (0.6-1.5) mg/dL Glucose 137 H (70-110) mg/dL AST (14-36) U/L Lactate Dehydrogenase (313-618) U/L Total Protein 4.6 L (6.2-8.2) g/dL Albumin 3.3 L (3.8-4.9) g/dL Globulin 1.2 L (1.6-3.3) g/dL Cortisol 1.4 L (3.1-22.4) ug/dL 06/02/22 Range/Units 11:52 WBC (4.50-10.00) X 10*3/uL RBC (4.10-5.20) X 10*6/uL Hgb (12.0-15.0) g/dL Hct (37.2-46.3) % MCHC (32.0-37.0) g/dL RDW (11.5-14.5) % Lymphocytes # (0.90-5.00) X 10*3/uL Eosinophils # (0.04-0.35) X 10*3/uL Anion Gap (10.00-18.00) mmol/L BUN (9.0-27.0) mg/dL Creatinine 0.50 L (0.6-1.5) mg/dL Glucose 145 H (70-110) mg/dL AST 39 H (14-36) U/L Lactate Dehydrogenase 1320 H (313-618) U/L Total Protein 5.3 L (6.2-8.2) g/dL Albumin 3.4 L (3.8-4.9) g/dL Globulin (1.6-3.3) g/dL Cortisol (3.1-22.4) ug/dL Assessment and Plan Plan: Non-Hodgkin lymphoma (nodular histiocytic lymphoma) -Chemo per primary team Deep venous thrombosis left upper extremity March 2022 -Secondary to PICC line status post removal -Resume Eliquis Right lower rib pain -CXR without acute changes, likely sec to the pleurex Chronic pain including neck pain -Continue fentanyl patch Hx of right recurrent pleural effusion -Patient has right Pleurx Other stable chronic conditions Chronic pain Migraines Osteoarthritis Hyperlipidemia Resume meds
[2022-06-02] MEDS ORDERED: [UNRECOGNIZED DRUG - OTHER] IV ONE (16:00)
[2022-06-02] MEDS ORDERED: SODIUM CHLORIDE 0.9% IV ONE ×2 (16:00)
[2022-06-02] MEDS ORDERED: IFOSFAMIDE IV ONE (16:00)
[2022-06-02] MEDS ORDERED: CARBOplatin 600 MG in SODIUM CHLORIDE 0.9% 250 ML IV ONE (16:00)
[2022-06-02] MEDS ORDERED: MESNA IV ONE (16:00)
--- NOTE | 2022-06-02 16:59 | P.PN ---
Subjective Progress Note Date: 06/02/22 Principal diagnosis: Timed Chemo Cycle #3 ICE Three point drop in hemoglobin, felt either error or dilution. Re-draw and iro studies Objective - Vital Signs Vital signs: Vital Signs Temp 99.0 F 06/02/22 08:53 Pulse 94 06/02/22 08:53 Resp 18 06/02/22 08:53 BP 131/72 06/02/22 08:53 Pulse Ox 96 06/02/22 08:53 FiO2 Intake & Output 06/01/22 06/02/22 06/02/22 18:59 06:59 18:59 Intake Total 850 1800 Balance 850 1800 Weight 82.554 kg Intake: Intake, IV Titration 850 1200 Amount Etoposide 200 mg In 500 Sodium Chloride 0.9% 500 ml 500 ml @ 510 mls/hr IV Q24H [facility] Rx#:[id number] Ondansetron 16 mg In 50 Sodium Chloride 0.9% 50 ml @ 232 mls/hr IVPB Q24H [facility] Rx#:[id number] Sodium Chloride 0.9% 1, 300 1200 000 ml @ 100 mls/hr IV . Q10H [facility] Rx#:[id number] Oral 600 Other: Voiding Method Toilet # Voids 4 - Exam Exam - Constitutional General appearance: cooperative - EENT Eyes: EOMI, PERRLA ENT: NA/AT - Neck Neck: normal ROM - Respiratory Respiratory: bilateral: CTA - Cardiovascular Rhythm: regularly irregular - Gastrointestinal General gastrointestinal: normal bowel sounds - Integumentary Integumentary: pale - Neurologic Neurologic: CNII-XII intact - Musculoskeletal Musculoskeletal: generalized weakness, strength equal bilaterally - Psychiatric Psychiatric: A&O x's 3, appropriate affect, intact judgment & insight - Labs CBC & Chem 7: 06/02/22 06:23 06/02/22 06:23 Labs: Abnormal Lab Results - Last 24 Hours (Table) 06/01/22 06/01/22 06/02/22 Range/Units 14:36 14:36 06:23 WBC 2.56 L (4.50-10.00) X 10*3/uL RBC 3.12 L 2.39 L (3.80-5.40) m/uL Hgb 10.1 L 7.2 L (11.4-16.0) gm/dL Hct 29.9 L 22.9 L (34.0-46.0) % MCHC 31.4 L (32.0-37.0) g/dL RDW 18.8 H 17.9 H (11.5-15.5) % Lymphocytes # 0.3 L 0.16 L (1.0-4.8) k/uL Eosinophils # 0 L (0.04-0.35) X 10*3/uL Sodium 136 L (137-145) mmol/L Anion Gap (10.00-18.00) mmol/L BUN (9.0-27.0) mg/dL Creatinine (0.6-1.5) mg/dL Glucose 228 H (74-99) mg/dL Total Protein 5.8 L (6.3-8.2) g/dL Albumin (3.8-4.9) g/dL Globulin (1.6-3.3) g/dL Cortisol (3.1-22.4) ug/dL 06/02/22 Range/Units 06:23 WBC (4.50-10.00) X 10*3/uL RBC (3.80-5.40) m/uL Hgb (11.4-16.0) gm/dL Hct (34.0-46.0) % MCHC (32.0-37.0) g/dL RDW (11.5-15.5) % Lymphocytes # (1.0-4.8) k/uL Eosinophils # (0.04-0.35) X 10*3/uL Sodium (137-145) mmol/L Anion Gap 9.10 L (10.00-18.00) mmol/L BUN 8.3 L (9.0-27.0) mg/dL Creatinine 0.5 L (0.6-1.5) mg/dL Glucose 137 H (74-99) mg/dL Total Protein 4.6 L (6.3-8.2) g/dL Albumin 3.3 L (3.8-4.9) g/dL Globulin 1.2 L (1.6-3.3) g/dL Cortisol 1.4 L (3.1-22.4) ug/dL Assessment and Plan Plan: Assessment and Plan (1) Acute deep vein thrombosis of left upper extremity Narrative/Plan: Continue Eliquis Current Visit: No Status: Acute Code(s): I82.622 - ACUTE EMBOLISM AND THROMBOSIS OF DEEP VEINS OF L UP EXTREM SNOMED Code(s): 885947074434337 (2) NHL (nodular histiocytic lymphoma) Narrative/Plan: Day Twocycle Three ICE Status Post IT on 05/02/22 Daily labs Home medications ordered Current Visit: No Status: Acute Priority: High Code(s): C82.90 - FOLLICULAR LYMPHOMA, UNSPECIFIED, UNSPECIFIED SITE SNOMED Code(s): 810775254 Anemia: - Rapid drop from yesterday - Recheck - Iron Studies
[2022-06-02] MEDS: OLANZapine 5 MG TAB PO SCH (20:14)
[2022-06-02] MEDS: SENNOSIDES-DOCUSATE SODIUM 1 EACH TAB PO PRN (20:14)
[2022-06-02] MEDS: HYDROcodone/APAP 10-325MG 1 EACH TAB PO PRN (20:14)
[2022-06-02] MEDS: ZOLPIDEM 5 MG TAB PO PRN (20:14)
[2022-06-02] MEDS: SENNOSIDES-DOCUSATE SODIUM 1 EACH TAB PO SCH (21:07)
[2022-06-02] MEDS: NYSTATIN 100,000 UNIT/ML SUSP 500,000 UNIT/5 ML CUP PO SCH (21:30)
[2022-06-02 22:54] LABS: % Iron Saturation 82.78 (12.00-45.00); Iron 226 ug/dL (50-170); Total Iron Binding Capacity 273 ug/dL (228-460)
[2022-06-03] MEDS: SODIUM CHLORIDE 0.9% 1,000 ML IV SCH ×3 (00:22→21:54)
[2022-06-03] MEDS: NYSTATIN 100,000 UNIT/ML SUSP 500,000 UNIT/5 ML CUP PO SCH ×4 (09:09→21:54)
[2022-06-03] MEDS: CHOLECALCIFEROL 25 MCG (1000 IU) TABLET PO SCH (09:09)
[2022-06-03] MEDS: EZETIMIBE 10 MG TAB PO SCH (09:09)
[2022-06-03] MEDS: APIXABAN 5 MG TAB PO SCH (09:09)
[2022-06-03] MEDS: LORATADINE 10 MG TAB PO SCH (09:09)
[2022-06-03] MEDS: predniSONE 50 MG TAB PO SCH (09:10)
[2022-06-03] MEDS: SENNOSIDES-DOCUSATE SODIUM 1 EACH TAB PO SCH ×2 (09:10→21:54)
[2022-06-03] MEDS: PANTOPRAZOLE 40 MG TABLET PO SCH (09:10)
[2022-06-03] MEDS: PROPRANOLOL LA 60 MG CAP.SA.24H PO SCH (09:17)
[2022-06-03] MEDS: VIT A,C & E-LUTEIN-MINERALS 1 EACH TAB PO SCH (09:17)
[2022-06-03 11:29] LABS: HGB 6.7 g/dL (12.0-15.0); MCH 29.4 pg (27.0-32.0); MCHC 30.5 g/dL (32.0-37.0); MCV 96.5 fL (80.0-97.0); NRBC Per 100 WBC 0 /100 WBCS (0.0-0.0); Platelet Count 172 X 10*3/uL (140-440); RBC 2.28 X 10*6/uL (4.10-5.20); RDW 17.8 % (11.5-14.5)
[2022-06-03 11:30] LABS: Basophils # (A) 0.01 X 10*3/uL (0.00-0.10); Basophils % (A) 0.4 %; Eosinophils # (A) 0 X 10*3/uL (0.04-0.35); Eosinophils % (A) 0 %; Lymphocytes # (A) 0.09 X 10*3/uL (0.90-5.00); Lymphocytes % (A) 3.6 %; Monocytes # (A) 0.05 X 10*3/uL (0.20-1.00)
[2022-06-03 11:31] LABS: Rouleaux PRESENT
[2022-06-03 12:00] LABS: African American GFR (CKD) 116.8 (60.0-200.0); Albumin 3.4 g/dL (3.8-4.9); Albumin/Globulin Ratio 2.7 (1.60-3.17); Anion Gap 8.9 mmol/L (10.00-18.00); BUN/Creat Ratio 23.95 Ratio (12.00-20.00); Blood Urea Nitrogen 10.8 mg/dL (9.0-27.0); Calcium 8.7 mg/dL (8.7-10.3); Carbon Dioxide 22.7 mmol/L (20.0-27.5); Globulin 1.2 g/dL (1.6-3.3); Non-African American GFR(CKD) 100.7 (60.0-200.0); Phosphorus 2.6 mg/dL (2.4-5.1); Total Bilirubin 0.4 mg/dL (0.30-1.20); Total Protein 4.6 g/dL (6.2-8.2); Uric Acid 3.2 mg/dL (2.9-7.7)
[2022-06-03] MEDS ORDERED: Potassium Replacement Protocol 1 EACH MISC MISCELLANE PRN (12:52)
[2022-06-03 14:13] LABS: Prothrombin Time 10.9 sec (9.0-12.0)
[2022-06-03 14:17] LABS: Partial Thromboplastin Time 21.7 sec (22.0-30.0)
[2022-06-03] MEDS: POTASSIUM CHLORIDE ER 20 MEQ TAB.ER PO SCH ×2 (14:17→15:00)
--- NOTE | 2022-06-03 14:37 | P.PN ---
Subjective Progress Note Date: 06/03/22 Principal diagnosis: Non hodgkin lymphoma Patient states that she is feeling tired today. He denied having any bleeding anywhere. No bowel movement since admission. She is normally on laxatives at home. Objective - Vital Signs Vital signs: Vital Signs Temp 98.2 F 06/03/22 11:38 Pulse 85 06/03/22 11:38 Resp 14 06/03/22 11:38 BP 136/78 06/03/22 11:38 Pulse Ox 96 06/03/22 11:38 FiO2 Intake & Output 06/02/22 06/03/22 06/03/22 18:59 06:59 18:59 Intake Total 2119 1859 Balance 2119 1859 Weight 82.554 kg Intake: Intake, IV Titration 2119 1859 Amount CARBOplatin 600 mg In 250 Sodium Chloride 0.9% 250 ml @ 620 mls/hr IV ONCE [facility] Rx#:[id number] Etoposide 200 mg In 510 Sodium Chloride 0.9% 500 ml 500 ml @ 510 mls/hr IV Q24H [facility] Rx#:[id number] Ifosfamide 9,000 mg 60 360 Ifosfamide 1,000 mg In Sodium Chloride 0.9% 500 ml 500 ml In Empty Bag 1 bag @ 29.167 mls/hr IV [facility] Rx#:[id number] [place] 10,000 mg In Sodium 50 300 Chloride 0.9% 500 ml 500 ml @ 25 mls/hr IV [facility] Rx#:[id number] Ondansetron 16 mg In 50 Sodium Chloride 0.9% 50 ml @ 232 mls/hr IVPB Q24H [facility] Rx#:[id number] Sodium Chloride 0.9% 1, 1200 1200 000 ml @ 100 mls/hr IV . Q10H [facility] Rx#:[id number] Other: Voiding Method Toilet Toilet # Voids 8 4 - Exam Constitutional: No acute distress, conversant, pleasant Eyes:Anicteric sclerae, moist conjunctiva, no lid-lag, PERRLA, ENMT: Oropharynx clear, no erythema, exudates Neck: Supple, FROM, no masses, or JVD, No carotid bruits, No thyromegaly Lungs: Clear to auscultation, Clear to percussion, Normal respiratory effort, no accessory muscle use Cardiovascular: Heart regular in rate and rhythm, No murmurs, gallops, or rubs, No peripheral edema Abdominal: Soft, Nontender, no guarding, rebound or rigidity, Normoactive bowel sounds, No hepatomegaly, No splenomegaly, No palpable mass Skin: Normal temperature, tone, texture, turgor, no induration, No subcutaneous nodules, No rash, lesions, No ulcers Extremities: No digital cyanosis, No clubbing, Pedal pulses intact and symmetrical, Radial pulses intact and symmetrical, No calf tenderness Psychiatric: Alert and oriented to person, place and time, appropriate affect, intact judgement Neuro: Muscles Strength 5/5 in all 4 extremities, Sensation to light touch grossly present throughout, Cranial nerves II-XII grossly intact, no focal sensory deficits - Labs CBC & Chem 7: 06/03/22 07:04 06/03/22 07:04 Labs: Abnormal Lab Results - Last 24 Hours (Table) 06/02/22 06/02/22 06/03/22 Range/Units 11:52 12:49 07:04 WBC 2.50 L (4.50-10.00) X 10*3/uL RBC 2.28 L (4.10-5.20) X 10*6/uL Hgb 6.7 L* (12.0-15.0) g/dL Hct 22.0 L (37.2-46.3) % MCHC 30.5 L (32.0-37.0) g/dL RDW 17.8 H (11.5-14.5) % Immature Gran # 0.05 H (0.00-0.04) X 10*3/uL Lymphocytes # 0.09 L (0.90-5.00) X 10*3/uL Monocytes # 0.05 L (0.20-1.00) X 10*3/uL Eosinophils # 0 L (0.04-0.35) X 10*3/uL ESR 78 H (0-20) mm/hr APTT (22.0-30.0) sec Potassium (3.5-5.5) mmol/L Chloride (96-109) mmol/L Anion Gap (10.00-18.00) mmol/L Creatinine (0.6-1.5) mg/dL BUN/Creatinine Ratio (12.00-20.00) Ratio Glucose (70-110) mg/dL Iron 226 H (50-170) ug/dL % Saturation 82.78 H (12.00-45.00) Transferrin 195.0 L (204.0-354.0) mg/dL Ferritin 933.0 H (10.0-291.0) ng/mL Lactate Dehydrogenase (120-246) U/L Total Protein (6.2-8.2) g/dL Albumin (3.8-4.9) g/dL Globulin (1.6-3.3) g/dL 06/03/22 06/03/22 06/03/22 Range/Units 07:04 13:35 13:38 WBC (4.50-10.00) X 10*3/uL RBC (4.10-5.20) X 10*6/uL Hgb (12.0-15.0) g/dL Hct (37.2-46.3) % MCHC (32.0-37.0) g/dL RDW (11.5-14.5) % Immature Gran # (0.00-0.04) X 10*3/uL Lymphocytes # (0.90-5.00) X 10*3/uL Monocytes # (0.20-1.00) X 10*3/uL Eosinophils # (0.04-0.35) X 10*3/uL ESR (0-20) mm/hr APTT 21.7 L (22.0-30.0) sec Potassium 3.0 L (3.5-5.5) mmol/L Chloride 110 H (96-109) mmol/L Anion Gap 8.90 L (10.00-18.00) mmol/L Creatinine 0.5 L (0.6-1.5) mg/dL BUN/Creatinine Ratio 23.95 H (12.00-20.00) Ratio Glucose 118 H (70-110) mg/dL Iron (50-170) ug/dL % Saturation (12.00-45.00) Transferrin (204.0-354.0) mg/dL Ferritin (10.0-291.0) ng/mL Lactate Dehydrogenase 345 H 969 H (120-246) U/L Total Protein 4.6 L (6.2-8.2) g/dL Albumin 3.4 L (3.8-4.9) g/dL Globulin 1.2 L (1.6-3.3) g/dL Assessment and Plan Plan: Non-Hodgkin lymphoma (nodular histiocytic lymphoma) -Chemo per primary team Acute on chronic anemia -Hold blood thinners -Discussed with oncology, will transfuse 1 unit of packed red blood cells -Send DIC workup Deep venous thrombosis left upper extremity March 2022 -Secondary to PICC line status post removal -Hold Eliquis due to anemia Right lower rib pain -CXR without acute changes, likely sec to the pleurex Chronic pain including neck pain -Continue fentanyl patch Hx of right recurrent pleural effusion -Patient has right Pleurx Hypokalemia -Replace Other stable chronic conditions Chronic pain Migraines Osteoarthritis Hyperlipidemia Resume meds
[2022-06-03] MEDS: polyethylene glycoL 3350 17 GM POWD.PACK PO SCH (16:51)
[2022-06-03] MEDS: ONDANSETRON 16 MG in SODIUM CHLORIDE 0.9% 50 ML IVPB SCH (17:36)
[2022-06-03] MEDS: DEXAMETHASONE SOD PHOSPHATE 10 MG/ML 1 ML VIAL IVP SCH (17:37)
[2022-06-03] MEDS: FAMOTIDINE 20 MG/2 ML VIAL IVP SCH (17:37)
[2022-06-03] MEDS: ETOPOSIDE 200 MG in SODIUM CHLORIDE 0.9% 500 ML 500 ML IV SCH (18:14)
--- NOTE | 2022-06-03 21:42 | P.PN ---
Subjective Progress Note Date: 06/03/22 Principal diagnosis: Timed Chemo Cycle #3 KIMBERLEE SPoke to patients on phone >30 minutes he was concerned about her coloring on admission (as she was greyish/pale), her hemoglobin drop had been sudden and she required PRBC today. Objective - Vital Signs Vital signs: Vital Signs Temp 98.2 F 06/03/22 15:32 Pulse 82 06/03/22 15:32 Resp 18 06/03/22 15:32 BP 122/76 06/03/22 15:32 Pulse Ox 97 06/03/22 15:30 FiO2 Intake & Output 06/02/22 06/03/22 06/03/22 18:59 06:59 18:59 Intake Total 2119 1860 0 Balance 2119 1860 0 Weight 82.554 kg Intake: Intake, IV Titration 2119 1859 Amount CARBOplatin 600 mg In 250 Sodium Chloride 0.9% 250 ml @ 620 mls/hr IV ONCE ONE Rx#:[id number] Etoposide 200 mg In 510 Sodium Chloride 0.9% 500 ml 500 ml @ 510 mls/hr IV Q24H [facility] Rx#:[id number] Ifosfamide 9,000 mg 60 360 Ifosfamide 1,000 mg In Sodium Chloride 0.9% 500 ml 500 ml In Empty Bag 1 bag @ 29.167 mls/hr IV ONCE ONE Rx#:[id number] [place] 10,000 mg In Sodium 50 300 Chloride 0.9% 500 ml 500 ml @ 25 mls/hr IV ONCE ONE Rx#:[id number] Ondansetron 16 mg In 50 Sodium Chloride 0.9% 50 ml @ 232 mls/hr IVPB Q24H [facility] Rx#:[id number] Sodium Chloride 0.9% 1, 1200 1200 000 ml @ 100 mls/hr IV . Q10H [facility] Rx#:[id number] Blood Product 0 Rc Irr As1 Unit 0 [id number] Other: Voiding Method Toilet Toilet # Voids 8 4 - Exam Exam - Constitutional General appearance: cooperative - EENT Eyes: EOMI, PERRLA ENT: NA/AT - Neck Neck: normal ROM - Respiratory Respiratory: bilateral: CTA - Cardiovascular Rhythm: regularly irregular - Gastrointestinal General gastrointestinal: normal bowel sounds - Integumentary Integumentary: pale - Neurologic Neurologic: CNII-XII intact - Musculoskeletal Musculoskeletal: generalized weakness, strength equal bilaterally - Psychiatric Psychiatric: A&O x's 3, appropriate affect, intact judgment & insight - Labs CBC & Chem 7: 06/03/22 07:04 06/03/22 20:53 Labs: Abnormal Lab Results - Last 24 Hours (Table) 06/02/22 06/02/22 06/03/22 Range/Units 11:52 12:49 07:04 WBC 2.50 L (4.50-10.00) X 10*3/uL RBC 2.28 L (4.10-5.20) X 10*6/uL Hgb 6.7 L* (12.0-15.0) g/dL Hct 22.0 L (37.2-46.3) % MCHC 30.5 L (32.0-37.0) g/dL RDW 17.8 H (11.5-14.5) % Immature Gran # 0.05 H (0.00-0.04) X 10*3/uL Lymphocytes # 0.09 L (0.90-5.00) X 10*3/uL Monocytes # 0.05 L (0.20-1.00) X 10*3/uL Eosinophils # 0 L (0.04-0.35) X 10*3/uL ESR 78 H (0-20) mm/hr APTT (22.0-30.0) sec Potassium (3.5-5.5) mmol/L Chloride (96-109) mmol/L Anion Gap (10.00-18.00) mmol/L Creatinine (0.6-1.5) mg/dL BUN/Creatinine Ratio (12.00-20.00) Ratio Glucose (70-110) mg/dL Iron 226 H (50-170) ug/dL % Saturation 82.78 H (12.00-45.00) Transferrin 195.0 L (204.0-354.0) mg/dL Ferritin 933.0 H (10.0-291.0) ng/mL Lactate Dehydrogenase (120-246) U/L Total Protein (6.2-8.2) g/dL Albumin (3.8-4.9) g/dL Globulin (1.6-3.3) g/dL Crossmatch 06/03/22 06/03/22 06/03/22 Range/Units 07:04 13:35 13:38 WBC (4.50-10.00) X 10*3/uL RBC (4.10-5.20) X 10*6/uL Hgb (12.0-15.0) g/dL Hct (37.2-46.3) % MCHC (32.0-37.0) g/dL RDW (11.5-14.5) % Immature Gran # (0.00-0.04) X 10*3/uL Lymphocytes # (0.90-5.00) X 10*3/uL Monocytes # (0.20-1.00) X 10*3/uL Eosinophils # (0.04-0.35) X 10*3/uL ESR (0-20) mm/hr APTT (22.0-30.0) sec Potassium 3.0 L (3.5-5.5) mmol/L Chloride 110 H (96-109) mmol/L Anion Gap 8.90 L (10.00-18.00) mmol/L Creatinine 0.5 L (0.6-1.5) mg/dL BUN/Creatinine Ratio 23.95 H (12.00-20.00) Ratio Glucose 118 H (70-110) mg/dL Iron (50-170) ug/dL % Saturation (12.00-45.00) Transferrin (204.0-354.0) mg/dL Ferritin (10.0-291.0) ng/mL Lactate Dehydrogenase 345 H 969 H (120-246) U/L Total Protein 4.6 L (6.2-8.2) g/dL Albumin 3.4 L (3.8-4.9) g/dL Globulin 1.2 L (1.6-3.3) g/dL Crossmatch See Detail 06/03/22 Range/Units 13:38 WBC (4.50-10.00) X 10*3/uL RBC (4.10-5.20) X 10*6/uL Hgb (12.0-15.0) g/dL Hct (37.2-46.3) % MCHC (32.0-37.0) g/dL RDW (11.5-14.5) % Immature Gran # (0.00-0.04) X 10*3/uL Lymphocytes # (0.90-5.00) X 10*3/uL Monocytes # (0.20-1.00) X 10*3/uL Eosinophils # (0.04-0.35) X 10*3/uL ESR (0-20) mm/hr APTT 21.7 L (22.0-30.0) sec Potassium (3.5-5.5) mmol/L Chloride (96-109) mmol/L Anion Gap (10.00-18.00) mmol/L Creatinine (0.6-1.5) mg/dL BUN/Creatinine Ratio (12.00-20.00) Ratio Glucose (70-110) mg/dL Iron (50-170) ug/dL % Saturation (12.00-45.00) Transferrin (204.0-354.0) mg/dL Ferritin (10.0-291.0) ng/mL Lactate Dehydrogenase (120-246) U/L Total Protein (6.2-8.2) g/dL Albumin (3.8-4.9) g/dL Globulin (1.6-3.3) g/dL Crossmatch Assessment and Plan (1) Adrenal insufficiency Narrative/Plan: Likely secondary to prolonged steroid use, stress. Will confirm endocrinology is following as outpatient and will prescribe hydrocortisone 30mg PO BID Current Visit: Yes Status: Acute Code(s): E27.40 - UNSPECIFIED ADRENOCORTI YUNI INSUFFICIENCY SNOMED Code(s): 200782620 Plan: Assessment and Plan (1) Acute deep vein thrombosis of left upper extremity Narrative/Plan: Continue Eliquis Current Visit: No Status: Acute Code(s): I82.622 - ACUTE EMBOLISM AND THROMBOSIS OF DEEP VEINS OF L UP EXTREM SNOMED Code(s): 729049610806675 (2) NHL (nodular histiocytic lymphoma) Narrative/Plan: Day Twocycle Three ICE Status Post IT on 05/02/22 Daily labs Home medications ordered Current Visit: No Status: Acute Priority: High Code(s): C82.90 - FOLLICULAR LYMPHOMA, UNSPECIFIED, UNSPECIFIED SITE SNOMED Code(s): 469713403 Anemia: - Rapid drop from yesterday - Recheck - Iron Studies Plan discharge in AM after labs result -
[2022-06-03] MEDS: ZOLPIDEM 5 MG TAB PO PRN (21:53)
[2022-06-03] MEDS: OLANZapine 5 MG TAB PO SCH (21:53)
[2022-06-03] MEDS ORDERED: POTASSIUM CHLORIDE ER 20 MEQ TAB.ER PO SCH (22:00)
[2022-06-03] MEDS: HYDROcodone/APAP 10-325MG 1 EACH TAB PO PRN (22:05)
[2022-06-04 04:34] VITALS: BP 147/80; PULSE 78; RESP 18; TEMP 98.2
[2022-06-04] MEDS: SODIUM CHLORIDE 0.9% 1,000 ML IV SCH (05:51)
[2022-06-04] MEDS: LORATADINE 10 MG TAB PO SCH (08:10)
[2022-06-04] MEDS: polyethylene glycoL 3350 17 GM POWD.PACK PO SCH (08:10)
[2022-06-04] MEDS: NYSTATIN 100,000 UNIT/ML SUSP 500,000 UNIT/5 ML CUP PO SCH (08:10)
[2022-06-04] MEDS: CHOLECALCIFEROL 25 MCG (1000 IU) TABLET PO SCH (08:10)
[2022-06-04] MEDS: EZETIMIBE 10 MG TAB PO SCH (08:10)
[2022-06-04] MEDS: predniSONE 50 MG TAB PO SCH (08:10)
[2022-06-04] MEDS: PANTOPRAZOLE 40 MG TABLET PO SCH (08:10)
[2022-06-04] MEDS: VIT A,C & E-LUTEIN-MINERALS 1 EACH TAB PO SCH (08:11)
[2022-06-04] MEDS: PROPRANOLOL LA 60 MG CAP.SA.24H PO SCH (08:11)
[2022-06-04] MEDS: SENNOSIDES-DOCUSATE SODIUM 1 EACH TAB PO SCH (08:11)
[2022-06-04 09:52] LABS: HGB 7.5 g/dL (12.0-15.0); MCH 29.2 pg (27.0-32.0); MCHC 31.3 g/dL (32.0-37.0); MCV 93.4 fL (80.0-97.0); NRBC Per 100 WBC 0 /100 WBCS (0.0-0.0); Platelet Count 208 X 10*3/uL (140-440); RBC 2.57 X 10*6/uL (4.10-5.20); RDW 19.4 % (11.5-14.5); WBC 3.01 X 10*3/uL (4.50-10.00)
[2022-06-04 10:30] LABS: Albumin 3.3 g/dL (3.8-4.9); Albumin/Globulin Ratio 2.62 (1.60-3.17); BUN/Creat Ratio 25.67 Ratio (12.00-20.00); Blood Urea Nitrogen 11.5 mg/dL (9.0-27.0); Calcium 8.7 mg/dL (8.7-10.3); Carbon Dioxide 22.1 mmol/L (20.0-27.5); Globulin 1.3 g/dL (1.6-3.3); Phosphorus 2.8 mg/dL (2.4-5.1); Potassium 3.6 mmol/L (3.5-5.5); Total Bilirubin 0.6 mg/dL (0.30-1.20); Total Protein 4.6 g/dL (6.2-8.2); Uric Acid 2.7 mg/dL (2.9-7.7)
[2022-06-04 10:36] LABS: Basophils # (A) 0.01 X 10*3/uL (0.00-0.10); Basophils % (A) 0.3 %; Eosinophils # (A) 0 X 10*3/uL (0.04-0.35); Eosinophils % (A) 0 %; Lymphocytes # (A) 0.09 X 10*3/uL (0.90-5.00); Monocytes # (A) 0.05 X 10*3/uL (0.20-1.00); Monocytes % (A) 1.7 %; Neutrophils # (A) 2.83 X 10*3/uL (1.80-7.70)
[2022-06-04 10:37] LABS: Rouleaux PRESENT
[2022-06-04] MEDS ORDERED: CIPROFLOXACIN HCL 500 MG TAB PO STA (11:00)
[2022-06-06] MEDS ORDERED: predniSONE 10 MG TAB PO SCH (09:00)
[2022-06-06] MEDS ORDERED: HYDROCORTISONE 10 MG TAB PO SCH (16:00)
== END 2022-06-04 11:47 | disposition home or self-care (01) | DRG 847 ==
LOC: 5NMEDONC 13:53
PROVIDERS: ADMIT Internal Medicine Hematology & Oncology; ATTEND Internal Medicine Hematology & Oncology
PROC: 3E04305 Introduction of Other Antineoplastic into Central Vein, Percutaneous Approach (ICD-10-PCS; principal; 2022-06-02)
PROC: 30243N1 Transfusion of Nonautologous Red Blood Cells into Central Vein, Percutaneous Approach (ICD-10-PCS; 2022-06-03)
DX: Z51.11 Encounter for antineoplastic chemotherapy (principal); C85.90 Non-Hodgkin lymphoma, unspecified, unspecified site; E27.40 Unspecified adrenocortical insufficiency; I82.622 Acute embolism and thrombosis of deep veins of left upper extremity; J90 Pleural effusion, not elsewhere classified; C85.98 Non-Hodgkin lymphoma, unspecified, lymph nodes of multiple sites; G89.29 Other chronic pain; E87.6 Hypokalemia; E78.5 Hyperlipidemia, unspecified; D63.0 Anemia in neoplastic disease; M19.90 Unspecified osteoarthritis, unspecified site; G43.909 Migraine, unspecified, not intractable, without status migrainosus; G58.0 Intercostal neuropathy; M85.80 Other specified disorders of bone density and structure, unspecified site; Z79.01 Long term (current) use of anticoagulants; Z79.891 Long term (current) use of opiate analgesic; Z79.52 Long term (current) use of systemic steroids; Z79.899 Other long term (current) drug therapy; Z92.3 Personal history of irradiation; Z98.1 Arthrodesis status; Z86.718 Personal history of other venous thrombosis and embolism; Z83.2 Family history of diseases of the blood and blood-forming organs and certain disorders involving the immune mechanism
CPT/HCPCS: 71046; 80053; 82533; 82728; 83010; 83540; 83550; 83615; 83735; 84100; 84132; 84550; 85025; 85384; 85610; 85652; 85730; 86850; 86900; 86901; 86920

== ENCOUNTER 2022-06-13 14:30 | Inpatient (IN) | payer MEDICARE ==
[2022-06-13] MEDS ORDERED: PANTOPRAZOLE 40 MG/10 ML VIAL IVP STA (14:36)
--- NOTE | 2022-06-13 14:38 | ED ---
General Adult HPI - General Stated complaint: Low Platelets,Sent by Dr Villeda Time Seen by Provider: 06/13/22 14:36 Source: patient, family, RN/MD (Spoke with Dr. Finnegan who does want patient to have a unit of irradiated red cells and platelets), RN notes reviewed Limitations: no limitations - History of Present Illness Initial comments: Patient is a pleasant 72-year-old female presenting to the emergency department for low platelet level. Patient does have history of refractory lymphoma. Patient did have blood work done with hemoglobin 6.7 and platelet of 4. Patient has been extremely fatigued, especially with exertion over the past couple of days. Dr. Villeda did send patient and then would like her to have a radiated platelets and red cells. - Related Data Home Medications Medication Instructions Recorded Confirmed Gabapentin [Neurontin] 300 mg PO Q6H PRN 09/24/18 06/01/22 Propranolol HCl [Propranolol HCl 60 mg PO DAILY 09/24/18 06/01/22 ER] Ezetimibe [Zetia] 10 mg PO DAILY 01/18/22 06/01/22 Vit C/E/Zn/Coppr/Lutein/Zeaxan 1 cap PO DAILY 01/18/22 06/01/22 [Preservision Areds 2 Softgel] Omeprazole 20 mg PO DAILY 02/26/22 06/01/22 Zolpidem [Ambien] 10 mg PO HS PRN 02/26/22 06/01/22 Cholecalciferol [Vitamin D3 (25 50 mcg PO DAILY 03/14/22 06/01/22 Mcg = 1000 Iu)] OLANZapine 5 mg PO DIRECTED 03/14/22 06/01/22 Ondansetron Odt [Zofran ODT] 4 mg PO Q6H PRN 04/06/22 06/01/22 fentaNYL 25MCG/HR PATCH [Duragesic 1 patch TRANSDERM Q72H 04/06/22 06/01/22 25MCG/HR] Cetirizine HCl [Zyrtec] 10 mg PO DAILY 05/03/22 06/01/22 Loratadine 10 mg PO DIRECTED 05/10/22 06/01/22 Clobetasol Propionate [Temovate 1 applic TOPICAL BID PRN 05/12/22 06/01/22 0.05% Oint] HYDROcodone/APAP 10-325MG [[place] 1 tab PO Q6H PRN 05/12/22 06/01/22 10-325] Ipratropium-Albuterol Nebulize 3 ml INHALATION RT-QID PRN 05/12/22 06/01/22 [Duoneb 0.5 mg-3 mg/3 ml Soln] SUMAtriptan succinate 100 mg PO BID PRN 05/12/22 06/01/22 Sennosides-Docusate Sodium 2 tab PO BID PRN 05/12/22 06/01/22 [Senokot-S] LORazepam [Ativan] 0.5 mg PO BID PRN 05/31/22 06/01/22 Previous Rx's Medication Instructions Recorded Acetaminophen Tab [Tylenol] 650 mg PO Q6HR PRN tab 04/08/22 predniSONE 100 mg PO DIRECTED #0 05/14/22 Ciprofloxacin HCl [Cipro] 500 mg PO DAILY 10 Days #10 tab 06/02/22 Apixaban [Eliquis] 5 mg PO BID #180 tab 06/03/22 Hydrocortisone [Cortef] 10 mg PO BID #60 tablet 06/03/22 Hydrocortisone [Cortef] 10 mg PO TID tab 06/03/22 Nystatin 100,000 Unit/ml Susp 500,000 unit PO QID #400 ml 06/03/22 [Mycostatin Oral Susp] polyethylene glycoL 3350 [Miralax] 17 gm PO DAILY packet 06/03/22 Allergies Allergy/AdvReac Type Severity Reaction Status Date / Time No Known Allergies Allergy Verified 06/13/22 14:36 Review of Systems ROS Statement: Those systems with pertinent positive or pertinent negative responses have been documented in the HPI. ROS Other: All systems not noted in ROS Statement are negative. Constitutional: Denies: fever Eyes: Denies: eye pain ENT: Denies: ear pain Respiratory: Denies: cough, dyspnea Cardiovascular: Denies: chest pain Endocrine: Reports: fatigue Gastrointestinal: Denies: abdominal pain Genitourinary: Denies: dysuria Musculoskeletal: Denies: back pain Skin: Denies: rash Neurological: Denies: weakness Past Medical History Past Medical History: Cancer, Hyperlipidemia, Osteoarthritis (OA) Additional Past Medical History / Comment(s): migraines, pain under rt breast radiating to back, 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, two tumors on spine, probable cancer per pt(had radiation on tumor on spine 10/2021-11/2021(10 treatments) lymphoma, DVT left arm History of Any Multi-Drug Resistant Organisms: None Reported Past Surgical History: Appendectomy, Back Surgery, Breast Surgery, Orthopedic Surgery Additional Past Surgical History / Comment(s): rhinoplasty, left breast lumpectomy, ,bunnionectomies payam feet, spinal fusion, PICC line, lumbar puncture with intrathecal chemo Past Anesthesia/Blood Transfusion Reactions: No Reported Reaction Additional Past Anesthesia/Blood Transfusion Reaction / Comment(s): , Smoking Status: Never smoker - Past Family History Mother Family Medical History: Cancer, Deep Vein Thrombosis (DVT), Pulmonary Embolus Additional Family Medical History / Comment(s): cervical Father Family Medical History: Cancer Additional Family Medical History / Comment(s): prostate General Exam Limitations: no limitations General appearance: alert, in no apparent distress Head exam: Present: normocephalic Eye exam: Present: normal appearance Neck exam: Present: normal inspection Respiratory exam: Present: normal lung sounds bilaterally Cardiovascular Exam: Present: regular rate, normal rhythm GI/Abdominal exam: Present: soft. Absent: tenderness Extremities exam: Present: pedal edema (Trace bilateral) Neurological exam: Present: alert Psychiatric exam: Present: normal affect, normal mood Skin exam: Present: normal color Course Vital Signs 06/13/22 14:36 Temperature 98.8 F Pulse Rate 83 Respiratory 16 Rate Blood Pressure 111/62 O2 Sat by Pulse 98 Oximetry Medical Decision Making - Medical Decision Making Patient and family updated on plan. Case was also discussed with Dr. Ramirez, who will admit covering Dr. Jacob Aaron - Lab Data Result diagrams: 06/13/22 15:19 Lab Results 06/13/22 Range/Units 15:19 WBC 1.0 L* (3.8-10.6) k/uL RBC 2.14 L (3.80-5.40) m/uL Hgb 6.2 L* D (11.4-16.0) gm/dL Hct 19.3 L* (34.0-46.0) % MCV 90.2 D (80.0-100.0) fL MCH 29.1 (25.0-35.0) pg MCHC 32.3 (31.0-37.0) g/dL RDW 15.4 (11.5-15.5) % Plt Count 2 L* D (150-450) k/uL MPV 7.3 Neutrophils % 68 % Lymphocytes % 12 % Monocytes % 12 % Eosinophils % 0 % Basophils % 0 % Neutrophils # 0.7 L (1.3-7.7) k/uL Lymphocytes # 0.1 L (1.0-4.8) k/uL Monocytes # 0.1 (0-1.0) k/uL Eosinophils # 0.0 (0-0.7) k/uL Basophils # 0.0 (0-0.2) k/uL Disposition Clinical Impression: Thrombocytopenia, Anemia Disposition: ADMITTED IP TO THIS HOSP Is patient prescribed a controlled substance at d/c from ED?: No Referrals: Darryl Julien DO [Primary Care Provider] - 1-2 days Time of Disposition: 15:44
[2022-06-13 15:27] LABS: Basophils % (A) 0 %; Eosinophils % (A) 0 %; Lymphocytes # (A) 0.1 k/uL (1.0-4.8); Lymphocytes % (A) 12 %; MCH 29.1 pg (25.0-35.0); MCHC 32.3 g/dL (31.0-37.0); Mean Platelet Volume 7.3; Monocytes # (A) 0.1 k/uL (0-1.0); Monocytes % (A) 12 %; Neutrophils # (A) 0.7 k/uL (1.3-7.7); Neutrophils % (A) 68 %; RBC 2.14 m/uL (3.80-5.40); RDW 15.4 % (11.5-15.5)
[2022-06-13 15:36] LABS: HGB 6.2 gm/dL (11.4-16.0); MCV 90.2 fL (80.0-100.0)
[2022-06-13 15:37] LABS: HCT 19.3 % (34.0-46.0)
[2022-06-13 15:38] LABS: Platelet Count 2 k/uL (150-450)
[2022-06-13] MEDS ORDERED: NALOXONE 0.4 MG/ML 1 ML VIAL IV PRN (15:44)
[2022-06-13 16:06] LABS: ALT 13 U/L (4-34); AST 17 U/L (14-36); African American GFR (CKD) >90 (>60 ml/min/1.73 sqM); Albumin 3.3 g/dL (3.5-5.0); Alkaline Phosphatase 84 U/L (38-126); Anion Gap 4 mmol/L; Blood Urea Nitrogen 9 mg/dL (7-17); Calcium 8.6 mg/dL (8.4-10.2); Carbon Dioxide 30 mmol/L (22-30); Chloride 101 mmol/L (98-107); Glucose 128 mg/dL (74-99); Non-African American GFR(CKD) >90 (>60 ml/min/1.73 sqM); Sodium 135 mmol/L (137-145); Total Bilirubin 0.9 mg/dL (0.2-1.3); Total Protein 5.1 g/dL (6.3-8.2)
[2022-06-13 16:15] LABS: Potassium 2.5 mmol/L (3.5-5.1)
[2022-06-13] MEDS ORDERED: POTASSIUM CHLORIDE 10 MEQ in WATER FOR INJECTION 1 100ML.BAG IVPB STA (16:18)
[2022-06-13] MEDS ORDERED: POTASSIUM CHLORIDE ER 20 MEQ TAB.ER PO STA (16:18)
--- NOTE | 2022-06-13 16:34 | P.HPIM ---
History of Present Illness H&P Date: 06/13/22 Patient is a 72-year-old female with nodular histiocytic lymphoma, secondary adrenal insufficiency, and recent DVT left upper extremity who was sent in by Dr. Villeda due to low hemoglobin and platelets. Patient will need radiated platelets. Patient was recently hospitalized here for cycle #3 of a and was subsequently discharged home on 06/04/22. In the ER her hemoglobin was confirmed to be 6.2 and platelets at 2. Orders were written for 1 unit of packed red cells and platelets. Arrangements were made for admission. Patient seen and examined at bedside. She reports she has not been feeling well at home. The last several days she has felt very weak on standing and as though her legs would give out. She reports that when she stands up she just does not feel well. reports she is "clammy. She denies any lightheadedness, dizziness, or presyncope. She does report petechiae forming on her right hand over the last several days. She denies any unusual bleeding. She denies any head injury. She denies any recent cough, cold, fever, flu. Her appetite comes and goes venous and she started chemo. She has completed her intrathecal chemotherapy. She does have a pleurex catheter that has been in place since February. Pertinent positives and negatives as discussed in HPI, a complete review of systems was performed and all other systems are negative. Vital signs reviewed General: nontoxic, no distress, appears at stated age Derm: Petechiae right breast, bruising left calf, petechiae under her tongue Head: atraumatic, normocephalic, symmetric Eyes: EOMI, no lid lag, anicteric sclera, pupils equal round reactive to light, conjunctival pallor ENT: Nose and ears atraumatic, no thrush, no pharyngeal erythema Neck: No thyromegaly, no cervical lymphadenopathy, trachea midline, supple Mouth: no lip lesion, mucus membranes moist Cardiovascular: S1S2 reg, no murmur, positive posterior tibial pulse bilateral, no edema, capillary refill less than 2 seconds Lungs: clear to auscultation bilateral, no rhonchi, no rales, no wheeze, no accessory muscle use Abdominal: soft, nontender to palpation, no guarding, no appreciable organomegaly, normal bowel sounds Ext: no gross muscle atrophy, muscle strength muscle strength 5 out of 5 in all 4 extremities, no contractures Neuro: CN II-XII grossly intact, light touch intact all 4 extremities, finger to nose within normal limits, Psych: Alert, oriented, appropriate affect Assessment/Plan: Pancytopenia with leukopenia, anemia, and thrombocytopenia likely secondary to chemotherapy Non-Hodgkin's lymphoma Left Arm DVT - 1 unit of packed red blood cells as well as platelets and will need to be radiated - Fall precautions - Patient is at increased risk of bleeding as she is on Eliquis this for DVT and has a platelet count of 2 last taken this morning patient and educated on need to alert nursing immediately with bleeding or headache, patient should no get up without staff at this time. - Hematology/oncology consultation - hold eliquis Hypokalemia - replace and recheck in AM - check magnesium level in AM - encourage oral intake Adrenal insufficiency suspect secondary to steroids - resume steroids HLD - zetia Pleurex cath in place - drain daily The patient is admitted with an anticipated greater than 2 midnight stay for evaluation of chemotherapy induced pancytopenia . Surrogate decision-maker: CODE STATUS:full DVT prophylaxis: SCDs Discussed with: patient, , Dr villeda Anticipated discharge date: in [address]: home A total of [62] minutes was spent on the care of this complex patient more than 50% of the time was spent in counseling and care coordination. Past Medical History Past Medical History: Cancer, Hyperlipidemia, Osteoarthritis (OA) Additional Past Medical History / Comment(s): migraines, pain under rt breast radiating to back, 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, two tumors on spine, probable cancer per pt(had radiation on tumor on spine 10/2021-11/2021(10 treatments) lymphoma, DVT left arm, secondary adrenal insufficiency History of Any Multi-Drug Resistant Organisms: None Reported Past Surgical History: Appendectomy, Back Surgery, Breast Surgery, Orthopedic Surgery Additional Past Surgical History / Comment(s): rhinoplasty, left breast lumpectomy, ,bunnionectomies payam feet, spinal fusion, PICC line, lumbar puncture with intrathecal chemo, left pleurx cath Past Anesthesia/Blood Transfusion Reactions: No Reported Reaction Additional Past Anesthesia/Blood Transfusion Reaction / Comment(s): , Smoking Status: Never smoker - Past Family History Mother Family Medical History: Cancer, Deep Vein Thrombosis (DVT), Pulmonary Embolus Additional Family Medical History / Comment(s): cervical Father Family Medical History: Cancer Additional Family Medical History / Comment(s): prostate Medications and Allergies Home Medications Medication Instructions Recorded Confirmed Type Gabapentin [Neurontin] 300 mg PO Q6H PRN 09/24/18 06/13/22 History Propranolol HCl [Propranolol HCl 60 mg PO DAILY 09/24/18 06/13/22 History ER] Ezetimibe [Zetia] 10 mg PO DAILY 01/18/22 06/13/22 History Vit C/E/Zn/Coppr/Lutein/Zeaxan 1 cap PO DAILY 01/18/22 06/13/22 History [Preservision Areds 2 Softgel] Omeprazole 20 mg PO DAILY 02/26/22 06/13/22 History Zolpidem [Ambien] 10 mg PO HS PRN 02/26/22 06/13/22 History Cholecalciferol [Vitamin D3 (25 50 mcg PO DAILY 03/14/22 06/13/22 History Mcg = 1000 Iu)] OLANZapine 5 mg PO DIRECTED 03/14/22 06/13/22 History Ondansetron Odt [Zofran ODT] 4 mg PO Q6H PRN 04/06/22 06/13/22 History fentaNYL 25MCG/HR PATCH [Duragesic 1 patch TRANSDERM Q72H 04/06/22 06/13/22 History 25MCG/HR] Acetaminophen Tab [Tylenol] 650 mg PO Q6HR PRN tab 04/08/22 06/13/22 Rx Cetirizine HCl [Zyrtec] 10 mg PO DAILY 05/03/22 06/13/22 History Loratadine 10 mg PO DIRECTED 05/10/22 06/13/22 History Clobetasol Propionate [Temovate 1 applic TOPICAL BID PRN 05/12/22 06/13/22 History 0.05% Oint] HYDROcodone/APAP 10-325MG [[place] 1 tab PO Q6H PRN 05/12/22 06/13/22 History 10-325] Ipratropium-Albuterol Nebulize 3 ml INHALATION RT-QID PRN 05/12/22 06/13/22 History [Duoneb 0.5 mg-3 mg/3 ml Soln] SUMAtriptan succinate 100 mg PO BID PRN 05/12/22 06/13/22 History Sennosides-Docusate Sodium 1 - 2 tab PO HS PRN 05/12/22 06/13/22 History [Senokot-S] predniSONE 100 mg PO DIRECTED #0 05/14/22 06/13/22 Rx LORazepam [Ativan] 0.5 mg PO BID PRN 05/31/22 06/13/22 History Ciprofloxacin HCl [Cipro] 500 mg PO DAILY 10 Days #10 tab 06/02/22 06/13/22 Rx Apixaban [Eliquis] 5 mg PO BID #180 tab 06/03/22 06/13/22 Rx Nystatin 100,000 Unit/ml Susp 500,000 unit PO QID #400 ml 06/03/22 06/13/22 Rx [Mycostatin Oral Susp] Hydrocortisone [Cortef] 10 mg PO BID@0900,1600 06/13/22 06/13/22 History polyethylene glycoL 3350 [Miralax] 17 gm PO DAILY 06/13/22 06/13/22 History Allergies Allergy/AdvReac Type Severity Reaction Status Date / Time No Known Allergies Allergy Verified 06/13/22 14:36 Physical Exam Osteopathic Statement: *. No significant issues noted on an osteopathic structural exam other than those noted in the History and Physical/Consult. Vitals: Vital Signs Temp Pulse Resp BP Pulse Ox 06/13/22 14:36 98.8 F 83 16 111/62 98 Intake and Output 06/13/22 06/13/22 06/13/22 06:59 14:59 22:59 Other: Weight 83.461 kg Results CBC & Chem 7: 06/13/22 15:19 06/13/22 15:19 Labs: Abnormal Lab Results - Last 24 Hours (Table) 06/13/22 Range/Units 15:19 WBC 1.0 L* (3.8-10.6) k/uL RBC 2.14 L (3.80-5.40) m/uL Hgb 6.2 L* D (11.4-16.0) gm/dL Hct 19.3 L* (34.0-46.0) % Plt Count 2 L* D (150-450) k/uL Neutrophils # 0.7 L (1.3-7.7) k/uL Lymphocytes # 0.1 L (1.0-4.8) k/uL
[2022-06-13] MEDS ORDERED: ONDANSETRON 4 MG/2 ML VIAL IVP PRN (17:23)
[2022-06-13] MEDS ORDERED: MELATONIN 3 MG TABLET PO PRN (17:23)
[2022-06-13] MEDS ORDERED: HYDROcodone/APAP 5-325MG 1 EACH TAB PO PRN (17:23)
[2022-06-13] MEDS ORDERED: ALPRAZolam 0.25 MG TAB PO PRN (17:23)
[2022-06-13] MEDS ORDERED: ACETAMINOPHEN TAB 325 MG TAB PO PRN (17:23)
[2022-06-13] MEDS ORDERED: IPRATROPIUM-ALBUTEROL 3 ML NEB INHALATION PRN (17:34)
[2022-06-13] MEDS ORDERED: LORazepam 0.5 MG TAB PO PRN (17:34)
[2022-06-13] MEDS ORDERED: GABAPENTIN 300 MG CAP PO PRN (17:34)
[2022-06-13] MEDS ORDERED: HYDROcodone/APAP 10-325MG 1 EACH TAB PO PRN (17:34)
[2022-06-13] MEDS ORDERED: SENNOSIDES-DOCUSATE SODIUM 1 EACH TAB PO PRN (17:35)
[2022-06-13] MEDS ORDERED: ONDANSETRON ODT 4 MG TAB PO PRN (17:35)
[2022-06-13] MEDS ORDERED: SUMAtriptan succinate 50 MG TAB PO PRN (17:35)
[2022-06-13] MEDS ORDERED: ZOLPIDEM 5 MG TAB PO PRN (17:35)
[2022-06-13] MEDS: NYSTATIN 100,000 UNIT/ML SUSP 500,000 UNIT/5 ML CUP PO SCH ×2 (20:30→20:38)
[2022-06-13] MEDS: POTASSIUM CHLORIDE ER 20 MEQ TAB.ER PO SCH (20:37)
[2022-06-13] MEDS: HYDROCORTISONE 10 MG TAB PO SCH (20:38)
[2022-06-13] MEDS: SODIUM CHLORIDE 0.9% 1,000 ML IV SCH (20:59)
[2022-06-14] MEDS: PANTOPRAZOLE 40 MG TABLET PO SCH (06:14)
[2022-06-14] MEDS: SODIUM CHLORIDE 0.9% 1,000 ML IV SCH ×2 (06:19→19:24)
[2022-06-14 07:58] LABS: HCT 23.6 % (34.0-46.0); HGB 7.9 gm/dL (11.4-16.0); MCH 30.4 pg (25.0-35.0); MCHC 33.5 g/dL (31.0-37.0); MCV 90.7 fL (80.0-100.0); Mean Platelet Volume 10.5; RDW 15.4 % (11.5-15.5); WBC 1.5 k/uL (3.8-10.6)
[2022-06-14 08:34] LABS: Platelet Count 9 k/uL (150-450)
[2022-06-14] MEDS: LORATADINE 10 MG TAB PO SCH (08:53)
[2022-06-14] MEDS: EZETIMIBE 10 MG TAB PO SCH (08:53)
[2022-06-14] MEDS: CIPROFLOXACIN HCL 500 MG TAB PO SCH (08:53)
[2022-06-14] MEDS: CHOLECALCIFEROL 25 MCG (1000 IU) TABLET PO SCH (08:53)
[2022-06-14] MEDS: POTASSIUM CHLORIDE ER 20 MEQ TAB.ER PO SCH ×2 (08:53→19:31)
[2022-06-14] MEDS: polyethylene glycoL 3350 17 GM POWD.PACK PO SCH ×2 (08:54→08:57)
[2022-06-14] MEDS: PROPRANOLOL LA 60 MG CAP.SA.24H PO SCH (08:55)
[2022-06-14] MEDS: VIT A,C & E-LUTEIN-MINERALS 1 EACH TAB PO SCH (08:55)
[2022-06-14] MEDS: NYSTATIN 100,000 UNIT/ML SUSP 500,000 UNIT/5 ML CUP PO SCH ×4 (08:55→19:31)
[2022-06-14] MEDS: HYDROCORTISONE 10 MG TAB PO SCH ×2 (08:55→17:52)
[2022-06-14 10:11] LABS: ALT 13 U/L (4-34); AST 20 U/L (14-36); African American GFR (CKD) >90 (>60 ml/min/1.73 sqM); Albumin 3.4 g/dL (3.5-5.0); Alkaline Phosphatase 87 U/L (38-126); Anion Gap 6 mmol/L; Blood Urea Nitrogen 4 mg/dL (7-17); Calcium 8.6 mg/dL (8.4-10.2); Carbon Dioxide 27 mmol/L (22-30); Chloride 106 mmol/L (98-107); Glucose 111 mg/dL (74-99); Magnesium 1.7 mg/dL (1.6-2.3); Non-African American GFR(CKD) >90 (>60 ml/min/1.73 sqM); Phosphorus 1.8 mg/dL (2.5-4.5); Sodium 139 mmol/L (137-145); Total Bilirubin 1.1 mg/dL (0.2-1.3); Total Protein 5.3 g/dL (6.3-8.2)
--- NOTE | 2022-06-14 10:22 | P.PN ---
Subjective Progress Note Date: 06/14/22 Patient is a 72-year-old female with nodular histiocytic lymphoma, secondary adrenal insufficiency, and recent DVT left upper extremity who was sent in by Dr. Villeda due to low hemoglobin and platelets. Patient will need radiated platelets. Patient was recently hospitalized here for cycle #3 of a and was subsequently discharged home on 06/04/22. In the ER her hemoglobin was confirmed to be 6.2 and platelets at 2. Orders were written for 1 unit of packed red cells and platelets. She was given 1 unit pRBC and 1 unit of platelets. Her Plt remained at 9. Patient seen and examined at bedside. Blood. Feeling less fatigued, less tired. She denies feeling winded. No nausea or vomiting. She did eat a small amount. General: nontoxic, no distress, appears at stated age Derm: warm, dry, petechiae right wrist and hand, bruising left oropeza, additional ecchymosis right medial calf Head: atraumatic, normocephalic, symmetric Eyes: EOMI, no lid lag, anicteric sclera Mouth: no lip lesion, mucus membranes moist Cardiovascular: S1S2 reg, no murmur, positive posterior tibial pulse bilateral, Lungs: CTA bilateral, no rhonchi, no rales , no accessory muscle use Abdominal: soft, nontender to palpation, no guarding, no appreciable organomegaly Ext: no gross muscle atrophy, no edema, no contractures Neuro: CN II-XI grossly intact, no focal neuro deficits Psych: Alert, oriented, appropriate affect Assessment/Plan: Pancytopenia with leukopenia, anemia, and thrombocytopenia likely secondary to chemotherapy Non-Hodgkin's lymphoma Left Arm DVT - s/p 1unit pRBC and 1 unit plt - another unit of plt today - Fall precautions - Conitnue to hold eliquis - Hematology/oncology recs pending Hypokalemia - AM still pending, replace as indicated. Adrenal insufficiency suspect secondary to steroids - Steroids HLD - zetia Pleurex cath in place - drain daily Anticipated discharge date: in AM Anticipated discharge place: home A total of 25 minutes was spent on the care of this complex patient more than 50% of the time was spent in counseling and care coordination. Active Medications Generic Name Dose Route Start Last Admin Trade Name Freq PRN Reason Stop Dose Admin Acetaminophen 650 mg 06/13/22 17:23 Acetaminophen Tab 325 Mg Tab PO Q6HR PRN Mild Pain or Fever > 100.5 Hydrocodone Bitart/Acetaminophen 1 each 06/13/22 17:23 Hydrocodone/Apap 5-325mg 1 Each Tab PO Q4HR PRN Moderate Pain Hydrocodone Bitart/Acetaminophen 1 each 06/13/22 17:34 Hydrocodone/Apap 10-325mg 1 Each Tab PO Q6H PRN Severe Pain Albuterol/Ipratropium 3 ml 06/13/22 17:34 Ipratropium-Albuterol 3 Ml Neb INHALATION RT-QID PRN Shortness Of Breath Alprazolam 0.25 mg 06/13/22 17:23 Alprazolam 0.25 Mg Tab PO Q6HR PRN Anxiety Cholecalciferol 50 mcg 06/14/22 09:00 06/14/22 08:53 Cholecalciferol 25 Mcg (1000 Iu) Tablet PO 50 mcg DAILY ODILIA Administration Ciprofloxacin 500 mg 06/14/22 09:00 06/14/22 08:53 Ciprofloxacin Hcl 500 Mg Tab PO 500 mg DAILY ODILIA Administration Protocol Ezetimibe 10 mg 06/14/22 09:00 06/14/22 08:53 Ezetimibe 10 Mg Tab PO 10 mg DAILY ODILIA Administration Fentanyl 1 patch 06/14/22 09:00 06/14/22 08:54 Fentanyl 25mcg/Hr Patch TRANSDERM 1 patch Q72H ODILIA Administration Protocol Gabapentin 300 mg 06/13/22 17:34 06/13/22 20:59 Gabapentin 300 Mg Cap PO 300 mg Q6H PRN Administration Pain Hydrocortisone 10 mg 06/13/22 18:00 06/14/22 08:55 Hydrocortisone 10 Mg Tab PO 10 mg BID@0900,1600 ODILIA Administration Sodium Chloride 1,000 mls @ 75 mls/hr 06/13/22 17:30 06/14/22 06:19 Saline 0.9% IV Not Given .[id number] ODILIA Loratadine 10 mg 06/14/22 09:00 06/14/22 08:53 Loratadine 10 Mg Tab PO 10 mg DAILY ODILIA Administration Lorazepam 0.5 mg 06/13/22 17:34 Lorazepam 0.5 Mg Tab PO BID PRN Anxiety/Nausea/Insomnia Melatonin 3 mg 06/13/22 17:23 Melatonin 3 Mg Tablet PO HS PRN Insomnia Multivitamins/Minerals 1 each 06/14/22 09:00 06/14/22 08:55 Vit A,C & Z-Baaxgw-Vneimkvz 1 Each Tab PO 1 each DAILY OIDLIA Administration Naloxone HCl 0.2 mg 06/13/22 15:44 Naloxone 0.4 Mg/Ml 1 Ml Vial IV Q2M PRN Opioid Reversal Nystatin 500,000 unit 06/13/22 18:00 06/14/22 08:55 Nystatin 100,000 Unit/Ml Susp 500,000 Unit/5 Ml Cup PO 500,000 unit QID ODILIA Administration Protocol Ondansetron HCl 4 mg 06/13/22 17:23 Ondansetron 4 Mg/2 Ml Vial IVP Q8HR PRN Nausea And Vomiting Ondansetron HCl 4 mg 06/13/22 17:35 Ondansetron Odt 4 Mg Tab PO Q6H PRN Nausea Pantoprazole Sodium 40 mg 06/14/22 07:30 06/14/22 06:14 Pantoprazole 40 Mg Tablet PO 40 mg [id number] ODILIA Administration Polyethylene Glycol 17 gm 06/14/22 09:00 06/14/22 08:57 Polyethylene Glycol 3350 17 Gm Powd.Pack PO Not Given DAILY ODILIA Potassium Chloride 20 meq 06/13/22 21:00 06/14/22 08:53 Potassium Chloride Er 20 Meq Tab.Er PO 20 meq BID ODILIA Administration Propranolol HCl 60 mg 06/14/22 09:00 06/14/22 08:55 Propranolol La 60 Mg Cap.Sa.24h PO 60 mg DAILY ODILIA Administration Senna/Docusate Sodium 1 each 06/13/22 17:35 06/13/22 20:59 Sennosides-Docusate Sodium 1 Each Tab PO 1 each HS PRN Administration Constipation Sumatriptan Succinate 100 mg 06/13/22 17:35 Sumatriptan Succinate 50 Mg Tab PO BID PRN Migraine Headache Zolpidem Tartrate 10 mg 06/13/22 17:35 06/13/22 20:59 Zolpidem 5 Mg Tab PO 10 mg HS PRN Administration Insomnia Objective - Vital Signs Vital signs: Vital Signs Temp 98.4 F 06/14/22 08:48 Pulse 91 06/14/22 08:48 Resp 16 06/14/22 08:48 BP 108/68 06/14/22 08:48 Pulse Ox 96 06/14/22 08:48 FiO2 Intake & Output 06/13/22 06/14/22 06/14/22 18:59 06:59 18:59 Intake Total 262 550 120 Balance 262 550 120 Weight 83.461 kg 83.461 kg Intake: Oral 240 120 Blood Product 262 310 Platelet Pheresis Pas 262 Psoralen Unit [id number] Rc Irr As1 Unit 0 310 [id number] Other: Voiding Method Toilet # Voids 1 # Bowel Movements 1 - Labs CBC & Chem 7: 06/14/22 07:30 06/13/22 15:19 Labs: Abnormal Lab Results - Last 24 Hours (Table) 06/13/22 06/13/22 06/13/22 Range/Units 15:19 15:19 15:19 WBC 1.0 L* (3.8-10.6) k/uL RBC 2.14 L (3.80-5.40) m/uL Hgb 6.2 L* D (11.4-16.0) gm/dL Hct 19.3 L* (34.0-46.0) % Plt Count 2 L* D (150-450) k/uL Neutrophils # 0.7 L (1.3-7.7) k/uL Lymphocytes # 0.1 L (1.0-4.8) k/uL Sodium 135 L (137-145) mmol/L Potassium 2.5 L* (3.5-5.1) mmol/L Glucose 128 H (74-99) mg/dL Total Protein 5.1 L (6.3-8.2) g/dL Albumin 3.3 L (3.5-5.0) g/dL Crossmatch See Detail 06/14/22 Range/Units 07:30 WBC 1.5 L (3.8-10.6) k/uL RBC 2.60 L (3.80-5.40) m/uL Hgb 7.9 L D (11.4-16.0) gm/dL Hct 23.6 L (34.0-46.0) % Plt Count 9 L* D (150-450) k/uL Neutrophils # (1.3-7.7) k/uL Lymphocytes # (1.0-4.8) k/uL Sodium (137-145) mmol/L Potassium (3.5-5.1) mmol/L Glucose (74-99) mg/dL Total Protein (6.3-8.2) g/dL Albumin (3.5-5.0) g/dL Crossmatch
[2022-06-14 10:31] LABS: Potassium 2.7 mmol/L (3.5-5.1)
[2022-06-14 10:38] LABS: Band Neutrophils % 5 %; Lymphocytes # (M) 0.11 k/uL (1.0-4.8); Neutrophils % (M) 75 %; Nucleated Red Blood Cells 0 /100 WBC (0-0); Total Cells Counted 100
[2022-06-14] MEDS ORDERED: POTASSIUM BICARBONATE/CIT AC 20 MEQ TABLET.EFF PO ONE (10:55)
[2022-06-14] MEDS ORDERED: POTASSIUM CHLORIDE 20 MEQ in WATER FOR INJECTION 1 100ML.BAG IVPB STA (10:55)
[2022-06-14] MEDS ORDERED: POTASSIUM CHLORIDE ER 20 MEQ TAB.ER PO ONE (13:00)
[2022-06-14] MEDS: MAGNESIUM SULFATE-D5W PMX 1 GM in DEXTROSE/WATER 1 100ML.BAG IVPB SCH ×2 (15:27→16:34)
--- NOTE | 2022-06-14 18:28 | P.CONS ---
History of Present Illness - Reason for Consult Consult date: 06/14/22 Anemia and Thrombocytopenia NHL Requesting physician: Luisa Ramirez - History of Present Illness Mrs. Hubbard is well known to Dr. Villeda and our practice for treatment of NHL, initially presenting after started having some pain in the midback around late 06/15. She subsequently developed pain in the shoulders going down both arms. She sought attention to this with her PCP, and had imaging with x-ray of the C- spine and thoracic spine in mid 08/16. This showed some minimal anterior wedging of a midthoracic vertebral body which is felt to be physiologic and moderate disc/endplate DJD. There was moderate DJD through C5-7, and moderate to severe bony neuro foraminal narrowing in the left mid to lower C-spine. The patient had a course of steroids which improved her symptoms markedly. However these recurred after completing steroids. She also had manipulation by a chiropractor without much benefit. She was therefore referred to orthopedic spine surgery, Dr. Cantu. She had MRI of T-spine done on 10/03/21. This showed solid enhancement testing of mass lesion in the epidural soft tissue at the cervicothoracic junction as well as a second focus of dorsal epidural soft tissue in the mid T-spine at T7. There also appeared to be a solid enhancing left posterior chest wall mass with associated pleural effusion. There also appeared to be a mass in the manubrium. The patient did not follow-up after the MRI as she contracted Covid. She was able to be treated at home, and was on steroids for about 3-4 weeks which markedly improved her symptoms. The patient then had MRI of the C-spine on 10/27/21, which showed enhancement of epidural soft tissue from C7-T2 as well as within the bone marrow of the posterior elements is also enhancement within bone marrow involving spinous pr ocesses of C5-T2. The mass at the cervicothoracic junction measured about 3.6 cm. This was causing mass effect on the dorsal aspect of the spinal cord. Patient was therefore referred here for further evaluation and determinations. She reported recurrence of for upper extremity and shoulder symptoms after completion of the steroid taper for Covid. She has some numbness and tingling in both hands. However she has not had loss of power so far. She denied any significant lower extremity symptoms or loss of bladder or bowel control. No prior history of malignancy. She states that she is a nonsmoker. She had some minor secondhand smoking exposure from her but he quit more than 30 years ago. She denied any B symptoms. Colonoscopy 10/16, and mammogram in 11/15 were both negative. The patient, at her initial visit, was felt to be at high risk for impending cord compression and was sent in for admission at [facility]. On further imaging with CT of the chest abdomen and pelvis, she was found to have a right renal mass which was felt to be the most likely primary. Interventional radiology were consulted, but felt that the location of the mass needed a higher risk for biopsy. Retrograde cystoscopic evaluation did not reveal any excessive a lesion in the collecting system. Orthopedic spine surgery indicated that the biopsy of the spinal lesions would be safer to be attempted by neurosurgery. The patient was agreeable to start radiation to the lower C-spine lesion, which is felt to be highest risk, without a tissue diagnosis. She therefore started the same, and was able to be discharged, on a steroid taper. The patient completed her radiation on 11/30/21. She completed her steroid taper on 12/01/21. she was referred to interventional radiology at [facility] for biopsy of the right renal mass. On the review of the scan there also appeared to be possibly a subdiaphragmatic lymph node. However when the biopsy was attempted under CT guidance, neither the adrenal lesion or the above-mentioned lymph node could be clearly seen to target. the case was discussed at IR, and MRI of the abdomen was ordered. This did confirm an infiltrating type lesion that appeared to involve the upper collecting system of the mid to lower pole of the right kidney. Based on this study, I recommended that the patient should have ureteroscopy. Case was discussed with Urology, and the patient underwent a repeat ureteroscopy in late 01/17. This was again found to be negative. The pt then underwent repeat MRI of the T spine, which noted essentially resolution of the T spine lesion also! The case was discussed with IR at [facility], and the pt was referred back there to attempt a biopsy of the abnormal area around the renal pelvis. However she was admitted there as she developed progressive rt sided chest pain, and SOB. CT scans revealed a new chest wall based mass, and plural effusion. 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 She had thoracentesis on 02/08 revealing high grade NHL She improved with the above and was discharged on 02/10/22 The patient was then seen in the office, and recommended aggressive treatment with R-CHOP, as well as intrathecal methotrexate. She proceeded to for placement. She was admitted in early 03/17 with recurrence of pleural effusion, and had indwelling drainage catheter placed. PET scan on 03/05/22 showed right-sided pleural effusion, right pleural nodularity, right-sided chest wall mass, as well as uptake in mediastinal lymph nodes, retroperitoneal nodes in the upper abdomen, as well as multiple areas throughout the skeleton. She started our CHOP on 03/09/22 and status post 2 cycles. She is also status post 12/30 for intrathecal methotrexate. the patient was admitted to the hospital for febrile neutropenia after cycle 2. Fever resolved quickly with cultures negative. Patient was discharged after 2 days, with recovery of counts. she had another admission subsequently because of shortness of breath, due to reaccumulation of right-sided pleural effusion, and possible pneumonia. PET scan after cycle 2 showed persistent and actually increased uptake in the right chest wall and mediastinal masses as well as a new area of hypermetabolic uptake in the right thoracic separate cutaneous tissues. Improved uptake was seen in the hilar and mediastinal nodes, subdiaphragmatic nodes, and in the osseous lesions. the patient was therefore switched to R- ICE for salvage, starting 04/20 and . Status post 3 cycles. she was found to have a catheter associated left upper extremity DVT due to which the PICC line was removed and the patient started on eliquis. PET scan after 2 cycles showed a major response, with resolution of uptake in her multiple osseous lesions. However there is still some residual uptake in the right chest wall, and mediastinum, although much reduced from before. The case was discussed with hematologic oncology at the [facility], and the patient was referred to them, and to BMT. In the meantime based on response they recommended to continue the current regimen. She denied any fevers/chills/nausea/vomiting. she is complaining of severe fatigue. The right-sided chest wall pain has essentially resolved. She still draining about 50 cc or less of fluid from the chest tube every 2 days, mostly though there has been some increase in the last 2-3 days.. left neck and shoulder pain has not recurred since her last visit.. The patient is currently using fentanyl, [place] when necessary and gabapentin. she does report some cumulative fatigue, and variable appetite. labs indicated possibility of adrenal insufficiency. Patient was started on hydrocortisone, and has been referred to endocrinology. No history of any blood in the stool or urine. Lower extremity as well as bowel and bladder sensation are normal. Review of systems otherwise as per HPI and negative out of 10. the patient is more symptomatic today compared to her last visit, with chemotherapy-related effects. This is in accordance with her counts which show monty at this time, with hemoglobin 6.7, WBC 1 and platelets 4.8. her eliquis was held and she was directed to hospital for transfusion. - Patient will be supported aggressively with PRBC and platelet transfusions, irradiated. she was sent to the emergency room for the same. Case was discussed with the ER physician, and the admitting physician. - Repeat counts later this week. - She has follow-up upcoming with the [facility], early next week. - she was advised to increase the interval between chest catheter drainage to 3 days given the decrease in volume overall. Review of Systems All systems: negative Constitutional: Reports as per HPI Past Medical History Past Medical History: Cancer, Hyperlipidemia, Osteoarthritis (OA) Additional Past Medical History / Comment(s): migraines, pain under rt breast radiating to back, 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, two tumors on spine, probable cancer per pt(had radiation on tumor on spine 10/2021-11/2021(10 treatments) lymphoma, DVT left arm, secondary adrenal insufficiency. Chemo evry 3 weeks for 4 days. Last chemo infusion 06/04/22 History of Any Multi-Drug Resistant Organisms: None Reported Past Surgical History: Appendectomy, Back Surgery, Breast Surgery, Orthopedic Surgery Additional Past Surgical History / Comment(s): rhinoplasty, left breast lumpectomy, ,bunnionectomies payam feet, spinal fusion, PICC line, lumbar puncture with intrathecal chemo, left pleurx cath Past Anesthesia/Blood Transfusion Reactions: No Reported Reaction Additional Past Anesthesia/Blood Transfusion Reaction / Comm: , Past Psychological History: No Psychological Hx Reported Additional Psychological History / Comment(s): Pt resides with her spouse. She is not currently driving, her spouse drives. She has received home care thru [facility] in the past. She has a pleurx tube that her spouse is emptying. She is independent. Smoking Status: Never smoker Past Alcohol Use History: None Reported Past Drug Use History: None Reported - Past Family History Mother Family Medical History: Cancer, Deep Vein Thrombosis (DVT), Pulmonary Embolus Additional Family Medical History / Comment(s): cervical Father Family Medical History: Cancer Additional Family Medical History / Comment(s): prostate Medications and Allergies Home Medications Medication Instructions Recorded Confirmed Type Gabapentin [Neurontin] 300 mg PO Q6H PRN 09/24/18 06/13/22 History Propranolol HCl [Propranolol HCl 60 mg PO DAILY 09/24/18 06/13/22 History ER] Ezetimibe [Zetia] 10 mg PO DAILY 01/18/22 06/13/22 History Vit C/E/Zn/Coppr/Lutein/Zeaxan 1 cap PO DAILY 01/18/22 06/13/22 History [Preservision Areds 2 Softgel] Omeprazole 20 mg PO DAILY 02/26/22 06/13/22 History Zolpidem [Ambien] 10 mg PO HS PRN 02/26/22 06/13/22 History Cholecalciferol [Vitamin D3 (25 50 mcg PO DAILY 03/14/22 06/13/22 History Mcg = 1000 Iu)] OLANZapine 5 mg PO DIRECTED 03/14/22 06/13/22 History Ondansetron Odt [Zofran ODT] 4 mg PO Q6H PRN 04/06/22 06/13/22 History fentaNYL 25MCG/HR PATCH [Duragesic 1 patch TRANSDERM Q72H 04/06/22 06/13/22 Hist ory 25MCG/HR] Acetaminophen Tab [Tylenol] 650 mg PO Q6HR PRN tab 04/08/22 06/13/22 Rx Cetirizine HCl [Zyrtec] 10 mg PO DAILY 05/03/22 06/13/22 History Loratadine 10 mg PO DIRECTED 05/10/22 06/13/22 History Clobetasol Propionate [Temovate 1 applic TOPICAL BID PRN 05/12/22 06/13/22 Hi story 0.05% Oint] HYDROcodone/APAP 10-325MG [[place] 1 tab PO Q6H PRN 05/12/22 06/13/22 History 10-325] Ipratropium-Albuterol Nebulize 3 ml INHALATION RT-QID PRN 05/12/22 06/13/22 History [Duoneb 0.5 mg-3 mg/3 ml Soln] SUMAtriptan succinate 100 mg PO BID PRN 05/12/22 06/13/22 History Sennosides-Docusate Sodium 1 - 2 tab PO HS PRN 05/12/22 06/13/22 History [Senokot-S] predniSONE 100 mg PO DIRECTED #0 05/14/22 06/13/22 Rx LORazepam [Ativan] 0.5 mg PO BID PRN 05/31/22 06/13/22 History Ciprofloxacin HCl [Cipro] 500 mg PO DAILY 10 Days #10 tab 06/02/22 06/13/22 Rx Apixaban [Eliquis] 5 mg PO BID #180 tab 06/03/22 06/13/22 Rx Nystatin 100,000 Unit/ml Susp 500,000 unit PO QID #400 ml 06/03/22 06/13/22 Rx [Mycostatin Oral Susp] Hydrocortisone [Cortef] 10 mg PO BID@0900,1600 06/13/22 06/13/22 History polyethylene glycoL 3350 [Miralax] 17 gm PO DAILY 06/13/22 06/13/22 History Allergies Allergy/AdvReac Type Severity Reaction Status Date / Time No Known Allergies Allergy Verified 06/13/22 14:36 Physical Exam Vitals: Vital Signs Temp Pulse Pulse Resp BP BP Pulse Ox 06/14/22 08:48 98.4 F 91 16 108/68 96 06/14/22 03:34 98.9 F 84 16 124/71 96 06/13/22 23:54 98.6 F 91 16 148/80 95 06/13/22 21:00 99.4 F 85 18 138/79 96 06/13/22 20:56 98.7 F 79 17 126/74 97 06/13/22 20:03 99.4 F 85 18 138/79 96 06/13/22 19:00 99 F 91 18 110/55 97 06/13/22 18:46 98 F 82 18 110/56 100 06/13/22 18:14 98.5 F 75 18 114/62 06/13/22 18:02 98.4 F 79 18 108/57 98 06/13/22 17:13 98.4 F 83 18 114/62 97 06/13/22 16:43 98.5 F 76 18 111/61 06/13/22 16:33 98.4 F 77 18 111/64 97 06/13/22 14:36 98.8 F 83 16 111/62 98 Intake and Output 06/13/22 06/14/22 06/14/22 22:59 06:59 14:59 Intake Total 812 120 Balance 812 120 Intake: Oral 240 120 Blood Product 572 Platelet Pheresis Pas 262 Psoralen Unit [id number] Rc Irr As1 Unit 310 [id number] Other: Voiding Method Toilet Toilet Toilet # Voids 2 1 # Bowel Movements 1 Weight 83.461 kg - Constitutional General appearance: cooperative - EENT Eyes: EOMI, PERRLA ENT: NA/AT - Neck Neck: normal ROM - Respiratory Respiratory: bilateral: CTA - Cardiovascular Rhythm: regularly irregular - Gastrointestinal General gastrointestinal: normal bowel sounds - Integumentary Integumentary: pale - Neurologic Neurologic: CNII-XII intact - Musculoskeletal Musculoskeletal: generalized weakness, strength equal bilaterally - Psychiatric Psychiatric: A&O x's 3, appropriate affect, intact judgment & insight Results CBC & Chem 7: 06/14/22 07:30 06/14/22 07:37 Labs: Abnormal Lab Results - Last 24 Hours (Table) 06/13/22 06/13/22 06/13/22 Range/Units 15:19 15:19 15:19 WBC 1.0 L* (3.8-10.6) k/uL RBC 2.14 L (3.80-5.40) m/uL Hgb 6.2 L* D (11.4-16.0) gm/dL Hct 19.3 L* (34.0-46.0) % Plt Count 2 L* D (150-450) k/uL Neutrophils # 0.7 L (1.3-7.7) k/uL Neutrophils # (Manual) (1.3-7.7) k/uL Lymphocytes # 0.1 L (1.0-4.8) k/uL Lymphocytes # (Manual) (1.0-4.8) k/uL Sodium 135 L (137-145) mmol/L Potassium 2.5 L* (3.5-5.1) mmol/L BUN (7-17) mg/dL Creatinine (0.52-1.04) mg/dL Glucose 128 H (74-99) mg/dL Phosphorus (2.5-4.5) mg/dL Total Protein 5.1 L (6.3-8.2) g/dL Albumin 3.3 L (3.5-5.0) g/dL Crossmatch See Detail 06/14/22 06/14/22 Range/Units 07:30 07:37 WBC 1.5 L (3.8-10.6) k/uL RBC 2.60 L (3.80-5.40) m/uL Hgb 7.9 L D (11.4-16.0) gm/dL Hct 23.6 L (34.0-46.0) % Plt Count 9 L* D (150-450) k/uL Neutrophils # (1.3-7.7) k/uL Neutrophils # (Manual) 1.20 L (1.3-7.7) k/uL Lymphocytes # (1.0-4.8) k/uL Lymphocytes # (Manual) 0.11 L (1.0-4.8) k/uL Sodium (137-145) mmol/L Potassium 2.7 L* (3.5-5.1) mmol/L BUN 4 L (7-17) mg/dL Creatinine 0.45 L (0.52-1.04) mg/dL Glucose 111 H (74-99) mg/dL Phosphorus 1.8 L (2.5-4.5) mg/dL Total Protein 5.3 L (6.3-8.2) g/dL Albumin 3.4 L (3.5-5.0) g/dL Crossmatch Assessment and Plan (1) Pancytopenia due to antineoplastic chemotherapy Narrative/Plan: Status post PRBC and Plats ALL PRODUCTS to be IRRADIATED as bone marrow or STEM cell transplant is anticipated in near future Current Visit: Yes Status: Acute Code(s): D61.810 - ANTINEOPLASTIC CHEMOTHERAPY INDUCED PANCYTOPENIA; T45.1X5A - ADVERSE EFFECT OF ANTINEOPLASTIC AND IMMUNOSUP DRUGS, INIT SNOMED Code(s): 958909634536788 (2) Acute deep vein thrombosis of left upper extremity Narrative/Plan: Eliquis is on hold at this time due to platelets less than 50K Current Visit: No Status: Acute Code(s): I82.622 - ACUTE EMBOLISM AND THROMBOSIS OF DEEP VEINS OF L UP EXTREM SNOMED Code(s): 429516781755292 (3) Non-Hodgkin lymphoma Narrative/Plan: Status post cycle 3 in hospital ICE, plan for consultation with Bone Marrow Transplant team on Sunday next week for plan moving forward Current Visit: No Status: Acute Code(s): C85.90 - NON-HODGKIN LYMPHOMA, UNSPECIFIED, UNSPECIFIED SITE SNOMED Code(s): 819908292 (4) Pleural effusion Narrative/Plan: Pleurex drain in place and continue drainage PRN Current Visit: No Status: Acute Priority: High Code(s): J90 - PLEURAL EFFUSION, NOT ELSEWHERE CLASSIFIED SNOMED Code(s): 91084487 Plan: - Discussed with primary team. Dr. Miranda: I have completed the full history and physical and developed the complete impression and plan agree with dictation , dictated as a ascribe.
[2022-06-15 08:27] LABS: Anisocytosis Slight; HCT 22.2 % (34.0-46.0); HGB 7.4 gm/dL (11.4-16.0); MCH 30.7 pg (25.0-35.0); MCHC 33.3 g/dL (31.0-37.0); MCV 92.1 fL (80.0-100.0); Mean Platelet Volume 10.6; RBC 2.41 m/uL (3.80-5.40); RDW 16.2 % (11.5-15.5); WBC 2.7 k/uL (3.8-10.6)
[2022-06-15 08:36] LABS: Platelet Count 13 k/uL (150-450)
[2022-06-15 08:42] LABS: ALT 11 U/L (4-34); AST 21 U/L (14-36); African American GFR (CKD) >90 (>60 ml/min/1.73 sqM); Albumin 3.1 g/dL (3.5-5.0); Alkaline Phosphatase 94 U/L (38-126); Anion Gap 4 mmol/L; Blood Urea Nitrogen 3 mg/dL (7-17); Calcium 8.3 mg/dL (8.4-10.2); Carbon Dioxide 28 mmol/L (22-30); Chloride 109 mmol/L (98-107); Glucose 92 mg/dL (74-99); Non-African American GFR(CKD) >90 (>60 ml/min/1.73 sqM); Potassium 3.2 mmol/L (3.5-5.1); Prothrombin Time 10.5 sec (9.0-12.0); Sodium 141 mmol/L (137-145); Total Bilirubin 0.8 mg/dL (0.2-1.3); Total Protein 4.9 g/dL (6.3-8.2)
[2022-06-15] MEDS: VIT A,C & E-LUTEIN-MINERALS 1 EACH TAB PO SCH (09:02)
[2022-06-15] MEDS: HYDROCORTISONE 10 MG TAB PO SCH (09:02)
[2022-06-15] MEDS: PROPRANOLOL LA 60 MG CAP.SA.24H PO SCH (09:02)
[2022-06-15] MEDS: NYSTATIN 100,000 UNIT/ML SUSP 500,000 UNIT/5 ML CUP PO SCH (09:02)
[2022-06-15] MEDS: CHOLECALCIFEROL 25 MCG (1000 IU) TABLET PO SCH (09:03)
[2022-06-15] MEDS: POTASSIUM CHLORIDE ER 20 MEQ TAB.ER PO SCH (09:03)
[2022-06-15] MEDS: PANTOPRAZOLE 40 MG TABLET PO SCH (09:03)
[2022-06-15] MEDS: EZETIMIBE 10 MG TAB PO SCH (09:03)
[2022-06-15] MEDS: LORATADINE 10 MG TAB PO SCH (09:03)
[2022-06-15] MEDS: CIPROFLOXACIN HCL 500 MG TAB PO SCH (09:03)
[2022-06-15] MEDS: polyethylene glycoL 3350 17 GM POWD.PACK PO SCH (09:04)
[2022-06-15] MEDS ORDERED: POTASSIUM CHLORIDE ER 20 MEQ TAB.ER PO STA (09:25)
[2022-06-15 09:53] VITALS: RESP 16
[2022-06-15 12:57] VITALS: BP 133/79; PULSE 79; TEMP 98.3
--- NOTE | 2022-06-15 13:50 | P.PN ---
Subjective Progress Note Date: 06/15/22 Principal diagnosis: NHL Patient was seen and evaluated this am prior to discharge, she is feeling better. Platelets >10K but still less than 50K and instructed to NOT restart moy aletha. She has appointment for CBC check tomorrow in office. Objective - Vital Signs Vital signs: Vital Signs Temp 98.3 F 06/15/22 12:00 Pulse 79 06/15/22 12:00 Resp 16 06/15/22 12:00 BP 133/79 06/15/22 12:00 Pulse Ox 97 06/15/22 12:00 FiO2 Intake & Output 06/14/22 06/15/22 06/15/22 18:59 06:59 18:59 Intake Total 568 780 120 Balance 568 780 120 Intake: Oral 240 780 120 Blood Product 328 Platelet Pheresis Pas 328 Psoralen Unit [id number] Other: Voiding Method Toilet Toilet Toilet # Voids 2 1 2 - Labs CBC & Chem 7: 06/15/22 07:39 06/15/22 07:39 Labs: Abnormal Lab Results - Last 24 Hours (Table) 06/15/22 06/15/22 Range/Units 07:39 07:39 WBC 2.7 L (3.8-10.6) k/uL RBC 2.41 L (3.80-5.40) m/uL Hgb 7.4 L (11.4-16.0) gm/dL Hct 22.2 L (34.0-46.0) % RDW 16.2 H (11.5-15.5) % Plt Count 13 L* (150-450) k/uL Potassium 3.2 L (3.5-5.1) mmol/L Chloride 109 H (98-107) mmol/L BUN 3 L (7-17) mg/dL Creatinine 0.46 L (0.52-1.04) mg/dL Calcium 8.3 L (8.4-10.2) mg/dL Total Protein 4.9 L (6.3-8.2) g/dL Albumin 3.1 L (3.5-5.0) g/dL Assessment and Plan (1) Pancytopenia due to antineoplastic chemotherapy Narrative/Plan: Status post PRBC and Plats ALL PRODUCTS to be IRRADIATED as bone marrow or STEM cell transplant is anti cipated in near future Platelets 13K - COntinue to hold ELIQUIS, NO NSAIDS, ADVIL, MOTRIN, or ASPIRIN Status: Acute Code(s): D61.810 - ANTINEOPLASTIC CHEMOTHERAPY INDUCED PANCYTOPENIA; T45.1X5A - ADVERSE EFFECT OF ANTINEOPLASTIC AND IMMUNOSUP DRUGS, INIT SNOMED Code(s): 665082869017163 (2) Acute deep vein thrombosis of left upper extremity Narrative/Plan: Eliquis is on hold at this time due to platelets less than 50K Status: Acute Code(s): I82.622 - ACUTE EMBOLISM AND THROMBOSIS OF DEEP VEINS OF L UP EXTREM SNOMED Code(s): 746838860320477 (3) Non-Hodgkin lymphoma Narrative/Plan: Status post cycle 3 in hospital ICE, plan for consultation with Bone Marrow Transplant team on Sunday next week for plan moving forward Status: Acute Code(s): C85.90 - NON-HODGKIN LYMPHOMA, UNSPECIFIED, UNSPECIFIED SITE SNOMED Code(s): 707852763 (4) Pleural effusion Narrative/Plan: Pleurex drain in place and continue drainage PRN Status: Acute Priority: High Code(s): J90 - PLEURAL EFFUSION, NOT ELSEWHERE CLASSIFIED SNOMED Code(s): 16050611 Plan: - Discussed with primary team. - CBC scheduled in office tomorrow Dr. Miranda: I have completed the full history and physical and developed the complete impression and plan agree with dictation , dictated as a ascribe.
--- NOTE | 2022-06-15 16:04 | P.DS ---
Providers Date of admission: 06/13/22 15:49 Expected date of discharge: 06/15/22 Attending physician: Luisa Ramirez DO Consults: 06/13/22 15:44 Consult Physician Routine Consulting Provider: William Villeda Consult Reason/Comments: Thrombocytopenia, anemia Do you want consulting provider notified?: Yes Primary care physician: Darryl Julien Hospital Course: Discharge Diagnosis: Pancytopenia with leukopenia, anemia, and thrombocytopenia likely secondary to chemotherapy Non-Hodgkin's lymphoma Left Arm DVT Hypokalemia Adrenal insufficiency suspect secondary to steroids HLD PleurX cath in place Hospital Course: Patient is a 72-year-old female with nodular histiocytic lymphoma, secondary adrenal insufficiency, and recent DVT left upper extremity who was sent in by Dr. Villeda due to low hemoglobin and platelets. Patient will need radiated platelets. Patient was recently hospitalized here for cycle #3 of a and was subsequently discharged home on 06/04/22. In the ER her hemoglobin was confirmed to be 6.2 and platelets at 2. Orders were written for 1 unit of packed red cells and platelets. She was given 1 unit pRBC and 1 unit of platelets. Her Plt remained at 9. She was given an additional unit of platelets. She continued to progress well. She was found to be significantly hypokalemic and her magnesium levels were low as well. These were replaced. Case was discussed with Dr. Villeda who felt her low levels were secondary to her chemo. She was discharged home to resume the potassium and magnesium and she had not been taking this for quite some time. She also will follow with Dr. Villeda tomorrow for repeat CBC. She will stay off eliquis until her platelets are greater than 50. She will change to a draining her Pleurx catheter to every 3 days as instructed by oncology. Patient seen and examined at bedside. Feeling great. Her legs have recovered from weakness. No nausea. No vomiting. No shortness of breath. Vital signs reviewed and stable. General: nontoxic, no distress, appears at stated age Derm: warm, dry Head: atraumatic, normocephalic, symmetric Eyes: EOMI, no lid lag, anicteric sclera Mouth: no lip lesion, mucus membranes moist Cardiovascular: S1S2 reg, no murmur, positive posterior tibial pulse bilateral, Lungs: CTA bilateral, no rhonchi, no rales , no accessory muscle use Abdominal: soft, nontender to palpation, no guarding, no appreciable organomegaly Ext: no gross muscle atrophy, no edema, no contractures Neuro: CN II-XI grossly intact, no focal neuro deficits Psych: Alert, oriented, appropriate affect A total of 32 minutes of time were spent preparing this complex discharge summary. Patient was discharged on 06/15/22. Patient Condition at Discharge: Stable Plan - Discharge Summary Discharge Rx Participant: Yes New Discharge Prescriptions: New Potassium Chloride ER [K-Dur 20] 20 meq PO BID tab Magnesium Oxide [Mag-Oxide] 200 mg PO AC-BID #30 tab Continue Gabapentin [Neurontin] 300 mg PO Q6H PRN PRN Reason: Pain Propranolol HCl [Propranolol HCl ER] 60 mg PO DAILY Ezetimibe [Zetia] 10 mg PO DAILY Zolpidem [Ambien] 10 mg PO HS PRN PRN Reason: Insomnia Omeprazole 20 mg PO DAILY Cholecalciferol [Vitamin D3 (25 Mcg = 1000 Iu)] 50 mcg PO DAILY OLANZapine 5 mg PO DIRECTED Ondansetron Odt [Zofran ODT] 4 mg PO Q6H PRN PRN Reason: Nausea Cetirizine HCl [Zyrtec] 10 mg PO DAILY Loratadine 10 mg PO DIRECTED SUMAtriptan succinate 100 mg PO BID PRN PRN Reason: Migraine Headache Ipratropium-Albuterol Nebulize [Duoneb 0.5 mg-3 mg/3 ml Soln] 3 ml INHALATION RT-QID PRN PRN Reason: Shortness Of Breath HYDROcodone/APAP 10-325MG [Sedan 10-325] 1 tab PO Q6H PRN PRN Reason: Pain predniSONE 100 mg PO DIRECTED #0 LORazepam [Ativan] 0.5 mg PO BID PRN PRN Reason: Anxiety/Nausea/Insomnia Nystatin 100,000 Unit/ml Susp [Mycostatin Oral Susp] 500,000 unit PO QID #400 ml Vit C/E/Zn/Coppr/Lutein/Zeaxan [Preservision Areds 2 Softgel] 1 cap PO DAILY fentaNYL 25MCG/HR PATCH [Duragesic 25MCG/HR] 1 patch TRANSDERM Q72H Acetaminophen Tab [Tylenol] 650 mg PO Q6HR PRN tab PRN Reason: Fever And/ Or Pain Sennosides-Docusate Sodium [Senokot-S] 1 - 2 tab PO HS PRN PRN Reason: Constipation Clobetasol Propionate [Temovate 0.05% Oint] 1 applic TOPICAL BID PRN PRN Reason: Rash Ciprofloxacin HCl [Cipro] 500 mg PO DAILY 10 Days #10 tab polyethylene glycoL 3350 [Miralax] 17 gm PO DAILY Hydrocortisone [Cortef] 10 mg PO BID@0900,1600 Discontinued Apixaban [Eliquis] 5 mg PO BID #180 tab Discharge Medication List Gabapentin [Neurontin] 300 mg PO Q6H PRN 09/24/18 [History] Propranolol HCl [Propranolol HCl ER] 60 mg PO DAILY 09/24/18 [History] Ezetimibe [Zetia] 10 mg PO DAILY 01/18/22 [History] Vit C/E/Zn/Coppr/Lutein/Zeaxan [Preservision Areds 2 Softgel] 1 cap PO DAILY 01/18/22 [History] Omeprazole 20 mg PO DAILY 02/26/22 [History] Zolpidem [Ambien] 10 mg PO HS PRN 02/26/22 [History] Cholecalciferol [Vitamin D3 (25 Mcg = 1000 Iu)] 50 mcg PO DAILY 03/14/22 [History] OLANZapine 5 mg PO DIRECTED 03/14/22 [History] Ondansetron Odt [Zofran ODT] 4 mg PO Q6H PRN 04/06/22 [History] fentaNYL 25MCG/HR PATCH [Duragesic 25MCG/HR] 1 patch TRANSDERM Q72H 04/06/22 [History] Acetaminophen Tab [Tylenol] 650 mg PO Q6HR PRN tab 04/08/22 [Rx] Cetirizine HCl [Zyrtec] 10 mg PO DAILY 05/03/22 [History] Loratadine 10 mg PO DIRECTED 05/10/22 [History] Clobetasol Propionate [Temovate 0.05% Oint] 1 applic TOPICAL BID PRN 05/12/22 [History] HYDROcodone/APAP 10-325MG [Sedan 10-325] 1 tab PO Q6H PRN 05/12/22 [History] Ipratropium-Albuterol Nebulize [Duoneb 0.5 mg-3 mg/3 ml Soln] 3 ml INHALATION RT-QID PRN 05/12/22 [History] SUMAtriptan succinate 100 mg PO BID PRN 05/12/22 [History] Sennosides-Docusate Sodium [Senokot-S] 1 - 2 tab PO HS PRN 05/12/22 [History] predniSONE 100 mg PO DIRECTED #0 05/14/22 [Rx] LORazepam [Ativan] 0.5 mg PO BID PRN 05/31/22 [History] Ciprofloxacin HCl [Cipro] 500 mg PO DAILY 10 Days #10 tab 06/02/22 [Rx] Nystatin 100,000 Unit/ml Susp [Mycostatin Oral Susp] 500,000 unit PO QID #400 ml 06/03/22 [Rx] Hydrocortisone [Cortef] 10 mg PO BID@0900,1600 06/13/22 [History] polyethylene glycoL 3350 [Miralax] 17 gm PO DAILY 06/13/22 [History] Magnesium Oxide [Mag-Oxide] 200 mg PO AC-BID #30 tab 06/15/22 [Rx] Potassium Chloride ER [K-Dur 20] 20 meq PO BID tab 06/15/22 [Rx] Follow up Appointment(s)/Referral(s): William Villeda MD [Family Provider] - 1-2 Days (Office will contact pt with a follow up appointment, please keep scheduled blood work for tomorrow) Darryl Julien DO [Primary Care Provider] - 06/19/22 2:20 pm Patient Instructions/Handouts: Anemia (DC) Activity/Diet/Wound Care/Special Instructions: Stay off Eliquis at this time. Dr. Villeda will resume once your platelets are above 50. Discharge Disposition: HOME SELF-CARE
== END 2022-06-15 12:43 | disposition home or self-care (01) | DRG 809 ==
LOC: EC 14:30 → 5NMEDONC 15:49 → 3SCARD 18:31
PROVIDERS: ADMIT Internal Medicine; ATTEND Internal Medicine
PROC: 6A550Z2 Pheresis of Platelets, Single (ICD-10-PCS; principal; 2022-06-14)
PROC: 30233R1 Transfusion of Nonautologous Platelets into Peripheral Vein, Percutaneous Approach (ICD-10-PCS; 2022-06-14)
PROC: 30233N1 Transfusion of Nonautologous Red Blood Cells into Peripheral Vein, Percutaneous Approach (ICD-10-PCS; 2022-06-14)
DX: D61.810 Antineoplastic chemotherapy induced pancytopenia (principal); C85.90 Non-Hodgkin lymphoma, unspecified, unspecified site; E27.49 Other adrenocortical insufficiency; I82.622 Acute embolism and thrombosis of deep veins of left upper extremity; J90 Pleural effusion, not elsewhere classified; T45.1X5A Adverse effect of antineoplastic and immunosuppressive drugs, initial encounter; T38.0X5A Adverse effect of glucocorticoids and synthetic analogues, initial encounter; R50.81 Fever presenting with conditions classified elsewhere; S80.12XA Contusion of left lower leg, initial encounter; D69.59 Other secondary thrombocytopenia; E87.6 Hypokalemia; E78.5 Hyperlipidemia, unspecified; F41.9 Anxiety disorder, unspecified; M48.02 Spinal stenosis, cervical region; M47.892 Other spondylosis, cervical region; M47.894 Other spondylosis, thoracic region; G43.909 Migraine, unspecified, not intractable, without status migrainosus; G47.00 Insomnia, unspecified; K59.00 Constipation, unspecified; N28.89 Other specified disorders of kidney and ureter; M19.90 Unspecified osteoarthritis, unspecified site; Z79.01 Long term (current) use of anticoagulants; Z79.899 Other long term (current) drug therapy; Z86.718 Personal history of other venous thrombosis and embolism; Z98.1 Arthrodesis status; X58.XXXA Exposure to other specified factors, initial encounter; Z86.16 Personal history of COVID-19
CPT/HCPCS: 36415; 80053; 83735; 84100; 85025; 85027; 85610; 86850; 86900; 86901; 86920; 96374; 99284

== ENCOUNTER 2022-06-22 11:36 | Inpatient (IN) | payer MEDICARE ==
[2022-06-26] MEDS ORDERED: ONDANSETRON 4 MG/2 ML VIAL IVP PRN (12:00)
[2022-06-26 12:29] LABS: Anisocytosis Slight; Basophils % (A) 0 %; Eosinophils % (A) 0 %; HCT 28.9 % (34.0-46.0); Hypochromasia Moderate; Lymphocytes # (A) 0.7 k/uL (1.0-4.8); Lymphocytes % (A) 15 %; MCH 29.9 pg (25.0-35.0); MCHC 31.1 g/dL (31.0-37.0); MCV 96.1 fL (80.0-100.0); Macrocytosis Slight; Mean Platelet Volume 8.2; Monocytes # (A) 0.2 k/uL (0-1.0); Monocytes % (A) 5 %; Neutrophils # (A) 3.7 k/uL (1.3-7.7); Neutrophils % (A) 78 %; Poikilocytosis Slight; RBC 3.01 m/uL (3.80-5.40); WBC 4.7 k/uL (3.8-10.6)
[2022-06-26 12:32] LABS: Platelet Count 222 k/uL (150-450)
[2022-06-26 12:42] LABS: ALT 16 U/L (4-34); AST 27 U/L (14-36); African American GFR (CKD) >90 (>60 ml/min/1.73 sqM); Albumin 3.8 g/dL (3.5-5.0); Albumin/Globulin Ratio 1.7; Alkaline Phosphatase 116 U/L (38-126); Anion Gap 8 mmol/L; Blood Urea Nitrogen 10 mg/dL (7-17); Calcium 8.9 mg/dL (8.4-10.2); Carbon Dioxide 23 mmol/L (22-30); Chloride 107 mmol/L (98-107); Globulin 2.2 g/dL; Glucose 179 mg/dL (74-99); Non-African American GFR(CKD) >90 (>60 ml/min/1.73 sqM); Phosphorus 3.1 mg/dL (2.5-4.5); Potassium 3.9 mmol/L (3.5-5.1); Sodium 138 mmol/L (137-145); Total Bilirubin 0.4 mg/dL (0.2-1.3); Uric Acid 2.7 mg/dL (3.7-7.4)
[2022-06-26] MEDS: SODIUM CHLORIDE 0.9% 1,000 ML IV SCH ×2 (12:49→21:10)
[2022-06-26] MEDS ORDERED: SENNOSIDES-DOCUSATE SODIUM 1 EACH TAB PO PRN (13:25)
[2022-06-26] MEDS ORDERED: ONDANSETRON ODT 4 MG TAB PO PRN (13:25)
[2022-06-26] MEDS ORDERED: GABAPENTIN 300 MG CAP PO PRN (13:25)
[2022-06-26] MEDS ORDERED: HYDROcodone/APAP 10-325MG 1 EACH TAB PO PRN (13:25)
[2022-06-26] MEDS ORDERED: NYSTATIN 100,000 UNIT/ML SUSP 500,000 UNIT/5 ML CUP PO PRN (13:25)
[2022-06-26] MEDS ORDERED: CLOBETASOL PROP 0.05% OINT 15GM TOPICAL PRN (13:25)
[2022-06-26] MEDS ORDERED: LORATADINE 10 MG TAB PO SCH (13:30)
[2022-06-26] MEDS: FAMOTIDINE 20 MG/2 ML VIAL IV SCH (14:10)
[2022-06-26] MEDS: ONDANSETRON 16 MG in SODIUM CHLORIDE 0.9% 50 ML IVPB SCH (14:10)
[2022-06-26] MEDS: ETOPOSIDE 170 MG in SODIUM CHLORIDE 0.9% 500 ML 500 ML IV SCH (15:07)
[2022-06-26] MEDS: HYDROCORTISONE 10 MG TAB PO SCH (15:07)
[2022-06-26] MEDS: MAGNESIUM OXIDE 400 MG TAB PO SCH (18:19)
--- NOTE | 2022-06-26 19:14 | P.HPIM ---
History of Present Illness H&P Date: 06/26/22 Chief Complaint: Non-Hodgkin's lymphoma, refractory, admission for continuous IV infusion ch Mrs. Hubbard is a pleasant female pt of Dr. Villeda, who initially presented with pain in the midback around late 06/15, this progressed into the shoulders, going down both arms. She sought attention to this with her PCP, x-ray of the C-spine and thoracic spine in mid 08/16 showed some minimal anterior wedging of a midthoracic vertebral body which is felt to be physiologic and moderate disc/endplate DJD. There was moderate DJD through C5-7, and moderate to severe bony neuro foraminal narrowing in the left mid to lower C-spine. She had a course of steroids which improved her symptoms markedly. However, symptoms recurred after completing steroids. She also had manipulation by a chiropractor without much benefit. She was therefore referred to Orthopedic spine surgery. She had MRI of T-spine done on 10/03/21. This showed mass lesion in the epidural soft tissue at the cervicothoracic junction as well as a second focus of dorsal epidural soft tissue in the mid T-spine at T7, a solid enhancing left posterior chest wall mass with associated pleural effusion and a mass in the manubrium. She did not follow-up after the MRI as she contracted Covid. She was able to be treated at home, and was on steroids for about 3-4 weeks which markedly improved her symptoms. MRI of the C-spine on 10/27/21 showed enhancement of epidural soft tissue from C7-T2 as well as within the bone marrow of the posterior elements is also enhancement within bone marrow involving spinous processes of C5-T2. The mass at the cervicothoracic junction measured about 3.6 cm. This was causing mass effect on the dorsal aspect of the spinal cord. She had no prior history of malignancy, lifetime nonsmoker, minor secondhand smoking exposure from her but he quit more than 30 years ago. Denied any B symptoms. Colonoscopy 10/16, and mammogram in 11/15 were both negative. At her initial oncology visit, was felt to be at high risk for impending cord compression and was sent in for admission at [facility]. On further imaging with CT CAP, found to have a right renal mass which was felt to be the most likely primary. IR consulted, but felt that the location of the mass needed a higher risk for biopsy. Retrograde cystoscopic evaluation did not reveal any excessive a lesion in the collecting system. Orthopedic spine surgery indicated that the biopsy of the spinal lesions would be safer to be attempted by Neurosurgery. The patient was agreeable to start radiation to the lower C-spine lesion, which is felt to be highest risk, without a tissue diagnosis. She therefore started the same, and was able to be discharged, on a steroid taper. Completed radiation 11/30/21. She completed her steroid taper on 12/01/21. IR at [facility] did biopsy of the right renal mass. On the review of the scan there also appeared to be possibly a subdiaphragmatic lymph node. However, when the biopsy was attempted under CT guidance, neither the adrenal lesion or the above-mentioned lymph node could be clearly seen to target. MRI abdomen was ordered. This did confirm an infiltrating type lesion that appeared to involve the upper collecting system of the mid to lower pole of the right kidney. Based on this study, recommended ureteroscopy. Case was discussed with Urology, and the patient underwent a repeat ureteroscopy in late 01/17. This was again found to be negative. The pt then underwent repeat MRI of the T spine, which noted essentially resolution of the T spine lesion also! The case was discussed with IR at [facility], and the pt was referred back there to attempt a biopsy of the abnormal area around the renal pelvis. However, she was admitted there as she developed progressive rt sided chest pain, and SOB. CT scans revealed a new chest wall based mass, and plural effusion. 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 She had thoracentesis on 02/08 revealing high grade NHL. Recommended aggressive treatment with R-CHOP, as well as intrathecal methotrexate. She was admitted in early 03/17 with recurrence of pleural effusion, and had indwelling drainage catheter placed. PET scan on 03/05/22 showed right-sided pleural effusion, right pleural nodularity, right-sided chest wall mass, as well as uptake in mediastinal lymph nodes, retroperitoneal nodes in the upper abdomen, as well as multiple areas throughout the skeleton. She had 2 cycles of R-CHOP, PET scan after cycle 2 showed persistent and actually increased uptake in the right chest wall and mediastinal masses as well as a new area of hypermetabolic uptake in the right thoracic separate cutaneous tissues. Improved uptake was seen in the hilar and mediastinal nodes, subdiaphragmatic nodes, and in the osseous lesions. She was switched to R- ICE for salvage, starting 04/20. PET scan after 2 cycles showed a major response, with resolution of uptake in her multiple osseous lesions. However there is still some residual uptake in the right chest wall, and mediastinum, although much reduced from before. The case was discussed with Hematologic Oncology at the [facility], and the patient was referred to them, and to BMT/CAR-T. In the meantime, based on response, they recommended to continue the current regimen. She has completed 4 prophylactic IT chemo. She is admitted for cycle #4, with 15% dose reduction while she awaits CAR-T plans. She denies F, chills, oral irritation, N,V, cough, SOB, abd pain, cramping, diarrhea, constipation, swelling, bleeding, rashes, or pain. Review of Systems 14 point review of systems is negative except as stated in HPI Past Medical History Past Medical History: Cancer, Hyperlipidemia, Osteoarthritis (OA) Additional Past Medical History / Comment(s): migraines, pain under rt breast radiating to back, 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, two tumors on spine, probable cancer per pt(had radiation on tumor on spine 10/2021-11/2021(10 treatments) lym phoma, DVT left arm, secondary adrenal insufficiency. Chemo evry 3 weeks for 4 days. Last chemo infusion 06/04/22 History of Any Multi-Drug Resistant Organisms: None Reported Past Surgical History: Appendectomy, Back Surgery, Breast Surgery, Orthopedic Surgery Additional Past Surgical History / Comment(s): rhinoplasty, left breast lumpectomy, ,bunnionectomies payam feet, spinal fusion, PICC line, lumbar puncture with intrathecal chemo, left pleurx cath Past Anesthesia/Blood Transfusion Reactions: No Reported Reaction Additional Past Anesthesia/Blood Transfusion Reaction / Comment(s): , Past Psychological History: No Psychological Hx Reported Additional Psychological History / Comment(s): Pt resides with her spouse. She is not currently driving, her spouse drives. She has received home care thru [facility] in the past. She has a pleurx tube that her spouse is emptying. She is independent. Smoking Status: Never smoker Past Alcohol Use History: None Reported Past Drug Use History: None Reported - Past Family History Mother Family Medical History: Cancer, Deep Vein Thrombosis (DVT), Pulmonary Embolus Additional Family Medical History / Comment(s): cervical Father Family Medical History: Cancer Additional Family Medical History / Comment(s): prostate Medications and Allergies Home Medications Medication Instructions Recorded Confirmed Type Gabapentin [Neurontin] 300 mg PO Q6H PRN 09/24/18 06/26/22 History Propranolol HCl [Propranolol HCl 60 mg PO DAILY 09/24/18 06/26/22 History ER] Ezetimibe [Zetia] 10 mg PO DAILY 01/18/22 06/26/22 History Vit C/E/Zn/Coppr/Lutein/Zeaxan 1 cap PO DAILY 01/18/22 06/26/22 History [Preservision Areds 2 Softgel] Omeprazole 20 mg PO DAILY 02/26/22 06/26/22 History Zolpidem [Ambien] 10 mg PO HS PRN 02/26/22 06/26/22 History Cholecalciferol [Vitamin D3 (25 50 mcg PO DAILY 03/14/22 06/26/22 History Mcg = 1000 Iu)] OLANZapine 5 mg PO DIRECTED 03/14/22 06/26/22 History Ondansetron Odt [Zofran ODT] 4 mg PO Q6H PRN 04/06/22 06/26/22 History fentaNYL 25MCG/HR PATCH [Duragesic 1 patch TRANSDERM Q72H 04/06/22 06/26/22 History 25MCG/HR] Cetirizine HCl [Zyrtec] 10 mg PO DAILY 05/03/22 06/26/22 History Loratadine 10 mg PO DIRECTED 05/10/22 06/26/22 History Clobetasol Propionate [Temovate 1 applic TOPICAL BID PRN 05/12/22 06/26/22 History 0.05% Oint] HYDROcodone/APAP 10-325MG [Palo 1 tab PO Q6H PRN 05/12/22 06/26/22 History 10-325] Sennosides-Docusate Sodium 1 - 2 tab PO HS PRN 05/12/22 06/26/22 History [Senokot-S] predniSONE 100 mg PO DIRECTED #0 05/14/22 06/26/22 Rx LORazepam [Ativan] 0.5 mg PO BID PRN 05/31/22 06/26/22 History Nystatin 100,000 Unit/ml Susp 500,000 unit PO QID #400 ml 06/03/22 06/26/22 Rx [Mycostatin Oral Susp] Hydrocortisone [Cortef] 10 mg PO BID@0900,1600 06/13/22 06/26/22 History Magnesium Oxide [Mag-Oxide] 200 mg PO AC-BID #30 tab 06/15/22 06/26/22 Rx Potassium Chloride ER [K-Dur 20] 20 meq PO BID tab 06/15/22 06/26/22 Rx Apixaban [Eliquis] 5 mg PO BID 06/26/22 06/26/22 History Allergies Allergy/AdvReac Type Severity Reaction Status Date / Time No Known Allergies Allergy Verified 06/26/22 13:07 Physical Exam Vitals: Vital Signs Temp Pulse Resp BP Pulse Ox 06/26/22 12:14 98.4 F 83 16 129/80 95 Intake and Output 06/25/22 06/26/22 06/26/22 22:59 06:59 14:59 Other: Weight 83.007 kg - Constitutional General appearance: average body habitus, cooperative, no acute distress - EENT Eyes: anicteric sclerae, EOMI ENT: hearing grossly normal, normal oropharynx - Neck Neck: no lymphadenopathy - Respiratory Respiratory: bilateral: CTA - Cardiovascular Rhythm: regular Heart sounds: normal: S1, S2 Abnormal Heart Sounds: no systolic murmur, no diastolic murmur, no rub, no S3 Gallop, no S4 Gallop, no click, no other leg Peripheral Edema: bilateral: None - Gastrointestinal General gastrointestinal: no absent bowel sounds, no decreased bowel sounds, no distended, no hepatomegaly, no hyperactive bowel sounds, normal bowel sounds, no organomegaly, no rigid, no scaphoid, soft, no splenomegaly, no tenderness, no umbilical hernia, no ventral hernia - Integumentary Integumentary: normal - Neurologic Neurologic: CNII-XII intact - Musculoskeletal Musculoskeletal: strength equal bilaterally - Psychiatric Psychiatric: A&O x's 3, appropriate affect, intact judgment & insight Results CBC & Chem 7: 06/26/22 12:15 06/26/22 12:15 Labs: Abnormal Lab Results - Last 24 Hours (Table) 06/26/22 06/26/22 Range/Units 12:15 12:15 RBC 3.01 L (3.80-5.40) m/uL Hgb 9.0 L D (11.4-16.0) gm/dL Hct 28.9 L (34.0-46.0) % RDW 18.0 H (11.5-15.5) % Lymphocytes # 0.7 L (1.0-4.8) k/uL Glucose 179 H (74-99) mg/dL Uric Acid 2.7 L (3.7-7.4) mg/dL Total Protein 6.0 L (6.3-8.2) g/dL Thrombosis Risk Factor Assmnt - DVT/VTE Prophylaxis DVT/VTE Prophylaxis: Contraindicated - See note (pt is on full dose anticoagulation ) Assessment and Plan (1) Non-Hodgkin lymphoma Current Visit: Yes Status: Acute Priority: High Code(s): C85.90 - NON- HODGKIN LYMPHOMA, UNSPECIFIED, UNSPECIFIED SITE SNOMED Code(s): 941045411 (2) Adrenal insufficiency Current Visit: No Status: Chronic Priority: Medium Code(s): E27.40 - UNSPECIFIED ADRENOCORTICAL INSUFFICIENCY SNOMED Code(s): 886963733 (3) Anemia Current Visit: Yes Status: Acute Priority: Medium Code(s): D64.9 - ANEMIA, UNSPECIFIED SNOMED Code(s): 907886057 Plan: Admit for cycle #4 R-ICE CIVI Home meds reconciled Daily Labs Mouth care Early and frequent ambulation On eliquis for LUE DVT-no DVT prophylaxis needed GI prophylaxis daily Verner fluid Daily f/u.
[2022-06-26] MEDS: OLANZapine 5 MG TAB PO SCH (20:53)
[2022-06-26] MEDS: POTASSIUM CHLORIDE ER 20 MEQ TAB.ER PO SCH (20:53)
[2022-06-26] MEDS: LORazepam 0.5 MG TAB PO PRN (20:53)
[2022-06-26] MEDS: APIXABAN 5 MG TAB PO SCH (20:53)
[2022-06-26] MEDS: SALT AND SODA MOUTHWASH 1,000 ML PO SCH ×2 (21:10→23:31)
[2022-06-27] MEDS: SALT AND SODA MOUTHWASH 1,000 ML PO SCH ×5 (05:19→21:35)
[2022-06-27] MEDS: LORazepam 0.5 MG TAB PO PRN (05:42)
[2022-06-27] MEDS: MAGNESIUM OXIDE 400 MG TAB PO SCH ×2 (08:06→16:37)
[2022-06-27] MEDS: HYDROCORTISONE 10 MG TAB PO SCH ×2 (08:06→16:37)
[2022-06-27] MEDS: APIXABAN 5 MG TAB PO SCH ×2 (08:06→19:48)
[2022-06-27] MEDS: POTASSIUM CHLORIDE ER 20 MEQ TAB.ER PO SCH ×2 (08:06→19:48)
[2022-06-27] MEDS: VIT A,C & E-LUTEIN-MINERALS 1 EACH TAB PO SCH (08:06)
[2022-06-27] MEDS: CHOLECALCIFEROL 25 MCG (1000 IU) TABLET PO SCH (08:07)
[2022-06-27] MEDS: LORATADINE 10 MG TAB PO SCH (08:07)
[2022-06-27] MEDS: PANTOPRAZOLE 40 MG TABLET PO SCH (08:07)
[2022-06-27] MEDS: EZETIMIBE 10 MG TAB PO SCH (08:19)
[2022-06-27 08:50] LABS: Basophils # (A) 0.01 X 10*3/uL (0.00-0.10); Basophils % (A) 0.2 %; Eosinophils # (A) 0 X 10*3/uL (0.04-0.35); Eosinophils % (A) 0 %; HCT 23.6 % (37.2-46.3); HGB 7.2 g/dL (12.0-15.0); Immature Grans, Automated 1.2 %; Lymphocytes # (A) 0.59 X 10*3/uL (0.90-5.00); Lymphocytes % (A) 13.8 %; MCH 29.8 pg (27.0-32.0); MCHC 30.5 g/dL (32.0-37.0); MCV 97.5 fL (80.0-97.0); Mean Platelet Volume 10.6 fL (9.5-12.2); Monocytes # (A) 0.54 X 10*3/uL (0.20-1.00); Monocytes % (A) 12.6 %; NRBC Per 100 WBC 0 /100 WBCS (0.0-0.0); Neutrophils % (A) 72.2 %; Platelet Count 192 X 10*3/uL (140-440); RBC 2.42 X 10*6/uL (4.10-5.20); RDW 18.3 % (11.5-14.5); WBC 4.29 X 10*3/uL (4.50-10.00)
[2022-06-27] MEDS: PROPRANOLOL LA 60 MG CAP.SA.24H PO SCH (08:59)
[2022-06-27 09:01] LABS: BUN/Creat Ratio 17.58 Ratio (12.00-20.00)
[2022-06-27 09:02] LABS: African American GFR (CKD) 108.9 (60.0-200.0); Albumin 3.6 g/dL (3.8-4.9); Albumin/Globulin Ratio 2.41 (1.60-3.17); Anion Gap 10.1 mmol/L (10.00-18.00); Blood Urea Nitrogen 9.8 mg/dL (9.0-27.0); Calcium 9.2 mg/dL (8.7-10.3); Carbon Dioxide 23.6 mmol/L (20.0-27.5); Globulin 1.5 g/dL (1.6-3.3); Phosphorus 3.7 mg/dL (2.4-5.1); Potassium 3.9 mmol/L (3.5-5.5); Total Bilirubin 0.4 mg/dL (0.30-1.20); Total Protein 5.2 g/dL (6.2-8.2); Uric Acid 3.4 mg/dL (2.9-7.7)
[2022-06-27] MEDS: FAMOTIDINE 20 MG/2 ML VIAL IV SCH (13:17)
[2022-06-27] MEDS: SODIUM CHLORIDE 0.9% 1,000 ML IV SCH ×2 (13:18→16:37)
[2022-06-27] MEDS: ONDANSETRON 16 MG in SODIUM CHLORIDE 0.9% 50 ML IVPB SCH (13:18)
[2022-06-27] MEDS: DEXAMETHASONE SOD PHOSPHATE 10 MG/ML 1 ML VIAL IVP SCH (13:18)
[2022-06-27] MEDS ORDERED: SODIUM CHLORIDE 0.9% IV ONE ×2 (14:00)
[2022-06-27] MEDS ORDERED: [UNRECOGNIZED DRUG - OTHER] IV ONE (14:00)
[2022-06-27] MEDS ORDERED: MESNA IV ONE (14:00)
[2022-06-27] MEDS ORDERED: IFOSFAMIDE IV ONE (14:00)
[2022-06-27] MEDS: ETOPOSIDE 170 MG in SODIUM CHLORIDE 0.9% 500 ML 500 ML IV SCH (14:12)
--- NOTE | 2022-06-27 15:27 | P.PN ---
Subjective Progress Note Date: 06/27/22 Principal diagnosis: continuous IV infusion RICE cycle #4 In follow-up today patient did have a headache, she takes propranolol for this at home, this was reordered for her. When seen, she reports her headache is improved. She is tired this morning she did not sleep well due to frequent urination from large volume of IV fluids, denies any other urinary symptoms, denies fevers, oral irritation, and nausea, shortness of breath, cough, abdominal pain or cramping, distention, diarrhea, constipation, hematuria, swelling in the legs. No rashes. Patient is ambulating. Objective - Vital Signs Vital signs: Vital Signs Temp 98.4 F 06/27/22 12:07 Pulse 89 06/27/22 12:07 Resp 18 06/27/22 12:07 BP 111/65 06/27/22 12:07 Pulse Ox 93 L 06/27/22 12:07 FiO2 Intake & Output 06/26/22 06/27/22 06/27/22 18:59 06:59 18:59 Intake Total 500 1800 Balance 500 1800 Weight 83.007 kg Intake: Intake, IV Titration 500 1200 Amount CARBOplatin 430 mg In 500 Sodium Chloride 0.9% 250 ml @ 586 mls/hr IV ONCE ONE Rx#:[id number] Sodium Chloride 0.9% 1, 1200 000 ml @ 100 mls/hr IV . Q10H ODILIA Rx#:[id number] Oral 600 Other: # Voids 3 - Constitutional General appearance: Present: average body habitus, cooperative, no acute distress - EENT Eyes: Present: anicteric sclerae, EOMI ENT: Present: hearing grossly normal, normal oropharynx - Respiratory Respiratory: bilateral: CTA - Cardiovascular Rhythm: regular Heart sounds: normal: S1, S2 Abnormal Heart Sounds: Absent: systolic murmur, diastolic murmur, rub, S3 Gallop, S4 Gallop, click, other - Peripheral edema leg Peripheral Edema: bilateral: None - Gastrointestinal General gastrointestinal: Present: normal bowel sounds, soft. Absent: absent bowel sounds, decreased bowel sounds, distended, hepatomegaly, hyperactive bowel sounds, organomegaly, rigid, scaphoid, splenomegaly, tenderness, umbilical herni a, ventral hernia - Integumentary Integumentary: Present: normal - Neurologic Neurologic: Present: CNII-XII intact - Musculoskeletal Musculoskeletal: Present: strength equal bilaterally - Psychiatric Psychiatric: Present: A&O x's 3, appropriate affect, intact judgment & insight - Labs CBC & Chem 7: 06/27/22 03:36 06/27/22 03:36 Labs: Abnormal Lab Results - Last 24 Hours (Table) 06/27/22 06/27/22 Range/Units 03:36 03:36 WBC 4.29 L (4.50-10.00) X 10*3/uL RBC 2.42 L (4.10-5.20) X 10*6/uL Hgb 7.2 L (12.0-15.0) g/dL Hct 23.6 L (37.2-46.3) % MCV 97.5 H (80.0-97.0) fL MCHC 30.5 L (32.0-37.0) g/dL RDW 18.3 H (11.5-14.5) % Immature Gran # 0.05 H (0.00-0.04) X 10*3/uL Lymphocytes # 0.59 L (0.90-5.00) X 10*3/uL Eosinophils # 0 L (0.04-0.35) X 10*3/uL Glucose 134 H (70-110) mg/dL Total Protein 5.2 L (6.2-8.2) g/dL Albumin 3.6 L (3.8-4.9) g/dL Globulin 1.5 L (1.6-3.3) g/dL Assessment and Plan (1) Non-Hodgkin lymphoma Current Visit: Yes Status: Acute Priority: High Code(s): C85.90 - NON- HODGKIN LYMPHOMA, UNSPECIFIED, UNSPECIFIED SITE SNOMED Code(s): 812403826 (2) Adrenal insufficiency Current Visit: No Status: Chronic Priority: Medium Code(s): E27.40 - UNSPECIFIED ADRENOCORTICAL INSUFFICIENCY SNOMED Code(s): 921107005 (3) Anemia Current Visit: Yes Status: Acute Priority: Medium Code(s): D64.9 - ANEMIA, UNSPECIFIED SNOMED Code(s): 294788106 Plan: Admit for cycle #4 R-ICE CIVI-continue treatment without adjustment Home meds reconciled. Added propanolol today as patient takes for migraine headaches Cont Daily Labs Mouth care Early and frequent ambulation On eliquis for LUE DVT-no DVT prophylaxis needed. Platelets adequate today at 192,000 to continue full dose anticoagulation GI prophylaxis daily [place] fluids Daily f/u. Bedside commode requested for frequent urination overnight Rach there is a large volume of IV fluids. Patient does wake up having to urinate quickly, makes her nervous, putting her at increased risk for fall. attests: I have performed H&P, seen and examined patient, developed impression and plan of care. Discussed with dictator. Agree with documentation, dictated as a scribe.
[2022-06-27] MEDS: OLANZapine 5 MG TAB PO SCH (19:48)
[2022-06-27] MEDS: ZOLPIDEM 5 MG TAB PO PRN (21:34)
[2022-06-28] MEDS: SALT AND SODA MOUTHWASH 1,000 ML PO SCH ×4 (05:34→20:46)
[2022-06-28] MEDS: SODIUM CHLORIDE 0.9% 1,000 ML IV SCH ×2 (05:34→15:58)
[2022-06-28] MEDS: MAGNESIUM OXIDE 400 MG TAB PO SCH ×2 (08:05→17:21)
[2022-06-28] MEDS: APIXABAN 5 MG TAB PO SCH ×2 (08:06→20:45)
[2022-06-28] MEDS: EZETIMIBE 10 MG TAB PO SCH (08:06)
[2022-06-28] MEDS: POTASSIUM CHLORIDE ER 20 MEQ TAB.ER PO SCH ×2 (08:06→20:45)
[2022-06-28] MEDS: HYDROCORTISONE 10 MG TAB PO SCH ×2 (08:06→15:18)
[2022-06-28] MEDS: CHOLECALCIFEROL 25 MCG (1000 IU) TABLET PO SCH (08:06)
[2022-06-28] MEDS: PROPRANOLOL LA 60 MG CAP.SA.24H PO SCH (08:06)
[2022-06-28] MEDS: VIT A,C & E-LUTEIN-MINERALS 1 EACH TAB PO SCH (08:06)
[2022-06-28] MEDS: LORATADINE 10 MG TAB PO SCH (08:09)
[2022-06-28] MEDS: PANTOPRAZOLE 40 MG TABLET PO SCH (08:09)
--- NOTE | 2022-06-28 10:42 | P.PN ---
Subjective Progress Note Date: 06/28/22 Principal diagnosis: continuous IV infusion RICE cycle #4 In follow-up today patient had a good night sleep, tolerating oral intake, denies fevers, oral irritation, and nausea, shortness of breath, cough, abdominal pain or cramping, distention, diarrhea, constipation, hematuria, swelling in the legs. No rashes. Patient is ambulating. No BM Objective - Vital Signs Vital signs: Vital Signs Temp 98.4 F 06/28/22 08:00 Pulse 83 06/28/22 08:00 Resp 16 06/28/22 08:00 BP 148/76 06/28/22 08:00 Pulse Ox 97 06/28/22 08:00 FiO2 Intake & Output 06/27/22 06/28/22 06/28/22 18:59 06:59 18:59 Intake Total 1200 1310 Balance 1200 1310 Intake: Intake, IV Titration 1200 Amount Sodium Chloride 0.9% 1, 1200 000 ml @ 100 mls/hr IV . Q10H [place]ILIA Rx#:[id number] Oral 1310 Other: # Voids 2 - Constitutional General appearance: Present: average body habitus, cooperative, no acute distress - EENT Eyes: Present: anicteric sclerae, EOMI ENT: Present: hearing grossly normal, normal oropharynx - Respiratory Respiratory: bilateral: CTA - Cardiovascular Rhythm: regular Heart sounds: normal: S1, S2 Abnormal Heart Sounds: Absent: systolic murmur, diastolic murmur, rub, S3 Gallop, S4 Gallop, click, other - Peripheral edema leg Peripheral Edema: bilateral: None - Gastrointestinal General gastrointestinal: Present: normal bowel sounds, soft. Absent: absent bowel sounds, decreased bowel sounds, distended, hepatomegaly, hyperactive bowel sounds, organomegaly, rigid, scaphoid, splenomegaly, tenderness, umbilical hernia, ventral hernia - Integumentary Integumentary: Present: normal - Neurologic Neurologic: Present: CNII-XII intact - Musculoskeletal Musculoskeletal: Present: strength equal bilaterally - Psychiatric Psychiatric: Present: A&O x's 3, appropriate affect, intact judgment & insight - Labs CBC & Chem 7: 06/27/22 03:36 06/27/22 03:36 Assessment and Plan (1) Non-Hodgkin lymphoma Current Visit: Yes Status: Acute Priority: High Code(s): C85.90 - NON- HODGKIN LYMPHOMA, UNSPECIFIED, UNSPECIFIED SITE SNOMED Code(s): 388659732 (2) Adrenal insufficiency Current Visit: No Status: Chronic Priority: Medium Code(s): E27.40 - UNSPECIFIED ADRENOCORTICAL INSUFFICIENCY SNOMED Code(s): 683698956 (3) Anemia Current Visit: Yes Status: Acute Priority: Medium Code(s): D64.9 - ANEMIA, UNSPECIFIED SNOMED Code(s): 845167615 Plan: Admit for cycle #4 R-ICE CIVI-pt will complete treatment later tonight, plan for DC in AM after being seen Cont Daily Labs-this AM labs are still pending. Will transfuse with irradiated blood products if needed Cont mouth care Early and frequent ambulation continues On eliquis for LUE DVT-no DVT prophylaxis needed. GI prophylaxis daily [place] fluids Daily f/u. attests: I have performed H&P, seen and examined patient, developed impression and plan of care. Discussed with dictator. Agree with documentation, dictated as a scribe.
[2022-06-28 11:17] LABS: Phosphorus 3.3 mg/dL (2.4-5.1)
[2022-06-28 11:27] LABS: Basophils # (A) 0.01 X 10*3/uL (0.00-0.10); Basophils % (A) 0.3 %; Eosinophils # (A) 0 X 10*3/uL (0.04-0.35); Eosinophils % (A) 0 %; HCT 22.8 % (37.2-46.3); HGB 6.7 g/dL (12.0-15.0); Immature Grans, Automated 0.7 %; Lymphocytes # (A) 0.42 X 10*3/uL (0.90-5.00); Lymphocytes % (A) 14.2 %; MCHC 29.4 g/dL (32.0-37.0); MCV 98.7 fL (80.0-97.0); Mean Platelet Volume 10.6 fL (9.5-12.2); Monocytes # (A) 0.29 X 10*3/uL (0.20-1.00); Monocytes % (A) 9.8 %; NRBC Per 100 WBC 0 /100 WBCS (0.0-0.0); Neutrophils # (A) 2.22 X 10*3/uL (1.80-7.70); Platelet Count 179 X 10*3/uL (140-440); RBC 2.31 X 10*6/uL (4.10-5.20); RDW 18.6 % (11.5-14.5); WBC 2.96 X 10*3/uL (4.50-10.00)
[2022-06-28 12:30] LABS: African American GFR (CKD) 112.7 (60.0-200.0); Albumin 3.3 g/dL (3.8-4.9); Albumin/Globulin Ratio 2.3 (1.60-3.17); Anion Gap 9.5 mmol/L (10.00-18.00); BUN/Creat Ratio 19.68 Ratio (12.00-20.00); Blood Urea Nitrogen 9.9 mg/dL (9.0-27.0); Globulin 1.4 g/dL (1.6-3.3); Non-African American GFR(CKD) 97.3 (60.0-200.0); Potassium 3.7 mmol/L (3.5-5.5); Total Bilirubin 0.5 mg/dL (0.30-1.20); Total Protein 4.8 g/dL (6.2-8.2)
[2022-06-28] MEDS: LORazepam 0.5 MG TAB PO PRN (13:24)
[2022-06-28] MEDS: DEXAMETHASONE SOD PHOSPHATE 10 MG/ML 1 ML VIAL IVP SCH (15:17)
[2022-06-28] MEDS: ONDANSETRON 16 MG in SODIUM CHLORIDE 0.9% 50 ML IVPB SCH (15:18)
[2022-06-28] MEDS: FAMOTIDINE 20 MG/2 ML VIAL IV SCH (15:18)
[2022-06-28 15:22] VITALS: BMI 28.6
[2022-06-28] MEDS: ETOPOSIDE 170 MG in SODIUM CHLORIDE 0.9% 500 ML 500 ML IV SCH (15:57)
[2022-06-28] MEDS: OLANZapine 5 MG TAB PO SCH (20:45)
[2022-06-28] MEDS: ZOLPIDEM 5 MG TAB PO PRN (20:47)
[2022-06-29] MEDS: SODIUM CHLORIDE 0.9% 1,000 ML IV SCH ×2 (00:46→09:11)
[2022-06-29] MEDS: SALT AND SODA MOUTHWASH 1,000 ML PO SCH ×3 (00:46→12:22)
[2022-06-29] MEDS: MAGNESIUM OXIDE 400 MG TAB PO SCH (07:43)
[2022-06-29 08:26] VITALS: TEMP 98.5
[2022-06-29] MEDS: APIXABAN 5 MG TAB PO SCH (09:09)
[2022-06-29] MEDS: PROPRANOLOL LA 60 MG CAP.SA.24H PO SCH (09:10)
[2022-06-29] MEDS: VIT A,C & E-LUTEIN-MINERALS 1 EACH TAB PO SCH (09:10)
[2022-06-29] MEDS: POTASSIUM CHLORIDE ER 20 MEQ TAB.ER PO SCH (09:10)
[2022-06-29] MEDS: PANTOPRAZOLE 40 MG TABLET PO SCH (09:10)
[2022-06-29] MEDS: EZETIMIBE 10 MG TAB PO SCH (09:10)
[2022-06-29] MEDS: LORATADINE 10 MG TAB PO SCH (09:10)
[2022-06-29] MEDS: CHOLECALCIFEROL 25 MCG (1000 IU) TABLET PO SCH (09:10)
[2022-06-29] MEDS: HYDROCORTISONE 10 MG TAB PO SCH (09:10)
[2022-06-29 09:32] LABS: African American GFR (CKD) 112.9 (60.0-200.0); Albumin 3.5 g/dL (3.8-4.9); Albumin/Globulin Ratio 2.69 (1.60-3.17); Anion Gap 9.9 mmol/L (10.00-18.00); BUN/Creat Ratio 18.8 Ratio (12.00-20.00); Blood Urea Nitrogen 9.4 mg/dL (9.0-27.0); Carbon Dioxide 23.1 mmol/L (20.0-27.5); Globulin 1.3 g/dL (1.6-3.3); Non-African American GFR(CKD) 97.4 (60.0-200.0); Phosphorus 2.9 mg/dL (2.4-5.1); Potassium 3.8 mmol/L (3.5-5.5); Total Bilirubin 0.7 mg/dL (0.30-1.20); Total Protein 4.8 g/dL (6.2-8.2); Uric Acid 2.6 mg/dL (2.9-7.7)
[2022-06-29 09:38] LABS: Basophils # (A) 0.01 X 10*3/uL (0.00-0.10); Basophils % (A) 0.4 %; Eosinophils # (A) 0 X 10*3/uL (0.04-0.35); Eosinophils % (A) 0 %; HCT 25.1 % (37.2-46.3); HGB 8.1 g/dL (12.0-15.0); Immature Grans, Automated 1.6 %; Lymphocytes % (A) 11.8 %; MCH 30.1 pg (27.0-32.0); MCHC 32.3 g/dL (32.0-37.0); MCV 93.3 fL (80.0-97.0); Mean Platelet Volume 10.3 fL (9.5-12.2); Monocytes # (A) 0.15 X 10*3/uL (0.20-1.00); Monocytes % (A) 5.9 %; NRBC Per 100 WBC 0 /100 WBCS (0.0-0.0); Neutrophils # (A) 2.05 X 10*3/uL (1.80-7.70); Neutrophils % (A) 80.3 %; Platelet Count 177 X 10*3/uL (140-440); RBC 2.69 X 10*6/uL (4.10-5.20); RDW 19.7 % (11.5-14.5); WBC 2.55 X 10*3/uL (4.50-10.00)
--- NOTE | 2022-06-29 11:56 | P.DS ---
Providers Date of admission: 06/26/22 11:38 Expected date of discharge: 06/29/22 Attending physician: William Villeda Consults: none Primary care physician: Stated None - Discharge Diagnosis(es) (1) Non-Hodgkin lymphoma Current Visit: Yes Status: Acute Priority: High (2) Adrenal insufficiency Current Visit: No Status: Chronic Priority: Medium (3) Anemia Current Visit: Yes Status: Acute Priority: Medium Hospital Course: Admitted for cycle #4 R-ICE CIVI. Pt tolerated treatment well, no uncontrolled side effects, fever, oral irritation, nausea, vomiting, SOB, cough, abd c/o, changes in bowel or bladder, swelling or pain during admit. She cont to ambulate. She required 1 unit PRBCs. Assessment: WD,WN,NAD, A&Ox4, no oral irritation, BBS CTA, S1S2, BS +, no edema in BLE Health Concerns: Neutropenic precautions Prophylactiv Abx, antifungal, antiviral Eliquis, bleeding precautions Pertinent Studies: none Procedures: none Patient Condition at Discharge: Stable Plan - Discharge Summary Discharge Rx Participant: Yes New Discharge Prescriptions: Discontinued predniSONE 100 mg PO DIRECTED #0 No Action Gabapentin [Neurontin] 300 mg PO Q6H PRN PRN Reason: Pain Propranolol HCl [Propranolol HCl ER] 60 mg PO DAILY Ezetimibe [Zetia] 10 mg PO DAILY Zolpidem [Ambien] 10 mg PO HS PRN PRN Reason: Insomnia Omeprazole 20 mg PO DAILY Cholecalciferol [Vitamin D3 (25 Mcg = 1000 Iu)] 50 mcg PO DAILY OLANZapine 5 mg PO DIRECTED Ondansetron Odt [Zofran ODT] 4 mg PO Q6H PRN PRN Reason: Nausea Cetirizine HCl [Zyrtec] 10 mg PO DAILY Loratadine 10 mg PO DIRECTED HYDROcodone/APAP 10-325MG [[place] 10-325] 1 tab PO Q6H PRN PRN Reason: Pain LORazepam [Ativan] 0.5 mg PO BID PRN PRN Reason: Anxiety/Nausea/Insomnia Nystatin 100,000 Unit/ml Susp [Mycostatin Oral Susp] 500,000 unit PO QID #400 ml Potassium Chloride ER [K-Dur 20] 20 meq PO BID tab Apixaban [Eliquis] 5 mg PO BID Vit C/E/Zn/Coppr/Lutein/Zeaxan [Preservision Areds 2 Softgel] 1 cap PO DAILY fentaNYL 25MCG/HR PATCH [Duragesic 25MCG/HR] 1 patch TRANSDERM Q72H Sennosides-Docusate Sodium [Senokot-S] 1 - 2 tab PO HS PRN PRN Reason: Constipation Clobetasol Propionate [Temovate 0.05% Oint] 1 applic TOPICAL BID PRN PRN Reason: Rash Hydrocortisone [Cortef] 10 mg PO BID@0900,1600 Magnesium Oxide [Mag-Oxide] 200 mg PO AC-BID #30 tab Discharge Medication List Gabapentin [Neurontin] 300 mg PO Q6H PRN 09/24/18 [History] Propranolol HCl [Propranolol HCl ER] 60 mg PO DAILY 09/24/18 [History] Ezetimibe [Zetia] 10 mg PO DAILY 01/18/22 [History] Vit C/E/Zn/Coppr/Lutein/Zeaxan [Preservision Areds 2 Softgel] 1 cap PO DAILY 01/18/22 [History] Omeprazole 20 mg PO DAILY 02/26/22 [History] Zolpidem [Ambien] 10 mg PO HS PRN 02/26/22 [History] Cholecalciferol [Vitamin D3 (25 Mcg = 1000 Iu)] 50 mcg PO DAILY 03/14/22 [History] OLANZapine 5 mg PO DIRECTED 03/14/22 [History] Ondansetron Odt [Zofran ODT] 4 mg PO Q6H PRN 04/06/22 [History] fentaNYL 25MCG/HR PATCH [Duragesic 25MCG/HR] 1 patch TRANSDERM Q72H 04/06/22 [History] Cetirizine HCl [Zyrtec] 10 mg PO DAILY 05/03/22 [History] Loratadine 10 mg PO DIRECTED 05/10/22 [History] Clobetasol Propionate [Temovate 0.05% Oint] 1 applic TOPICAL BID PRN 05/12/22 [History] HYDROcodone/APAP 10-325MG [[place] 10-325] 1 tab PO Q6H PRN 05/12/22 [History] Sennosides-Docusate Sodium [Senokot-S] 1 - 2 tab PO HS PRN 05/12/22 [History] LORazepam [Ativan] 0.5 mg PO BID PRN 05/31/22 [History] Nystatin 100,000 Unit/ml Susp [Mycostatin Oral Susp] 500,000 unit PO QID #400 ml 06/03/22 [Rx] Hydrocortisone [Cortef] 10 mg PO BID@0900,1600 06/13/22 [History] Magnesium Oxide [Mag-Oxide] 200 mg PO AC-BID #30 tab 06/15/22 [Rx] Potassium Chloride ER [K-Dur 20] 20 meq PO BID tab 06/15/22 [Rx] Apixaban [Eliquis] 5 mg PO BID 06/26/22 [History] Follow up Appointment(s)/Referral(s): William Villeda MD [STAFF PHYSICIAN] - 06/30/22 10:30 am (This appt is for GCSF injection. Pt will get more f/u appt when there) Activity/Diet/Wound Care/Special Instructions: Activity as tolerated Diet as tolerated Temperature monitoring. Report temp 100.5F or higher to Oncologist immediately [place] fluids Lab monitoring at [facility] Prophylactic antiviral, antifungal and antibiotic sent to [facility]. 14 day supply of Cipro, Diflucan and acyclovir. Discharge Disposition: HOME SELF-CARE Pending Studies Pending Results: none
[2022-06-29 12:40] VITALS: BP 168/83; PULSE 83; RESP 18
== END 2022-06-29 13:00 | disposition home or self-care (01) | DRG 841 ==
LOC: 5NMEDONC 06-26 11:38
PROVIDERS: ADMIT Internal Medicine Hematology & Oncology; ATTEND Internal Medicine Hematology & Oncology
PROC: 3E0 Administration, Physiological Systems and Anatomical Regions, Introduction (ICD-10-PCS; principal; 2022-06-26)
DX: C85.92 Non-Hodgkin lymphoma, unspecified, intrathoracic lymph nodes (principal); E27.40 Unspecified adrenocortical insufficiency; I82.622 Acute embolism and thrombosis of deep veins of left upper extremity; J90 Pleural effusion, not elsewhere classified; G43.909 Migraine, unspecified, not intractable, without status migrainosus; D64.9 Anemia, unspecified; E78.5 Hyperlipidemia, unspecified; M19.90 Unspecified osteoarthritis, unspecified site; N28.89 Other specified disorders of kidney and ureter; Z79.01 Long term (current) use of anticoagulants; Z79.899 Other long term (current) drug therapy; Z86.718 Personal history of other venous thrombosis and embolism; Z92.3 Personal history of irradiation; Z98.1 Arthrodesis status; Z77.22 Contact with and (suspected) exposure to environmental tobacco smoke (acute) (chronic); Z71.3 Dietary counseling and surveillance; Z83.2 Family history of diseases of the blood and blood-forming organs and certain disorders involving the immune mechanism; Z79.891 Long term (current) use of opiate analgesic
CPT/HCPCS: 80053; 84100; 84550; 85025; 86850; 86900; 86901; 86920

== ENCOUNTER → 2022-08-02 | Outpatient (CLI) | payer MEDICARE ==
--- NOTE | 2022-08-04 07:03 | MR ---
EXAMINATION TYPE: MR brain wo/w con DATE OF EXAM: 08/02/2022 COMPARISON: None HISTORY: Lymphoma CONTRAST: Standard multiplanar, multisequence MRI departmental protocol images were obtained without contrast a nd with 8 mL intravenous gadolinium contrast. There is mild cerebral cortical atrophy. There is no mass effect or midline shift. No sign of intracr anial hemorrhage. Diffusion images show no evidence of an acute infarct. Corpus callosum is intact. T here are scattered small foci of increased signal in the white matter in both cerebral hemispheres an d mostly in the internal capsule bilaterally. These measure up to 3 mm. Total numbers less than 20 br ainstem is intact. Skull base is intact. Cerebellum is intact. The contrast images show no pathologic enhancement. There is normal enhancement of the venous sinuses . The sella turcica is normal. No evidence of orbital mass. No meningeal thickening. IMPRESSION: Scattered small white matter high signal foci are nonspecific and could relate to microvascular ische raymond. No evidence of metastatic disease.
== END | disposition home or self-care (01) ==
LOC: RADMRIMAIN 15:42
PROVIDERS: ATTEND Internal Medicine Hematology & Oncology
DX: Z01.818 Encounter for other preprocedural examination (principal); C85.98 Non-Hodgkin lymphoma, unspecified, lymph nodes of multiple sites
CPT/HCPCS: 70553; A9585

== ENCOUNTER → 2022-08-04 | Outpatient (CLI) | payer MEDICARE ==
--- NOTE | 2022-08-04 12:17 | XR ---
EXAMINATION TYPE: XR chest 2V DATE OF EXAM: 08/04/2022 COMPARISON: 06/01/2022 HISTORY: Shortness of breath TECHNIQUE: Frontal and lateral views of the chest are obtained. FINDINGS: Right basilar chest tube. Trace right apical pneumothorax suggested. Small right basilar effusion wit h the pleural-parenchymal change. Heart size is stable. Mediastinal structures are stable and grossly unremarkable. No evidence for hilar prominence. Degenerative changes dorsal spine. IMPRESSION: 1. Right basilar chest tube. Trace right apical pneumothorax suggested. Small right basilar effusion with the pleural-parenchymal change.
== END | disposition home or self-care (01) ==
LOC: RADXRMAIN 11:43
PROVIDERS: ATTEND Internal Medicine Hematology & Oncology
DX: Z01.818 Encounter for other preprocedural examination (principal); C85.98 Non-Hodgkin lymphoma, unspecified, lymph nodes of multiple sites; C72.0 Malignant neoplasm of spinal cord; J90 Pleural effusion, not elsewhere classified; I10 Essential (primary) hypertension
CPT/HCPCS: 71046

== ENCOUNTER → 2022-08-04 | Outpatient (CLI) | payer MEDICARE ==
--- NOTE | 2022-08-07 08:59 | PE ---
EXAMINATION TYPE: PET CT fusion skull to thigh DATE OF EXAM: 08/04/2022 CLINICAL INDICATION:Female, 72 years old with history of C85.98 NON-HODGKIN LYMPHOMA, UNSP, LYMPH NOD ES OF TECHNIQUE: Following the intravenous administration of 9.7 mCi of F-18 FDG, whole body images are p erformed from the skull base to the midthigh. Images are reviewed on the computer in the coronal, ax ial, and sagittal planes. Reconstructed rotating images are created on independent workstation and r eviewed on the computer. A non-contrast CT is performed in conjunction with the PET scan. Glucose l evel 111 mg/dL COMPARISON: CT 02/26/2022, 12/20/2021, PET/CT 05/19/2022, FINDINGS: Mediastinal SUV mean is 1.8. Hepatic parenchyma SUV mean is 2.4. SKULL BASE AND NECK: No suspicious FDG activity. CHEST, MEDIASTINUM, AND HILAR REGION: Multiple suspicious areas of FDG activity which have increased in size and FDG activity compared to p rior. * FDG activity along the right pleura including, anterior pleural space near the diaphragm with max SUV 16.4, posterior medial pleura max SUV 17.1, Anterior pleura near the heart border max is to be 18 .1 (previous 3.3). * Right chest wall mass with Max SUV 18.3 (previously 9.2) and measuring roughly 11.1 x 4.3 cm, prev iously 10.0 x 4.7 cm is felt to be larger on today's exam. * New Right axillary lymph node with increased FDG activity max SUV 6.8 and measuring 7 mm in short axis. ABDOMEN AND PELVIS: No suspicious FDG activity. OSSEOUS STRUCTURES: No suspicious FDG activity. OTHER CT: Atherosclerosis of the carotid bifurcations, arterial vasculature and coronary arteries. Th ere is a right thoracotomy tube with tip terminating along the diaphragm. Trace right pleural effusio n is present. The heart is mildly enlarged for size. Multilevel disc degeneration changes are present . Multilevel surgical changes in the lower lumbar spine. Hardware appears intact. IMPRESSION: Progression of disease with increase in size and FDG activity of pleural metastatic disease with new right axillary lymph node demonstrate increased FDG activity. The dominant mass along the right chest wall also has increased FDG activity densities exam.
== END | disposition home or self-care (01) ==
LOC: RADXRMAIN 10:49
PROVIDERS: ATTEND Internal Medicine Hematology & Oncology
DX: C78.2 Secondary malignant neoplasm of pleura (principal); C77.3 Secondary and unspecified malignant neoplasm of axilla and upper limb lymph nodes; R22.2 Localized swelling, mass and lump, trunk
CPT/HCPCS: 78815; 93005; A9552

== ENCOUNTER → 2022-08-08 | Outpatient (CLI) | payer MEDICARE | LOC: CPPFTMAIN 08:14 | PROVIDERS: ATTEND Internal Medicine Hematology & Oncology | DX: Z01.818 Encounter for other preprocedural examination (principal) | CPT/HCPCS: 94060; 94726; 94729 ==

== ENCOUNTER → 2023-08-07 | Outpatient (CLI) | payer MEDICARE ==
--- NOTE | 2023-08-08 09:47 | MM ---
Reason for Exam: Screening (asymptomatic). Last mammogram was performed 1 year(s) and 9 month(s) ago. Patient History: Menarche at age 17. First Full-Term at age 32. Late child-bearing (after 30). Postmenopausal. Estrogen for 5 years, 6 months, from age 50 until age 55. Progesterone for 5 years, 6 months, from age 50 until age 55. 1990, Benign Excisional Biopsy on the left side. Risk Values: Estela 5 year model risk: 2.6%. NCI Lifetime model risk: 6.8%. Prior Study Comparison: 08/20/2019 Bilateral Screening Mammogram, [facility]. 10/25/2020 Bilateral Screening Mammogram, [facility]. 10/26/2021 Bilateral Screening Mammogram, [facility]. Tissue Density: There are scattered fibroglandular densities. Findings: Analyzed By CAD. There is no suspicious group of microcalcifications or new suspicious mass. Overall Assessment: Negative, BI-RAD 1 Management: Screening Mammogram of both breasts in [address] [facility] will attempt to contact patient to return for supplemental views and ultrasound if indicated. Patient should continue monthly self-breast exams. A clinical breast exam by your physician is recommended on an annual basis. This exam should not preclude additional follow-up of suspicious palpable abnormalities. Note on Estela scores and lifetime risk: 1. A Estela score greater than 3% is considered moderate risk. If this is the case, consider specialist referral to assess eligibility for a risk reducing agent. 2. If overall lifetime risk for the development of breast cancer is 20% or higher, the patient may qualify for future screening with alternating mammogram and breast MRI. Electronically signed and approved by: José Bansal DO
== END | disposition home or self-care (01) ==
LOC: RADMAMWWP 09:55
PROVIDERS: ATTEND Internal Medicine Hematology & Oncology
DX: Z12.31 Encounter for screening mammogram for malignant neoplasm of breast (principal); Z78.0 Asymptomatic menopausal state
CPT/HCPCS: 77063; 77067

== ENCOUNTER → 2024-02-08 | Outpatient (CLI) | payer MEDICARE ==
--- NOTE | 2024-02-08 15:22 | BD ---
EXAMINATION TYPE: Axial Bone Density DATE OF EXAM: 02/08/2024 CLINICAL HISTORY: 73 years old Female. ICD-10 CODE: M85.80 OTH DISRD OF BONE DENSITY AND STRUCTURE, UN Height: 66" Weight: 199.7lbs FRAX RISK QUESTIONS: Alcohol (3 or more units per day): No Family History (Parent hip fracture): No Glucocorticoids (More than 3mos): Yes, hx of cancer with steroid prescription (Ex: prednisone, prednisolone, methylprednisolone, dexamethasone, and hydrocortisone). History of Fracture in Adulthood: Yes Secondary Osteoporosis: 1. Type 1 Diabetes: No 2. Hyperthyroidism: No 3. Menopause before 45: No 4. Malnutrition: No 5. Chronic liver disease: No Rheumatoid Arthritis: No Current Tobacco Use: No RISK FACTORS HISTORY OF: Hip Fracture (Right/Left): No Spine Fracture: No History of Wrist Fracture: No Surgery to Spine/Hip(right/left)/Wrist (right/left): Fused three vertebra, lumbar spine When: No MEDICATIONS: Thyroid Medications: No EXAMINATION TYPE: Axial Bone Density DATE OF EXAM: 02/08/2024 COMPARISON: 08/14/2018 CLINICAL HISTORY: 70-year-old female postmenopausal screening Height: 5 FT 7 IN Weight: 216 FRAX RISK QUESTIONS: Alcohol (3 or more units per day): NO Family History (Parent hip fracture): NO Glucocorticoids (More than 3mos): NO (Ex: prednisone, prednisolone, methylprednisolone, dexamethasone, and hydrocortisone). History of Fracture in Adulthood: YES Secondary Osteoporosis: 1. Type 1 Diabetes: NO 2. Hyperthyroidism: NO 3. Menopause before 45: NO 4. Malnutrition: NO 5. Chronic liver disease: NO Rheumatoid Arthritis: NO Current Tobacco Use: NO RISK FACTORS HISTORY OF: Surgery to Spine/Hip(right/left)/Wrist (right/left): LUMBAR SURG When: 2018 Family History of Osteoporosis: UNSURE Active: YES Diet low in dairy products/other sources of calcium: NO Postmenopausal woman: AGE 49 Take estrogen and/or progesterone medications: TOOK HRT FROM AGE [age] Lost more than 2 inches in height since high school: NO MEDICATIONS: Additional Medications: JUST STARTED CHOLESTEROL MEDS, IMMATREX, PROPRANOLOL Additional History: EXAM MEASUREMENTS: Bone mineral densitometry was performed using the Giga[employer] System. Bone mineral density about the R hip (g/cm2): 0.822 Bone mineral density about the L hip (g/cm2): 0.892 T Score values are as follows: -----R Neck: -1.6 -----L Neck: -1.1 -----R Total: -0.5 -----L Total: -0.1 Bone mineral density has: DECREASED -1.4 % since study of: 2017 Bone mineral density about the L Wrist (g/cm2): 0.616 T Score values are as follows: -----Dist. R+U: -2.2 -----Prox. R+U: -0.8 -----Radius total: -1.0 BASELINE FOR WRIST IMPRESSION: Osteopenia (T Score between -2.5 and -1). There is slightly increased risk of fracture and the patient may be considered for treatment. Re-Screen 2-5 years. NOTE: T-SCORE=SD OF THE YOUNG ADULT MEAN. Osteoporosis Medications: No EXAM MEASUREMENTS: Bone mineral densitometry was performed using the Giga[employer] System. Bone mineral density about the R hip (g/cm2): 0.899 Bone mineral density about the L hip (g/cm2): 0.889 T Score values are as follows: -----R Neck: -2.0 -----L Neck: -1.8 -----R Total: -0.9 -----L Total: -0.9 Z Score values are as follows: -----R Neck: -0.7 -----L Neck: -0.5 -----R Total: 0.1 -----L Total: 0.1 Bone mineral density has: decreased -7.7% since study of: 10/25/2020 Bone mineral density about the L Wrist (g/cm2): 0.515 T Score values are as follows: -----Dist. R+U: -3.0 -----Prox. R+U: -2.2 -----Radius total: -2.6 Z Score values are as follows: -----Dist. R+U: -0.9 -----Prox. R+U: -0.2 -----Radius total: -0.6 Bone mineral density has: decreased 16.1% since study of: 10/25/2020 FRAX%s: The graph provided illustrates a 28.0% chance for a major osteoporotic fx and a 6.9% chance f or the hips probability for fx in 10 years time. IMPRESSION: Osteopenia (T Score between -2.5 and -1). Note that measurements are bordering on osteoporosis at the left wrist. There is slightly increased risk of fracture and the patient may be considered for treatment. Re-Screen 2-5 years. NOTE: T-SCORE=SD OF THE YOUNG ADULT MEAN.
== END | disposition home or self-care (01) ==
LOC: RADBDWWP 11:24
PROVIDERS: ATTEND Family Medicine
DX: M85.89 Other specified disorders of bone density and structure, multiple sites (principal); M81.0 Age-related osteoporosis without current pathological fracture; Z78.0 Asymptomatic menopausal state
CPT/HCPCS: 77080

== ENCOUNTER → 2024-08-29 | Outpatient (CLI) | payer MEDICARE ==
--- NOTE | 2024-09-01 14:41 | MM ---
Reason for Exam: Screening (asymptomatic). Last mammogram was performed 1 year(s) and 1 month(s) ago. Patient History: Menarche at age 17. First Full-Term at age 32. Late child-bearing (after 30). Postmenopausal. Estrogen for 5 years, 6 months, from age 50 until age 55. Progesterone for 5 years, 6 months, from age 50 until age 55. 1990, Benign Excisional Biopsy on the left side. Risk Values: Estela 5 year model risk: 2.6%. NCI Lifetime model risk: 6.4%. Prior Study Comparison: 10/25/2020 Bilateral Screening Mammogram, [facility]. 10/26/2021 Bilateral Screening Mammogram, [facility]. 08/07/2023 Bilateral MG 3D screening mammo w/cad, [facility]. Tissue Density: There are scattered areas of fibroglandular density. Findings: Analyzed By CAD. There is no suspicious group of microcalcifications or new suspicious mass in either breast. Overall Assessment: Negative, BI-RAD 1 Management: Screening Mammogram of both breasts in 1 year. . Patient should continue monthly self-breast exams. A clinical breast exam by your physician is recommended on an annual basis. This exam should not preclude additional follow-up of suspicious palpable abnormalities. Note on Estela scores and lifetime risk: 1. A Estela score greater than 3% is considered moderate risk. If this is the case, consider specialist referral to assess eligibility for a risk reducing agent. 2. If overall lifetime risk for the development of breast cancer is 20% or higher, the patient may qualify for future screening with alternating mammogram and breast MRI. [facility], , 09/01/2024 2:38 PM. Electronically signed and approved by: Jigar Clark M.D. Radiologis
== END | disposition home or self-care (01) ==
LOC: RADMAMWWP 10:34
PROVIDERS: ATTEND Family Medicine
DX: Z12.31 Encounter for screening mammogram for malignant neoplasm of breast
CPT/HCPCS: 77063; 77067

== ENCOUNTER → 2025-05-20 | Outpatient (CLI) | payer MEDICARE ==
--- NOTE | 2025-05-21 08:22 | XR ---
EXAMINATION TYPE: XR chest 2V DATE OF EXAM: 05/20/2025 2:56 PM COMPARISON: 08/04/2022 CLINICAL INDICATION: Female, 75 years old with history of [id number],R0602 COUGH,SOB, TECHNIQUE: XR chest 2V view(s) obtained. FINDINGS: The heart size is normal. The pulmonary vasculature is normal. The lungs are clear. IMPRESSION: 1. No acute pulmonary process. [facility], , 05/21/2025 8:20 AM
== END | disposition home or self-care (01) ==
LOC: RADXRYALE 14:46
PROVIDERS: ATTEND Physician Assistant Medical
DX: R05.9 Cough, unspecified (principal); R06.02 Shortness of breath
CPT/HCPCS: 71046